=== PATIENT | male | born 1965 | race Caucasian/White ===

== ENCOUNTER → 2017-08-26 | Outpatient (CLI) | payer MEDICARE ==
--- NOTE | 2017-08-27 15:06 | CT ---
EXAMINATION TYPE: CT abdomen pelvis wo con DATE OF EXAM: 08/26/2017 COMPARISON: NONE HISTORY: Rectal cancer. CT DLP: 1146 mGycm Automated exposure control for dose reduction was used. TECHNIQUE: Helical acquisition of images was performed from the lung bases through the pelvis withou t the utilization of oral contrast per protocol and without intravenous contrast. FINDINGS: Lack of intravenous contrast limits evaluation of the solid viscera. LUNG BASES: There is a 2 mm pulmonary nodule that is pleural-based along the left hemidiaphragm on se yovany 4 image 4 and series 5 image 75. LIVER/GB: Hepatic parenchyma is diffusely hypoattenuated in comparison to that of the spleen, most co mmonly seen in hepatic steatosis. This finding and lack of intravenous contrast limits evaluation for hepatic masses. No however there is a 1.4 cm ill-defined lesion of the left hepatic lobe that approa ches fluid attenuation but is not compatible with a simple cyst. This is seen on series 3 image 11. N o intrahepatic biliary ductal dilatation. Gallbladder surgically absent. PANCREAS: No significant abnormality is seen. No pancreatic ductal dilatation. SPLEEN: No significant abnormality is seen. No splenomegaly. ADRENALS: No nodularity or thickening. KIDNEYS: Unremarkable unenhanced morphology. FREE AIR: No free air is visualized ADENOPATHY: Prominent gastrohepatic lymph node measures 7 mm in short axis on series 3 image 12. Few prominent periportal lymph nodes are seen that are not enlarged with the portacaval lymph node measu ring 9 mm in short axis and additional adjacent portal caval lymph node measuring 9 mm in short axis as on series 3 image 21. Mildly enlarged peripancreatic lymph node situated between the descending du odenum and pancreas measures 1.3 cm in short axis on series 3 image 26. URINARY BLADDER: Incompletely distended. Wall thickening is likely attributable to incomplete disten tion.. OSSEOUS STRUCTURES: There is a dextroscoliosis of the lumbar spine. No suspicious osseous lesions ar e seen. Extensive multilevel degenerative changes are present of the visualized lumbosacral spine. Th ere is concern for bilateral avascular necrosis of the femoral heads versus insufficiency fractures s uch as on series 5 image 71. No subchondral collapse. BOWEL: Diffuse thickening of the gastric fundus and rugal folds may relate to gastritis. Originating approximately 10 cm from the anal verge there is circumferential wall thickening of the r ectosigmoid colon measuring approximately 7 cm in length with thickness measuring up to 1.2 cm. There is haziness of the surrounding mesorectal fat and suspicious prominent adenopathy measuring up to 7 mm on series 3 image 63. No presacral soft tissue thickening is seen. Multiple colonic diverticula are noted. No evidence of bowel dilatation. Appendix is air-filled and w ithin normal limits. OTHER: There is diastases recti without ventral hernia. Moderate calcific atheromatous changes are se en of the abdominal aorta and its branches. Abdominal aorta is of normal course and caliber. IMPRESSION: 1. CIRCUMFERENTIAL RECTOSIGMOID MUCOSAL THICKENING MEASURING 7 MM IN LENGTH APPROXIMATELY 10 CM FROM THE ANAL VERGE, THOUGHT TO RELATE TO THIS PATIENT'S KNOWN CARCINOMA, WITH ASSOCIATED FAT STRANDING OF THE MESORECTAL FASCIA AND SOLITARY SUSPICIOUS PROMINENT 7 MM REGIONAL LYMPH NODE CONTAINED WITHIN TH E MESORECTAL FASCIA. 2. 1.4 CM ILL-DEFINED LEFT HEPATIC LOBE LESION THAT ALTHOUGH APPROACHES [place] UNITS OF SIMPLE CY ST IS NOT ENTIRELY COMPATIBLE WITH A SIMPLE CYST. THERE IS A POTENTIAL FOR NECROTIC METASTASIS AND FU RTHER EVALUATION IS RECOMMENDED WITH EITHER ENHANCED MR OR PET SCAN. FINDINGS ARE SUPERIMPOSED UPON H EPATIC STEATOSIS. 3. FINDINGS CONCERNING FOR BILATERAL AVASCULAR NECROSIS OF THE FEMORAL HEADS WITHOUT CURRENT SUBCHOND RAL COLLAPSE. 4. DIFFUSE GASTRIC FUNDAL RUGAL FOLD THICKENING, MOST COMMONLY RELATING TO GASTRITIS. 5. 2 MM PLEURAL-BASED PULMONARY NODULE, UNLIKELY TO RELATE TO METASTASIS. 6. MILDLY ENLARGED PERIPANCREATIC LYMPH NODE AND PROMINENT PORTACAVAL LYMPH NODE.
== END | disposition home or self-care (01) ==
LOC: RADCTMAIN 15:14
PROVIDERS: ATTEND Surgery
DX: C20 Malignant neoplasm of rectum (principal); K76.9 Liver disease, unspecified; K63.89 Other specified diseases of intestine; Z91.048 Other nonmedicinal substance allergy status; R59.1 Generalized enlarged lymph nodes
CPT/HCPCS: 74176

== ENCOUNTER → 2017-09-04 | Outpatient (CLI) | payer MEDICARE | END | disposition home or self-care (01) | LOC: RADPETMAIN 10:37 | PROVIDERS: ATTEND Internal Medicine Hematology & Oncology | DX: Z53.9 Procedure and treatment not carried out, unspecified reason (principal) ==

== ENCOUNTER → 2017-09-11 | Outpatient (CLI) | payer MEDICARE ==
--- NOTE | 2017-09-12 15:19 | PE ---
EXAMINATION TYPE: PET CT fusion skull to thigh DATE OF EXAM: 09/11/2017 COMPARISON: CT abdomen and pelvis August 26, 2017 HISTORY: Rectal cancer initial staging study after biopsy 3 weeks ago. TECHNIQUE: Following the intravenous administration of 13.008 mCi of F-18 FDG, whole body images are performed from the skull base to the midthigh. Images are reviewed on the computer in the coronal, axial, and sagittal planes. Reconstructed rotating images are created on independent workstation and reviewed on the computer. A noncontrast CT is performed in conjunction with the PET scan. SCAN: Initial Scan FINDINGS: SKULL BASE AND NECK: No suspicious hypermetabolic uptake is seen to suggest neck adenopathy. CHEST, MEDIASTINUM, AND HILAR REGION: No suspicious hypermetabolic uptake is seen. Small calcified gr anuloma posterior left lung base axial image 117 noted. ABDOMEN AND PELVIS: There is moderate eccentric wall thickening with abnormal hypermetabolic uptake n ear the sigmoid rectal junction on axial image 199, max SUV is. This likely corresponds to biopsy-pro natalia malignancy. This is immediately posterior to the bladder making evaluation slightly suboptimal. M ax SUV is 13.52. Craniocaudal length of tumor is roughly 4 to 5 cm on coronal and sagittal images. Th ere is mild haziness or fat stranding surrounding tissue . There is prominent adjacent subcentimeter lymph node right posterior region axial image 211. No adjacent hypermetabolic or greater than 1 cm ad enopathy is clearly seen however. No additional areas of abnormal hypermetabolic uptake are clearly identified. Some focal areas of bow el appear to correspond to diverticula scattered throughout the colon. OSSEOUS STRUCTURES: No suspicious hypermetabolic uptake is present. OTHER CT: A few additional smaller calcified nodules are granulomas in the right lower lobe are prese nt. There is three-vessel coronary artery calcification and/or stents appreciated. Liver is isodense relative to spleen consistent with fatty infiltration. Cholecystectomy clips are pr esent. Multilevel surgical change in the lumbar spine with posterior decompression as there are bilateral la minectomy defects and spinous process resection. There is moderate to severe multilevel spurring and disc space narrowing. There is underlying dextroconvex scoliosis. There is endplates sclerosis. There is loss of normal lumbar lordosis. IMPRESSION: Primary tumor or neoplasm near sigmoid rectal junction. No metastatic disease is clearly evident.
== END | disposition home or self-care (01) ==
LOC: RADPETMAIN 07:03
PROVIDERS: ATTEND Internal Medicine Hematology & Oncology
DX: C20 Malignant neoplasm of rectum (principal)
CPT/HCPCS: 78815; A9552

== ENCOUNTER 2018-04-06 08:44 | Day surgery (SDC) | payer MEDICARE ==
[2018-04-01 10:58] VITALS: BMI 35.9
[~2018-04-06 08:44] MED LIST: DEXAMETHASONE SOD PHOSPHATE 10 MG/ML 1 ML VIAL IV ONE; HEPARIN SODIUM,PORCINE 5,000 UNIT/ML 1 ML VIAL SQ ONE; HYDROmorphone 0.5 MG/0.5 ML SYRINGE IVP PRN; LACTATED RINGERS 1,000 ML IV SCH; MIDAZOLAM 2 MG/2 ML VIAL IV PRN; ONDANSETRON 4 MG/2 ML VIAL IVP ONE; Pre Op ABX Message 1 EACH MISC MISCELLANE ONE; SCOPOLAMINE 1.5MG/72HR PATCH TRANSDERM ONE
[2018-04-06 09:46] VITALS: TEMP 97
[2018-04-06] MEDS ORDERED: LIDOCAINE 1% 20 ML VIAL (10MG/ML) FOR IV START INTRADERMA ONE (09:58)
[2018-04-06 10:20] LABS: Glucose,Whole Blood 135 mg/dL (75-99)
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
[2018-04-06] MEDS ORDERED: MIDAZOLAM 2 MG/2 ML VIAL ONE (10:56)
[2018-04-06] MEDS ORDERED: ceFAZolin 1,000 MG VIAL ONE (10:56)
[2018-04-06] MEDS ORDERED: fentaNYL (PF) 50 MCG/ML 2 ML AMP ONE (10:56)
[2018-04-06] MEDS ORDERED: LIDOCAINE 1% INJ 10MG/ML (20 ML MDV) ONE (10:56)
[2018-04-06] MEDS ORDERED: ePHEDrine SULFATE/0.9% NACL/PF 50 MG/5 ML SYRINGE IV ONE (10:56)
[2018-04-06] MEDS ORDERED: PROPOFOL 10 MG/ML 20 ML VIAL IV ONE (10:56)
[2018-04-06] MEDS ORDERED: SODIUM CHLORIDE 0.9% 50 ML with ceFAZolin 3,000 MG IV ONE ×2 (11:29)
[2018-04-06] MEDS ORDERED: LIDOCAINE 1% INJ 10MG/ML (20 ML MDV) SQ ONE (11:34)
[2018-04-06] MEDS ORDERED: HEPARIN SODIUM,PORCINE 100 UNIT/ML 5 ML VIAL IV ONE (11:34)
[2018-04-06] MEDS ORDERED: NALOXONE 0.4 MG/ML 1 ML VIAL IV PRN (11:50)
[2018-04-06] MEDS ORDERED: HYDROcodone/APAP 5-325MG 1 EACH TAB PO PRN (11:50)
--- NOTE | 2018-04-06 11:52 | P.OP ---
Date of Procedure: 04/06/18 Procedure(s) Performed: PREOPERATIVE DIAGNOSIS: Rectal cancer POSTOPERATIVE DIAGNOSIS: Same PROCEDURE: Port-A-Cath placement SURGEON: Naz EBL: Minimal ANESTHESIA: Sedation COMPLICATIONS: None OPERATIVE PROCEDURE: Patient was brought and placed on the operative table in the supine position. The patient was sedated per anesthesia that time. The chest and neck were prepped and draped in usual sterile fashion. The ultrasound probe was used to identify the location of the right internal jugular vein. The skin was localized with lidocaine. The Seldinger needle was advanced into the IJ under ultrasound guidance. The wire was advanced through the needle under fluoroscopic guidance into the superior vena cava. A port pocket was created in the right infraclavicular location. The catheter was tunneled from the wire entrance site to the port pocket. The port was then connected to the catheter. The dilator introducer was threaded over the guidewire. The guidewire and dilator were then removed. The catheter was advanced through the introducer and introducer was then removed. The tip was seen to be in the right atrial junction. Port was flushed with both saline and a Hep-Lock solution. There was good flow both in and out of the port. The port was sutured in underlying tissues using 3-0 silk sutures. The subcutaneous tissues were reapproximated using 3-0 Vicryl sutures and the skin at both locations using 4-0 Monocryl sutures. Skin glue and sterile dressings then applied. DISPOSITION: Stable to recovery room
[2018-04-06 12:16] VITALS: RESP 18
--- NOTE | 2018-04-06 12:19 | FL ---
EXAMINATION TYPE: FL guided central line placemt DATE OF EXAM: 04/06/2018 CLINICAL HISTORY: Rectal cancer TECHNIQUE: Fluoroscopy. COMPARISON: None. FINDINGS: Fluoroscopic guidance was provided during Mediport catheter insertion procedure performed by Dr. Childs. A total of 1 second of fluoroscopic time is utilized during the procedure and single s pot fluoroscopic intraoperative image is acquired. Single image acquired shows portions of right inte rnal jugular Mediport catheter. IMPRESSION: As Above.
[2018-04-06 12:38] VITALS: PULSE 57
[2018-04-06 12:49] VITALS: BP 124/66
--- NOTE | 2018-04-06 12:50 | XR ---
EXAMINATION TYPE: [facility] DATE OF EXAM: 04/06/2018 COMPARISON: PET/CT September 11, 2017 HISTORY: Rectal cancer. TECHNIQUE: Single AP portable frontal upright view of the chest is obtained. FINDINGS: There is new right internal jugular Mediport catheter terminating at cavoatrial junction. There is background mild chronic emphysematous change without suspicious air space opacity, pleural e ffusion, or pneumothorax seen. Slightly elevated left hemidiaphragm is redemonstrated. The cardiac s ilhouette size is stable and mildly enlarged. Anterior fusion plate lower cervical spine is redemonst rated. IMPRESSION: New right internal jugular Mediport catheter terminating at cavoatrial junction. No pneum othorax is evident.
== END 2018-04-06 13:11 | disposition home or self-care (01) ==
LOC: OR 08:44
PROVIDERS: ATTEND Surgery
DX: C20 Malignant neoplasm of rectum (principal); E11.9 Type 2 diabetes mellitus without complications; K21.9 Gastro-esophageal reflux disease without esophagitis; E78.5 Hyperlipidemia, unspecified; I10 Essential (primary) hypertension; G47.30 Sleep apnea, unspecified; Z93.2 Ileostomy status; Z92.21 Personal history of antineoplastic chemotherapy; Z92.3 Personal history of irradiation; G89.4 Chronic pain syndrome; Z95.5 Presence of coronary angioplasty implant and graft; F41.9 Anxiety disorder, unspecified; F32.9 Major depressive disorder, single episode, unspecified; Z87.891 Personal history of nicotine dependence; Z79.899 Other long term (current) drug therapy; Z79.84 Long term (current) use of oral hypoglycemic drugs; Z79.02 Long term (current) use of antithrombotics/antiplatelets; Z79.82 Long term (current) use of aspirin; Z79.891 Long term (current) use of opiate analgesic; Z88.8 Allergy status to other drugs, medicaments and biological substances; Z91.041 Radiographic dye allergy status; Z91.013 Allergy to seafood
CPT/HCPCS: 77001; 36571; 76937; C1788; J2250; J1644; J1642; J1100; J2405; J0690 ×2; J2001; J3010; J2704

== ENCOUNTER → 2018-11-01 | Outpatient (CLI) | payer MEDICARE ==
--- NOTE | 2018-11-02 15:08 | CT ---
EXAMINATION TYPE: CT ChestAbdPelvis w con DATE OF EXAM: 11/01/2018 COMPARISON: PET/CT dated 09/11/[address] abdomen pelvis dated 08/26/2017. HISTORY: Rectal CA CT DLP: 2013.1 mGycm. Automated Exposure Control for Dose Reduction was Utilized. CONTRAST: CT scan of the thorax, abdomen and pelvis is performed with IV Contrast, patient injected with 100 mL of Isovue 300. FINDINGS: The top lift and automatic window repairer image demonstrates a reverse S-shaped scoliosis of the thoracolumbar spine. LUNGS: There is mild centrilobular emphysematous changes of the lungs. There is a 5 mm pulmonary nodu le within the right middle lobe on series 4 image 40 that is solid in nature. There is a 2 mm solid p ulmonary nodule in the right middle lobe near the interlobar fissure on image 42. 2 mm pulmonary nodu les of the right lung base and lingula are also seen on image 42 and 43, marked on the images. Within the lingula there is a 5 mm pulmonary nodule on image 41. 3 mm solid pulmonary nodule the right lowe r lobe is marked on image 46. 2 mm pulmonary nodules present on image 50. Calcified benign granuloma of the left lung base is also seen on this image. Punctate subpleural density of the right middle lob e is seen on image 44. Questionable pulmonary nodules adjacent vasculature are seen in image 27 in th e right upper lobe. Benign granulomas also seen of the left lung apex on image 24. Granuloma again is seen on image 36, benign 4 mm solid pulmonary nodule at the left lung base is present on image 53. B enign granuloma of the superior left lower lobe is marked on image 28. These punctate nodules appear stable from the prior of 09/12/2017 and were below the threshold of PET CT at that time. There is no pleural effusion or pneumothorax seen. The tracheobronchial tree is patent. MEDIASTINUM: There are no greater than 1 cm hilar or mediastinal lymph nodes. No pericardial effusi on is seen. LIVER/GB: There is stable appearance of the approximately 1.4 cm ill-defined area of hypoattenuation in the left hepatic lobe marked on series 3 image 55 and series 7 image 9 as well as series 3 image 5 6 and series 7 image 10. No additional hepatic lesions are identified. Gallbladder is surgically abse nt. Mild degree hepatic steatosis again noted. PANCREAS: No significant abnormality is seen. SPLEEN: No significant abnormality is seen. No splenomegaly. ADRENALS: No new nodules or masses. KIDNEYS: Kidneys enhance and excrete symmetrically with no evidence of hydronephrosis. Too small to a ccurately characterize exophytic 9 mm renal lesion projects from the posterior medial right midpole, likely a small cyst. BOWEL: No dilated large or small bowel. Parastomal hernia containing multiple loops of small bowel h as a wide neck measuring up to 4.2 cm. Anastomotic site is seen of the rectosigmoid junction. Presacr al edema and soft tissue fullness measure up to 1.4 cm in thickness and likely relate to post therapy change. There are scattered colonic diverticula without pericolonic fat stranding. LYMPH NODES: No greater than 1cm abdominal or pelvic lymph nodes are appreciated. OSSEOUS STRUCTURES: Moderate multilevel degenerative change of the spine is again noted. No new suspi cious osseous lesions are evident. Postsurgical change of the cervical spine is noted with anterior c ervical fusion device present. Scoliosis as described above. There appears to be avascular necrosis o f the bilateral femoral heads without subchondral collapse. OTHER: Circumferential thickening of the urinary bladder wall is most pronounced at its ventral aspec t measuring up to 9 mm in thickness, likely related to incomplete distention although correlation for cystitis is recommended. Tiny urachal remnant is also incidentally seen. IMPRESSION: 1. Anastomotic site at the rectosigmoid junction from surgical resection of the primary rectal carcin daphne measured approximately 10 cm at the anal verge on the original CT. Adjacent presacral edema/soft tissue prominence is likely related to posttreatment change. No new findings to suggest metastasis wi thin the chest, abdomen or pelvis. Multiple stable pulmonary nodules may be on the basis of granuloma tous disease as some of these are calcified. Surveillance is recommended. 2. Stable nonspecific 1.4 cm solitary hepatic lesion in comparison to the most remote available exam of 08/26/2017. 3. Urinary bladder wall thickening. Correlate for cystitis versus incomplete distention. 4. Parastomal hernia containing loops of small bowel with no dilation to suggest incarceration or obs truction on CT.
== END | disposition home or self-care (01) ==
LOC: RADPROMAIN 07:10
PROVIDERS: ATTEND Internal Medicine Hematology & Oncology
DX: Z03.89 Encounter for observation for other suspected diseases and conditions ruled out (principal); R91.8 Other nonspecific abnormal finding of lung field; K76.9 Liver disease, unspecified; R93.41 Abnormal radiologic findings on diagnostic imaging of renal pelvis, ureter, or bladder; K43.5 Parastomal hernia without obstruction or gangrene; Z98.0 Intestinal bypass and anastomosis status; Z91.013 Allergy to seafood; Z91.041 Radiographic dye allergy status; Z85.048 Personal history of other malignant neoplasm of rectum, rectosigmoid junction, and anus; Z95.828 Presence of other vascular implants and grafts
CPT/HCPCS: 82565; 84520; 71260; 74177; 36415; Q9967

== ENCOUNTER 2019-04-20 16:41 | Inpatient (IN) | payer MEDICARE ==
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
[2019-04-20 17:31] LABS: Anisocytosis Slight; Basophils % (A) 1 %; Eosinophils # (A) 0.1 k/uL (0-0.7); Eosinophils % (A) 1 %; HCT 31.3 % (39.0-53.0); HGB 9.9 gm/dL (13.0-17.5); Hypochromasia Moderate; Lymphocytes # (A) 0.5 k/uL (1.0-4.8); Lymphocytes % (A) 11 %; MCH 28.6 pg (25.0-35.0); MCHC 31.6 g/dL (31.0-37.0); MCV 90.5 fL (80.0-100.0); Mean Platelet Volume 13.9; Monocytes # (A) 0.3 k/uL (0-1.0); Monocytes % (A) 7 %; Neutrophils # (A) 3.2 k/uL (1.3-7.7); Neutrophils % (A) 78 %; Platelet Count 108 k/uL (150-450); RBC 3.46 m/uL (4.30-5.90); RDW 18.3 % (11.5-15.5); WBC 4.1 k/uL (3.8-10.6)
[2019-04-20 17:47] LABS: INR 1.2 (<1.2); Partial Thromboplastin Time 29.2 sec (22.0-30.0); Prothrombin Time 12.7 sec (9.0-12.0)
[2019-04-20 17:49] LABS: Albumin 3.6 g/dL (3.5-5.0); Potassium 3.3 mmol/L (3.5-5.1); Total Bilirubin 1.3 mg/dL (0.2-1.3); Total Protein 6.9 g/dL (6.3-8.2)
[2019-04-20 17:51] LABS: Calcium 4.4 mg/dL (8.4-10.2)
[2019-04-20] MEDS ORDERED: HYDROmorphone 0.5 MG/0.5 ML SYRINGE IVP STA (18:03)
[2019-04-20] MEDS ORDERED: CALCIUM CHLORIDE 100 MG/ML 10 ML SYRINGE IVP STA ×2 (18:04→21:54)
[2019-04-20 18:06] LABS: Hypochromasia (M) Present; Polychromasia Present
[2019-04-20 18:07] LABS: Large Platelets Present; Ovalocytes Present
[2019-04-20] MEDS ORDERED: MAGNESIUM SULFATE-D5W PMX 1 GM in DEXTROSE/WATER 1 100ML.BAG IVPB ONE (19:54)
--- NOTE | 2019-04-20 19:54 | XR ---
EXAMINATION TYPE: XR chest 2V DATE OF EXAM: 04/20/2019 COMPARISON: 04/06/2018 INDICATION: Difficulty breathing TECHNIQUE: Frontal and lateral views of the chest are obtained. FINDINGS: The heart size is normal. The pulmonary vasculature is normal. The lungs are clear. Heart is present on the right with the tip in the distal superior vena cava. No pneumothorax is evident. No acute posttraumatic changes are evident IMPRESSION: 1. No acute pulmonary process.
--- NOTE | 2019-04-20 19:55 | XR ---
EXAMINATION TYPE: XR foot limited RT DATE OF EXAM: 04/20/2019 COMPARISON: None HISTORY: Trauma, pain TECHNIQUE: Three-view right foot FINDINGS: There is a suspected transverse fracture at the base of the fourth proximal phalanx. Additi onal fractures are not identified. Soft tissue swelling is over the fourth and fifth digits. Hammertoes are present. IMPRESSION: 1. Suspected transverse fracture base of the proximal phalanx fourth digit. 2. Soft tissue swelling fourth and fifth digits. 3. Follow-up exams can be performed 7-10 days from acute trauma for continued pain.
--- NOTE | 2019-04-20 19:56 | CT ---
EXAMINATION TYPE: CT brain antonio wo con DATE OF EXAM: 04/20/2019 COMPARISON: 02/16/2019 HISTORY: Pain after fall CT DLP: 2400.3 mGycm Automated exposure control for dose reduction was used. TECHNIQUE: CT scan of the head and cervical spine are performed without contrast. FINDINGS: There is no acute intracranial hemorrhage, mass effect, or midline shift identified. The ventricles and sulci are within normal limits in size. The globes are intact and the visualized sin uses are clear. Cervical spine is visualized in its entirety from C1 through upper thoracic levels and demonstrates s atisfactory alignment without evidence of acute fracture or dislocation. Prevertebral soft tissue ap pears within normal limits. Moderate cervical spondylosis changes noted. The C6-T1 anterior fusion pl ate is intact. The C1-C2 articulation is unremarkable. Incidental: The left maxillary sinus is opacified, can correlate with a clinical diagnosis of left ma xillary sinusitis. IMPRESSION: 1. There is no acute fracture or dislocation evident in the cervical spine. 2. No acute intracranial hemorrhage, mass effect, or midline shift is seen.
[2019-04-20 20:45] LABS: Appearance,Urine Clear (Clear); Bacteria,Urine Rare /hpf; Bilirubin,Urine Negative (Negative); Blood,Urine Trace (Negative); Color,Urine Yellow; Glucose,Urine (UA) Negative (Negative); Hyaline Casts,Urine 3 /lpf (0-2); Ketones,Urine 1+ (Negative); Leukocyte Esterase,Urine Large (Negative); Mucus,Urine Rare /hpf; Nitrite,Urine Negative (Negative); Protein,Urine 1+ (Negative); RBC,Urine 3 /hpf (0-5); Specific Gravity,Urine 1.016 (1.001-1.035); Squamous Epithelial Cell,Urine <1 /hpf (0-4); WBC,Urine 135 /hpf (0-5)
[2019-04-20] MEDS ORDERED: SODIUM CHLORIDE 0.9% 1,000 ML IV ONE (20:48)
[2019-04-20] MEDS ORDERED: cefTRIAXone IN SWFI 1,000 MG/10 ML SYRINGE IVP STA (20:50)
[2019-04-21 06:10] LABS: Glucose,Whole Blood 79 mg/dL (75-99)
[2019-04-21 09:41] LABS: Anisocytosis Slight; Basophils % (A) 0 %; Eosinophils % (A) 1 %; HCT 29.5 % (39.0-53.0); HGB 9.3 gm/dL (13.0-17.5); Hypochromasia Marked; Lymphocytes # (A) 0.5 k/uL (1.0-4.8); Lymphocytes % (A) 11 %; MCHC 31.5 g/dL (31.0-37.0); MCV 92.1 fL (80.0-100.0); Monocytes # (A) 0.3 k/uL (0-1.0); Monocytes % (A) 6 %; Neutrophils # (A) 3.3 k/uL (1.3-7.7); Neutrophils % (A) 80 %; RDW 18.3 % (11.5-15.5); WBC 4.2 k/uL (3.8-10.6)
[2019-04-21 09:53] LABS: African American GFR (CKD) >90 (>60 ml/min/1.73 sqM); Anion Gap 11 mmol/L; Blood Urea Nitrogen 19 mg/dL (9-20); Carbon Dioxide 30 mmol/L (22-30); Chloride 104 mmol/L (98-107); Glucose 91 mg/dL (74-99); Magnesium 1.6 mg/dL (1.6-2.3); Non-African American GFR(CKD) 81 (>60 ml/min/1.73 sqM); Potassium 3.6 mmol/L (3.5-5.1); Sodium 145 mmol/L (137-145)
[2019-04-21 10:09] LABS: Calcium 5.3 mg/dL (8.4-10.2)
[2019-04-21] MEDS ORDERED: CALCIUM GLUCONATE 2 GM in SODIUM CHLORIDE 0.9% 100 ML IVPB ONE (10:19)
[2019-04-21] MEDS ORDERED: PREGABALIN 100 MG CAP PO PRN (10:19)
[2019-04-21] MEDS ORDERED: DIPHENOX-ATROP 2.5-0.025 MG 1 EACH TAB PO PRN (10:19)
[2019-04-21] MEDS: METOPROLOL TARTRATE 50 MG TAB PO SCH ×2 (11:06→21:19)
[2019-04-21] MEDS: NICOTINE 21MG/24HR PATCH TRANSDERM SCH ×2 (11:06→11:11)
[2019-04-21] MEDS: HYDROcodone/APAP 10-325MG 1 EACH TAB PO PRN (11:06)
[2019-04-21] MEDS: CLOPIDOGREL 75 MG TAB PO SCH (11:07)
[2019-04-21] MEDS: ESCITALOPRAM 20 MG TAB PO SCH ×2 (11:07→21:20)
[2019-04-21 11:15] LABS: Platelet Count 88 k/uL (150-450); Poikilocytosis (M) Present; Polychromasia Present
[2019-04-21 12:02] LABS: Glucose,Whole Blood 115 mg/dL (75-99)
[2019-04-21] MEDS: CALCIUM CARB-VIT D 500MG-200UN 1 EACH TAB PO SCH ×2 (12:28→17:47)
[2019-04-21] MEDS: metFORMIN 500 MG TAB PO SCH ×2 (12:28→17:47)
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
[2019-04-21 16:56] LABS: Glucose,Whole Blood 107 mg/dL (75-99)
[2019-04-21] MEDS: CHOLESTYRAMINE (WITH SUGAR) 4 GM PACKET PO SCH ×2 (17:47→21:19)
[2019-04-21 20:41] LABS: Glucose,Whole Blood 145 mg/dL (75-99)
[2019-04-21] MEDS: HEPARIN SODIUM,PORCINE 5,000 UNIT/ML 1 ML VIAL SQ SCH (21:19)
[2019-04-21] MEDS: FAMOTIDINE 20 MG TAB PO SCH (21:19)
[2019-04-22 06:08] LABS: Glucose,Whole Blood 112 mg/dL (75-99)
[2019-04-22 06:32] LABS: ALT 12 U/L (4-49); AST 26 U/L (17-59); African American GFR (CKD) >90 (>60 ml/min/1.73 sqM); Alkaline Phosphatase 72 U/L (38-126); Anion Gap 5 mmol/L; Blood Urea Nitrogen 13 mg/dL (9-20); Carbon Dioxide 31 mmol/L (22-30); Chloride 104 mmol/L (98-107); Glucose 104 mg/dL (74-99); Non-African American GFR(CKD) >90 (>60 ml/min/1.73 sqM); Potassium 2.9 mmol/L (3.5-5.1); Sodium 140 mmol/L (137-145); Total Bilirubin 0.9 mg/dL (0.2-1.3); Total Protein 6.1 g/dL (6.3-8.2)
[2019-04-22] MEDS: CALCIUM CARB-VIT D 500MG-200UN 1 EACH TAB PO SCH ×3 (06:35→17:59)
[2019-04-22] MEDS: metFORMIN 500 MG TAB PO SCH ×3 (06:35→17:59)
[2019-04-22] MEDS: HYDROcodone/APAP 10-325MG 1 EACH TAB PO PRN ×2 (06:38→20:25)
[2019-04-22 07:02] LABS: Calcium 5.9 mg/dL (8.4-10.2)
[2019-04-22] MEDS ORDERED: PANTOPRAZOLE 40 MG TABLET PO SCH (07:30)
[2019-04-22] MEDS: FAMOTIDINE 20 MG TAB PO SCH ×2 (08:12→20:25)
[2019-04-22] MEDS: ATORVASTATIN 20 MG TAB PO SCH (08:12)
[2019-04-22] MEDS: METOPROLOL TARTRATE 50 MG TAB PO SCH ×2 (08:13→20:25)
[2019-04-22] MEDS: CLOPIDOGREL 75 MG TAB PO SCH (08:13)
[2019-04-22] MEDS: NICOTINE 21MG/24HR PATCH TRANSDERM SCH (08:13)
[2019-04-22] MEDS: ESCITALOPRAM 20 MG TAB PO SCH ×2 (08:13→20:25)
[2019-04-22] MEDS: HEPARIN SODIUM,PORCINE 5,000 UNIT/ML 1 ML VIAL SQ SCH ×2 (08:13→20:27)
[2019-04-22] MEDS: CHOLESTYRAMINE (WITH SUGAR) 4 GM PACKET PO SCH ×3 (08:13→20:25)
[2019-04-22] MEDS: CALCIUM GLUCONATE 2 GM in SODIUM CHLORIDE 0.9% 100 ML IVPB SCH ×2 (09:19→11:48)
[2019-04-22] MEDS: POTASSIUM CHLORIDE ER 20 MEQ TAB.ER PO SCH ×3 (11:47→17:59)
[2019-04-22] MEDS: ALBUTEROL NEBULIZED 2.5 MG/3 ML INHALATION PRN ×2 (11:59→15:40)
[2019-04-22 12:01] LABS: Glucose,Whole Blood 103 mg/dL (75-99)
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
[2019-04-22 17:20] LABS: Glucose,Whole Blood 123 mg/dL (75-99)
[2019-04-22 20:37] LABS: Glucose,Whole Blood 138 mg/dL (75-99)
[2019-04-23] MEDS: HYDROcodone/APAP 10-325MG 1 EACH TAB PO PRN (03:06)
[2019-04-23 06:06] LABS: Glucose,Whole Blood 96 mg/dL (75-99)
[2019-04-23 06:35] LABS: ALT 11 U/L (4-49); AST 22 U/L (17-59); African American GFR (CKD) >90 (>60 ml/min/1.73 sqM); Albumin 3.2 g/dL (3.5-5.0); Alkaline Phosphatase 62 U/L (38-126); Anion Gap 8 mmol/L; Blood Urea Nitrogen 12 mg/dL (9-20); Calcium 6.8 mg/dL (8.4-10.2); Carbon Dioxide 27 mmol/L (22-30); Chloride 109 mmol/L (98-107); Glucose 93 mg/dL (74-99); Magnesium 1.5 mg/dL (1.6-2.3); Non-African American GFR(CKD) 90 (>60 ml/min/1.73 sqM); Potassium 4.1 mmol/L (3.5-5.1); Sodium 144 mmol/L (137-145); Total Bilirubin 0.9 mg/dL (0.2-1.3); Total Protein 6.4 g/dL (6.3-8.2)
[2019-04-23] MEDS: metFORMIN 500 MG TAB PO SCH ×2 (06:39→13:32)
[2019-04-23] MEDS: CALCIUM CARB-VIT D 500MG-200UN 1 EACH TAB PO SCH ×2 (06:39→13:32)
[2019-04-23] MEDS: CHOLESTYRAMINE (WITH SUGAR) 4 GM PACKET PO SCH (08:50)
[2019-04-23] MEDS: ESCITALOPRAM 20 MG TAB PO SCH (08:52)
[2019-04-23] MEDS: CLOPIDOGREL 75 MG TAB PO SCH (08:52)
[2019-04-23] MEDS: METOPROLOL TARTRATE 50 MG TAB PO SCH (08:52)
[2019-04-23] MEDS: ATORVASTATIN 20 MG TAB PO SCH (08:52)
[2019-04-23] MEDS: NICOTINE 21MG/24HR PATCH TRANSDERM SCH ×2 (08:52→08:57)
[2019-04-23] MEDS: HEPARIN SODIUM,PORCINE 5,000 UNIT/ML 1 ML VIAL SQ SCH (08:53)
[2019-04-23] MEDS: FAMOTIDINE 20 MG TAB PO SCH (08:53)
[2019-04-23 09:05] VITALS: BP 137/65; PULSE 64; RESP 18; TEMP 98
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
[2019-04-23 11:17] VITALS: BMI 32.0
[2019-04-23 11:50] LABS: Glucose,Whole Blood 112 mg/dL (75-99)
[2019-04-23] MEDS: MAGNESIUM SULFATE-D5W PMX 1 GM in DEXTROSE/WATER 1 100ML.BAG IVPB SCH ×2 (13:31→15:38)
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
[2019-04-24] MEDS ORDERED: MAGNESIUM OXIDE 400 MG TAB PO SCH (09:00)
== END 2019-04-23 17:25 | disposition home health service (06) | DRG 690 ==
LOC: EC 16:41 → 3SCARD 20:48
PROVIDERS: ADMIT Internal Medicine; ATTEND Internal Medicine
DX: N39.0 Urinary tract infection, site not specified (principal); F33.9 Major depressive disorder, recurrent, unspecified; N17.9 Acute kidney failure, unspecified; B95.2 Enterococcus as the cause of diseases classified elsewhere; E11.9 Type 2 diabetes mellitus without complications; E78.5 Hyperlipidemia, unspecified; E83.42 Hypomagnesemia; E83.51 Hypocalcemia; E87.6 Hypokalemia; F17.200 Nicotine dependence, unspecified, uncomplicated; F41.9 Anxiety disorder, unspecified; G47.33 Obstructive sleep apnea (adult) (pediatric); G89.4 Chronic pain syndrome; I10 Essential (primary) hypertension; I25.10 Atherosclerotic heart disease of native coronary artery without angina pectoris; K21.9 Gastro-esophageal reflux disease without esophagitis; R29.6 Repeated falls; S92.911A Unspecified fracture of right toe(s), initial encounter for closed fracture; W19.XXXA Unspecified fall, initial encounter; Z79.02 Long term (current) use of antithrombotics/antiplatelets; Z79.82 Long term (current) use of aspirin; Z79.84 Long term (current) use of oral hypoglycemic drugs; Z79.899 Other long term (current) drug therapy; Z83.3 Family history of diabetes mellitus; Z85.048 Personal history of other malignant neoplasm of rectum, rectosigmoid junction, and anus; Z92.21 Personal history of antineoplastic chemotherapy; Z92.3 Personal history of irradiation; Z93.2 Ileostomy status; Z95.5 Presence of coronary angioplasty implant and graft; Z99.3 Dependence on wheelchair; Z79.891 Long term (current) use of opiate analgesic; Z88.8 Allergy status to other drugs, medicaments and biological substances; Z91.041 Radiographic dye allergy status; Z99.89 Dependence on other enabling machines and devices; Z90.49 Acquired absence of other specified parts of digestive tract
CPT/HCPCS: 36415; 70450; 71046; 72125; 80048; 80053; 81001; 82306; 82330; 82533; 82652; 83735; 83970; 84100; 85025; 85610; 85730; 87040; 87077; 87086; 87186; 94640; 94760; 96361; 96365; 96366; 96375; 96376; 99285

== ENCOUNTER 2019-07-10 14:06 | Inpatient (IN) | payer MEDICARE ==
[2019-07-10 15:08] LABS: INR 1.2 (<1.2); Partial Thromboplastin Time 27.3 sec (22.0-30.0); Prothrombin Time 12.5 sec (9.0-12.0)
[2019-07-10 15:15] LABS: Anisocytosis Slight; HCT 35.2 % (39.0-53.0); HGB 10.6 gm/dL (13.0-17.5); Hypochromasia Marked; MCH 26.8 pg (25.0-35.0); MCV 89.1 fL (80.0-100.0); Mean Platelet Volume 12.2; Platelet Count 169 k/uL (150-450); Poikilocytosis Slight; RBC 3.95 m/uL (4.30-5.90); RDW 18.4 % (11.5-15.5); WBC 8.2 k/uL (3.8-10.6)
[2019-07-10 15:24] LABS: Albumin 4.2 g/dL (3.5-5.0); Calcium 7.8 mg/dL (8.4-10.2); Potassium 5.1 mmol/L (3.5-5.1); Total Bilirubin 1.4 mg/dL (0.2-1.3)
[2019-07-10 15:36] LABS: Appearance,Urine Cloudy (Clear); Bacteria,Urine Rare /hpf; Bilirubin,Urine 1+ (Negative); Blood,Urine Moderate (Negative); Budding Yeast,Urine Rare /hpf; Color,Urine Light Red; Glucose,Urine (UA) Negative (Negative); Hyaline Casts,Urine 67 /lpf (0-2); Ketones,Urine Negative (Negative); Leukocyte Esterase,Urine Trace (Negative); Mucus,Urine Occasional /hpf; Nitrite,Urine Negative (Negative); PH, Urine 5.5 (5.0-8.0); Protein,Urine 1+ (Negative); RBC,Urine 167 /hpf (0-5); Specific Gravity,Urine 1.023 (1.001-1.035); Squamous Epithelial Cell,Urine 7 /hpf (0-4); WBC,Urine 5 /hpf (0-5)
[2019-07-10 15:40] LABS: Lymphocytes # (M) 0.74 k/uL (1.0-4.8); Monocytes # (M) 0.33 k/uL (0-1.0); Neutrophils # (M) 7.13 k/uL (1.3-7.7); Neutrophils % (M) 87 %; Nucleated Red Blood Cells 0 /100 WBC (0-0); Target Cells Present; Total Cells Counted 100
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
[2019-07-10] MEDS ORDERED: SODIUM CHLORIDE 0.9% 500 ML 500 ML IV STA (15:45)
[2019-07-10] MEDS ORDERED: SODIUM CHLORIDE 0.9% 1,000 ML IV STA (15:46)
[2019-07-10] MEDS ORDERED: NALOXONE 0.4 MG/ML 1 ML VIAL IV PRN (16:20)
[2019-07-10] MEDS: SODIUM CHLORIDE 0.9% 1,000 ML IV SCH (17:20)
[2019-07-10] MEDS: CALCIUM CARB-VIT D 500MG-200UN 1 EACH TAB PO SCH (17:45)
[2019-07-10] MEDS: metFORMIN 500 MG TAB PO SCH (17:45)
[2019-07-10] MEDS: HYDROcodone/APAP 10-325MG 1 EACH TAB PO SCH ×2 (17:45→22:32)
[2019-07-10 17:47] LABS: Glucose,Whole Blood 111 mg/dL (75-99)
[2019-07-10] MEDS: MAGNESIUM OXIDE 400 MG TAB PO SCH (20:57)
[2019-07-10] MEDS: PREGABALIN 100 MG CAP PO SCH (20:57)
[2019-07-10] MEDS: ESCITALOPRAM 20 MG TAB PO SCH (20:57)
[2019-07-10] MEDS: METOPROLOL TARTRATE 50 MG TAB PO SCH ×2 (20:57→21:04)
[2019-07-10] MEDS ORDERED: FAMOTIDINE 20 MG TAB PO SCH (21:00)
--- NOTE | 2019-07-10 21:16 | US ---
EXAMINATION TYPE: US kidneys/renal and bladder DATE OF EXAM: 07/10/2019 COMPARISON: NONE CLINICAL HISTORY: hussein. HUSSEIN. Hx colon cancer. EXAM MEASUREMENTS: Right Kidney: 10.2 x 4.6 x 5.3 cm Left Kidney: 8.3 x 5.3 x 4.6 cm Right Kidney: No hydronephrosis or masses seen Left Kidney: Limited visibility. Hypoechoic area seen laterally: 0.8 x 0.8 x 0.7 cm. Bladder: Wall appears thickened measuring 0.59 cm. There appears to be an isoechoic area adjacent to the right bladder wall measurin.5 x 1.3 x 0.8 cm. Bilateral Jets seen: Yes Incidental finding: There appears to be ascites in the RUQ and LUQ. Incidental finding: The spleen measures 13.6 cm. (Upper limits of normal versus slightly enlarged). IMPRESSION: There is focal bladder wall thickening on the right lateral wall that could relate to tumor. Urinary bladder wall thickening suggestive of nonspecific cystitis. No renal mass or obstruction. Mild abdominal ascites.
[2019-07-10 21:33] LABS: Glucose,Whole Blood 96 mg/dL (75-99)
[2019-07-10 22:14] VITALS: RESP 20
[2019-07-11] MEDS: SODIUM CHLORIDE 0.9% 1,000 ML IV SCH ×2 (03:30→07:58)
[2019-07-11 05:13] VITALS: BP 103/67; PULSE 59; TEMP 97.3
[2019-07-11 07:13] LABS: Glucose,Whole Blood 99 mg/dL (75-99)
[2019-07-11 07:14] LABS: Albumin 3.7 g/dL (3.5-5.0); Calcium 7.4 mg/dL (8.4-10.2); Potassium 5.4 mmol/L (3.5-5.1); Total Bilirubin 1.5 mg/dL (0.2-1.3); Total Protein 7.4 g/dL (6.3-8.2)
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
[2019-07-11 07:18] LABS: Anisocytosis Slight; HCT 34.7 % (39.0-53.0); HGB 10.3 gm/dL (13.0-17.5); Hypochromasia Marked; MCH 26.4 pg (25.0-35.0); MCHC 29.6 g/dL (31.0-37.0); MCV 89.3 fL (80.0-100.0); Mean Platelet Volume 12.1; Platelet Count 154 k/uL (150-450); Poikilocytosis Slight; RBC 3.89 m/uL (4.30-5.90); WBC 5.5 k/uL (3.8-10.6)
[2019-07-11] MEDS: metFORMIN 500 MG TAB PO SCH ×2 (07:55→12:12)
[2019-07-11] MEDS: MAGNESIUM OXIDE 400 MG TAB PO SCH (07:55)
[2019-07-11] MEDS: ESCITALOPRAM 20 MG TAB PO SCH (07:55)
[2019-07-11] MEDS: METOPROLOL TARTRATE 50 MG TAB PO SCH (07:55)
[2019-07-11] MEDS: CALCIUM CARB-VIT D 500MG-200UN 1 EACH TAB PO SCH ×2 (07:55→12:12)
[2019-07-11] MEDS: HYDROcodone/APAP 10-325MG 1 EACH TAB PO SCH ×2 (07:56→12:12)
[2019-07-11] MEDS: PREGABALIN 100 MG CAP PO SCH (07:56)
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
[2019-07-11] MEDS ORDERED: ATORVASTATIN 20 MG TAB PO SCH (09:00)
[2019-07-11 10:16] LABS: Basophils # (M) 0.06 k/uL (0-0.2); Eosinophils # (M) 0.28 k/uL (0-0.7); Lymphocytes # (M) 0.88 k/uL (1.0-4.8); Monocytes # (M) 0.88 k/uL (0-1.0); Neutrophils # (M) 3.41 k/uL (1.3-7.7); Neutrophils % (M) 62 %; Nucleated Red Blood Cells 0 /100 WBC (0-0); Total Cells Counted 100
[2019-07-11 10:18] LABS: Large Platelets Present
[2019-07-11 11:52] LABS: Glucose,Whole Blood 145 mg/dL (75-99)
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
[2019-07-11 18:06] LABS: Hepatitis A Antibody IgM Non-Reactive (Non-Reactive); Hepatitis B Core IgM Non-Reactive (Non-Reactive); Hepatitis B Surface Antigen Non-Reactive (Non-Reactive); Hepatitis C IgG Antibody Non-Reactive (Non-Reactive)
== END 2019-07-11 12:52 | disposition home or self-care (01) | DRG 683 ==
LOC: EC 14:06 → 6NMEDSUR 16:22
PROVIDERS: ADMIT Internal Medicine; ATTEND Internal Medicine
DX: N17.9 Acute kidney failure, unspecified (principal); F33.9 Major depressive disorder, recurrent, unspecified; R18.8 Other ascites; Z85.048 Personal history of other malignant neoplasm of rectum, rectosigmoid junction, and anus; Z92.3 Personal history of irradiation; Z92.21 Personal history of antineoplastic chemotherapy; E11.9 Type 2 diabetes mellitus without complications; E78.5 Hyperlipidemia, unspecified; E83.51 Hypocalcemia; F17.210 Nicotine dependence, cigarettes, uncomplicated; F41.9 Anxiety disorder, unspecified; G47.33 Obstructive sleep apnea (adult) (pediatric); G89.4 Chronic pain syndrome; I10 Essential (primary) hypertension; I25.10 Atherosclerotic heart disease of native coronary artery without angina pectoris; R31.0 Gross hematuria; T36.8X5A Adverse effect of other systemic antibiotics, initial encounter; Z79.02 Long term (current) use of antithrombotics/antiplatelets; Z79.84 Long term (current) use of oral hypoglycemic drugs; Z79.899 Other long term (current) drug therapy; Z79.891 Long term (current) use of opiate analgesic; Z83.3 Family history of diabetes mellitus; Z87.440 Personal history of urinary (tract) infections; Z95.5 Presence of coronary angioplasty implant and graft; Z99.3 Dependence on wheelchair; V89.2XXS Person injured in unspecified motor-vehicle accident, traffic, sequela; T14.8XXS Other injury of unspecified body region, sequela; Z90.49 Acquired absence of other specified parts of digestive tract; R94.5 Abnormal results of liver function studies; Z88.8 Allergy status to other drugs, medicaments and biological substances; Z91.041 Radiographic dye allergy status; Z91.013 Allergy to seafood
CPT/HCPCS: 36415; 76770; 80053; 80074; 81001; 85025; 85610; 85730; 86850; 86870; 86880; 86900; 86901; 86902; 96360; 99284

== ENCOUNTER 2019-07-20 18:02 | Emergency (ER) | payer MEDICARE ==
[2019-07-20 18:09] VITALS: TEMP 98.3
[2019-07-20 19:19] LABS: Glucose,Whole Blood 142 mg/dL (75-99)
[2019-07-20 19:32] LABS: Albumin 3.5 g/dL (3.5-5.0); Calcium 7.4 mg/dL (8.4-10.2); Potassium 4.9 mmol/L (3.5-5.1); Total Bilirubin 1.1 mg/dL (0.2-1.3); Total Protein 7.1 g/dL (6.3-8.2)
[2019-07-20 19:46] LABS: Anisocytosis Slight; Basophils % (A) 1 %; Eosinophils # (A) 0.1 k/uL (0-0.7); Eosinophils % (A) 3 %; HCT 26.1 % (39.0-53.0); Hypochromasia Marked; Lymphocytes # (A) 0.8 k/uL (1.0-4.8); Lymphocytes % (A) 16 %; MCH 26.4 pg (25.0-35.0); MCHC 30.3 g/dL (31.0-37.0); MCV 87.1 fL (80.0-100.0); Monocytes # (A) 0.4 k/uL (0-1.0); Monocytes % (A) 10 %; Neutrophils # (A) 3.1 k/uL (1.3-7.7); Neutrophils % (A) 67 %; Poikilocytosis Moderate; RDW 18.9 % (11.5-15.5); WBC 4.7 k/uL (3.8-10.6)
[2019-07-20 19:58] LABS: Platelet Count 92 k/uL (150-450)
[2019-07-20 19:59] LABS: HGB 7.9 gm/dL (13.0-17.5)
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
[2019-07-20 21:16] VITALS: BP 103/57; PULSE 66; RESP 20
== END 2019-07-20 21:25 | disposition home or self-care (01) ==
LOC: EC 18:02
DX: D64.9 Anemia, unspecified (principal); R31.9 Hematuria, unspecified; K21.9 Gastro-esophageal reflux disease without esophagitis; E78.5 Hyperlipidemia, unspecified; I10 Essential (primary) hypertension; F41.9 Anxiety disorder, unspecified; F32.9 Major depressive disorder, single episode, unspecified; F17.200 Nicotine dependence, unspecified, uncomplicated; G47.30 Sleep apnea, unspecified; Z99.89 Dependence on other enabling machines and devices; Z92.21 Personal history of antineoplastic chemotherapy; Z95.5 Presence of coronary angioplasty implant and graft; Z85.038 Personal history of other malignant neoplasm of large intestine; Z85.51 Personal history of malignant neoplasm of bladder; Z79.891 Long term (current) use of opiate analgesic; Z79.899 Other long term (current) drug therapy; Z88.8 Allergy status to other drugs, medicaments and biological substances; Z91.041 Radiographic dye allergy status; Z91.013 Allergy to seafood
CPT/HCPCS: 36415; 80053; 85025; 93005; 99285

== ENCOUNTER 2019-07-24 10:41 | Inpatient (IN) | payer MEDICARE ==
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
[2019-07-24 11:43] LABS: Anisocytosis Slight; Basophils % (A) 0 %; Eosinophils # (A) 0.1 k/uL (0-0.7); Eosinophils % (A) 3 %; HCT 21.8 % (39.0-53.0); Hypochromasia Marked; Lymphocytes # (A) 0.7 k/uL (1.0-4.8); Lymphocytes % (A) 17 %; MCHC 29.3 g/dL (31.0-37.0); MCV 88.8 fL (80.0-100.0); Mean Platelet Volume 13.8; Monocytes # (A) 0.5 k/uL (0-1.0); Monocytes % (A) 12 %; Neutrophils # (A) 2.5 k/uL (1.3-7.7); Neutrophils % (A) 62 %; Platelet Count 112 k/uL (150-450); Poikilocytosis Moderate; RBC 2.46 m/uL (4.30-5.90); RDW 19.2 % (11.5-15.5)
[2019-07-24 11:49] LABS: HGB 6.4 gm/dL (13.0-17.5)
[2019-07-24 11:52] LABS: Albumin 3.2 g/dL (3.5-5.0); Calcium 7.2 mg/dL (8.4-10.2); Potassium 5.8 mmol/L (3.5-5.1); Total Bilirubin 1.1 mg/dL (0.2-1.3); Total Protein 6.6 g/dL (6.3-8.2)
[2019-07-24 11:54] LABS: INR 1.4 (<1.2); Partial Thromboplastin Time 26.4 sec (22.0-30.0); Prothrombin Time 13.5 sec (9.0-12.0)
[2019-07-24] MEDS ORDERED: SODIUM CHLORIDE 0.9% 1,000 ML IV STA (12:05)
[2019-07-24 12:26] LABS: Large Platelets Present
[2019-07-24] MEDS ORDERED: NALOXONE 0.4 MG/ML 1 ML VIAL IV PRN (12:49)
[2019-07-24] MEDS ORDERED: ACETAMINOPHEN TAB 325 MG TAB PO PRN (12:49)
[2019-07-24] MEDS ORDERED: ONDANSETRON 4 MG/2 ML VIAL IVP PRN (12:49)
[2019-07-24] MEDS ORDERED: SODIUM POLYSTYRENE SULFONATE 15 GM/60 ML BOTTLE PO ONE (12:51)
[2019-07-24] MEDS ORDERED: HYDROcodone/APAP 10-325MG 1 EACH TAB PO ONE (14:20)
[2019-07-24] MEDS ORDERED: ALBUTEROL NEBULIZED 2.5 MG/3 ML INHALATION PRN (15:14)
[2019-07-24 16:36] LABS: Glucose,Whole Blood 99 mg/dL (75-99)
[2019-07-24] MEDS: PREGABALIN 100 MG CAP PO SCH ×2 (17:09→20:58)
[2019-07-24] MEDS: SODIUM CHLORIDE 0.9% 1,000 ML IV SCH (17:13)
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
[2019-07-24 19:53] LABS: Glucose,Whole Blood 96 mg/dL (75-99)
[2019-07-24 19:55] LABS: Anisocytosis Slight; Hypochromasia Marked; MCH 26.3 pg (25.0-35.0); MCHC 29.2 g/dL (31.0-37.0); Mean Platelet Volume 12.5; Poikilocytosis Moderate; RBC 2.19 m/uL (4.30-5.90); RDW 19.1 % (11.5-15.5); WBC 3.5 k/uL (3.8-10.6)
[2019-07-24 20:06] LABS: HCT 19.7 % (39.0-53.0); HGB 5.8 gm/dL (13.0-17.5)
[2019-07-24 20:18] LABS: Platelet Count 96 k/uL (150-450)
[2019-07-24] MEDS: MAGNESIUM OXIDE 400 MG TAB PO SCH (20:57)
[2019-07-24] MEDS: FAMOTIDINE 20 MG TAB PO SCH (20:57)
[2019-07-24] MEDS: ESCITALOPRAM 20 MG TAB PO SCH (20:57)
[2019-07-24] MEDS ORDERED: METOPROLOL TARTRATE 50 MG TAB PO SCH (21:00)
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
[2019-07-25] MEDS: SODIUM CHLORIDE 0.9% 1,000 ML IV SCH ×3 (01:54→06:29)
[2019-07-25 03:52] LABS: Anisocytosis Slight; HCT 20.5 % (39.0-53.0); Hypochromasia Marked; MCH 27.1 pg (25.0-35.0); MCHC 30.3 g/dL (31.0-37.0); MCV 89.5 fL (80.0-100.0); Mean Platelet Volume 12.3; Poikilocytosis Moderate; RBC 2.29 m/uL (4.30-5.90); RDW 18.6 % (11.5-15.5); WBC 3.1 k/uL (3.8-10.6)
[2019-07-25 03:53] LABS: Platelet Count 70 k/uL (150-450)
[2019-07-25 03:55] LABS: Albumin 2.9 g/dL (3.5-5.0); Calcium 6.7 mg/dL (8.4-10.2); HGB 6.2 gm/dL (13.0-17.5); Potassium 5.2 mmol/L (3.5-5.1); Total Bilirubin 2.5 mg/dL (0.2-1.3); Total Protein 5.9 g/dL (6.3-8.2)
[2019-07-25 06:25] LABS: Glucose,Whole Blood 95 mg/dL (75-99)
--- NOTE | 2019-07-25 07:56 | P.PN ---
Subjective Progress Note Date: 07/25/19 the patient has been seen by me for gross hematuria due to a apparent bladder cancer. the patient was to have a turbt yesterday as an op but he had significant swelling and anemia[5.8] [facility] He received 1 umit of blood and his hgb is 6.2 this am He is less swollen. He is not having problems voiding WE are awaiting cardiology consultation. ONce cleared he will undergo a turbt Objective - Vital Signs Vital signs: Vital Signs Temp 98.5 F 07/25/19 04:00 Pulse 64 07/25/19 04:00 Resp 20 07/25/19 04:00 BP 79/50 07/25/19 04:00 Pulse Ox 94 L 07/25/19 04:00 Intake & Output 07/24/19 07/25/19 07/25/19 18:59 06:59 18:59 Intake Total 250 310 Output Total 600 Balance 250 -290 Weight 95.254 kg 111.4 kg Intake: Oral 250 Blood Product 310 Rc Cpda-1 Unit 310 [id number] Output: Urine 600 Other: Voiding Method Bedside Commode Urinal - Labs CBC & Chem 7: 07/25/19 03:33 07/25/19 03:33 Labs: Abnormal Lab Results - Last 24 Hours (Table) 07/24/19 07/24/19 07/24/19 Range/Units 11:20 11:20 11:20 WBC (3.8-10.6) k/uL RBC 2.46 L (4.30-5.90) m/uL Hgb 6.4 L* D (13.0-17.5) gm/dL Hct 21.8 L (39.0-53.0) % MCHC 29.3 L (31.0-37.0) g/dL RDW 19.2 H (11.5-15.5) % Plt Count 112 L (150-450) k/uL Lymphocytes # 0.7 L (1.0-4.8) k/uL PT 13.5 H (9.0-12.0) sec INR 1.4 H (<1.2) Potassium (3.5-5.1) mmol/L Chloride (98-107) mmol/L Carbon Dioxide (22-30) mmol/L BUN (9-20) mg/dL Creatinine (0.66-1.25) mg/dL Glucose (74-99) mg/dL Plasma Lactic Acid Thomas (0.7-2.0) mmol/L Calcium (8.4-10.2) mg/dL Total Bilirubin (0.2-1.3) mg/dL Total Protein (6.3-8.2) g/dL Albumin (3.5-5.0) g/dL Crossmatch See Detail 07/24/19 07/24/19 07/24/19 Range/Units 11:20 11:20 15:12 WBC (3.8-10.6) k/uL RBC (4.30-5.90) m/uL Hgb (13.0-17.5) gm/dL Hct (39.0-53.0) % MCHC (31.0-37.0) g/dL RDW (11.5-15.5) % Plt Count (150-450) k/uL Lymphocytes # (1.0-4.8) k/uL PT (9.0-12.0) sec INR (<1.2) Potassium 5.8 H 5.5 H (3.5-5.1) mmol/L Chloride 108 H (98-107) mmol/L Carbon Dioxide 21 L (22-30) mmol/L BUN 40 H (9-20) mg/dL Creatinine 1.70 H (0.66-1.25) mg/dL Glucose 104 H (74-99) mg/dL Plasma Lactic Acid Thomas 2.5 H* (0.7-2.0) mmol/L Calcium 7.2 L (8.4-10.2) mg/dL Total Bilirubin (0.2-1.3) mg/dL Total Protein (6.3-8.2) g/dL Albumin 3.2 L (3.5-5.0) g/dL Crossmatch 07/24/19 07/25/19 07/25/19 Range/Units 19:40 03:33 03:33 WBC 3.5 L 3.1 L (3.8-10.6) k/uL RBC 2.19 L 2.29 L (4.30-5.90) m/uL Hgb 5.8 L* 6.2 L* (13.0-17.5) gm/dL Hct 19.7 L* 20.5 L (39.0-53.0) % MCHC 29.2 L 30.3 L (31.0-37.0) g/dL RDW 19.1 H 18.6 H (11.5-15.5) % Plt Count 96 L 70 L (150-450) k/uL Lymphocytes # (1.0-4.8) k/uL PT (9.0-12.0) sec INR (<1.2) Potassium 5.2 H (3.5-5.1) mmol/L Chloride 109 H (98-107) mmol/L Carbon Dioxide (22-30) mmol/L BUN 43 H (9-20) mg/dL Creatinine 1.62 H (0.66-1.25) mg/dL Glucose (74-99) mg/dL Plasma Lactic Acid Thomas (0.7-2.0) mmol/L Calcium 6.7 L (8.4-10.2) mg/dL Total Bilirubin 2.5 H (0.2-1.3) mg/dL Total Protein 5.9 L (6.3-8.2) g/dL Albumin 2.9 L (3.5-5.0) g/dL Crossmatch
[2019-07-25] MEDS: ATORVASTATIN 20 MG TAB PO SCH (08:06)
[2019-07-25] MEDS: MAGNESIUM OXIDE 400 MG TAB PO SCH ×2 (08:06→21:09)
[2019-07-25] MEDS: ESCITALOPRAM 20 MG TAB PO SCH ×2 (08:06→21:09)
[2019-07-25] MEDS: HYDROcodone/APAP 10-325MG 1 EACH TAB PO PRN ×3 (08:06→23:53)
[2019-07-25] MEDS: METOPROLOL TARTRATE 12.5 MG TAB PO SCH ×2 (08:07→21:09)
[2019-07-25] MEDS: FAMOTIDINE 20 MG TAB PO SCH ×2 (08:07→21:09)
[2019-07-25] MEDS: PREGABALIN 100 MG CAP PO SCH ×3 (08:07→21:09)
--- NOTE | 2019-07-25 08:47 | XR ---
EXAMINATION TYPE: XR chest 2V DATE OF EXAM: 07/25/2019 COMPARISON: 04/20/1999 TECHNIQUE: PA and lateral views submitted. HISTORY: Shortness of breath FINDINGS: Heart is enlarged and is a coarsened interstitium. Mediport line noted with postoperative changes ove rlying cervical spine. Arthropathy of the shoulders. No pneumothorax. Underlying COPD noted. Bilatera l small effusions. IMPRESSION: 1. Mild CHF versus interstitial pneumonitis.
[2019-07-25 08:58] LABS: Anisocytosis Slight; HCT 21.3 % (39.0-53.0); Hypochromasia Marked; MCH 26.8 pg (25.0-35.0); MCHC 29.8 g/dL (31.0-37.0); MCV 89.7 fL (80.0-100.0); Mean Platelet Volume 12.4; Poikilocytosis Moderate; RBC 2.37 m/uL (4.30-5.90); RDW 18.4 % (11.5-15.5); WBC 3.8 k/uL (3.8-10.6)
[2019-07-25 08:59] LABS: HGB 6.4 gm/dL (13.0-17.5); Platelet Count 93 k/uL (150-450)
[2019-07-25] MEDS ORDERED: METOPROLOL TARTRATE 12.5 MG TAB PO SCH (09:00)
[2019-07-25 09:24] LABS: Eosinophils # (M) 0.04 k/uL (0-0.7); Lymphocytes # (M) 0.57 k/uL (1.0-4.8); Monocytes # (M) 0.23 k/uL (0-1.0); Neutrophils # (M) 2.96 k/uL (1.3-7.7); Neutrophils % (M) 78 %; Nucleated Red Blood Cells 0 /100 WBC (0-0); Total Cells Counted 100
[2019-07-25 09:25] LABS: Polychromasia Present
[2019-07-25 12:10] LABS: Glucose,Whole Blood 84 mg/dL (75-99)
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
--- NOTE | 2019-07-25 13:41 | P.PN ---
Subjective Progress Note Date: 07/25/19 54-year-old male one of Dr. Amaro's patient with past medical history of bladder cancer, CAD post 3 stent in the past, history of osteoarthritis, hypertension and type 2 diabetes who has been treated by urology for bladder cancer and developed to have severe gross hematuria from bladder can cer patient was scheduled to have a [facility] today but he presented with significant swelling in the testicle and found to have significant pitting edema into his abdominal area the same time found to have significant anemia and worsening edema concerning with his heart failure. Patient was sent to the emergency department at [facility] were was seen and evaluated surprisingly found to have hemoglobin of 5.8 with hematocrit of 19.7 acute kidney injury with creatinine of 1.7 with potassium of 5.5 patient had and arrangement for blood transfusion urology were consulted patient was admitted to the hospital for the above problem. 07/24: Patient has been seen by cardiology, echocardiogram has been completed and report is pending. Lopressor was increased to 12.5 mg twice daily and IV fluids decreased. Dr. Quintanilla is planning on TURP pending cardiology clearance. Repeat chest x-ray shows mild heart failure versus interstitial pneumonitis. Patient has been afebrile, heart rate 58, blood pressure 105/60, pulse ox 94% on room air. Repeat blood work this morning reveals hemoglobin of 6.4 and patient is scheduled for transfusion of 2 units packed RBCs. WBC 3.8, platelet count 93. Sodium 137, potassium 5.2, chloride 109, CO2 23, BUN 33 and creatinine 1.62. B lood sugars running between 74 and 96. Objective - Vital Signs Vital signs: Vital Signs Temp 97.6 F 07/25/19 07:54 Pulse 61 07/25/19 07:54 Resp 18 07/25/19 07:54 BP 92/54 07/25/19 07:54 Pulse Ox 96 07/25/19 07:54 Intake & Output 07/24/19 07/25/19 07/25/19 18:59 06:59 18:59 Intake Total 250 310 Output Total 600 Balance 250 -290 Weight 95.254 kg 111.4 kg Intake: Oral 250 Blood Product 310 Rc Cpda-1 Unit 310 [id number] Output: Urine 600 Other: Voiding Method Bedside Commode Urinal - Exam Review of Systems CONSTITUTIONAL: Well-developed no acute respiratory distress. Very pale but denies fever, denies chills EYES: No icterus sclerae, no conjunctivitis. EARS, NOSE, MOUTH, THROAT, and FACE: No sore throat, lymphadenopathy, carotid bruits or deformity. RESPIRATORY: Positive shortness of breath. CARDIOVASCULAR: Positive PND orthopnea palpitation with no significant angina. GASTROINTESTINAL: No Abd pain, Nausea or vomiting, no Diarrhea or constipation, No GI Bleed, no distention or masses. GENITOURINARY: Positive for gross hematuria with significant swelling in the scrotum and testicle area along with the groin area as well. INTEGUMENT/BREAST: Negative for any muscular injury with mild osteoarthritis.. HEMATOLOGIC/LYMPHATIC: Negative for bleed or purpura. MUSCULOSKELTAL: Negative for Myalgia or arthralgia. NEURLOGICAL: No LOC, Sz or syncope, blurred vision dizziness or abnormality.. BEHAVIORAL/PSYCH: Negative. ENDOCRINE: Negative. Physical examination General Appearance: Alert, cooperative, no distress, appears stated age. Very pale and mild shortness of breath. Neck HEENT: Supple, no lymphadenopathy, no thyroid enlargement, no carotid bruits. Lungs: Decreased breath some bilaterally with mild rhonchi no crackles or wheezes. Chest Wall: Decrease expansion with deep inspiration no tenderness and no de formity was found on exam, no costochondral pain or discomfort. Heart: Regular rate and rhythm, S1, S2 normal, no murmur, rub or gallop. Mild tachycardia Back: Symmetric, no curvature, ROM normal, no CVA tenderness. Abdomen: Soft positive bowel sound no organomegaly significant swelling in the lower abdominal area. Extremities: 2+ edema Genitalia: Significant swelling and edema of the scrotum and the groin area connected with the upper part of his legs, generalized anasarca. Pulses: 2+ and symmetric. Skin: Skin color, texture, tugor normal, no rashes or lesions. Neurologic: Alert oriented x3 cranial nerves II through XII intact, no motor deficit, no abnormal balance or gait. - Labs CBC & Chem 7: 07/25/19 08:25 07/25/19 03:33 Labs: Abnormal Lab Results - Last 24 Hours (Table) 07/24/19 07/24/19 07/24/19 Range/Units 11:20 11:20 11:20 WBC (3.8-10.6) k/uL RBC 2.46 L (4.30-5.90) m/uL Hgb 6.4 L* D (13.0-17.5) gm/dL Hct 21.8 L (39.0-53.0) % MCHC 29.3 L (31.0-37.0) g/dL RDW 19.2 H (11.5-15.5) % Plt Count 112 L (150-450) k/uL Lymphocytes # 0.7 L (1.0-4.8) k/uL PT 13.5 H (9.0-12.0) sec INR 1.4 H (<1.2) Potassium (3.5-5.1) mmol/L Chloride (98-107) mmol/L Carbon Dioxide (22-30) mmol/L BUN (9-20) mg/dL Creatinine (0.66-1.25) mg/dL Glucose (74-99) mg/dL Plasma Lactic Acid Thomas (0.7-2.0) mmol/L Calcium (8.4-10.2) mg/dL Total Bilirubin (0.2-1.3) mg/dL Total Protein (6.3-8.2) g/dL Albumin (3.5-5.0) g/dL Crossmatch See Detail 07/24/19 07/24/19 07/24/19 Range/Units 11:20 11:20 15:12 WBC (3.8-10.6) k/uL RBC (4.30-5.90) m/uL Hgb (13.0-17.5) gm/dL Hct (39.0-53.0) % MCHC (31.0-37.0) g/dL RDW (11.5-15.5) % Plt Count (150-450) k/uL Lymphocytes # (1.0-4.8) k/uL PT (9.0-12.0) sec INR (<1.2) Potassium 5.8 H 5.5 H (3.5-5.1) mmol/L Chloride 108 H (98-107) mmol/L Carbon Dioxide 21 L (22-30) mmol/L BUN 40 H (9-20) mg/dL Creatinine 1.70 H (0.66-1.25) mg/dL Glucose 104 H (74-99) mg/dL Plasma Lactic Acid Thomas 2.5 H* (0.7-2.0) mmol/L Calcium 7.2 L (8.4-10.2) mg/dL Total Bilirubin (0.2-1.3) mg/dL Total Protein (6.3-8.2) g/dL Albumin 3.2 L (3.5-5.0) g/dL Crossmatch 07/24/19 07/25/19 07/25/19 Range/Units 19:40 03:33 03:33 WBC 3.5 L 3.1 L (3.8-10.6) k/uL RBC 2.19 L 2.29 L (4.30-5.90) m/uL Hgb 5.8 L* 6.2 L* (13.0-17.5) gm/dL Hct 19.7 L* 20.5 L (39.0-53.0) % MCHC 29.2 L 30.3 L (31.0-37.0) g/dL RDW 19.1 H 18.6 H (11.5-15.5) % Plt Count 96 L 70 L (150-450) k/uL Lymphocytes # (1.0-4.8) k/uL PT (9.0-12.0) sec INR (<1.2) Potassium 5.2 H (3.5-5.1) mmol/L Chloride 109 H (98-107) mmol/L Carbon Dioxide (22-30) mmol/L BUN 43 H (9-20) mg/dL Creatinine 1.62 H (0.66-1.25) mg/dL Glucose (74-99) mg/dL Plasma Lactic Acid Thomas (0.7-2.0) mmol/L Calcium 6.7 L (8.4-10.2) mg/dL Total Bilirubin 2.5 H (0.2-1.3) mg/dL Total Protein 5.9 L (6.3-8.2) g/dL Albumin 2.9 L (3.5-5.0) g/dL Crossmatch Assessment and Plan Plan: 1 acute blood loss anemia: Secondary to gross hematuria, patient will have blood transfusion continue to honor CBC closely. Patient is status post transfusion 1 unit of packed RBCs and 2 units ordered for today. 2 recent diagnosis of bladder cancer causing hematuria: Patient will require further intervention with urology when he is more stable. Plan is for TURP 3 anasarca: Mostly secondary to hypoperfusion secondary to his anemia, continue fluid resuscitation and blood transfusion and will use diuretics to correct the current anasarca and edema this point. 4 CAD: Post angioplasty and stent placement has been seeing cardiology and on secondary prevention remain on Lipitor along with metoprolol. 5 acute kidney injury: Most likely acute tubular necrosis with hypoperfusion secondary to anemia and volume loss continue to correct volume and resuscitate with blood transfusion and recheck kidney function. 6 chronic pain management: Patient has been on Duragesic patch along with hydrocodone and Lyrica. 7 hyperlipidemia: Remain on Zocor 40 mg daily. 8 recurrent depression: Has been on Lexapro 20 mg twice a day continue medication. 9 COPD: Patient has been on Ventolin HFA. 10 chronic gastritis and GERD: Patient has been on Pepcid in place of ranitidine can continue medication or switch patient to pantoprazole if needed. 11 chronic lower back pain: Has been on fentanyl and Lyrica. 12 DVT prophylaxis: Continue patient on knee-high JESSICA hose and Venodyne boots no anticoagulation to be use at this point. CODE STATUS: Full code. Discharge plan: Return home Impression and plan of care have been directed as dictated by the signing physician. Dionna Quigley nurse practitioner acting as scribe for signing physician.
[2019-07-25 16:12] LABS: Anisocytosis Slight; HCT 23.6 % (39.0-53.0); HGB 7.1 gm/dL (13.0-17.5); Hypochromasia Marked; MCH 27.1 pg (25.0-35.0); MCHC 29.9 g/dL (31.0-37.0); MCV 90.5 fL (80.0-100.0); Mean Platelet Volume 12.5; Poikilocytosis Moderate; RBC 2.61 m/uL (4.30-5.90); RDW 18.1 % (11.5-15.5); WBC 3.7 k/uL (3.8-10.6)
[2019-07-25 16:15] LABS: Platelet Count 77 k/uL (150-450)
[2019-07-25 17:34] LABS: Glucose,Whole Blood 89 mg/dL (75-99)
--- NOTE | 2019-07-25 17:34 | ECHOF ---
Referral Reason:chf MEASUREMENTS -------- HEIGHT: 177.8 cm WEIGHT: 111.1 kg BP: 91/53 RVIDd: 6.1 cm (< 3.3) IVSd: 1.8 cm (0.6 - 1.1) LVIDd: 4.1 cm (3.9 - 5.3) LVPWd: 1.7 cm (0.6 - 1.1) IVSs: 2.0 cm LVIDs: 3.1 cm LVPWs: 2.0 cm Ao Diam: 3.5 cm (2.0 - 3.7) AV Cusp: 2.2 cm (1.5 - 2.6) MV EXCURSION: 16.594 mm (> 18.000) MV EF SLOPE: 74 mm/s (70 - 150) EPSS: 1.7 cm MV E Ravi: 0.86 m/s MV DecT: 313 ms MV A Ravi: 1.01 m/s MV E/A Ratio: 0.85 RAP: 5.00 mmHg RVSP: 61.55 mmHg FINDINGS -------- Sinus rhythm. This was a technically difficult study with suboptimal views. The left ventricular size is normal. There is moderate concentric left ventricular hypertrophy. T here is moderate global hypokinesis of LV . Overall left ventricular systolic function is mild-mode rately impaired with, an EF between 40 - 45 %. There is paradoxical/dysynergic septal motion consis tent with right ventricular volume overload and/or elevated right ventricular end-diastolic pressure. Mitral Doppler inflow pattern suggests diastolic filling abnormality 11.43. The right ventricle is severely enlarged. The right ventricular systolic function is moderately imp aired. The left atrium was not well visualized. The right atrium is moderately enlarged. Lumason used The aortic valve was not well visualized. Mild mitral annular calcification present. [id number] mitral regurgitation is present. Severe tricuspid regurgitation present. There is moderate to severe pulmonary hypertension. The r ight ventricular systolic pressure, as measured by Doppler, is 61.55mmHg. The pulmonic valve was not well visualized. There is no pulmonic regurgitation present. The aortic root size is normal. IVC Not well visulized. There is no pericardial effusion. CONCLUSIONS -------- 1. There is moderate concentric left ventricular hypertrophy. 2. There is moderate global hypokinesis of LV . 3. Overall left ventricular systolic function is mild-moderately impaired with, an EF between 40 - 45 %. 4. There is paradoxical/dysynergic septal motion consistent with right ventricular volume overload an d/or elevated right ventricular end-diastolic pressure. 5. Mitral Doppler inflow pattern suggest diastolic filling abnormality 11.43. 6. The right ventricle is severely enlarged. 7. The right ventricular systolic function is moderately impaired. 8. The left atrium was not well visualized. 9. The right atrium is moderately enlarged. 10. Lumason used 11. The aortic valve was not well visualized. 12. Mild mitral annular calcification present. 13. [id number] mitral regurgitation is present. 14. Severe tricuspid regurgitation present. 15. There is moderate to severe pulmonary hypertension. COMPUTER FORWARDING SYSTEM MARKUP CLERK: Fidelia Shah RDCS
[2019-07-25 19:14] LABS: Appearance,Urine Bloody (Clear); Color,Urine Red
[2019-07-25 19:59] LABS: Glucose,Whole Blood 134 mg/dL (75-99)
[2019-07-26 06:19] LABS: Glucose,Whole Blood 134 mg/dL (75-99)
[2019-07-26] MEDS: SODIUM CHLORIDE 0.9% 1,000 ML IV SCH ×4 (07:52→22:30)
[2019-07-26] MEDS: HYDROcodone/APAP 10-325MG 1 EACH TAB PO PRN ×2 (09:02→16:04)
[2019-07-26] MEDS: ATORVASTATIN 20 MG TAB PO SCH (09:03)
[2019-07-26] MEDS: ESCITALOPRAM 20 MG TAB PO SCH ×2 (09:03→20:05)
[2019-07-26] MEDS: METOPROLOL TARTRATE 12.5 MG TAB PO SCH ×3 (09:03→20:06)
[2019-07-26] MEDS: FAMOTIDINE 20 MG TAB PO SCH ×2 (09:03→20:05)
[2019-07-26] MEDS: MAGNESIUM OXIDE 400 MG TAB PO SCH ×2 (09:03→20:04)
[2019-07-26] MEDS: PREGABALIN 100 MG CAP PO SCH ×3 (09:04→20:05)
[2019-07-26 09:47] LABS: Anisocytosis Slight; HCT 23.1 % (39.0-53.0); Hypochromasia Marked; MCH 27.3 pg (25.0-35.0); MCHC 30.1 g/dL (31.0-37.0); MCV 90.7 fL (80.0-100.0); Mean Platelet Volume 12.8; Poikilocytosis Moderate; RBC 2.55 m/uL (4.30-5.90); RDW 18.3 % (11.5-15.5); WBC 4.6 k/uL (3.8-10.6)
[2019-07-26 09:48] LABS: Platelet Count 81 k/uL (150-450)
[2019-07-26 09:55] LABS: Calcium 6.6 mg/dL (8.4-10.2); Potassium 5.4 mmol/L (3.5-5.1)
--- NOTE | 2019-07-26 10:30 | P.PN ---
Subjective Progress Note Date: 07/26/19 This is a pleasant 54-year-old gentleman with past medical history of bladder cancer, coronary artery disease with prior stenting in the past, osteoarthritis, hypertension, diabetes, hyperlipidemia. He is currently under treatment by urology for his bladder cancer, patient was actually scheduled to have a procedure performed at urology office, when he presented very was noticed to have significant swelling in his testicle and found to have bilateral edema in his extremities as well as abdominal area. He was then sent to the emergency department for further evaluation and treatment. Laboratory data on admission, white blood cell count 3.5, hemoglobin 5.8, platelet count 96. This morning's labs, hemoglobin of 6.4, platelet count 93. Sodium 137, potassium 5.2, BUN 43, creatinine 1.6, BNP level 60-60. Troponin 0.016. Patient was seen and examined this morning, denies any shortness of breath, no palpitations, no chest discomfort, no dizziness or lightheadedness. Echocardiogram has been requested, we will also request a chest x-ray be performed. We will decrease the metoprolol 12-1/2 mg one tablet by mouth twice a day, decrease the IV fluids to 1 25 mL per hour. EKG showed a junctional rhythm. 07/26/19 Patient was seen and examined this morning, overall feeling well. Blood pressure 90s to low 100s systolic. Laboratory data from today, white blood cell count 4.6, hemoglobin 7.0, platelet count 81. Sodium 142, potassium 5.4, BUN 41 and creatinine 1.6. Echocardiogram with Doppler study was performed which revealed an ejection fraction of 40-45% mild to moderate mitral regurgitation, severe tricuspid regurgitation and moderate to severe pulmonary hypertension. Patient is considered moderate to high risk for surgery but okay for surgery from cardiology's perspective. We will optimize blood pressure control during the perioperative period. Objective - Vital Signs Vital signs: Vital Signs Temp 97.6 F 07/26/19 04:00 Pulse 61 07/26/19 04:00 Resp 16 07/26/19 04:00 BP 102/64 07/26/19 04:00 Pulse Ox 93 L 07/26/19 04:00 Intake & Output 07/25/19 07/26/19 07/26/19 18:59 06:59 18:59 Intake Total 150 Output Total 2600 Balance 150 -2600 Weight 111.4 kg 109 kg Intake: Oral 150 Blood Product 0 Rc As-1 Unit 0 [id number] Output: Urine 2600 Stool 0 Other: Voiding Method Bedside Commode Indwelling Catheter Urinal - Exam PHYSICAL EXAMINATION: GENERAL: 54-year-old gentleman in no acute distress at the time of my examination HEENT: Head is atraumatic, normocephalic. Pupils equal, round. Sclera anicteric. Conjunctiva are clear. Mucous membranes of the mouth are moist. Neck is supple. There is no elevated jugular venous pressure.No carotid bruit is heard. HEART EXAMINATION: Heart S1, S2 systolic murmur is heard . CHEST EXAMINATION: Lungs reveal decreased breath sounds bilaterally with some mild crackles heard at the bases. No chest wall tenderness is noted on palpation or with deep breathing. ABDOMEN: Soft, nontender. Bowel sounds are heard. No organomegaly noted. EXTREMITIES: 2+ peripheral pulses with no evidence 2+ peripheral edema and no calf tenderness noted. NEUROLOGIC patient is awake, alert and oriented X3. - Labs CBC & Chem 7: 07/26/19 09:04 07/26/19 09:04 Labs: Abnormal Lab Results - Last 24 Hours (Table) 07/24/19 07/25/19 07/25/19 Range/Units 11:20 15:48 19:58 WBC 3.7 L (3.8-10.6) k/uL RBC 2.61 L (4.30-5.90) m/uL Hgb 7.1 L (13.0-17.5) gm/dL Hct 23.6 L (39.0-53.0) % MCHC 29.9 L (31.0-37.0) g/dL RDW 18.1 H (11.5-15.5) % Plt Count 77 L (150-450) k/uL Potassium (3.5-5.1) mmol/L Chloride (98-107) mmol/L BUN (9-20) mg/dL Creatinine (0.66-1.25) mg/dL POC Glucose (mg/dL) 134 H (75-99) mg/dL Calcium (8.4-10.2) mg/dL Crossmatch See Detail 07/26/19 07/26/19 07/26/19 Range/Units 06:18 09:04 09:04 WBC (3.8-10.6) k/uL RBC 2.55 L (4.30-5.90) m/uL Hgb 7.0 L (13.0-17.5) gm/dL Hct 23.1 L (39.0-53.0) % MCHC 30.1 L (31.0-37.0) g/dL RDW 18.3 H (11.5-15.5) % Plt Count 81 L (150-450) k/uL Potassium 5.4 H (3.5-5.1) mmol/L Chloride 109 H (98-107) mmol/L BUN 41 H (9-20) mg/dL Creatinine 1.60 H (0.66-1.25) mg/dL POC Glucose (mg/dL) 134 H (75-99) mg/dL Calcium 6.6 L (8.4-10.2) mg/dL Crossmatch Assessment and Plan Plan: Assessment and plan #1 acute blood loss anemia, likely secondary to gross hematuria, hemoglobin on admission 5.8. #2 recent diagnosis of bladder cancer causing hematuria followed by urology. #3 anasarca, likely secondary to hypoperfusion secondary to anemia, patient is receiving IV fluids at 75 mL per hour and will receive a blood transfusion. #4 coronary artery disease with prior stenting #5 acute kidney injury #6 hyperlipidemia #7 asthma/COPD Plan From cardiology's perspective, patient is considered a moderate to high risk for surgery, however cleared for surgery from cardiology's perspective. We will optimize blood pressure control during the perioperative period. DNP note has been reviewed, I agree with a documented findings and plan of care. Patient was seen and examined.
--- NOTE | 2019-07-26 11:03 | P.PN ---
Subjective Progress Note Date: 07/26/19 54-year-old male one of Dr. Amaro's patient with past medical history of bladder cancer, CAD post 3 stent in the past, history of osteoarthritis, hypertension and type 2 diabetes who has been treated by urology for bladder cancer and developed to have severe gross hematuria from bladder can cer patient was scheduled to have a [facility] today but he presented with significant swelling in the testicle and found to have significant pitting edema into his abdominal area the same time found to have significant anemia and worsening edema concerning with his heart failure. Patient was sent to the emergency department at [facility] were was seen and evaluated surprisingly found to have hemoglobin of 5.8 with hematocrit of 19.7 acute kidney injury with creatinine of 1.7 with potassium of 5.5 patient had and arrangement for blood transfusion urology were consulted patient was admitted to the hospital for the above problem. 07/24: Patient has been seen by cardiology, echocardiogram has been completed and report is pending. Lopressor was increased to 12.5 mg twice daily and IV fluids decreased. Dr. Quintanilla is planning on TURBT pending cardiology clearance. Repeat chest x-ray shows mild heart failure versus interstitial pneumonitis. Patient has been afebrile, heart rate 58, blood pressure 105/60, pulse ox 94% on room air. Repeat blood work this morning reveals hemoglobin of 6.4 and patient is scheduled for transfusion of 2 units packed RBCs. WBC 3.8, platelet count 93. Sodium 137, potassium 5.2, chloride 109, CO2 23, BUN 33 and creatinine 1.62. Blood sugars running between 74 and 96. 07/25: Patient had Hawk catheter placed last night for urinary retention. He has been afebrile, heart rate 61, blood pressure 102/64, pulse ox 93% on room air. Echocardiogram reveals EF of 40-45%, mild to moderate mitral regurgitation, severe tricuspid regurgitation, moderate to severe pulmonary hypertension. Patient is status post transfusion of a total of 2 units of packed RBCs. Hemoglobin yesterday afternoon was 7.1 and repeat hemoglobin this morning is 7.0, WBC 3.7 and platelet count 77. Discussed case with Dr. Quintanilla with plan for surgical intervention tomorrow. We will transfuse 2 units packed RBCs today. Patient is using incentive spirometry at 2000 ML. Patient may have diet today with nothing by mouth status at midnight. Objective - Vital Signs Vital signs: Vital Signs Temp 97.6 F 07/26/19 04:00 Pulse 61 07/26/19 04:00 Resp 16 07/26/19 04:00 BP 102/64 07/26/19 04:00 Pulse Ox 93 L 07/26/19 04:00 Intake & Output 07/25/19 07/26/19 07/26/19 18:59 06:59 18:59 Intake Total 150 Output Total 2600 Balance 150 -2600 Weight 111.4 kg 109 kg Intake: Oral 150 Blood Product 0 Rc As-1 Unit 0 [id number] Output: Urine 2600 Stool 0 Other: Voiding Method Bedside Commode Indwelling Catheter Urinal - Exam Review of Systems CONSTITUTIONAL: Well-developed no acute respiratory distress. Very pale but d enies fever, denies chills EYES: No icterus sclerae, no conjunctivitis. EARS, NOSE, MOUTH, THROAT, and FACE: No sore throat, lymphadenopathy, carotid bruits or deformity. RESPIRATORY: Positive shortness of breath. CARDIOVASCULAR: Positive PND orthopnea palpitation with no significant angina. GASTROINTESTINAL: No Abd pain, Nausea or vomiting, no Diarrhea or constipation, No GI Bleed, no distention or masses. GENITOURINARY: Positive for gross hematuria with significant swelling in the scrotum and testicle area along with the groin area as well. Reports urinary retention. INTEGUMENT/BREAST: Negative for any muscular injury with mild osteoarthritis.. HEMATOLOGIC/LYMPHATIC: Negative for bleed or purpura. MUSCULOSKELTAL: Negative for Myalgia or arthralgia. NEURLOGICAL: No LOC, Sz or syncope, blurred vision dizziness or abnormality.. BEHAVIORAL/PSYCH: Negative. ENDOCRINE: Negative. Physical examination General Appearance: Alert, cooperative, no distress, appears stated age. Very pale and mild shortness of breath. Neck HEENT: Supple, no lymphadenopathy, no thyroid enlargement, no carotid bruits. Lungs: Decreased breath some bilaterally with mild rhonchi no crackles or wheezes. Chest Wall: Decrease expansion with deep inspiration no tenderness and no deformity was found on exam, no costochondral pain or discomfort. Heart: Regular rate and rhythm, S1, S2 normal, no murmur, rub or gallop. Mild tachycardia Back: Symmetric, no curvature, ROM normal, no CVA tenderness. Abdomen: Soft positive bowel sound no organomegaly significant swelling in the lower abdominal area. Hawk catheter with hematuria. Extremities: 2+ edema Genitalia: Significant swelling and edema of the scrotum and the groin area connected with the upper part of his legs, generalized anasarca. Pulses: 2+ and symmetric. Skin: Skin color, texture, tugor normal, no rashes or lesions. Neurologic: Alert oriented x3 cranial nerves II through XII intact, no motor deficit, no abnormal balance or gait. - Labs CBC & Chem 7: 07/26/19 09:04 07/26/19 09:04 Labs: Abnormal Lab Results - Last 24 Hours (Table) 07/24/19 07/25/19 07/25/19 Range/Units 11:20 08:25 15:48 WBC 3.7 L (3.8-10.6) k/uL RBC 2.37 L 2.61 L (4.30-5.90) m/uL Hgb 6.4 L* 7.1 L (13.0-17.5) gm/dL Hct 21.3 L 23.6 L (39.0-53.0) % MCHC 29.8 L 29.9 L (31.0-37.0) g/dL RDW 18.4 H 18.1 H (11.5-15.5) % Plt Count 93 L 77 L (150-450) k/uL Lymphocytes # (Manual) 0.57 L (1.0-4.8) k/uL POC Glucose (mg/dL) (75-99) mg/dL Crossmatch See Detail 07/25/19 07/26/19 Range/Units 19:58 06:18 WBC (3.8-10.6) k/uL RBC (4.30-5.90) m/uL Hgb (13.0-17.5) gm/dL Hct (39.0-53.0) % MCHC (31.0-37.0) g/dL RDW (11.5-15.5) % Plt Count (150-450) k/uL Lymphocytes # (Manual) (1.0-4.8) k/uL POC Glucose (mg/dL) 134 H 134 H (75-99) mg/dL Crossmatch Assessment and Plan Plan: 1. Acute blood loss anemia secondary to gross hematuria status post transfusion of 2 units of packed RBCs. 2 units of packed RBCs to be transfused today. 2. Recent diagnosis of bladder cancer causing hematuria and consult with urology appreciated. Plan is for TURBT for tomorrow. 3. Anasarca secondary to hypoperfusion secondary to his anemia. 4. CAD: Post angioplasty and stent placement has been seeing cardiology and on secondary prevention remain on Lipitor along with metoprolol. 5. Acute kidney injury: Most likely acute tubular necrosis with hypoperfusion secondary to anemia and volume loss. Monitor kidney function. 6. Chronic pain management: Patient has been on Duragesic patch along with hydrocodone and Lyrica. 7. Hyperlipidemia: Remain on Zocor 40 mg daily. 8. Recurrent depression: Has been on Lexapro 20 mg twice a day continue medication. 9. COPD: Patient has been on Ventolin HFA. 10. Chronic gastritis and GERD. Continue Pepcid twice daily. 11. Chronic lower back pain: Has been on fentanyl and Lyrica. 12 . Pancytopenia secondary to bladder cancer. 13. DVT prophylaxis: Continue patient on knee-high JESSICA hose and Venodyne boots no anticoagulation to be use at this point. CODE STATUS: Full code. Discharge plan: Return home. Patient meets criteria for palliative care. Impression and plan of care have been directed as dictated by the signing physician. Dionna Quigley nurse practitioner acting as scribe for signing physician.
[2019-07-26 11:22] LABS: Glucose,Whole Blood 102 mg/dL (75-99)
--- NOTE | 2019-07-26 12:37 | P.PN ---
Subjective Progress Note Date: 07/26/19 The patient has been cleared by cardiology and medicine for a turbt tomorrow. He will have two units transfused today.. This has been discussed with the patient. Objective - Vital Signs Vital signs: Vital Signs Temp 97.8 F 07/26/19 08:50 Pulse 57 L 07/26/19 08:50 Resp 18 07/26/19 08:50 BP 93/52 07/26/19 08:50 Pulse Ox 92 L 07/26/19 08:50 Intake & Output 07/25/19 07/26/19 07/26/19 18:59 06:59 18:59 Intake Total 150 Output Total 2600 0 Balance 150 -2600 0 Weight 111.4 kg 109 kg Intake: Oral 150 Blood Product 0 Rc As-1 Unit 0 [id number] Output: Urine 2600 Stool 0 0 Other: Voiding Method Bedside Commode Indwelling Catheter Indwelling Catheter Urinal - Labs CBC & Chem 7: 07/26/19 09:04 07/26/19 09:04 Labs: Abnormal Lab Results - Last 24 Hours (Table) 07/24/19 07/25/19 07/25/19 Range/Units 11:20 15:48 19:58 WBC 3.7 L (3.8-10.6) k/uL RBC 2.61 L (4.30-5.90) m/uL Hgb 7.1 L (13.0-17.5) gm/dL Hct 23.6 L (39.0-53.0) % MCHC 29.9 L (31.0-37.0) g/dL RDW 18.1 H (11.5-15.5) % Plt Count 77 L (150-450) k/uL Potassium (3.5-5.1) mmol/L Chloride (98-107) mmol/L BUN (9-20) mg/dL Creatinine (0.66-1.25) mg/dL POC Glucose (mg/dL) 134 H (75-99) mg/dL Calcium (8.4-10.2) mg/dL Crossmatch See Detail 07/26/19 07/26/19 07/26/19 Range/Units 06:18 09:04 09:04 WBC (3.8-10.6) k/uL RBC 2.55 L (4.30-5.90) m/uL Hgb 7.0 L (13.0-17.5) gm/dL Hct 23.1 L (39.0-53.0) % MCHC 30.1 L (31.0-37.0) g/dL RDW 18.3 H (11.5-15.5) % Plt Count 81 L (150-450) k/uL Potassium 5.4 H (3.5-5.1) mmol/L Chloride 109 H (98-107) mmol/L BUN 41 H (9-20) mg/dL Creatinine 1.60 H (0.66-1.25) mg/dL POC Glucose (mg/dL) 134 H (75-99) mg/dL Calcium 6.6 L (8.4-10.2) mg/dL Crossmatch 07/26/19 Range/Units 11:20 WBC (3.8-10.6) k/uL RBC (4.30-5.90) m/uL Hgb (13.0-17.5) gm/dL Hct (39.0-53.0) % MCHC (31.0-37.0) g/dL RDW (11.5-15.5) % Plt Count (150-450) k/uL Potassium (3.5-5.1) mmol/L Chloride (98-107) mmol/L BUN (9-20) mg/dL Creatinine (0.66-1.25) mg/dL POC Glucose (mg/dL) 102 H (75-99) mg/dL Calcium (8.4-10.2) mg/dL Crossmatch
[2019-07-26 17:02] LABS: Glucose,Whole Blood 208 mg/dL (75-99)
[2019-07-26 20:00] LABS: Glucose,Whole Blood 158 mg/dL (75-99)
[2019-07-27] MEDS: SODIUM CHLORIDE 0.9% 1,000 ML IV SCH ×4 (04:27→22:24)
[2019-07-27] MEDS: LACTATED RINGERS 1,000 ML IV SCH ×2 (04:44→22:25)
[2019-07-27] MEDS ORDERED: GENTAMICIN 130 MG in SODIUM CHLORIDE 0.9% 100 ML IVPB ONE (05:00)
[2019-07-27] MEDS ORDERED: AMPICILLIN 1,000 MG in SODIUM CHLORIDE 0.9% 50 ML IVPB ONE (05:00)
[2019-07-27] MEDS ORDERED: DEXAMETHASONE SOD PHOSPHATE 10 MG/ML 1 ML VIAL IV ONE (06:00)
[2019-07-27 06:21] LABS: Glucose,Whole Blood 124 mg/dL (75-99)
[2019-07-27 06:30] LABS: Anisocytosis Slight; HCT 28.4 % (39.0-53.0); HGB 8.4 gm/dL (13.0-17.5); Hypochromasia Marked; MCH 26.9 pg (25.0-35.0); MCHC 29.5 g/dL (31.0-37.0); MCV 91.4 fL (80.0-100.0); Mean Platelet Volume 13.2; Poikilocytosis Moderate; RBC 3.11 m/uL (4.30-5.90); RDW 17.8 % (11.5-15.5); WBC 4.4 k/uL (3.8-10.6)
[2019-07-27 06:36] LABS: Platelet Count 76 k/uL (150-450)
[2019-07-27 06:41] LABS: Potassium 5.7 mmol/L (3.5-5.1)
[2019-07-27 06:57] LABS: Calcium 6.4 mg/dL (8.4-10.2)
[2019-07-27] MEDS ORDERED: LACTATED RINGERS 1,000 ML IV ONE (07:29)
[2019-07-27] MEDS ORDERED: SODIUM CHLORIDE 0.9% 1,000 ML IV ONE (07:29)
[2019-07-27 07:58] LABS: Glucose,Whole Blood 102 mg/dL (75-99)
[2019-07-27] MEDS ORDERED: ROCURONIUM BROMIDE 10 MG/ML 5 ML VIAL IV ONE (08:05)
[2019-07-27] MEDS ORDERED: PROPOFOL 10 MG/ML 20 ML VIAL IV ONE (08:05)
[2019-07-27] MEDS ORDERED: ePHEDrine SULFATE/0.9% NACL/PF 50 MG/5 ML SYRINGE IV ONE (08:05)
[2019-07-27] MEDS ORDERED: LIDOCAINE 1% INJ 10MG/ML (20 ML MDV) ONE (08:05)
[2019-07-27] MEDS ORDERED: fentaNYL (PF) 50 MCG/ML 2 ML AMP ONE (08:05)
[2019-07-27] MEDS ORDERED: IOPAMIDOL-370 50ML BTL MISCELLANE ONE ×2 (08:28→08:37)
--- NOTE | 2019-07-27 09:15 | P.OP ---
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 Postoperative Diagnosis: Same, Procedure(s) Performed: Cystoscopy, urethral dilation, TURBT, bilateral retrograde pyelograms Anesthesia: SANDEEP Surgeon: Rakan Quintanilla Estimated Blood Loss (ml): 10 Pathology: other (Bladder tumor) Condition: stable Disposition: PACU Indications for Procedure: The patient is an unhealthy 54-year-old gentleman who I saw recently for gross hematuria. He had persistent bleeding when he came to the office after recent hospitalization. Cystoscopy in the office identified what appeared to be a small sessile bladder tumor on the right posterior lateral wall. It was difficult to see due to the bleeding. He was to have an outpatient procedure this week however wasn't congestive heart failure and came to the hospital. His congestive heart failure has been treated such that I'm now able to do surgery. He comes for cystoscopy retrograde pyelograms and TURBT. Description of Procedure: The patient is brought to the operating suite. He is given a general endotracheal anesthesia. The urethra is somewhat tight. He has edema of the scrotum due to his congestive failure. I attempted pass a 25-[place] Irish sheath and direct vision obturator with Foroblique lens into the urethra but failed to do so. I thus passed a 22-[place] Irish cystoscope into the urethra and meet resistance in the pendulous and distal bulbar urethra. I have to dilate the urethra up to 30-Northern Irish just to get the scope through the urethra due to probable radiation scarring. I evacuate well over a liter of clot out of the bladder. I then inspect the bladder and see the small, 1-1/2 cm sessile-looking tumor on the right lateral wall. Whether this is radiation edema or tumor is uncertain. I inspect the rest of the bladder and see no evidence of tumor or active bleeding. The prostate is small short and not bleeding. Both ureteral orifices identified. Bilateral retrograde pyelograms were performed and the ureters of normal course and caliber without filling defect mass or obstruction. I then am able to finally advance the resectoscope into the bladder. I resected tumor on the right lateral wall. I cauterize this thoroughly. I inspect the rest the bladder and there is nothing abnormal. I removed the resectoscope and pass an 18-Northern Irish Hawk catheter into the bladder. The patient is awake and returned recovery room good condition. My belief as the bleeding came from the lesion on the right posterior lateral wall. This is been resected. Whether this is radiation cystitis or bladder karishma or is uncertain. Pending pathologist as to final determination.
[2019-07-27] MEDS: HYDROmorphone 0.5 MG/0.5 ML SYRINGE IVP PRN ×3 (09:36→16:35)
--- NOTE | 2019-07-27 10:47 | FL ---
EXAMINATION TYPE: FL cystogram DATE OF EXAM: 07/27/2019 COMPARISON: NONE HISTORY: cysto/check patency TECHNIQUE: Fluoroscopy. FINDINGS: Fluoroscopic guidance was provided during procedure performed.cysto/check patency .FL time 1.14min. 4 pics on syn IMPRESSION: As Above.
[2019-07-27 11:19] LABS: Glucose,Whole Blood 100 mg/dL (75-99)
[2019-07-27] MEDS: HYDROcodone/APAP 10-325MG 1 EACH TAB PO PRN ×2 (11:19→21:13)
[2019-07-27] MEDS: ATORVASTATIN 20 MG TAB PO SCH (11:21)
[2019-07-27] MEDS: ESCITALOPRAM 20 MG TAB PO SCH ×2 (11:21→19:22)
[2019-07-27] MEDS: FAMOTIDINE 20 MG TAB PO SCH ×2 (11:21→19:22)
[2019-07-27] MEDS: MAGNESIUM OXIDE 400 MG TAB PO SCH ×2 (11:21→19:22)
[2019-07-27] MEDS: PREGABALIN 100 MG CAP PO SCH ×3 (11:21→19:22)
[2019-07-27] MEDS: METOPROLOL TARTRATE 12.5 MG TAB PO SCH ×2 (11:21→19:22)
--- NOTE | 2019-07-27 12:42 | P.PN ---
Subjective Progress Note Date: 07/27/19 54-year-old male one of Dr. Amaro's patient with past medical history of bladder cancer, CAD post 3 stent in the past, history of osteoarthritis, hypertension and type 2 diabetes who has been treated by urology for bladder cancer and developed to have severe gross hematuria from bladder can cer patient was scheduled to have a [facility] today but he presented with significant swelling in the testicle and found to have significant pitting edema into his abdominal area the same time found to have significant anemia and worsening edema concerning with his heart failure. Patient was sent to the emergency department at [facility] were was seen and evaluated surprisingly found to have hemoglobin of 5.8 with hematocrit of 19.7 acute kidney injury with creatinine of 1.7 with potassium of 5.5 patient had and arrangement for blood transfusion urology were consulted patient was admitted to the hospital for the above problem. 07/24: Patient has been seen by cardiology, echocardiogram has been completed and report is pending. Lopressor was increased to 12.5 mg twice daily and IV fluids decreased. Dr. Quintainlla is planning on TURBT pending cardiology clearance. Repeat chest x-ray shows mild heart failure versus interstitial pneumonitis. Patient has been afebrile, heart rate 58, blood pressure 105/60, pulse ox 94% on room air. Repeat blood work this morning reveals hemoglobin of 6.4 and patient is scheduled for transfusion of 2 units packed RBCs. WBC 3.8, platelet count 93. Sodium 137, potassium 5.2, chloride 109, CO2 23, BUN 33 and creatinine 1.62. Blood sugars running between 74 and 96. 07/25: Patient had Hawk catheter placed last night for urinary retention. He has been afebrile, heart rate 61, blood pressure 102/64, pulse ox 93% on room air. Echocardiogram reveals EF of 40-45%, mild to moderate mitral regurgitation, severe tricuspid regurgitation, moderate to severe pulmonary hypertension. Patient is status post transfusion of a total of 2 units of packed RBCs. Hemoglobin yesterday afternoon was 7.1 and repeat hemoglobin this morning is 7.0, WBC 3.7 and platelet count 77. Discussed case with Dr. Quintanilla with plan for surgical intervention tomorrow. We will transfuse 2 units packed RBCs today. Patient is using incentive spirometry at 2000 ML. Patient may have diet today with nothing by mouth status at midnight. 07/26: Patient has been afebrile, heart rate 68, blood pressure 129/88, pulse ox currently 95% on simple mask. Repeat blood work reveals hemoglobin 8.4, platelet count 76. Potassium 5.7, chloride 110, BUN 38 and creatinine 1.41. Blood sugars running between 101 and 158. Calcium 6.4. This morning, patient underwent cystoscopy, urethral dilatation, TURBT, bilateral retrograde pyelograms with Dr. Quintanilla. Hawk catheter remains in place. Patient denies any new complaints at this time. He continues to have anasarca. Objective - Vital Signs Vital signs: Vital Signs Temp 97.8 F 07/27/19 09:08 Pulse 68 07/27/19 09:08 Resp 16 07/27/19 09:08 BP 129/88 07/27/19 09:08 Pulse Ox 95 07/27/19 09:08 Intake & Output 07/26/19 07/27/19 07/27/19 18:59 06:59 18:59 Intake Total 480 620 200 Output Total 200 425 10 Balance 280 195 190 Weight 112.5 kg 112.5 kg Intake: IV 200 Oral 480 0 Blood Product 0 620 Rc As-1 Unit 310 [id number] Rc Cpda-1 Unit 0 310 [id number] Output: Urine 200 425 Stool 0 0 Estimated Blood Loss 10 Other: Voiding Method Indwelling Catheter Indwelling Catheter - Exam Review of Systems CONSTITUTIONAL: Well-developed no acute respiratory distress. Very pale but denies fever, denies chills EYES: No icterus sclerae, no conjunctivitis. EARS, NOSE, MOUTH, THROAT, and FACE: No sore throat, lymphadenopathy, carotid bruits or deformity. RESPIRATORY: Positive shortness of breath. CARDIOVASCULAR: Positive PND orthopnea palpitation with no significant angina. GASTROINTESTINAL: No Abd pain, Nausea or vomiting, no Diarrhea or constipation, No GI Bleed, no distention or masses. GENITOURINARY: Positive for gross hematuria with significant swelling in the scrotum and testicle area along with the groin area as well. Reports urinary retention. INTEGUMENT/BREAST: Negative for any muscular injury with mild osteoarthritis.. HEMATOLOGIC/LYMPHATIC: Negative for bleed or purpura. MUSCULOSKELTAL: Negative for Myalgia or arthralgia. NEURLOGICAL: No LOC, Sz or syncope, blurred vision dizziness or abnormality.. BEHAVIORAL/PSYCH: Negative. Physical examination General Appearance: Alert, cooperative, no distress, appears stated age. Very pale and mild shortness of breath. Neck HEENT: Supple, no lymphadenopathy, no thyroid enlargement, no carotid bruits. Lungs: Decreased breath some bilaterally with mild rhonchi no crackles or wheezes. Chest Wall: Decrease expansion with deep inspiration no tenderness and no deformity was found on exam, no costochondral pain or discomfort. Heart: Regular rate and rhythm, S1, S2 normal, no murmur, rub or gallop. Mild tachycardia Back: Symmetric, no curvature, ROM normal, no CVA tenderness. Abdomen: Soft positive bowel sound no organomegaly significant swelling in the lower abdominal area. Hawk catheter in place. Extremities: 2+ edema Genitalia: Significant swelling and edema of the scrotum and the groin area connected with the upper part of his legs, generalized anasarca. Pulses: 2+ and symmetric. Skin: Skin color, texture, tugor normal, no rashes or lesions. Neurologic: Alert oriented x3 cranial nerves II through XII intact, no motor deficit, no abnormal balance or gait. - Labs CBC & Chem 7: 07/27/19 05:40 07/27/19 05:40 Labs: Abnormal Lab Results - Last 24 Hours (Table) 07/24/19 07/26/19 07/26/19 Range/Units 11:20 09:04 09:04 RBC 2.55 L (4.30-5.90) m/uL Hgb 7.0 L (13.0-17.5) gm/dL Hct 23.1 L (39.0-53.0) % MCHC 30.1 L (31.0-37.0) g/dL RDW 18.3 H (11.5-15.5) % Plt Count 81 L (150-450) k/uL Potassium 5.4 H (3.5-5.1) mmol/L Chloride 109 H (98-107) mmol/L BUN 41 H (9-20) mg/dL Creatinine 1.60 H (0.66-1.25) mg/dL Glucose (74-99) mg/dL POC Glucose (mg/dL) (75-99) mg/dL Calcium 6.6 L (8.4-10.2) mg/dL Crossmatch See Detail 07/26/19 07/26/19 07/26/19 Range/Units 11:20 16:29 19:59 RBC (4.30-5.90) m/uL Hgb (13.0-17.5) gm/dL Hct (39.0-53.0) % MCHC (31.0-37.0) g/dL RDW (11.5-15.5) % Plt Count (150-450) k/uL Potassium (3.5-5.1) mmol/L Chloride (98-107) mmol/L BUN (9-20) mg/dL Creatinine (0.66-1.25) mg/dL Glucose (74-99) mg/dL POC Glucose (mg/dL) 102 H 208 H 158 H (75-99) mg/dL Calcium (8.4-10.2) mg/dL Crossmatch 07/27/19 07/27/19 07/27/19 Range/Units 05:40 05:40 06:19 RBC 3.11 L (4.30-5.90) m/uL Hgb 8.4 L (13.0-17.5) gm/dL Hct 28.4 L (39.0-53.0) % MCHC 29.5 L (31.0-37.0) g/dL RDW 17.8 H (11.5-15.5) % Plt Count 76 L (150-450) k/uL Potassium 5.7 H (3.5-5.1) mmol/L Chloride 110 H (98-107) mmol/L BUN 38 H (9-20) mg/dL Creatinine 1.41 H (0.66-1.25) mg/dL Glucose 101 H (74-99) mg/dL POC Glucose (mg/dL) 124 H (75-99) mg/dL Calcium 6.4 L* (8.4-10.2) mg/dL Crossmatch 07/27/19 Range/Units 07:56 RBC (4.30-5.90) m/uL Hgb (13.0-17.5) gm/dL Hct (39.0-53.0) % MCHC (31.0-37.0) g/dL RDW (11.5-15.5) % Plt Count (150-450) k/uL Potassium (3.5-5.1) mmol/L Chloride (98-107) mmol/L BUN (9-20) mg/dL Creatinine (0.66-1.25) mg/dL Glucose (74-99) mg/dL POC Glucose (mg/dL) 102 H (75-99) mg/dL Calcium (8.4-10.2) mg/dL Crossmatch Assessment and Plan Plan: 1. Acute blood loss anemia secondary to gross hematuria status post transfusion of 4 units of packed RBCs total. 2. Recent diagnosis of bladder cancer causing hematuria and consult with urology appreciated. Status post TURBT. 3. Anasarca secondary to hypoperfusion secondary to his anemia. 4. CAD: Post angioplasty and stent placement has been seeing cardiology and on secondary prevention remain on Lipitor along with metoprolol. 5. Acute kidney injury: Most likely acute tubular necrosis with hypoperfusion secondary to anemia and volume loss. Monitor kidney function. 6. Chronic pain management: Patient has been on Duragesic patch along with hydrocodone and Lyrica. 7. Hyperlipidemia: Remain on Zocor 40 mg daily. 8. Recurrent depression: Has been on Lexapro 20 mg twice a day continue medication. 9. COPD: Patient has been on Ventolin HFA. 10. Chronic gastritis and GERD. Continue Pepcid twice daily. 11. Chronic lower back pain: Has been on fentanyl and Lyrica. 12 . Pancytopenia secondary to bladder cancer. 13. DVT prophylaxis: Continue patient on knee-high JESSICA hose and Venodyne boots no anticoagulation to be use at this point. CODE STATUS: Full code. Discharge plan: Return home. Patient meets criteria for palliative care. Impression and plan of care have been directed as dictated by the signing physician. Dionna Quigley nurse practitioner acting as scribe for signing physician.
--- NOTE | 2019-07-27 13:12 | P.PN ---
Subjective Progress Note Date: 07/27/19 This is a pleasant 54-year-old gentleman with past medical history of bladder cancer, coronary artery disease with prior stenting in the past, osteoarthritis, hypertension, diabetes, hyperlipidemia. He is currently under treatment by urology for his bladder cancer, patient was actually scheduled to have a procedure performed at urology office, when he presented very was noticed to have significant swelling in his testicle and found to have bilateral edema in his extremities as well as abdominal area. He was then sent to the emergency department for further evaluation and treatment. Laboratory data on admission, white blood cell count 3.5, hemoglobin 5.8, platelet count 96. This morning's labs, hemoglobin of 6.4, platelet count 93. Sodium 137, potassium 5.2, BUN 43, creatinine 1.6, BNP level 60-60. Troponin 0.016. Patient was seen and examined this morning, denies any shortness of breath, no palpitations, no chest discomfort, no dizziness or lightheadedness. Echocardiogram has been requested, we will also request a chest x-ray be performed. We will decrease the metoprolol 12-1/2 mg one tablet by mouth twice a day, decrease the IV fluids to 1 25 mL per hour. EKG showed a junctional rhythm. 07/26/19 Patient was seen and examined this morning, overall feeling well. Blood pressure 90s to low 100s systolic. Laboratory data from today, white blood cell count 4.6, hemoglobin 7.0, platelet count 81. Sodium 142, potassium 5.4, BUN 41 and creatinine 1.6. Echocardiogram with Doppler study was performed which revealed an ejection fraction of 40-45% mild to moderate mitral regurgitation, severe tricuspid regurgitation and moderate to severe pulmonary hypertension. Patient is considered moderate to high risk for surgery but okay for surgery from cardiology's perspective. We will optimize blood pressure control during the perioperative period. 07/27/2019 Patient was seen and examined this morning, he underwent a cystoscopy with a dilated dictation earlier this morning. He was overall feeling well, but complaining of some pain and swelling in his right forearm area. It does appear warm and swollen, there is no site of prior IV or anything in that area. We will relay this to primary care to review. Blood pressure 106/70 with a heart rate in the 60s. White blood cell count 4.4, hemoglobin 8.4, platelet count 76. Sodium 141, potassium 5.7, BUN 38, and creatinine 1.4. Objective - Vital Signs Vital signs: Vital Signs Temp 97.6 F 07/27/19 11:00 Pulse 59 L 07/27/19 11:00 Resp 18 07/27/19 11:00 BP 106/73 07/27/19 11:00 Pulse Ox 96 07/27/19 11:00 Intake & Output 07/26/19 07/27/19 07/27/19 18:59 06:59 18:59 Intake Total 480 620 300 Output Total 200 425 10 Balance 280 195 290 Weight 112.5 kg 112.5 kg Intake: IV 300 Oral 480 0 Blood Product 0 620 Rc As-1 Unit 310 [id number] Rc Cpda-1 Unit 0 310 [id number] Output: Urine 200 425 Stool 0 0 0 Estimated Blood Loss 10 Other: Voiding Method Indwelling Catheter Indwelling Catheter Indwelling Catheter - Exam PHYSICAL EXAMINATION: GENERAL: 54-year-old gentleman in no acute distress at the time of my examination HEENT: Head is atraumatic, normocephalic. Pupils equal, round. Sclera anicteric. Conjunctiva are clear. Mucous membranes of the mouth are moist. Neck is supple. There is no elevated jugular venous pressure.No carotid bruit is heard. HEART EXAMINATION: Heart S1, S2 systolic murmur is heard . CHEST EXAMINATION: Lungs reveal decreased breath sounds bilaterally with some mild crackles heard at the bases. No chest wall tenderness is noted on palpation or with deep breathing. ABDOMEN: Soft, nontender. Bowel sounds are heard. No organomegaly noted. EXTREMITIES: 2+ peripheral pulses with no evidence 2+ peripheral edema and no calf tenderness noted. NEUROLOGIC patient is awake, alert and oriented X3. - Labs CBC & Chem 7: 07/27/19 05:40 07/27/19 05:40 Labs: Abnormal Lab Results - Last 24 Hours (Table) 07/24/19 07/26/19 07/26/19 Range/Units 11:20 16:29 19:59 RBC (4.30-5.90) m/uL Hgb (13.0-17.5) gm/dL Hct (39.0-53.0) % MCHC (31.0-37.0) g/dL RDW (11.5-15.5) % Plt Count (150-450) k/uL Potassium (3.5-5.1) mmol/L Chloride (98-107) mmol/L BUN (9-20) mg/dL Creatinine (0.66-1.25) mg/dL Glucose (74-99) mg/dL POC Glucose (mg/dL) 208 H 158 H (75-99) mg/dL Calcium (8.4-10.2) mg/dL Crossmatch See Detail 07/27/19 07/27/19 07/27/19 Range/Units 05:40 05:40 06:19 RBC 3.11 L (4.30-5.90) m/uL Hgb 8.4 L (13.0-17.5) gm/dL Hct 28.4 L (39.0-53.0) % MCHC 29.5 L (31.0-37.0) g/dL RDW 17.8 H (11.5-15.5) % Plt Count 76 L (150-450) k/uL Potassium 5.7 H (3.5-5.1) mmol/L Chloride 110 H (98-107) mmol/L BUN 38 H (9-20) mg/dL Creatinine 1.41 H (0.66-1.25) mg/dL Glucose 101 H (74-99) mg/dL POC Glucose (mg/dL) 124 H (75-99) mg/dL Calcium 6.4 L* (8.4-10.2) mg/dL Crossmatch 07/27/19 07/27/19 Range/Units 07:56 11:18 RBC (4.30-5.90) m/uL Hgb (13.0-17.5) gm/dL Hct (39.0-53.0) % MCHC (31.0-37.0) g/dL RDW (11.5-15.5) % Plt Count (150-450) k/uL Potassium (3.5-5.1) mmol/L Chloride (98-107) mmol/L BUN (9-20) mg/dL Creatinine (0.66-1.25) mg/dL Glucose (74-99) mg/dL POC Glucose (mg/dL) 102 H 100 H (75-99) mg/dL Calcium (8.4-10.2) mg/dL Crossmatch Assessment and Plan Plan: Assessment and plan #1 acute blood loss anemia, likely secondary to gross hematuria, hemoglobin on admission 5.8. #2 recent diagnosis of bladder cancer causing hematuria followed by urology. #3 anasarca, likely secondary to hypoperfusion secondary to anemia, patient is receiving IV fluids at 75 mL per hour and will receive a blood transfusion. #4 coronary artery disease with prior stenting #5 acute kidney injury #6 hyperlipidemia #7 asthma/COPD Plan From cardiology's, we will continue the patient on his current medications. Continue to monitor blood pressure. DNP note has been reviewed, I agree with a documented findings and plan of care. Patient was seen and examined.
[2019-07-27 15:05] VITALS: BMI 35.6
[2019-07-27 16:23] LABS: Glucose,Whole Blood 145 mg/dL (75-99)
[2019-07-27 20:57] LABS: Glucose,Whole Blood 235 mg/dL (75-99)
[2019-07-28] MEDS: SODIUM CHLORIDE 0.9% 1,000 ML IV SCH ×3 (03:16→23:23)
[2019-07-28 06:03] LABS: Glucose,Whole Blood 114 mg/dL (75-99)
[2019-07-28 06:31] LABS: Anisocytosis Slight; HCT 26.7 % (39.0-53.0); Hypochromasia Marked; MCH 27.2 pg (25.0-35.0); MCHC 29.8 g/dL (31.0-37.0); MCV 91.3 fL (80.0-100.0); Mean Platelet Volume 12.7; Poikilocytosis Moderate; RBC 2.93 m/uL (4.30-5.90); RDW 18.2 % (11.5-15.5); WBC 4.9 k/uL (3.8-10.6)
[2019-07-28 06:38] LABS: Platelet Count 78 k/uL (150-450)
[2019-07-28 06:41] LABS: Potassium 5.1 mmol/L (3.5-5.1)
[2019-07-28 06:57] LABS: Calcium 6.3 mg/dL (8.4-10.2)
[2019-07-28] MEDS: HYDROcodone/APAP 10-325MG 1 EACH TAB PO PRN ×3 (08:21→21:11)
[2019-07-28] MEDS: ESCITALOPRAM 20 MG TAB PO SCH ×2 (08:22→21:10)
[2019-07-28] MEDS: ATORVASTATIN 20 MG TAB PO SCH (08:22)
[2019-07-28] MEDS: FAMOTIDINE 20 MG TAB PO SCH ×2 (08:23→21:10)
[2019-07-28] MEDS: MAGNESIUM OXIDE 400 MG TAB PO SCH ×2 (08:23→21:11)
[2019-07-28] MEDS: METOPROLOL TARTRATE 12.5 MG TAB PO SCH ×2 (08:23→21:10)
[2019-07-28] MEDS: FERROUS SULFATE 325 MG TAB PO SCH (08:23)
[2019-07-28] MEDS: PREGABALIN 100 MG CAP PO SCH ×3 (08:23→21:10)
[2019-07-28 11:09] LABS: Glucose,Whole Blood 108 mg/dL (75-99)
--- NOTE | 2019-07-28 11:38 | P.PN ---
Subjective Progress Note Date: 07/28/19 54-year-old male one of Dr. Amaro's patient with past medical history of bladder cancer, CAD post 3 stent in the past, history of osteoarthritis, hypertension and type 2 diabetes who has been treated by urology for bladder cancer and developed to have severe gross hematuria from bladder can cer patient was scheduled to have a [facility] today but he presented with significant swelling in the testicle and found to have significant pitting edema into his abdominal area the same time found to have significant anemia and worsening edema concerning with his heart failure. Patient was sent to the emergency department at [facility] were was seen and evaluated surprisingly found to have hemoglobin of 5.8 with hematocrit of 19.7 acute kidney injury with creatinine of 1.7 with potassium of 5.5 patient had and arrangement for blood transfusion urology were consulted patient was admitted to the hospital for the above problem. 07/24: Patient has been seen by cardiology, echocardiogram has been completed and report is pending. Lopressor was increased to 12.5 mg twice daily and IV fluids decreased. Dr. Quintanilla is planning on TURBT pending cardiology clearance. Repeat chest x-ray shows mild heart failure versus interstitial pneumonitis. Patient has been afebrile, heart rate 58, blood pressure 105/60, pulse ox 94% on room air. Repeat blood work this morning reveals hemoglobin of 6.4 and patient is scheduled for transfusion of 2 units packed RBCs. WBC 3.8, platelet count 93. Sodium 137, potassium 5.2, chloride 109, CO2 23, BUN 33 and creatinine 1.62. Blood sugars running between 74 and 96. 07/25: Patient had Hawk catheter placed last night for urinary retention. He has been afebrile, heart rate 61, blood pressure 102/64, pulse ox 93% on room air. Echocardiogram reveals EF of 40-45%, mild to moderate mitral regurgitation, severe tricuspid regurgitation, moderate to severe pulmonary hypertension. Patient is status post transfusion of a total of 2 units of packed RBCs. Hemoglobin yesterday afternoon was 7.1 and repeat hemoglobin this morning is 7.0, WBC 3.7 and platelet count 77. Discussed case with Dr. Quintanilla with plan for surgical intervention tomorrow. We will transfuse 2 units packed RBCs today. Patient is using incentive spirometry at 2000 ML. Patient may have diet today with nothing by mouth status at midnight. 07/26: Patient has been afebrile, heart rate 68, blood pressure 129/88, pulse ox currently 95% on simple mask. Repeat blood work reveals hemoglobin 8.4, platelet count 76. Potassium 5.7, chloride 110, BUN 38 and creatinine 1.41. Blood sugars running between 101 and 158. Calcium 6.4. This morning, patient underwent cystoscopy, urethral dilatation, TURBT, bilateral retrograde pyelograms with Dr. Quintanilla. Hawk catheter remains in place. Patient denies any new complaints at this time. He continues to have anasarca. 07/27: Patient has been afebrile, heart rate 72, blood pressure 101/59, last evening 94/65, pulse ox 97% on 2 L nasal cannula. Repeat hemoglobin this morning is at 8.0, platelet count 78, WBC 4.9. BUN 32 and creatinine 1.21. Calcium 6.3. Blood sugars running between 93 and 235. Pathology report is pending. Patient has good urine output and Hawk cath remains in place. He continues to have scrotal edema but lower extremity edema is improved. Ferrous sulfate started today by Dr. Santi Kirby. Anticipate possible discharge on Wednesday. Patient will need to be cleared for discharge by Dr. Quintanilla and determination regarding Hawk catheter removal. Objective - Vital Signs Vital signs: Vital Signs Temp 98.2 F 07/27/19 19:23 Pulse 76 07/27/19 23:37 Resp 18 07/27/19 23:37 BP 101/59 07/27/19 23:37 Pulse Ox 97 07/27/19 23:37 Intake & Output 07/27/19 07/28/19 07/28/19 18:59 06:59 18:59 Intake Total 1647 Output Total 260 515 Balance 1387 -515 Weight 112.5 kg 82.5 kg Intake: IV 300 Oral 1347 Output: Urine 250 515 Stool 0 0 Estimated Blood Loss 10 Other: Voiding Method Indwelling Catheter Indwelling Catheter - Exam Review of Systems CONSTITUTIONAL: Well-developed no acute respiratory distress. Very pale but denies fever, denies chills EYES: No icterus sclerae, no conjunctivitis. EARS, NOSE, MOUTH, THROAT, and FACE: No sore throat, lymphadenopathy, carotid bruits or deformity. RESPIRATORY: Positive shortness of breath. CARDIOVASCULAR: Positive PND orthopnea palpitation with no significant angina. GASTROINTESTINAL: No Abd pain, Nausea or vomiting, no Diarrhea or constipation, No GI Bleed, no distention or masses. GENITOURINARY: Edema in the scrotum and testicle area along with the groin area as well. Reports urinary retention. INTEGUMENT/BREAST: Negative for any muscular injury with mild osteoarthritis.. HEMATOLOGIC/LYMPHATIC: Negative for bleed or purpura. MUSCULOSKELTAL: Negative for Myalgia or arthralgia. No lower extremity edema NEURLOGICAL: No LOC, Sz or syncope, blurred vision dizziness or abnormality.. BEHAVIORAL/PSYCH: Negative. Physical examination General Appearance: Alert, cooperative, no distress, appears stated age. Very pale and mild shortness of breath. Neck HEENT: Supple, no lymphadenopathy, no thyroid enlargement, no carotid bruits. Lungs: Decreased breath some bilaterally with mild rhonchi no crackles or wheezes. Chest Wall: Decrease expansion with deep inspiration no tenderness and no deformity was found on exam, no costochondral pain or discomfort. Heart: Regular rate and rhythm, S1, S2 normal, no murmur, rub or gallop. Mild tachycardia Back: Symmetric, no curvature, ROM normal, no CVA tenderness. Abdomen: Soft positive bowel sound no organomegaly significant swelling in the lower abdominal area. Hawk catheter in place. Extremities: 2+ edema Genitalia: Significant swelling and edema of the scrotum and the groin area. Pulses: 2+ and symmetric. Skin: Skin color, texture, tugor normal, no rashes or lesions. Neurologic: Alert oriented x3 cranial nerves II through XII intact, no motor deficit, no abnormal balance or gait. - Labs CBC & Chem 7: 07/28/19 05:22 07/28/19 05:22 Labs: Abnormal Lab Results - Last 24 Hours (Table) 07/24/19 07/27/19 07/27/19 Range/Units 11:20 11:18 16:21 RBC (4.30-5.90) m/uL Hgb (13.0-17.5) gm/dL Hct (39.0-53.0) % MCHC (31.0-37.0) g/dL RDW (11.5-15.5) % Plt Count (150-450) k/uL BUN (9-20) mg/dL POC Glucose (mg/dL) 100 H 145 H (75-99) mg/dL Calcium (8.4-10.2) mg/dL Crossmatch See Detail 07/27/19 07/28/19 07/28/19 Range/Units 20:56 05:22 05:22 RBC 2.93 L (4.30-5.90) m/uL Hgb 8.0 L (13.0-17.5) gm/dL Hct 26.7 L (39.0-53.0) % MCHC 29.8 L (31.0-37.0) g/dL RDW 18.2 H (11.5-15.5) % Plt Count 78 L (150-450) k/uL BUN 32 H (9-20) mg/dL POC Glucose (mg/dL) 235 H (75-99) mg/dL Calcium 6.3 L* (8.4-10.2) mg/dL Crossmatch 07/28/19 Range/Units 06:02 RBC (4.30-5.90) m/uL Hgb (13.0-17.5) gm/dL Hct (39.0-53.0) % MCHC (31.0-37.0) g/dL RDW (11.5-15.5) % Plt Count (150-450) k/uL BUN (9-20) mg/dL POC Glucose (mg/dL) 114 H (75-99) mg/dL Calcium (8.4-10.2) mg/dL Crossmatch Assessment and Plan Plan: 1. Acute blood loss anemia secondary to gross hematuria status post transfusion of 4 units of packed RBCs total. 2. Recent diagnosis of bladder cancer causing hematuria and consult with urolo gy appreciated. Status post TURBT. 3. Anasarca secondary to hypoperfusion secondary to his anemia. 4. CAD: Post angioplasty and stent placement has been seeing cardiology and on secondary prevention remain on Lipitor along with metoprolol. 5. Acute kidney injury: Most likely acute tubular necrosis with hypoperfusion secondary to anemia and volume loss. Monitor kidney function. 6. Chronic pain management: Patient has been on Duragesic patch along with hydrocodone and Lyrica. 7. Hyperlipidemia: Remain on Zocor 40 mg daily. 8. Recurrent depression: Has been on Lexapro 20 mg twice a day continue medication. 9. COPD: Patient has been on Ventolin HFA. 10. Chronic gastritis and GERD. Continue Pepcid twice daily. 11. Chronic lower back pain: Has been on fentanyl and Lyrica. 12 . Pancytopenia secondary to bladder cancer. 13. DVT prophylaxis: Continue patient on knee-high JESSICA hose and Venodyne boots no anticoagulation to be use at this point. 14. Urinary retention requiring Hawk catheter placement. CODE STATUS: Full code. Discharge plan: Return home most likely on the weekend. Patient meets criteria for palliative care. Impression and plan of care have been directed as dictated by the signing physician. Dionna Quigley nurse practitioner acting as scribe for signing physician.
--- NOTE | 2019-07-28 12:45 | PN ---
PROGRESS NOTE This gentleman underwent resection of bladder tumor and evacuation of clot from the bladder by Dr. Quintanilla. He is doing better. Hemodynamically stable, in sinus rhythm. No chest pain. His vitals are stable. No JVD. S1, S2 heard normally, short systolic murmur. Lungs reveal decent air entry. Abdomen and lower extremity exam unchanged. From a cardiac standpoint, I would recommend that we continue him on his current medicines including beta quang and he can be discharged from a cardiac standpoint. Advised to the to follow up with me in the next 3 to 4 weeks. Advised to quit smoking. MMODL / IJN: [id number] /
--- NOTE | 2019-07-28 16:03 | P.PN ---
Progress Note - Text Progress Note Date: 07/28/19 Mr. Flynn underwent evacuation of clot and resection of an apparent tumor yesterday by Dr. Quintanilla. His Hawk catheter is draining clear yellow urine. He is noted to have significant penoscrotal edema. From a urologic standpoint, he is stable for discharge with the Hawk catheter. He has been instructed to drink finding of fluids, and follow up with Dr. Quintanilla in 1 week. Please notify me if we can be of any further assistance.
[2019-07-28 16:35] LABS: Glucose,Whole Blood 102 mg/dL (75-99)
[2019-07-28 20:53] LABS: Glucose,Whole Blood 144 mg/dL (75-99)
[2019-07-29] MEDS: LACTATED RINGERS 1,000 ML IV SCH (04:15)
[2019-07-29] MEDS: SODIUM CHLORIDE 0.9% 1,000 ML IV SCH ×2 (04:16→09:19)
[2019-07-29 05:42] VITALS: RESP 16
[2019-07-29 06:25] LABS: Glucose,Whole Blood 98 mg/dL (75-99)
[2019-07-29 07:41] LABS: African American GFR (CKD) >90 (>60 ml/min/1.73 sqM); Anion Gap 6 mmol/L; Blood Urea Nitrogen 27 mg/dL (9-20); Carbon Dioxide 26 mmol/L (22-30); Chloride 106 mmol/L (98-107); Glucose 84 mg/dL (74-99); Non-African American GFR(CKD) 81 (>60 ml/min/1.73 sqM); Sodium 138 mmol/L (137-145)
[2019-07-29 07:52] LABS: Anisocytosis Slight; HCT 27.7 % (39.0-53.0); HGB 8.4 gm/dL (13.0-17.5); Hypochromasia Marked; MCH 27.9 pg (25.0-35.0); MCHC 30.3 g/dL (31.0-37.0); Mean Platelet Volume 12.7; Poikilocytosis Moderate; RBC 3.02 m/uL (4.30-5.90); RDW 18.9 % (11.5-15.5); WBC 4.1 k/uL (3.8-10.6)
[2019-07-29 07:54] LABS: Calcium 6.1 mg/dL (8.4-10.2); Platelet Count 61 k/uL (150-450)
[2019-07-29] MEDS: FAMOTIDINE 20 MG TAB PO SCH (09:19)
[2019-07-29] MEDS: ESCITALOPRAM 20 MG TAB PO SCH (09:19)
[2019-07-29] MEDS: FERROUS SULFATE 325 MG TAB PO SCH (09:19)
[2019-07-29] MEDS: MAGNESIUM OXIDE 400 MG TAB PO SCH (09:19)
[2019-07-29] MEDS: PREGABALIN 100 MG CAP PO SCH (09:19)
[2019-07-29] MEDS: METOPROLOL TARTRATE 12.5 MG TAB PO SCH (09:19)
[2019-07-29] MEDS: ATORVASTATIN 20 MG TAB PO SCH (09:19)
[2019-07-29] MEDS: HYDROcodone/APAP 10-325MG 1 EACH TAB PO PRN (09:22)
[2019-07-29 10:58] VITALS: TEMP 98
[2019-07-29 12:16] LABS: Glucose,Whole Blood 120 mg/dL (75-99)
--- NOTE | 2019-07-29 14:11 | PN ---
PROGRESS NOTE Mr. Flynn underwent surgery for his bladder evacuation of clot and a small tumor that was resected. He is doing well. Remains in sinus rhythm, comfortable, asymptomatic. Vitals are stable, no JVD. S1, S2 heard normally. No significant murmurs. Lungs revealed decent air entry. Abdomen and lower extremity exam unchanged. Patient can be discharged today and he will follow up with his PCP and I will see him in 3-4 weeks. MMODL / IJN: [id number] /
[2019-07-29 15:04] VITALS: BP 119/65; PULSE 76
== END 2019-07-29 17:07 | disposition home or self-care (01) | DRG 668 ==
LOC: EC 10:41 → 3SCARD 12:49
PROVIDERS: ADMIT Internal Medicine Geriatric Medicine; ATTEND Internal Medicine Geriatric Medicine
PROC: 0T7D8ZZ Dilation of Urethra, Via Natural or Artificial Opening Endoscopic (ICD-10-PCS; principal; 2019-07-27 07:45)
PROC: BT141ZZ Fluoroscopy of Kidneys, Ureters and Bladder using Low Osmolar Contrast (ICD-10-PCS; principal; 2019-07-27 07:45)
PROC: 0TCB8ZZ Extirpation of Matter from Bladder, Via Natural or Artificial Opening Endoscopic (ICD-10-PCS; principal; 2019-07-27 07:45)
PROC: 0TBB8ZZ Excision of Bladder, Via Natural or Artificial Opening Endoscopic (ICD-10-PCS; principal; 2019-07-27 07:45)
DX: D30.3 Benign neoplasm of bladder (principal); N17.0 Acute kidney failure with tubular necrosis; D62 Acute posthemorrhagic anemia; E87.2 Acidosis; N02.9 Recurrent and persistent hematuria with unspecified morphologic changes; E11.9 Type 2 diabetes mellitus without complications; E78.5 Hyperlipidemia, unspecified; F17.210 Nicotine dependence, cigarettes, uncomplicated; F32.9 Major depressive disorder, single episode, unspecified; F41.9 Anxiety disorder, unspecified; G31.9 Degenerative disease of nervous system, unspecified; G89.29 Other chronic pain; I08.1 Rheumatic disorders of both mitral and tricuspid valves; I11.0 Hypertensive heart disease with heart failure; I25.10 Atherosclerotic heart disease of native coronary artery without angina pectoris; I27.20 Pulmonary hypertension, unspecified; I50.9 Heart failure, unspecified; J44.9 Chronic obstructive pulmonary disease, unspecified; K21.9 Gastro-esophageal reflux disease without esophagitis; K29.50 Unspecified chronic gastritis without bleeding; N50.89 Other specified disorders of the male genital organs; Z79.899 Other long term (current) drug therapy; Z83.3 Family history of diabetes mellitus; Z85.048 Personal history of other malignant neoplasm of rectum, rectosigmoid junction, and anus; Z92.3 Personal history of irradiation; Z95.5 Presence of coronary angioplasty implant and graft; Z99.3 Dependence on wheelchair; R33.9 Retention of urine, unspecified; Z98.42 Cataract extraction status, left eye; Z98.41 Cataract extraction status, right eye; Z79.891 Long term (current) use of opiate analgesic; Z81.1 Family history of alcohol abuse and dependence; Z82.49 Family history of ischemic heart disease and other diseases of the circulatory system; Z88.8 Allergy status to other drugs, medicaments and biological substances; Z91.041 Radiographic dye allergy status; Z91.013 Allergy to seafood
CPT/HCPCS: 36415; 71046; 74430; 80048; 80053; 83605; 83735; 83880; 84132; 84484; 85025; 85027; 85610; 85730; 86850; 86870; 86880; 86900; 86901; 86902; 86920; 88307; 93005; 93306; 96360; 96361; 99285

== ENCOUNTER → 2019-09-08 | Outpatient (CLI) | payer MEDICARE ==
[2019-09-08 19:57] LABS: African American GFR (CKD) 45.3 (60.0-200.0); Anion Gap 11.4 mmol/L (4.00-12.00); BUN/Creat Ratio 15.79 Ratio (12.00-20.00); Carbon Dioxide 27.6 mmol/L (21.6-31.8); Non-African American GFR(CKD) 39.1 (60.0-200.0); Potassium 5.5 mmol/L (3.5-5.5)
[2019-09-11 09:14] LABS: Calcium 6.4 mg/dL (8.7-10.3)
== END | disposition home or self-care (01) ==
LOC: LABWHC1 11:21
PROVIDERS: ATTEND Pediatrics Pediatric Infectious Diseases
DX: Z11.59 Encounter for screening for other viral diseases (principal)
CPT/HCPCS: 80048; 36415; U0003

== ENCOUNTER → 2019-09-08 | Outpatient (CLI) | payer MEDICARE | END | disposition home or self-care (01) | LOC: LABWHC1 11:26 | PROVIDERS: ATTEND Family Medicine | DX: Z53.9 Procedure and treatment not carried out, unspecified reason (principal) ==

== ENCOUNTER 2019-09-11 06:16 | Day surgery (SDC) | payer MEDICARE ==
[2019-09-08 12:30] VITALS: BMI 30.5
[~2019-09-11 06:16] MED LIST changes: +ACETAMINOPHEN TAB 500 MG TAB PO ONE; -DEXAMETHASONE SOD PHOSPHATE 10 MG/ML 1 ML VIAL IV ONE; -HYDROmorphone 0.5 MG/0.5 ML SYRINGE IVP PRN; -LACTATED RINGERS 1,000 ML IV SCH; -MIDAZOLAM 2 MG/2 ML VIAL IV PRN; -ONDANSETRON 4 MG/2 ML VIAL IVP ONE; -Pre Op ABX Message 1 EACH MISC MISCELLANE ONE; -SCOPOLAMINE 1.5MG/72HR PATCH TRANSDERM ONE
[2019-09-11] MEDS ORDERED: HYDROmorphone 0.5 MG/0.5 ML SYRINGE IVP PRN (06:34)
[2019-09-11] MEDS ORDERED: DEXAMETHASONE SOD PHOSPHATE 10 MG/ML 1 ML VIAL IV ONE (06:34)
[2019-09-11] MEDS ORDERED: ONDANSETRON 4 MG/2 ML VIAL IVP ONE (06:34)
[2019-09-11 06:59] VITALS: TEMP 97.6
[2019-09-11] MEDS: LACTATED RINGERS 1,000 ML IV SCH ×2 (07:15→07:56)
[2019-09-11 07:20] LABS: Glucose,Whole Blood 106 mg/dL (75-99)
[2019-09-11] MEDS ORDERED: PROPOFOL 10 MG/ML 20 ML VIAL IV ONE (07:53)
[2019-09-11] MEDS ORDERED: fentaNYL (PF) 50 MCG/ML 2 ML AMP ONE (07:53)
[2019-09-11] MEDS ORDERED: diphenhydrAMINE 50 MG/ML 1 ML VIAL ONE (07:53)
[2019-09-11] MEDS ORDERED: MIDAZOLAM 2 MG/2 ML VIAL ONE (07:53)
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
[2019-09-11] MEDS ORDERED: BUPIVACAINE (PF) 0.25% 30 ML VIAL SQ ONE (08:15)
[2019-09-11] MEDS ORDERED: NALOXONE 0.4 MG/ML 1 ML VIAL IV PRN (08:28)
--- NOTE | 2019-09-11 08:28 | P.PCN ---
Date of Procedure: 09/11/19 Procedure(s) Performed: PREOPERATIVE DIAGNOSIS: Rectal cancer POSTOPERATIVE DIAGNOSIS: PROCEDURE: Port-A-Cath removal SURGEON: Naz EBL: Minimal ANESTHESIA: Sedation COMPLICATIONS: None OPERATIVE PROCEDURE: Patient was placed in the supine position. The patient was sedated per anesthesia that time. The chest was prepped and draped in the usual sterile fashion. The skin was localized with Marcaine solution. The previous incision was re-incised using a scalpel. The port was easily excised using ac commodation of blunt dissection sharp dissection and electrocautery. The subcutaneous tissues were reapproximated using 3-0 Vicryl sutures. The skin was reapproximated using 4-0 Monocryl sutures. Steri-Strips and sterile dressings were then applied. DISPOSITION: Stable to recovery room
[2019-09-11 09:02] VITALS: RESP 20
[2019-09-11 09:50] VITALS: BP 101/62; PULSE 74
== END 2019-09-11 10:18 | disposition home or self-care (01) ==
LOC: OR 06:16
PROVIDERS: ATTEND Surgery
DX: Z45.2 Encounter for adjustment and management of vascular access device (principal); C20 Malignant neoplasm of rectum; J45.909 Unspecified asthma, uncomplicated; I11.0 Hypertensive heart disease with heart failure; I50.9 Heart failure, unspecified; E11.9 Type 2 diabetes mellitus without complications; K21.9 Gastro-esophageal reflux disease without esophagitis; E78.5 Hyperlipidemia, unspecified; G47.33 Obstructive sleep apnea (adult) (pediatric); K46.9 Unspecified abdominal hernia without obstruction or gangrene; D64.9 Anemia, unspecified; I25.10 Atherosclerotic heart disease of native coronary artery without angina pectoris; N28.9 Disorder of kidney and ureter, unspecified; M54.9 Dorsalgia, unspecified; F17.200 Nicotine dependence, unspecified, uncomplicated; Z90.49 Acquired absence of other specified parts of digestive tract; Z87.438 Personal history of other diseases of male genital organs; Z87.2 Personal history of diseases of the skin and subcutaneous tissue; Z87.898 Personal history of other specified conditions; Z92.3 Personal history of irradiation; Z92.21 Personal history of antineoplastic chemotherapy; Z98.890 Other specified postprocedural states; Z95.5 Presence of coronary angioplasty implant and graft; Z86.69 Personal history of other diseases of the nervous system and sense organs; Z98.52 Vasectomy status; Z91.89 Other specified personal risk factors, not elsewhere classified; Z79.899 Other long term (current) drug therapy; Z79.891 Long term (current) use of opiate analgesic; Z79.84 Long term (current) use of oral hypoglycemic drugs; Z88.8 Allergy status to other drugs, medicaments and biological substances; Z91.041 Radiographic dye allergy status; Z91.013 Allergy to seafood; Z80.0 Family history of malignant neoplasm of digestive organs; Z83.3 Family history of diabetes mellitus; Z80.6 Family history of leukemia; Z82.69 Family history of other diseases of the musculoskeletal system and connective tissue; Z82.49 Family history of ischemic heart disease and other diseases of the circulatory system; Z81.1 Family history of alcohol abuse and dependence
CPT/HCPCS: 36590; J2250; J1200; J1644; J1100; J0690; J2405; J3010; J2704

== ENCOUNTER → 2019-11-14 | Outpatient (CLI) | payer MEDICARE ==
[2019-11-14 13:21] LABS: Anisocytosis Slight; Basophils # (A) 0.1 k/uL (0-0.2); Basophils % (A) 2 %; Eosinophils # (A) 0.5 k/uL (0-0.7); Eosinophils % (A) 10 %; HCT 45.1 % (39.0-53.0); HGB 14.1 gm/dL (13.0-17.5); Hypochromasia Slight; Lymphocytes % (A) 20 %; MCH 29.2 pg (25.0-35.0); MCHC 31.3 g/dL (31.0-37.0); MCV 93.1 fL (80.0-100.0); Mean Platelet Volume 8.9; Monocytes # (A) 0.4 k/uL (0-1.0); Monocytes % (A) 8 %; Neutrophils # (A) 3.1 k/uL (1.3-7.7); Neutrophils % (A) 58 %; Platelet Count 145 k/uL (150-450); RBC 4.84 m/uL (4.30-5.90); RDW 17.9 % (11.5-15.5); WBC 5.3 k/uL (3.8-10.6)
--- NOTE | 2019-11-14 13:24 | XR ---
EXAMINATION TYPE: XR foot complete LT DATE OF EXAM: 11/14/2019 CLINICAL HISTORY: pain TECHNIQUE: Frontal, lateral and oblique images of the left foot are obtained. COMPARISON: None. FINDINGS: There is no acute fracture/dislocation evident. The joint spaces appear within normal simon its. The overlying soft tissue appears unremarkable. IMPRESSION: There is no acute fracture or dislocation. ICD 10 NO FRACTURE, INITIAL EVALUATION
[2019-11-14 13:35] LABS: ALT 11 U/L (4-49); AST 22 U/L (17-59); African American GFR (CKD) >90 (>60 ml/min/1.73 sqM); Albumin 4.3 g/dL (3.5-5.0); Alkaline Phosphatase 110 U/L (38-126); Anion Gap 9 mmol/L; Blood Urea Nitrogen 24 mg/dL (9-20); Calcium 9.2 mg/dL (8.4-10.2); Carbon Dioxide 32 mmol/L (22-30); Chloride 101 mmol/L (98-107); Glucose 74 mg/dL (74-99); Non-African American GFR(CKD) 83 (>60 ml/min/1.73 sqM); Potassium 4.4 mmol/L (3.5-5.1); Sodium 142 mmol/L (137-145); Total Bilirubin 0.8 mg/dL (0.2-1.3); Total Protein 7.7 g/dL (6.3-8.2)
--- NOTE | 2019-11-14 14:57 | US ---
EXAMINATION TYPE: US venous doppler duplex LE BI DATE OF EXAM: 11/14/2019 2:03 PM COMPARISON: NONE CLINICAL HISTORY: I89.893 ULCER. fall 2 months ago, broke toes, leg pain, no h/o dvt SIDE PERFORMED: Bilateral TECHNIQUE: The lower extremity deep venous system is examined utilizing real time linear array sonog nestor with graded compression, doppler sonography and color-flow sonography. VESSELS IMAGED: External Iliac Vein (EIV) Common Femoral Vein Deep Femoral Vein Greater Saphenous Vein * Femoral Vein Popliteal Vein Small Saphenous Vein * Proximal Calf Veins (* superficial vessels) Right Leg: Negative for DVT Left Leg: Negative for DVT IMPRESSION: No evidence for DVT.
[2019-11-14 19:49] LABS: Hemoglobin A1C 5.5 % (4.0-6.0)
--- NOTE | 2019-11-15 13:44 | P.ARTDOP ---
Arterial Doppler LOWER EXTREMITY ARTERIAL DOPPLER: DATE OF SERVICE: 11/14/2019 Reason for study: Diabetic ulcer left foot. Doppler waveforms: Multiphasic bilaterally throughout. Pulse volume recording: Normal configuration. Pressure gradients: None. Ankle-brachial indices: Greater than 1 bilaterally. Toe brachial indices: 0.72 on the right, 0.73 on the left Impression: Normal study.
== END | disposition home or self-care (01) ==
LOC: RADUSWWP 12:10
PROVIDERS: ATTEND Nurse Practitioner Family
DX: L89.893 Pressure ulcer of other site, stage 3 (principal); E11.621 Type 2 diabetes mellitus with foot ulcer; Z88.3 Allergy status to other anti-infective agents; Z88.8 Allergy status to other drugs, medicaments and biological substances
CPT/HCPCS: 80053; 83036; 84134; 85025; 93923; 93970

== ENCOUNTER 2020-12-24 07:10 | Day surgery (SDC) | payer MEDICARE ==
[2020-12-23 10:12] VITALS: BMI 29.5
[~2020-12-24 07:10] MED LIST changes: -ACETAMINOPHEN TAB 500 MG TAB PO ONE; -HEPARIN SODIUM,PORCINE 5,000 UNIT/ML 1 ML VIAL SQ ONE; +LACTATED RINGERS 1,000 ML IV SCH; +LIDOCAINE 1% (10MG/ML) FOR IV START INTRADERMA PRN
[2020-12-24 07:40] LABS: Glucose,Whole Blood 130 mg/dL (75-99)
[2020-12-24 07:42] VITALS: TEMP 98.9
[2020-12-24] MEDS ORDERED: fentaNYL (PF) 50 MCG/ML 2 ML AMP ONE (08:07)
[2020-12-24] MEDS ORDERED: PROPOFOL 10 MG/ML 20 ML VIAL IV ONE (08:07)
[2020-12-24] MEDS ORDERED: MIDAZOLAM 2 MG/2 ML VIAL ONE (08:07)
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
--- NOTE | 2020-12-24 08:27 | P.PCN ---
Date of Procedure: 12/24/20 Procedure(s) Performed: PREOPERATIVE DIAGNOSIS: Colon cancer screening, history of rectal cancer POSTOPERATIVE DIAGNOSIS: Mild diverticulosis PROCEDURE: Colonoscopy ANESTHESIA: MAC SURGEON: Jose Childs M.D. SPECIMENS: None ENDOSCOPIC PROCEDURE: The patient was placed on the endoscopy table in the left decubitus position. The Olympus colonoscope was inserted into the anus and passed under direct visualization to the base of the cecum. The appendiceal orifice was visualized. From that point the scope was slowly withdrawn inspecting all surfaces carefully. There were no neoplastic inflammatory or polypoid lesions throughout the cecum, ascending, transverse, descending and rectum. There was mild left-sided diverticulosis noted. Digital rectal examination was normal. The patient was taken to the recovery room in stable condition per anesthesia guidelines. RECOMMENDATION: Resume diet. Follow colonoscopy 3 years.
[2020-12-24 08:40] VITALS: RESP 16
[2020-12-24 09:03] VITALS: BP 120/68; PULSE 86
== END 2020-12-24 09:01 | disposition home or self-care (01) ==
LOC: ORWHC2ENDO 07:10
PROVIDERS: ATTEND Surgery
DX: Z12.11 Encounter for screening for malignant neoplasm of colon (principal); K57.90 Diverticulosis of intestine, part unspecified, without perforation or abscess without bleeding; E11.9 Type 2 diabetes mellitus without complications; E78.5 Hyperlipidemia, unspecified; F17.200 Nicotine dependence, unspecified, uncomplicated; F41.9 Anxiety disorder, unspecified; I10 Essential (primary) hypertension; K21.9 Gastro-esophageal reflux disease without esophagitis; Z79.84 Long term (current) use of oral hypoglycemic drugs; Z82.49 Family history of ischemic heart disease and other diseases of the circulatory system; Z83.3 Family history of diabetes mellitus; Z85.048 Personal history of other malignant neoplasm of rectum, rectosigmoid junction, and anus; Z88.8 Allergy status to other drugs, medicaments and biological substances; Z90.49 Acquired absence of other specified parts of digestive tract; Z95.5 Presence of coronary angioplasty implant and graft; Z99.3 Dependence on wheelchair; G47.33 Obstructive sleep apnea (adult) (pediatric); Z99.89 Dependence on other enabling machines and devices; R13.10 Dysphagia, unspecified; Z79.890 Hormone replacement therapy
CPT/HCPCS: 45378; J2250; J3010; J2704

== ENCOUNTER 2021-07-27 23:09 | Inpatient (IN) | payer MEDICARE ==
[2021-07-27] MEDS ORDERED: methylPREDNISolone SOD SUCCI 125 MG/2 ML VIAL IV STA (23:52)
[2021-07-27] MEDS ORDERED: SODIUM CHLORIDE 0.9% 500 ML 500 ML IV STA (23:52)
[2021-07-27] MEDS ORDERED: ALBUTEROL NEBULIZED 2.5 MG/3 ML INHALATION STA (23:52)
[2021-07-27] MEDS ORDERED: IPRATROPIUM 0.5 MG/2.5 ML NEBU INHALATION STA (23:52)
[2021-07-28 00:19] LABS: Basophils % (A) 0 %; Eosinophils # (A) 0.1 k/uL (0-0.7); Eosinophils % (A) 1 %; HCT 49.4 % (39.0-53.0); HGB 16.2 gm/dL (13.0-17.5); Lymphocytes # (A) 0.9 k/uL (1.0-4.8); Lymphocytes % (A) 10 %; MCH 30.4 pg (25.0-35.0); MCHC 32.8 g/dL (31.0-37.0); MCV 92.8 fL (80.0-100.0); Mean Platelet Volume 8.9; Monocytes # (A) 0.7 k/uL (0-1.0); Monocytes % (A) 8 %; Neutrophils # (A) 6.8 k/uL (1.3-7.7); Neutrophils % (A) 78 %; Platelet Count 156 k/uL (150-450); RBC 5.33 m/uL (4.30-5.90); RDW 15.7 % (11.5-15.5); WBC 8.7 k/uL (3.8-10.6)
[2021-07-28 00:25] LABS: INR 1.1 (<1.2); Prothrombin Time 11.9 sec (9.0-12.0)
[2021-07-28 00:34] LABS: VBG PH 7.41 (7.31-7.41)
[2021-07-28 00:45] LABS: Albumin 4.1 g/dL (3.5-5.0); Calcium 6.5 mg/dL (8.4-10.2); Potassium 4.3 mmol/L (3.5-5.1); Total Bilirubin 0.7 mg/dL (0.2-1.3); Total Protein 7.3 g/dL (6.3-8.2)
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
[2021-07-28] MEDS ORDERED: CALCIUM GLUCONATE IN NACL 2 GM in SALINE 1 100ML.BAG IVPB ONE (01:15)
--- NOTE | 2021-07-28 01:20 | XR ---
EXAMINATION TYPE: XR chest 1V portable DATE OF EXAM: 07/28/2021 COMPARISON: 07/25/2019 HISTORY: Short of breath TECHNIQUE: FINDINGS: There is some interstitial infiltrates in the lower lobes bilaterally. Heart is top normal in size. No heart failure seen. There are chest leads. No definite pleural effusion. IMPRESSION: Lower lobe pulmonary interstitial infiltrates and subsegmental atelectasis appear increas ed compared to old exam. No heart failure.
[2021-07-28] MEDS ORDERED: FUROSEMIDE 10 MG/ML 4 ML VIAL IV STA (01:29)
[2021-07-28] MEDS ORDERED: IPRATROPIUM-ALBUTEROL 3 ML NEB INHALATION PRN (01:53)
[2021-07-28] MEDS ORDERED: ASPIRIN 325 MG TAB PO STA (01:54)
[2021-07-28] MEDS: methylPREDNISolone SOD SUCCI 125 MG/2 ML VIAL IV SCH ×3 (05:34→17:04)
[2021-07-28 06:02] LABS: Glucose,Whole Blood 254 mg/dL (75-99)
[2021-07-28] MEDS: ALPRAZolam 0.5 MG TAB PO PRN (06:36)
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
[2021-07-28] MEDS: INSULIN ASPART (NovoLOG) 100 UNIT/ML VIAL SQ SCH ×4 (07:02→21:26)
[2021-07-28] MEDS: PANTOPRAZOLE 40 MG TABLET PO SCH ×2 (07:03→17:04)
[2021-07-28] MEDS: HYDROcodone/APAP 10-325MG 1 EACH TAB PO PRN ×2 (07:05→21:29)
[2021-07-28] MEDS: IPRATROPIUM-ALBUTEROL 3 ML NEB INHALATION SCH ×4 (08:08→20:21)
[2021-07-28] MEDS ORDERED: busPIRone HCl 10 MG TAB PO SCH (09:00)
[2021-07-28] MEDS ORDERED: FUROSEMIDE 10 MG/ML 4 ML VIAL IV SCH (09:00)
[2021-07-28] MEDS ORDERED: FUROSEMIDE 40 MG TAB PO SCH (10:00)
[2021-07-28] MEDS: HEPARIN SODIUM,PORCINE/PF 5,000 UNIT/0.5 ML SYRINGE SQ SCH ×2 (10:06→17:03)
[2021-07-28] MEDS: METOPROLOL TARTRATE 50 MG TAB PO SCH ×2 (10:07→21:25)
[2021-07-28] MEDS: ATORVASTATIN 20 MG TAB PO SCH (10:07)
[2021-07-28] MEDS: PREGABALIN 100 MG CAP PO SCH ×3 (10:07→21:25)
[2021-07-28] MEDS: DOXYCYCLINE 100 MG CAP PO SCH ×2 (10:07→21:25)
[2021-07-28] MEDS: CLOPIDOGREL 75 MG TAB PO SCH (10:07)
[2021-07-28] MEDS: FUROSEMIDE 40 MG TAB PO SCH (10:14)
[2021-07-28] MEDS: SPIRONOLACTONE 25 MG TAB PO SCH (10:14)
--- NOTE | 2021-07-28 10:31 | ECHOF ---
Referral Reason:sob, abn CE MEASUREMENTS -------- HEIGHT: 175.3 cm WEIGHT: 90.7 kg BP: 173/90 RVIDd: 3.5 cm (< 3.3) IVSd: 1.4 cm (0.6 - 1.1) LVIDd: 5.1 cm (3.9 - 5.3) LVPWd: 1.4 cm (0.6 - 1.1) IVSs: 1.9 cm LVIDs: 4.0 cm LVPWs: 2.1 cm LA Diam: 3.6 cm (2.7 - 3.8) Ao Diam: 3.2 cm (2.0 - 3.7) AV Cusp: 2.3 cm (1.5 - 2.6) MV EXCURSION: 18.134 mm (> 18.000) MV EF SLOPE: 99 mm/s (70 - 150) EPSS: 1.5 cm RAP: 5.00 mmHg RVSP: 21.14 mmHg FINDINGS -------- Sinus rhythm. This was a technically difficult study with suboptimal apical views. The left ventricular size is normal. There is moderate concentric left ventricular hypertrophy. O verall left ventricular systolic function is mildly impaired with, an EF between 45 - 50 %. The right ventricle is mildly enlarged. The left atrium is normal in size. The right atrium is normal in size. The aortic valve is trileaflet, and appears structurally normal. No aortic stenosis or regurgitation. The mitral valve is normal. Mild tricuspid regurgitation present. Right ventricular systolic pressure is normal at < 35 mmHg. CONCLUSIONS -------- 1. The left ventricular size is normal. 2. There is moderate concentric left ventricular hypertrophy. 3. Overall left ventricular systolic function is mildly impaired with, an EF between 45 - 50 %. 4. The right ventricle is mildly enlarged. 5. Mild tricuspid regurgitation present. FITNESS SUPERVISOR: Thania Pretty RDCS
[2021-07-28 11:21] LABS: Basophils % (A) 0 %; Eosinophils % (A) 0 %; HCT 51.4 % (39.0-53.0); HGB 16.3 gm/dL (13.0-17.5); Lymphocytes # (A) 0.3 k/uL (1.0-4.8); Lymphocytes % (A) 5 %; MCH 30.6 pg (25.0-35.0); MCHC 31.8 g/dL (31.0-37.0); MCV 96.2 fL (80.0-100.0); Monocytes # (A) 0.1 k/uL (0-1.0); Monocytes % (A) 2 %; Neutrophils # (A) 6.1 k/uL (1.3-7.7); Neutrophils % (A) 93 %; Platelet Count 136 k/uL (150-450); RBC 5.35 m/uL (4.30-5.90); RDW 15.2 % (11.5-15.5); WBC 6.6 k/uL (3.8-10.6)
[2021-07-28 11:23] LABS: Calcium 6.9 mg/dL (8.4-10.2); Potassium 4.6 mmol/L (3.5-5.1)
[2021-07-28 12:09] LABS: Glucose,Whole Blood 211 mg/dL (75-99)
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
[2021-07-28 16:51] LABS: Glucose,Whole Blood 229 mg/dL (75-99)
[2021-07-28 19:38] LABS: Glucose,Whole Blood 200 mg/dL (75-99)
[2021-07-28] MEDS: busPIRone HCl 5 MG TAB PO SCH (21:25)
[2021-07-29] MEDS: HEPARIN SODIUM,PORCINE/PF 5,000 UNIT/0.5 ML SYRINGE SQ SCH ×4 (00:08→23:43)
[2021-07-29] MEDS: methylPREDNISolone SOD SUCCI 125 MG/2 ML VIAL IV SCH ×5 (00:08→23:43)
[2021-07-29 06:11] LABS: Glucose,Whole Blood 193 mg/dL (75-99)
[2021-07-29] MEDS: INSULIN ASPART (NovoLOG) 100 UNIT/ML VIAL SQ SCH ×4 (06:38→21:13)
[2021-07-29] MEDS: PANTOPRAZOLE 40 MG TABLET PO SCH ×2 (06:38→17:36)
[2021-07-29] MEDS: IPRATROPIUM-ALBUTEROL 3 ML NEB INHALATION SCH ×4 (08:11→18:57)
[2021-07-29] MEDS: busPIRone HCl 5 MG TAB PO SCH ×2 (08:58→21:12)
[2021-07-29] MEDS: PREGABALIN 100 MG CAP PO SCH ×3 (08:59→21:12)
[2021-07-29] MEDS: FUROSEMIDE 40 MG TAB PO SCH (08:59)
[2021-07-29] MEDS: SPIRONOLACTONE 25 MG TAB PO SCH (08:59)
[2021-07-29] MEDS: METOPROLOL TARTRATE 50 MG TAB PO SCH ×2 (08:59→21:12)
[2021-07-29] MEDS: CLOPIDOGREL 75 MG TAB PO SCH (08:59)
[2021-07-29] MEDS: ATORVASTATIN 20 MG TAB PO SCH (08:59)
[2021-07-29] MEDS: DOXYCYCLINE 100 MG CAP PO SCH ×2 (08:59→21:12)
--- NOTE | 2021-07-29 08:59 | XR ---
EXAMINATION TYPE: XR chest 1V portable DATE OF EXAM: 07/29/2021 COMPARISON: 07/28/2021 INDICATION: Shortness of breath TECHNIQUE: Single frontal view of the chest is obtained. FINDINGS: The heart size is normal. The pulmonary vasculature is normal. The lungs are clear. IMPRESSION: 1. No acute pulmonary process.
[2021-07-29 09:04] LABS: Basophils % (A) 0 %; Eosinophils % (A) 0 %; HCT 52.4 % (39.0-53.0); HGB 16.4 gm/dL (13.0-17.5); Hypochromasia Slight; Lymphocytes # (A) 0.5 k/uL (1.0-4.8); Lymphocytes % (A) 5 %; MCH 30.1 pg (25.0-35.0); MCHC 31.2 g/dL (31.0-37.0); MCV 96.6 fL (80.0-100.0); Mean Platelet Volume 9.1; Monocytes # (A) 0.3 k/uL (0-1.0); Monocytes % (A) 4 %; Neutrophils # (A) 8.5 k/uL (1.3-7.7); Neutrophils % (A) 90 %; Platelet Count 171 k/uL (150-450); RBC 5.43 m/uL (4.30-5.90); WBC 9.4 k/uL (3.8-10.6)
[2021-07-29] MEDS: HYDROcodone/APAP 10-325MG 1 EACH TAB PO PRN ×3 (09:04→23:42)
[2021-07-29 09:10] LABS: Albumin 4.1 g/dL (3.5-5.0); Calcium 6.8 mg/dL (8.4-10.2); Potassium 5.3 mmol/L (3.5-5.1); Total Protein 7.4 g/dL (6.3-8.2)
--- NOTE | 2021-07-29 10:35 | P.PN ---
Subjective Patient was examined at bedside today not complaining of any worsening symptomatology. Shortness of breath is slowly improving compared to yesterday. Currently he is on BiPAP with a setting of 12/5 FiO2 30%. Objective - Vital Signs Vital signs: Vital Signs Temp 98.2 F 07/29/21 04:00 Pulse 94 07/29/21 08:19 Resp 12 07/29/21 04:00 BP 105/65 07/29/21 04:00 Pulse Ox 96 07/29/21 04:00 Intake & Output 07/28/21 07/29/21 07/29/21 18:59 06:59 18:59 Intake Total 460 Output Total 1375 Balance -915 Weight 90.718 kg 104.5 kg Intake: IV 20 Invasive Line 2 10 Invasive Line 3 10 Oral 440 Output: Urine 1375 Other: Voiding Method Urinal # Voids 3 0 - Exam Constitutional: No acute distress, conversant, pleasant, currently on bipap Eyes: Anicteric sclerae, moist conjunctiva, Pupils equal round reactive to light ENMT: NC/AT Neck: Supple, no masses, or JVD No carotid bruits No thyromegaly Lungs: diminished breath sounds at lung basis, minimal wheezing present. Improved. Clear to percussion Currently on BiPAP Cardiovascular: Heart regular in rate and rhythm, No murmurs, gallops, or rubs No peripheral edema Abdominal: Soft Nontender, no guarding, rebound or rigidity Abdomen moving with respiration Normoactive bowel sounds Skin: Normal temperature, tone, texture, turgor No induration Extremities: No digital cyanosis positive mild clubbing Pedal pulses intact and symmetrical Radial pulses intact and symmetrical No calf tenderness Psychiatric: Alert and oriented to person, place and time Appropriate affect fair judgement - Labs CBC & Chem 7: 07/29/21 08:10 07/29/21 08:10 Labs: Abnormal Lab Results - Last 24 Hours (Table) 07/28/21 07/28/21 07/28/21 Range/Units 07:50 07:50 12:07 Plt Count 136 L (150-450) k/uL Neutrophils # (1.3-7.7) k/uL Lymphocytes # 0.3 L (1.0-4.8) k/uL Potassium (3.5-5.1) mmol/L Carbon Dioxide (22-30) mmol/L BUN (9-20) mg/dL Creatinine (0.66-1.25) mg/dL Glucose 263 H (74-99) mg/dL POC Glucose (mg/dL) 211 H (75-99) mg/dL Calcium 6.9 L (8.4-10.2) mg/dL 07/28/21 07/28/21 07/29/21 Range/Units 16:48 19:36 06:09 Plt Count (150-450) k/uL Neutrophils # (1.3-7.7) k/uL Lymphocytes # (1.0-4.8) k/uL Potassium (3.5-5.1) mmol/L Carbon Dioxide (22-30) mmol/L BUN (9-20) mg/dL Creatinine (0.66-1.25) mg/dL Glucose (74-99) mg/dL POC Glucose (mg/dL) 229 H 200 H 193 H (75-99) mg/dL Calcium (8.4-10.2) mg/dL 07/29/21 07/29/21 Range/Units 08:10 08:10 Plt Count (150-450) k/uL Neutrophils # 8.5 H (1.3-7.7) k/uL Lymphocytes # 0.5 L (1.0-4.8) k/uL Potassium 5.3 H (3.5-5.1) mmol/L Carbon Dioxide 33 H (22-30) mmol/L BUN 34 H (9-20) mg/dL Creatinine 1.44 H (0.66-1.25) mg/dL Glucose 197 H (74-99) mg/dL POC Glucose (mg/dL) (75-99) mg/dL Calcium 6.8 L (8.4-10.2) mg/dL Assessment and Plan Plan: Assessment/plan #1 acute hypoxic respiratory distress secondary to COPD exacerbation #2 COPD exacerbation #3 diabetes mellitus type 2 #4 congestive heart failure with mildly impaired ejection fraction 45-50% preservative ejection fraction Plan: -Admit to medicine for close monitoring -Aspiration/fall precaution/HB 30 -Patient is currently on BiPAP with a setting of 12/5 FiO2 30% maintain saturations above 90% -Continue with methylprednisolone 60 mg every 6 hours recommending titrating down lungs are improving pulmonary on board -Final recommendations from pulmonary and cardiology regarding discharge planning -Continue with antihypertensive medication -DVT prophylaxis on heparin Disposition despite discharge once cleared by pulmonary/cardiology team.
[2021-07-29 11:37] LABS: Glucose,Whole Blood 229 mg/dL (75-99)
--- NOTE | 2021-07-29 12:11 | P.PN ---
Subjective Progress Note Date: 07/29/21 Principal diagnosis: Shortness of breath, and cough 56-year-old male patient with past medical history of smoking, COPD, CHF and pulmonary hypertension who presented emergency department on 07/27/2021 with complaints of progressive dyspnea over the past several days. Denied any fever or chills, denied any central chest pain, no lower extremity edema. He reports significant cough and dyspnea. In addition patient's medical history is significant for coronary artery disease with previous PCI and stenting 3. Anxiety, depression, previous history of rectal cancer with resection and ileostomy and subsequent reversal. Chest x-ray showed lower lobe pulmonary interstitial infiltrates and subsegmental atelectasis, EKG showed sinus rhythm with occasional PVCs. Admission labs showed normal white count of 8.7, hemoglobin 16.2, platelet count of 156, coagulation profile was within normal limits, d-dimer was 0.34, electrolytes and renal profile were unremarkable, troponins were elevated at 0.064, 0.079 and 0.067. Patient was tested for COVID-19, influenza A and B and RSV and was found to be negative, proBNP was 7510. Patient was given breathing treatments, empiric antibiotics in the form of doxycycline, he was given one-time dose of IV Lasix 40 mg IV push and emerg ency department and was started on IV steroids On 07/29/2021 patient seen in follow-up on selective care unit. He remains on BiPAP 12/5 and FiO2 is currently down to 30%. Feeling better, breathing more comfortably. Pulse ox is 93%. Afebrile. Hemodynamically stable, no complaint of chest pain. Remains on diuretics, cardiology is following and managing the diuretics, patient was placed on maintenance dose of oral diuretics in the form of Lasix 20 mg daily, patient remains on IV steroids and nebulized bronchodilators and empiric antibiotics for acute COPD exacerbation. Overall he is feeling improved. Follow-up chest x-ray today shows no acute pulmonary process. Patient is in -915 mL fluid balance over the last 24 hours., White blood cell count is normal at 9.4, hemoglobin 16.4, potassium is 5.3, CO2 is 33, B1 is 34 creatinine is 1.44 with slight increase in his renal function, and subsequently his Lasix dose was adjusted Down to 20 mg once daily. Echocardiogram has been reviewed showing EF of 45-50%, moderate concentric LVH. Mild tricuspid regurg, no aortic stenosis or regurgitation. No pulmonary hypertension. Objective - Vital Signs Vital signs: Vital Signs Temp 97.8 F 07/29/21 08:00 Pulse 94 07/29/21 11:15 Resp 22 07/29/21 08:00 BP 108/66 07/29/21 08:00 Pulse Ox 89 L 07/29/21 08:00 Intake & Output 07/28/21 07/29/21 07/29/21 18:59 06:59 18:59 Intake Total 460 Output Total 1375 Balance -915 Weight 90.718 kg 104.5 kg Intake: IV 20 Invasive Line 2 10 Invasive Line 3 10 Oral 440 Output: Urine 1375 Other: Voiding Method Urinal # Voids 3 0 - Exam GENERAL EXAM: Alert, 56-year-old white male on BiPAP with FiO2 of 30%, comfortable in no apparent distress. HEAD: Normocephalic/atraumatic. EYES: Normal reaction of pupils, equal size. Conjunctiva pink, sclera white. NOSE: Clear with pink turbinates. THROAT: No erythema or exudates. NECK: No masses, no JVD, no thyroid enlargement, no adenopathy. CHEST: No chest wall deformity. Symmetrical expansion. LUNGS: Equal air entry with no crackles, wheeze, rhonchi or dullness. CVS: Regular rate and rhythm, normal S1 and S2, no gallops, no murmurs, no rubs ABDOMEN: Soft, nontender. No hepatosplenomegaly, normal bowel sounds, no guarding or rigidity. EXTREMITIES: No clubbing, no edema, no cyanosis, 2+ pulses and upper and lower extremities. MUSCULOSKELETAL: Muscle strength and tone normal. SPINE: No scoliosis or deformity SKIN: No rashes CENTRAL NERVOUS SYSTEM: Alert and oriented -3. No focal deficits, tone is normal in all 4 extremities. PSYCHIATRIC: Alert and oriented -3. Appropriate affect. Intact judgment and insight. - Labs CBC & Chem 7: 07/29/21 08:10 07/29/21 08:10 Labs: Abnormal Lab Results - Last 24 Hours (Table) 07/28/21 07/28/21 07/28/21 Range/Units 12:07 16:48 19:36 Neutrophils # (1.3-7.7) k/uL Lymphocytes # (1.0-4.8) k/uL Potassium (3.5-5.1) mmol/L Carbon Dioxide (22-30) mmol/L BUN (9-20) mg/dL Creatinine (0.66-1.25) mg/dL Glucose (74-99) mg/dL POC Glucose (mg/dL) 211 H 229 H 200 H (75-99) mg/dL Calcium (8.4-10.2) mg/dL 07/29/21 07/29/21 07/29/21 Range/Units 06:09 08:10 08:10 Neutrophils # 8.5 H (1.3-7.7) k/uL Lymphocytes # 0.5 L (1.0-4.8) k/uL Potassium 5.3 H (3.5-5.1) mmol/L Carbon Dioxide 33 H (22-30) mmol/L BUN 34 H (9-20) mg/dL Creatinine 1.44 H (0.66-1.25) mg/dL Glucose 197 H (74-99) mg/dL POC Glucose (mg/dL) 193 H (75-99) mg/dL Calcium 6.8 L (8.4-10.2) mg/dL 07/29/21 Range/Units 11:35 Neutrophils # (1.3-7.7) k/uL Lymphocytes # (1.0-4.8) k/uL Potassium (3.5-5.1) mmol/L Carbon Dioxide (22-30) mmol/L BUN (9-20) mg/dL Creatinine (0.66-1.25) mg/dL Glucose (74-99) mg/dL POC Glucose (mg/dL) 229 H (75-99) mg/dL Calcium (8.4-10.2) mg/dL Assessment and Plan Plan: Assessment: #1. Acute hypoxic respiratory failure related to acute exacerbation of chronic congestive heart failure and echocardiogram showed a mildly impaired EF of 45- 50% and acute exacerbation of COPD #2. Chronic COPD, severity is not known #3. Previous history of coronary artery disease with previous PCI and stenting #4. Hypertension #5. Hyperlipidemia #6. Diabetes mellitus type 2 #7. History of sleep apnea, unknown whether the patient wears a CPAP device on a regular basis #8. Current every day smoker #9. History of rectal and bladder cancer #10. History of bowel resection, and ileostomy creation, with subsequent reversal Plan: May give the patient a trial of BiPAP on nasal cannula Continue IV steroids and breathing treatments Continue antibiotics Today's follow-up chest x-ray has been reviewed showing no acute pulmonary process Patient is maintaining negative fluid balance but was noted to have slight increase in his creatinine Diuretics have been adjusted per cardiology We'll continue to follow his clinical course I have personally seen and examined the patient, performed the documentation and the assessment and plan as written. Number of minutes spent on the visit: [15] Time with Patient: Less than 30
--- NOTE | 2021-07-29 14:27 | P.PN ---
Subjective Progress Note Date: 07/29/21 HISTORY OF PRESENT ILLNESS: This is a 56-year-old male with a past medical history significant for hypertension, hyperlipidemia, diabetes, and coronary artery disease with previous PCI (details unknown). Patient follows in the office with Dr. Kirby. We have been asked to see the patient in consultation for CHF. Patient examined at the bedside. Patient presented to the hospital with a chief complaint of shortness of breath. He states his SOB started on and progressively got worse. He denies any chest pain or pressure. He is currently on a Bipap at 40% Fio2. He was started on IV steroids. He received a one time dose of IV lasix in the ER. * EKG reveals sinus mechanism with no signs of acute ischemia * Chest xray lower lobe pulmonary interstitial infiltrates and subsegmental atelectasis appears increased compared to exam. No heart failure. * Laboratory data: WBC 6.6. Hemoglobin 16.3. Platelet count 136. D-dimer 0.34. Sodium 140. Potassium 4.6. BUN 19. Creatinine 1.23. Troponin 0.064. 0.079. 0.067. * Current home cardiac medications include Plavix 75 mg daily, metoprolol titrate 50mg twice a day, simvastatin 40 mg daily * Echocardiogram completed revealing ejection fraction 45-50%, right ventricle mildly enlarged, mild tricuspid regurgitation. 07/29/2021 Patient examined this morning at the bedside. He reports improvement in his SOB. He denies chest pain or pressure. potassium today 5.3. BUN 34. Creatinine 1.44. PHYSICAL EXAM: VITAL SIGNS: Reviewed. GENERAL: Well-developed in no acute distress. HEENT: Head is normocephalic. Pupils are equal, round. Sclerae anicteric. Mucous membranes of the mouth are moist. Neck supple. No JVD or thyromegaly LUNGS: Respirations even and unlabored. Lungs diminished with bilateral rhonchi HEART: Regular rate and rhythm. S1 and S2 heard. ABDOMEN: Soft. Nondistended. Nontender. EXTREMITIES: Normal range of motion. No clubbing or cyanosis. Peripheral pulses intact. No lower extremity edema NEUROLOGIC: Awake and alert. Oriented x 3. ASSESSMENT: Shortness of breath Possible COPD exacerbation Abnormal troponins, not suggestive of ACS Acute congestive heart failure with pEF, borderline or intermediate, EF 45-50% Known cardiomyopathy, previous EF 43% in 2020 Coronary artery disease with previous PCI, details unknown Hypertension Hyperlipidemia PLAN: Decrease Lasix to 20mg daily Continue Aldactone Monitor kidney function and potassium levels. Repeat in a.m. Patient has allergy to BROCK inhibitor Further recommendations pending patient course Nurse practitioner note has been reviewed by physician. Signing provider agrees with the documented findings, assessment, and plan of care. Objective - Vital Signs Vital signs: Vital Signs Temp 97.8 F 07/29/21 08:00 Pulse 94 07/29/21 11:15 Resp 22 07/29/21 08:00 BP 108/66 07/29/21 08:00 Pulse Ox 89 L 07/29/21 08:00 Intake & Output 07/28/21 07/29/21 07/29/21 18:59 06:59 18:59 Intake Total 460 Output Total 1375 Balance -915 Weight 90.718 kg 104.5 kg Intake: IV 20 Invasive Line 2 10 Invasive Line 3 10 Oral 440 Output: Urine 1375 Other: Voiding Method Urinal # Voids 3 0 - Labs CBC & Chem 7: 07/29/21 08:10 07/29/21 08:10 Labs: Abnormal Lab Results - Last 24 Hours (Table) 07/28/21 07/28/21 07/29/21 Range/Units 16:48 19:36 06:09 Neutrophils # (1.3-7.7) k/uL Lymphocytes # (1.0-4.8) k/uL Potassium (3.5-5.1) mmol/L Carbon Dioxide (22-30) mmol/L BUN (9-20) mg/dL Creatinine (0.66-1.25) mg/dL Glucose (74-99) mg/dL POC Glucose (mg/dL) 229 H 200 H 193 H (75-99) mg/dL Calcium (8.4-10.2) mg/dL 07/29/21 07/29/21 07/29/21 Range/Units 08:10 08:10 11:35 Neutrophils # 8.5 H (1.3-7.7) k/uL Lymphocytes # 0.5 L (1.0-4.8) k/uL Potassium 5.3 H (3.5-5.1) mmol/L Carbon Dioxide 33 H (22-30) mmol/L BUN 34 H (9-20) mg/dL Creatinine 1.44 H (0.66-1.25) mg/dL Glucose 197 H (74-99) mg/dL POC Glucose (mg/dL) 229 H (75-99) mg/dL Calcium 6.8 L (8.4-10.2) mg/dL
[2021-07-29 16:26] LABS: Glucose,Whole Blood 333 mg/dL (75-99)
[2021-07-29 19:49] LABS: Glucose,Whole Blood 275 mg/dL (75-99)
[2021-07-30 05:38] LABS: Glucose,Whole Blood 238 mg/dL (75-99)
[2021-07-30] MEDS: methylPREDNISolone SOD SUCCI 125 MG/2 ML VIAL IV SCH ×4 (06:10→23:01)
[2021-07-30] MEDS: INSULIN ASPART (NovoLOG) 100 UNIT/ML VIAL SQ SCH ×4 (06:10→20:21)
[2021-07-30] MEDS: HYDROcodone/APAP 10-325MG 1 EACH TAB PO PRN ×3 (06:10→23:00)
[2021-07-30] MEDS: PANTOPRAZOLE 40 MG TABLET PO SCH ×2 (06:10→17:23)
[2021-07-30 08:01] LABS: Basophils % (A) 0 %; Eosinophils % (A) 0 %; HCT 51.7 % (39.0-53.0); HGB 15.9 gm/dL (13.0-17.5); Lymphocytes # (A) 0.4 k/uL (1.0-4.8); Lymphocytes % (A) 4 %; MCH 29.5 pg (25.0-35.0); MCHC 30.8 g/dL (31.0-37.0); MCV 95.6 fL (80.0-100.0); Mean Platelet Volume 9.5; Monocytes # (A) 0.3 k/uL (0-1.0); Monocytes % (A) 3 %; Neutrophils # (A) 9.5 k/uL (1.3-7.7); Neutrophils % (A) 93 %; Platelet Count 171 k/uL (150-450); RBC 5.41 m/uL (4.30-5.90); RDW 15.1 % (11.5-15.5); WBC 10.3 k/uL (3.8-10.6)
[2021-07-30] MEDS: IPRATROPIUM-ALBUTEROL 3 ML NEB INHALATION SCH ×4 (08:32→20:23)
[2021-07-30 08:39] LABS: Calcium 6.6 mg/dL (8.4-10.2); Potassium 4.5 mmol/L (3.5-5.1)
[2021-07-30] MEDS: ATORVASTATIN 20 MG TAB PO SCH (09:53)
[2021-07-30] MEDS: busPIRone HCl 5 MG TAB PO SCH ×2 (09:53→20:19)
[2021-07-30] MEDS: CLOPIDOGREL 75 MG TAB PO SCH (09:53)
[2021-07-30] MEDS: METOPROLOL TARTRATE 50 MG TAB PO SCH ×2 (09:53→20:19)
[2021-07-30] MEDS: DOXYCYCLINE 100 MG CAP PO SCH ×2 (09:54→22:10)
[2021-07-30] MEDS: HEPARIN SODIUM,PORCINE/PF 5,000 UNIT/0.5 ML SYRINGE SQ SCH ×3 (09:54→23:01)
[2021-07-30] MEDS: SPIRONOLACTONE 25 MG TAB PO SCH (09:54)
[2021-07-30] MEDS: PREGABALIN 100 MG CAP PO SCH ×3 (09:54→20:19)
[2021-07-30] MEDS: FUROSEMIDE 20 MG TAB PO SCH (09:54)
--- NOTE | 2021-07-30 10:13 | P.PN ---
Subjective Patient was examined at bedside today currently on BiPAP. Setting of 12/5 FiO2 30%. He is having some shortness of breath and decided to put back on BiPAP. I did reevaluate with RT at bedside who decided to remove BiPAP and to evaluate him on nasal cannula monitor. Pulmonary also evaluated the patient recommending another 24 hours of observation. Objective - Vital Signs Vital signs: Vital Signs Temp 97.5 F L 07/30/21 04:00 Pulse 64 07/30/21 08:44 Resp 20 07/30/21 04:00 BP 120/80 07/30/21 04:00 Pulse Ox 92 L 07/30/21 09:10 Intake & Output 07/29/21 07/30/21 07/30/21 18:59 06:59 18:59 Intake Total 720 Output Total 500 1425 Balance 220 -1425 Weight 101.5 kg Intake: Oral 720 Output: Urine 500 1425 Other: Voiding Method Urinal - Exam Constitutional: No acute distress, conversant, pleasant, currently on bipap Eyes: Anicteric sclerae, moist conjunctiva, Pupils equal round reactive to light ENMT: NC/AT Neck: Supple, no masses, or JVD No carotid bruits No thyromegaly Lungs: diminished breath sounds at lung basis, minimal wheezing present. Improved. Clear to percussion Currently on BiPAP Cardiovascular: Heart regular in rate and rhythm, No murmurs, gallops, or rubs No peripheral edema Abdominal: Soft Nontender, no guarding, rebound or rigidity Abdomen moving with respiration Normoactive bowel sounds Skin: Normal temperature, tone, texture, turgor No induration Extremities: No digital cyanosis positive mild clubbing Pedal pulses intact and symmetrical Radial pulses intact and symmetrical No calf tenderness Psychiatric: Alert and oriented to person, place and time Appropriate affect fair judgement - Labs CBC & Chem 7: 07/30/21 07:36 07/30/21 07:36 Labs: Abnormal Lab Results - Last 24 Hours (Table) 07/29/21 07/29/21 07/29/21 Range/Units 11:35 16:24 19:48 MCHC (31.0-37.0) g/dL Neutrophils # (1.3-7.7) k/uL Lymphocytes # (1.0-4.8) k/uL Chloride (98-107) mmol/L BUN (9-20) mg/dL Creatinine (0.66-1.25) mg/dL Glucose (74-99) mg/dL POC Glucose (mg/dL) 229 H 333 H 275 H (75-99) mg/dL Calcium (8.4-10.2) mg/dL 07/30/21 07/30/21 07/30/21 Range/Units 05:36 07:36 07:36 MCHC 30.8 L (31.0-37.0) g/dL Neutrophils # 9.5 H (1.3-7.7) k/uL Lymphocytes # 0.4 L (1.0-4.8) k/uL Chloride 97 L (98-107) mmol/L BUN 52 H (9-20) mg/dL Creatinine 1.60 H (0.66-1.25) mg/dL Glucose 247 H (74-99) mg/dL POC Glucose (mg/dL) 238 H (75-99) mg/dL Calcium 6.6 L (8.4-10.2) mg/dL Assessment and Plan Plan: Assessment/plan #1 acute hypoxic respiratory distress secondary to COPD exacerbation #2 COPD exacerbation #3 diabetes mellitus type 2 #4 congestive heart failure with mildly impaired ejection fraction 45-50% preservative ejection fraction #5 acute kidney injury was likely prerenal. Plan: -Admit to medicine for close monitoring -Aspiration/fall precaution/HBO 30 -Patient is currently on BiPAP with a setting of 12/5 FiO2 30% maintain saturations above 90% -Continue with methylprednisolone 60 mg every 6 hours recommending titrating down lungs are improving pulmonary on board -Final recommendations from pulmonary and cardiology regarding discharge planning -Continue with antihypertensive medication -Lasix decrease given worsening HUSSEIN. Continue to monitor closely. -DVT prophylaxis on heparin Disposition: Spoke with pulmonary recommending discharge tomorrow pending improvement in respiratory status and HUSSEIN.
[2021-07-30 11:37] LABS: Glucose,Whole Blood 372 mg/dL (75-99)
--- NOTE | 2021-07-30 11:44 | P.PN ---
Subjective Progress Note Date: 07/30/21 56-year-old male patient with past medical history of smoking, COPD, CHF and pulmonary hypertension who presented emergency department on 07/27/2021 with complaints of progressive dyspnea over the past several days. Denied any fever or chills, denied any central chest pain, no lower extremity edema. He reports significant cough and dyspnea. In addition patient's medical history is significant for coronary artery disease with previous PCI and stenting 3. Anxiety, depression, previous history of rectal cancer with resection and ileostomy and subsequent reversal. Chest x-ray showed lower lobe pulmonary interstitial infiltrates and subsegmental atelectasis, EKG showed sinus rhythm with occasional PVCs. Admission labs showed normal white count of 8.7, hemoglobin 16.2, platelet count of 156, coagulation profile was within normal limits, d-dimer was 0.34, electrolytes and renal profile were unremarkable, troponins were elevated at 0.064, 0.079 and 0.067. Patient was tested for COVID-19, influenza A and B and RSV and was found to be negative, proBNP was 7510. Patient was given breathing treatments, empiric antibiotics in the form of doxycycline, he was given one-time dose of IV Lasix 40 mg IV push and emergency department and was started on IV steroids On 07/29/2021 patient seen in follow-up on selective care unit. He remains on BiPAP 12/5 and FiO2 is currently down to 30%. Feeling better, breathing more comfortably. Pulse ox is 93%. Afebrile. Hemodynamically stable, no complaint of chest pain. Remains on diuretics, cardiology is following and managing the diuretics, patient was placed on maintenance dose of oral diuretics in the form of Lasix 20 mg daily, patient remains on IV steroids and nebulized bronchodilators and empiric antibiotics for acute COPD exacerbation. Overall he is feeling improved. Follow-up chest x-ray today shows no acute pulmonary process. Patient is in -915 mL fluid balance over the last 24 hours., White blood cell count is normal at 9.4, hemoglobin 16.4, potassium is 5.3, CO2 is 33, B1 is 34 creatinine is 1.44 with slight increase in his renal function, and subsequently his Lasix dose was adjusted Down to 20 mg once daily. Echocardi ogram has been reviewed showing EF of 45-50%, moderate concentric LVH. Mild tricuspid regurg, no aortic stenosis or regurgitation. No pulmonary hypertension. The patient is seen today 07/30/2021 in follow-up on the selective care unit. He is currently sitting up in bed. Awake and alert in no acute distress. He is currently on 3 L nasal cannula. He did utilize the BiPAP throughout the evening 12/5 and 30% FiO2. Chest x-ray revealed no acute pulmonary process. White count 10.3. Hemogram 15.9. Sodium 138. Potassium 4.5. BUN 52. Creatinine 1.60. Glucose 247. He is continued on DuoNeb inhalations, IV Solu-Medrol. Antibiotics in the form of Vibramycin. He is continued on oral diuretics. Currently in a -1.2 L balance. Objective - Vital Signs Vital signs: Vital Signs Temp 97.7 F 07/30/21 08:00 Pulse 64 07/30/21 08:44 Resp 16 07/30/21 08:00 BP 128/64 07/30/21 08:00 Pulse Ox 92 L 07/30/21 09:10 Intake & Output 07/29/21 07/30/21 07/30/21 18:59 06:59 18:59 Intake Total 720 240 Output Total 500 1425 Balance 220 -1425 240 Weight 101.5 kg Intake: Oral 720 240 Output: Urine 500 1425 Other: Voiding Method Urinal - Exam GENERAL EXAM: Alert, pleasant 56-year-old male on 3 L nasal cannula, alternating with BiPAP with FiO2 of 30%, comfortable in no apparent distress. HEAD: Normocephalic/atraumatic. EYES: Normal reaction of pupils, equal size. Conjunctiva pink, sclera white. NOSE: Clear with pink turbinates. THROAT: No erythema or exudates. NECK: No masses, no JVD, no thyroid enlargement, no adenopathy. CHEST: No chest wall deformity. Symmetrical expansion. LUNGS: Equal air entry with no crackles, wheeze, rhonchi or dullness. Diminished CVS: Regular rate and rhythm, normal S1 and S2, no gallops, no murmurs, no rubs ABDOMEN: Soft, nontender. No hepatosplenomegaly, normal bowel sounds, no guardi ng or rigidity. EXTREMITIES: No clubbing, no edema, no cyanosis, 2+ pulses and upper and lower extremities. MUSCULOSKELETAL: Muscle strength and tone normal. SPINE: No scoliosis or deformity SKIN: No rashes CENTRAL NERVOUS SYSTEM: No focal deficits, tone is normal in all 4 extremities. PSYCHIATRIC: Alert and oriented -3. Appropriate affect. Intact judgment and insight. - Labs CBC & Chem 7: 07/30/21 07:36 07/30/21 07:36 Labs: Abnormal Lab Results - Last 24 Hours (Table) 07/29/21 07/29/21 07/29/21 Range/Units 11:35 16:24 19:48 MCHC (31.0-37.0) g/dL Neutrophils # (1.3-7.7) k/uL Lymphocytes # (1.0-4.8) k/uL Chloride (98-107) mmol/L BUN (9-20) mg/dL Creatinine (0.66-1.25) mg/dL Glucose (74-99) mg/dL POC Glucose (mg/dL) 229 H 333 H 275 H (75-99) mg/dL Calcium (8.4-10.2) mg/dL 07/30/21 07/30/21 07/30/21 Range/Units 05:36 07:36 07:36 MCHC 30.8 L (31.0-37.0) g/dL Neutrophils # 9.5 H (1.3-7.7) k/uL Lymphocytes # 0.4 L (1.0-4.8) k/uL Chloride 97 L (98-107) mmol/L BUN 52 H (9-20) mg/dL Creatinine 1.60 H (0.66-1.25) mg/dL Glucose 247 H (74-99) mg/dL POC Glucose (mg/dL) 238 H (75-99) mg/dL Calcium 6.6 L (8.4-10.2) mg/dL Assessment and Plan Assessment: 1 Acute hypoxic respiratory failure related to acute exacerbation of chronic congestive heart failure and echocardiogram showed a mildly impaired EF of 45- 50% and acute exacerbation of COPD 2 Chronic COPD, severity is not known 3 Previous history of coronary artery disease with previous PCI and stenting 4 Hypertension 5 Hyperlipidemia 6 Diabetes mellitus type 2 7 History of sleep apnea, unknown whether the patient wears a CPAP device on a regular basis 8 Current every day smoker 9 History of rectal and bladder cancer 10 History of bowel resection, and ileostomy creation, with subsequent reversal Plan: The patient was seen and evaluated Currently on 3 L nasal cannula Alternating with BiPAP 12/5 and 30% FiO2 Continued on bronchodilators, IV Solu-Medrol, antibiotics Remains on oral diuretics Educated regarding the importance of complete smoking cessation Increase his activity as tolerated To be evaluated for possible home oxygen We will continue to follow I have personally seen and examined the patient, performed the documentation and the assessment and plan as written. Number of minutes spent on the visit: 10.
--- NOTE | 2021-07-30 12:58 | P.PN ---
Subjective Progress Note Date: 07/30/21 HISTORY OF PRESENT ILLNESS: This is a 56-year-old male with a past medical history significant for hypertension, hyperlipidemia, diabetes, and coronary artery disease with previous PCI (details unknown). Patient follows in the office with Dr. Kirby. We have been asked to see the patient in consultation for CHF. Patient examined at the bedside. Patient presented to the hospital with a chief complaint of shortness of breath. He states his SOB started on and progressively got worse. He denies any chest pain or pressure. He is currently on a Bipap at 40% Fio2. He was started on IV steroids. He received a one time dose of IV lasix in the ER. * EKG reveals sinus mechanism with no signs of acute ischemia * Chest xray lower lobe pulmonary interstitial infiltrates and subsegmental atelectasis appears increased compared to exam. No heart failure. * Laboratory data: WBC 6.6. Hemoglobin 16.3. Platelet count 136. D-dimer 0.34. Sodium 140. Potassium 4.6. BUN 19. Creatinine 1.23. Troponin 0.064. 0.079. 0.067. * Current home cardiac medications include Plavix 75 mg daily, metoprolol titrate 50mg twice a day, simvastatin 40 mg daily * Echocardiogram completed revealing ejection fraction 45-50%, right ventricle mildly enlarged, mild tricuspid regurgitation. 07/29/2021 Patient examined this morning at the bedside. He reports improvement in his SOB. He denies chest pain or pressure. potassium today 5.3. BUN 34. Creatinine 1.44. 07/30/2021 Patient examined this morning at the bedside. Patient denies chest pain or pressure. Overall he feels like his breathing is improving. He does report some shortness of breath with exertion. He remains on oral Lasix. Potassium today is 4.5. BUN 52. Creatinine 1.60. PHYSICAL EXAM: VITAL SIGNS: Reviewed. GENERAL: Well-developed in no acute distress. HEENT: Head is normocephalic. Pupils are equal, round. Sclerae anicteric. Mucous membranes of the mouth are moist. Neck supple. No JVD or thyromegaly LUNGS: Respirations even and unlabored. Lungs diminished HEART: Regular rate and rhythm. S1 and S2 heard. ABDOMEN: Soft. Nondistended. Nontender. EXTREMITIES: Normal range of motion. No clubbing or cyanosis. Peripheral pulses intact. No lower extremity edema NEUROLOGIC: Awake and alert. Oriented x 3. ASSESSMENT: Shortness of breath Possible COPD exacerbation Abnormal troponins, not suggestive of ACS Acute congestive heart failure with pEF, borderline or intermediate, EF 45-50% Known cardiomyopathy, previous EF 43% in 2019 Coronary artery disease with previous PCI, details unknown Hypertension Hyperlipidemia PLAN: Continue current cardiac medications Monitor kidney function and potassium levels. Repeat in a.m. Patient has allergy to BROCK inhibitor Further recommendations pending patient course Nurse practitioner note has been reviewed by physician. Signing provider agrees with the documented findings, assessment, and plan of care. Objective - Vital Signs Vital signs: Vital Signs Temp 97.7 F 07/30/21 08:00 Pulse 70 07/30/21 12:13 Resp 16 07/30/21 08:00 BP 128/64 07/30/21 08:00 Pulse Ox 94 L 07/30/21 12:14 Intake & Output 07/29/21 07/30/21 07/30/21 18:59 06:59 18:59 Intake Total 720 240 Output Total 500 1425 Balance 220 -1425 240 Weight 101.5 kg Intake: Oral 720 240 Output: Urine 500 1425 Other: Voiding Method Urinal - Labs CBC & Chem 7: 07/30/21 07:36 07/30/21 07:36 Labs: Abnormal Lab Results - Last 24 Hours (Table) 07/29/21 07/29/21 07/30/21 Range/Units 16:24 19:48 05:36 MCHC (31.0-37.0) g/dL Neutrophils # (1.3-7.7) k/uL Lymphocytes # (1.0-4.8) k/uL Chloride (98-107) mmol/L BUN (9-20) mg/dL Creatinine (0.66-1.25) mg/dL Glucose (74-99) mg/dL POC Glucose (mg/dL) 333 H 275 H 238 H (75-99) mg/dL Calcium (8.4-10.2) mg/dL 07/30/21 07/30/21 07/30/21 Range/Units 07:36 07:36 11:34 MCHC 30.8 L (31.0-37.0) g/dL Neutrophils # 9.5 H (1.3-7.7) k/uL Lymphocytes # 0.4 L (1.0-4.8) k/uL Chloride 97 L (98-107) mmol/L BUN 52 H (9-20) mg/dL Creatinine 1.60 H (0.66-1.25) mg/dL Glucose 247 H (74-99) mg/dL POC Glucose (mg/dL) 372 H (75-99) mg/dL Calcium 6.6 L (8.4-10.2) mg/dL
[2021-07-30 14:53] VITALS: BMI 33.0
[2021-07-30 16:21] LABS: Glucose,Whole Blood 264 mg/dL (75-99)
[2021-07-30 19:55] LABS: Glucose,Whole Blood 353 mg/dL (75-99)
[2021-07-30] MEDS: ALPRAZolam 0.5 MG TAB PO PRN (20:19)
[2021-07-31] MEDS: methylPREDNISolone SOD SUCCI 125 MG/2 ML VIAL IV SCH ×2 (05:46→11:46)
[2021-07-31 05:52] LABS: Glucose,Whole Blood 288 mg/dL (75-99)
[2021-07-31] MEDS: IPRATROPIUM-ALBUTEROL 3 ML NEB INHALATION SCH ×4 (07:40→21:03)
[2021-07-31] MEDS: SPIRONOLACTONE 25 MG TAB PO SCH (07:54)
[2021-07-31] MEDS: HEPARIN SODIUM,PORCINE/PF 5,000 UNIT/0.5 ML SYRINGE SQ SCH ×2 (07:54→16:30)
[2021-07-31] MEDS: PREGABALIN 100 MG CAP PO SCH ×3 (07:55→20:27)
[2021-07-31] MEDS: ATORVASTATIN 20 MG TAB PO SCH (07:55)
[2021-07-31] MEDS: DOXYCYCLINE 100 MG CAP PO SCH ×2 (07:55→20:32)
[2021-07-31] MEDS: CLOPIDOGREL 75 MG TAB PO SCH (07:55)
[2021-07-31] MEDS: INSULIN ASPART (NovoLOG) 100 UNIT/ML VIAL SQ SCH ×4 (07:55→20:35)
[2021-07-31] MEDS: busPIRone HCl 5 MG TAB PO SCH ×2 (07:55→20:28)
[2021-07-31] MEDS: FUROSEMIDE 20 MG TAB PO SCH (07:55)
[2021-07-31] MEDS: PANTOPRAZOLE 40 MG TABLET PO SCH ×2 (07:55→16:29)
[2021-07-31] MEDS: METOPROLOL TARTRATE 50 MG TAB PO SCH ×2 (07:55→20:28)
[2021-07-31 08:06] LABS: Basophils % (A) 0 %; Eosinophils % (A) 0 %; HCT 48.6 % (39.0-53.0); HGB 15.8 gm/dL (13.0-17.5); Lymphocytes # (A) 0.3 k/uL (1.0-4.8); Lymphocytes % (A) 4 %; MCH 31.1 pg (25.0-35.0); MCHC 32.5 g/dL (31.0-37.0); MCV 95.6 fL (80.0-100.0); Mean Platelet Volume 9.2; Monocytes # (A) 0.2 k/uL (0-1.0); Monocytes % (A) 3 %; Neutrophils # (A) 6.5 k/uL (1.3-7.7); Neutrophils % (A) 92 %; Platelet Count 159 k/uL (150-450); RBC 5.09 m/uL (4.30-5.90); RDW 15.3 % (11.5-15.5)
[2021-07-31 11:15] LABS: Appearance,Urine Clear (Clear); Bilirubin,Urine Negative (Negative); Blood,Urine Negative (Negative); Color,Urine Yellow; Glucose,Urine (UA) 2+ (Negative); Ketones,Urine Negative (Negative); Leukocyte Esterase,Urine Negative (Negative); Mucus,Urine Rare /hpf; Nitrite,Urine Negative (Negative); Protein,Urine 1+ (Negative); RBC,Urine <1 /hpf (0-5); Squamous Epithelial Cell,Urine 1 /hpf (0-4); Urobilinogen,Urine <2.0 mg/dL (<2.0); WBC,Urine 1 /hpf (0-5)
[2021-07-31 11:39] LABS: Glucose,Whole Blood 337 mg/dL (75-99)
--- NOTE | 2021-07-31 12:06 | P.PN ---
Subjective Progress Note Date: 07/31/21 56-year-old male patient with past medical history of smoking, COPD, CHF and pulmonary hypertension who presented emergency department on 07/27/2021 with complaints of progressive dyspnea over the past several days. Denied any fever or chills, denied any central chest pain, no lower extremity edema. He reports significant cough and dyspnea. In addition patient's medical history is significant for coronary artery disease with previous PCI and stenting 3. Anxiety, depression, previous history of rectal cancer with resection and ileostomy and subsequent reversal. Chest x-ray showed lower lobe pulmonary interstitial infiltrates and subsegmental atelectasis, EKG showed sinus rhythm with occasional PVCs. Admission labs showed normal white count of 8.7, hemoglobin 16.2, platelet count of 156, coagulation profile was within normal limits, d-dimer was 0.34, electrolytes and renal profile were unremarkable, troponins were elevated at 0.064, 0.079 and 0.067. Patient was tested for COVID-19, influenza A and B and RSV and was found to be negative, proBNP was 7510. Patient was given breathing treatments, empiric antibiotics in the form of doxycycline, he was given one-time dose of IV Lasix 40 mg IV push and emergency department and was started on IV steroids On 07/29/2021 patient seen in follow-up on selective care unit. He remains on BiPAP 12/5 and FiO2 is currently down to 30%. Feeling better, breathing more comfortably. Pulse ox is 93%. Afebrile. Hemodynamically stable, no complaint of chest pain. Remains on diuretics, cardiology is following and managing the diuretics, patient was placed on maintenance dose of oral diuretics in the form of Lasix 20 mg daily, patient remains on IV steroids and nebulized bronchodilators and empiric antibiotics for acute COPD exacerbation. Overall he is feeling improved. Follow-up chest x-ray today shows no acute pulmonary process. Patient is in -915 mL fluid balance over the last 24 hours., White blood cell count is normal at 9.4, hemoglobin 16.4, potassium is 5.3, CO2 is 33, B1 is 34 creatinine is 1.44 with slight increase in his renal function, and subsequently his Lasix dose was adjusted Down to 20 mg once daily. Echocardi ogram has been reviewed showing EF of 45-50%, moderate concentric LVH. Mild tricuspid regurg, no aortic stenosis or regurgitation. No pulmonary hypertension. The patient is seen today 07/30/2021 in follow-up on the selective care unit. He is currently sitting up in bed. Awake and alert in no acute distress. He is currently on 3 L nasal cannula. He did utilize the BiPAP throughout the evening 12/5 and 30% FiO2. Chest x-ray revealed no acute pulmonary process. White count 10.3. Hemogram 15.9. Sodium 138. Potassium 4.5. BUN 52. Creatinine 1.60. Glucose 247. He is continued on DuoNeb inhalations, IV Solu-Medrol. Antibiotics in the form of Vibramycin. He is continued on oral diuretics. Currently in a -1.2 L balance. The patient is seen today 07/31/2021 in follow-up on the selective care unit. He is currently sitting up in bed. Awake and alert in no acute distress. Breathing better today compared to yesterday. He's on 4 L nasal cannula. He did not wear the BiPAP last night. White count 7.0. Hemoglobin 15.8. Platelets 159. Blood sugar 288. He is continued on Vibramycin, IV Solu medrol, bronchodilators. Objective - Vital Signs Vital signs: Vital Signs Temp 98.1 F 07/31/21 08:00 Pulse 65 07/31/21 11:49 Resp 17 07/31/21 08:00 BP 122/75 07/31/21 08:00 Pulse Ox 86 L 07/31/21 11:49 Intake & Output 07/30/21 07/31/21 07/31/21 18:59 06:59 18:59 Intake Total 720 180 Output Total 300 700 Balance 420 -520 Weight 101.5 kg 105.5 kg Intake: Oral 720 180 Output: Urine 300 700 Other: Voiding Method Urinal # Voids 200 - Exam GENERAL EXAM: Alert, pleasant 56-year-old male on 4 L nasal cannula, comfortable in no apparent distress. HEAD: Normocephalic/atraumatic. EYES: Normal reaction of pupils, equal size. Conjunctiva pink, sclera white. NOSE: Clear with pink turbinates. THROAT: No erythema or exudates. NECK: No masses, no JVD, no thyroid enlargement, no adenopathy. CHEST: No chest wall deformity. Symmetrical expansion. LUNGS: Equal air entry with no crackles, wheeze, rhonchi or dullness. Diminished CVS: Regular rate and rhythm, normal S1 and S2, no gallops, no murmurs, no rubs ABDOMEN: Soft, nontender. No hepatosplenomegaly, normal bowel sounds, no guarding or rigidity. EXTREMITIES: No clubbing, no edema, no cyanosis, 2+ pulses and upper and lower extremities. MUSCULOSKELETAL: Muscle strength and tone normal. SPINE: No scoliosis or deformity SKIN: No rashes CENTRAL NERVOUS SYSTEM: No focal deficits, tone is normal in all 4 extremities. PSYCHIATRIC: Alert and oriented -3. Appropriate affect. Intact judgment and insight. - Labs CBC & Chem 7: 07/31/21 07:33 07/30/21 07:36 Labs: Abnormal Lab Results - Last 24 Hours (Table) 07/30/21 07/30/21 07/31/21 Range/Units 16:19 19:53 05:50 Lymphocytes # (1.0-4.8) k/uL POC Glucose (mg/dL) 264 H 353 H 288 H (75-99) mg/dL Urine Protein (Negative) Urine Glucose (UA) (Negative) Urine Mucus (None) /hpf 07/31/21 07/31/21 07/31/21 Range/Units 07:33 11:00 11:37 Lymphocytes # 0.3 L (1.0-4.8) k/uL POC Glucose (mg/dL) 337 H (75-99) mg/dL Urine Protein 1+ H (Negative) Urine Glucose (UA) 2+ H (Negative) Urine Mucus Rare H (None) /hpf Assessment and Plan Assessment: 1 Acute hypoxic respiratory failure related to acute exacerbation of chronic congestive heart failure and echocardiogram showed a mildly impaired EF of 45- 50% and acute exacerbation of COPD 2 Chronic COPD, severity is not known 3 Previous history of coronary artery disease with previous PCI and stenting 4 Hypertension 5 Hyperlipidemia 6 Diabetes mellitus type 2 7 History of sleep apnea, unknown whether the patient wears a CPAP device on a regular basis 8 Current every day smoker 9 History of rectal and bladder cancer 10 History of bowel resection, and ileostomy creation, with subsequent reversal Plan: The patient was seen and evaluated He is cleared for discharge from the pulmonary standpoint Complete a prednisone taper starting at 40 mg daily for 4 days Educated regarding the importance of complete smoking cessation To be evaluated for possible home oxygen Follow-up in the office in 1-2 weeks' I have personally seen and examined the patient, performed the documentation and the assessment and plan as written. Number of minutes spent on the visit: 10.
[2021-07-31] MEDS ORDERED: ALPRAZolam 0.25 MG TAB PO PRN (12:32)
--- NOTE | 2021-07-31 12:37 | P.PN ---
Subjective Principal diagnosis: Chart was reviewed patient was seen and examined. Patient reports no complaints today. His oxygen needs are stable he denies any shortness of breath or cough. Denies any GI complaints. He did not use BiPAP last night. He remains on 34 liters via nasal cannula. Objective - Vital Signs Vital signs: Vital Signs Temp 98.1 F 07/31/21 08:00 Pulse 65 07/31/21 11:49 Resp 17 07/31/21 08:00 BP 122/75 07/31/21 08:00 Pulse Ox 86 L 07/31/21 11:49 Intake & Output 07/30/21 07/31/21 07/31/21 18:59 06:59 18:59 Intake Total 720 180 Output Total 300 700 Balance 420 -520 Weight 101.5 kg 105.5 kg Intake: Oral 720 180 Output: Urine 300 700 Other: Voiding Method Urinal # Voids 200 - Exam Awake alert oriented 3 Head and neck: Anicteric family members no neck masses or JVD Lungs: Diminished breath sounds but present throughout without wheezing or rhonchi Cardiovascular: Regular rhythm and rate S1-S2 Pulses present bilaterally Abdomen: Soft nontender nondistended Extremities: No peripheral edema Neurological: No focal deficits no asterixis - Labs CBC & Chem 7: 07/31/21 07:33 07/30/21 07:36 Labs: Abnormal Lab Results - Last 24 Hours (Table) 07/30/21 07/30/21 07/31/21 Range/Units 16:19 19:53 05:50 Lymphocytes # (1.0-4.8) k/uL POC Glucose (mg/dL) 264 H 353 H 288 H (75-99) mg/dL Urine Protein (Negative) Urine Glucose (UA) (Negative) Urine Mucus (None) /hpf 07/31/21 07/31/21 07/31/21 Range/Units 07:33 11:00 11:37 Lymphocytes # 0.3 L (1.0-4.8) k/uL POC Glucose (mg/dL) 337 H (75-99) mg/dL Urine Protein 1+ H (Negative) Urine Glucose (UA) 2+ H (Negative) Urine Mucus Rare H (None) /hpf Assessment and Plan Plan: #1 acute hypoxic respiratory distress secondary to COPD exacerbation #2 COPD exacerbation #3 diabetes mellitus type 2 #4 congestive heart failure with mildly impaired ejection fraction 45-50% preservative ejection fraction #5 acute kidney injury was likely prerenal. Plan: -Admit to medicine for close monitoring -Aspiration/fall precaution/HBO 30 Currently on 34 liters nasal cannula Change Solu-Medrol to by mouth prednisone -Final recommendations from pulmonary and cardiology regarding discharge planning -Continue with antihypertensive medication -Lasix decrease given worsening HUSSEIN. Continue to monitor closely. Hyperglycemia due to steroids, hopefully to improve with tapering down steroids -DVT prophylaxis on heparin Disposition: Patient was cleared for discharge by pulmonary service likely by tomorrow. We will need to monitor his kidney function and obtain evaluation for home oxygen.
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
[2021-07-31] MEDS: HYDROcodone/APAP 10-325MG 1 EACH TAB PO PRN ×2 (14:36→22:36)
--- NOTE | 2021-07-31 14:40 | US ---
EXAMINATION TYPE: US kidneys/renal and bladder DATE OF EXAM: 07/31/2021 COMPARISON: Prior ultrasound 07/10/2019, CT scan 11/01/2018 CLINICAL HISTORY: rf. Renal failure limited due to body habitus. EXAM MEASUREMENTS: Right Kidney: 9.3 x 3.8 x 3.9 cm Left Kidney: 8.2 x 3.7 x 3.8 cm Right Kidney: No hydronephrosis or masses seen Left Kidney: Hypoechoic area seen mid pole 1.8 x 1.4 x 1.6 cm likely due to lobular cortex as noted o n prior CT Bladder: Anechoic Bilateral Jets seen: Yes There is no evidence for hydronephrosis at this point in time. No nephrolithiasis is seen. No mj s are identified. The urinary bladder is anechoic. IMPRESSION: There are some limitations to the exam. No evident hydronephrosis. Additional findings above.
[2021-07-31 16:16] LABS: Glucose,Whole Blood 254 mg/dL (75-99)
[2021-07-31 20:17] LABS: Glucose,Whole Blood 422 mg/dL (75-99)
[2021-08-01] MEDS: HEPARIN SODIUM,PORCINE/PF 5,000 UNIT/0.5 ML SYRINGE SQ SCH ×2 (00:06→08:56)
[2021-08-01] MEDS: HYDROcodone/APAP 10-325MG 1 EACH TAB PO PRN (05:57)
[2021-08-01 06:00] LABS: Glucose,Whole Blood 236 mg/dL (75-99)
[2021-08-01] MEDS: PANTOPRAZOLE 40 MG TABLET PO SCH (07:12)
[2021-08-01] MEDS: INSULIN ASPART (NovoLOG) 100 UNIT/ML VIAL SQ SCH ×2 (07:13→12:00)
[2021-08-01] MEDS: IPRATROPIUM-ALBUTEROL 3 ML NEB INHALATION SCH ×2 (08:29→11:35)
[2021-08-01 08:52] LABS: HCT 50.7 % (39.0-53.0); HGB 16.2 gm/dL (13.0-17.5); MCH 30.3 pg (25.0-35.0); MCHC 31.9 g/dL (31.0-37.0); Mean Platelet Volume 9.7; Platelet Count 140 k/uL (150-450); RBC 5.34 m/uL (4.30-5.90); RDW 14.8 % (11.5-15.5); WBC 7.7 k/uL (3.8-10.6)
[2021-08-01] MEDS: METOPROLOL TARTRATE 50 MG TAB PO SCH (08:56)
[2021-08-01] MEDS: ATORVASTATIN 20 MG TAB PO SCH (08:56)
[2021-08-01] MEDS: busPIRone HCl 5 MG TAB PO SCH (08:56)
[2021-08-01] MEDS: SPIRONOLACTONE 25 MG TAB PO SCH (08:56)
[2021-08-01] MEDS: PREGABALIN 100 MG CAP PO SCH (08:56)
[2021-08-01] MEDS: CLOPIDOGREL 75 MG TAB PO SCH (08:56)
[2021-08-01] MEDS: FUROSEMIDE 20 MG TAB PO SCH (08:56)
[2021-08-01] MEDS: DOXYCYCLINE 100 MG CAP PO SCH (08:57)
[2021-08-01] MEDS ORDERED: predniSONE 20 MG TAB PO SCH (09:00)
[2021-08-01 09:10] LABS: Calcium 6.5 mg/dL (8.4-10.2)
--- NOTE | 2021-08-01 09:59 | P.PN ---
Subjective Principal diagnosis: Chart was reviewed patient was seen and examined. Patient reports no complaints today. His oxygen needs are stable he denies any shortness of breath or cough. Denies any GI complaints. He did not use BiPAP last night. He remains on 34 liters via nasal cannula. Objective - Vital Signs Vital signs: Vital Signs Temp 96.3 F L 08/01/21 04:00 Pulse 60 08/01/21 08:43 Resp 20 08/01/21 04:00 BP 121/74 08/01/21 04:00 Pulse Ox 97 08/01/21 04:00 Intake & Output 07/31/21 08/01/21 08/01/21 18:59 06:59 18:59 Intake Total 660 240 Output Total 471 800 8271 Balance -40 -800 -760 Weight 102.5 kg Intake: Oral 660 240 Output: Urine 960 188 9746 Other: Voiding Method Urinal # Voids 0 - Exam Awake alert oriented 3 Head and neck: Anicteric family members no neck masses or JVD Lungs: Diminished breath sounds but present throughout without wheezing or rhonchi Cardiovascular: Regular rhythm and rate S1-S2 Pulses present bilaterally Abdomen: Soft nontender nondistended Extremities: No peripheral edema Neurological: No focal deficits no asterixis - Labs CBC & Chem 7: 08/01/21 08:25 08/01/21 08:25 Labs: Abnormal Lab Results - Last 24 Hours (Table) 07/31/21 07/31/21 07/31/21 Range/Units 11:00 11:37 16:15 Plt Count (150-450) k/uL Chloride (98-107) mmol/L Carbon Dioxide (22-30) mmol/L BUN (9-20) mg/dL Creatinine (0.66-1.25) mg/dL Glucose (74-99) mg/dL POC Glucose (mg/dL) 337 H 254 H (75-99) mg/dL Calcium (8.4-10.2) mg/dL Urine Protein 1+ H (Negative) Urine Glucose (UA) 2+ H (Negative) Urine Mucus Rare H (None) /hpf 07/31/21 08/01/21 08/01/21 Range/Units 20:15 05:49 08:25 Plt Count 140 L (150-450) k/uL Chloride (98-107) mmol/L Carbon Dioxide (22-30) mmol/L BUN (9-20) mg/dL Creatinine (0.66-1.25) mg/dL Glucose (74-99) mg/dL POC Glucose (mg/dL) 422 H 236 H (75-99) mg/dL Calcium (8.4-10.2) mg/dL Urine Protein (Negative) Urine Glucose (UA) (Negative) Urine Mucus (None) /hpf 08/01/21 Range/Units 08:25 Plt Count (150-450) k/uL Chloride 96 L (98-107) mmol/L Carbon Dioxide 36 H (22-30) mmol/L BUN 44 H (9-20) mg/dL Creatinine 1.43 H (0.66-1.25) mg/dL Glucose 249 H (74-99) mg/dL POC Glucose (mg/dL) (75-99) mg/dL Calcium 6.5 L (8.4-10.2) mg/dL Urine Protein (Negative) Urine Glucose (UA) (Negative) Urine Mucus (None) /hpf Assessment and Plan Plan: #1 acute hypoxic respiratory distress secondary to COPD exacerbation #2 COPD exacerbation #3 diabetes mellitus type 2 #4 congestive heart failure with mildly impaired ejection fraction 45-50% preservative ejection fraction #5 acute kidney injury was likely prerenal. Plan: -Admit to medicine for close monitoring -Aspiration/fall precaution/HBO 30 Currently on 34 liters nasal cannula Change Solu-Medrol to by mouth prednisone -Final recommendations from pulmonary and cardiology regarding discharge planning -Continue with antihypertensive medication -Lasix decrease given worsening HUSSEIN. Continue to monitor closely. Hyperglycemia due to steroids, hopefully to improve with tapering down steroids -DVT prophylaxis on heparin Disposition: Patient was cleared for discharge by pulmonary service. Creatinine trending down. Will discharge home with home healthcare services on home oxygen after home oxygen and ventilation dine and if case management his arrange for discharge.
[2021-08-01 10:08] VITALS: TEMP 97.9
[2021-08-01 11:57] LABS: Glucose,Whole Blood 286 mg/dL (75-99)
[2021-08-01 12:17] VITALS: BP 144/85; PULSE 60; RESP 20
--- NOTE | 2021-08-01 14:07 | P.PN ---
Subjective Progress Note Date: 08/01/21 Principal diagnosis: Shortness of breath. 56-year-old male patient with past medical history of smoking, COPD, CHF and pulmonary hypertension who presented emergency department on 07/27/2021 with complaints of progressive dyspnea over the past several days. Denied any fever or chills, denied any central chest pain, no lower extremity edema. He reports significant cough and dyspnea. In addition patient's medical history is significant for coronary artery disease with previous PCI and stenting 3. Anxiety, depression, previous history of rectal cancer with resection and ileostomy and subsequent reversal. Chest x-ray showed lower lobe pulmonary interstitial infiltrates and subsegmental atelectasis, EKG showed sinus rhythm with occasional PVCs. Admission labs showed normal white count of 8.7, hemoglobin 16.2, platelet count of 156, coagulation profile was within normal limits, d-dimer was 0.34, electrolytes and renal profile were unremarkable, troponins were elevated at 0.064, 0.079 and 0.067. Patient was tested for COVID-19, influenza A and B and RSV and was found to be negative, proBNP was 7510. Patient was given breathing treatments, empiric antibiotics in the form of doxycycline, he was given one-time dose of IV Lasix 40 mg IV push and emergency department and was started on IV steroids On 07/29/2021 patient seen in follow-up on selective care unit. He remains on BiPAP 12/5 and FiO2 is currently down to 30%. Feeling better, breathing more comfortably. Pulse ox is 93%. Afebrile. Hemodynamically stable, no complaint of chest pain. Remains on diuretics, cardiology is following and managing the diuretics, patient was placed on maintenance dose of oral diuretics in the form of Lasix 20 mg daily, patient remains on IV steroids and nebulized bronchodilators and empiric antibiotics for acute COPD exacerbation. Overall he is feeling improved. Follow-up chest x-ray today shows no acute pulmonary process. Patient is in -915 mL fluid balance over the last 24 hours., White blood cell count is normal at 9.4, hemoglobin 16.4, potassium is 5.3, CO2 is 33, B1 is 34 creatinine is 1.44 with slight increase in his renal function, and subsequently his Lasix dose was adjusted Down to 20 mg once daily. Echocardiogram has been reviewed showing EF of 45-50%, moderate concentric LVH. Mild tricuspid regurg, no aortic stenosis or regurgitation. No pulmonary hypertension. The patient is seen today 07/30/2021 in follow-up on the selective care unit. He is currently sitting up in bed. Awake and alert in no acute distress. He is currently on 3 L nasal cannula. He did utilize the BiPAP throughout the evening 12/5 and 30% FiO2. Chest x-ray revealed no acute pulmonary process. White count 10.3. Hemogram 15.9. Sodium 138. Potassium 4.5. BUN 52. Creatinine 1.60. Glucose 247. He is continued on DuoNeb inhalations, IV Solu-Medrol. Antibiotics in the form of Vibramycin. He is continued on oral diuretics. Currently in a -1.2 L balance. The patient is seen today 07/31/2021 in follow-up on the selective care unit. He is currently sitting up in bed. Awake and alert in no acute distress. Breathing better today compared to yesterday. He's on 4 L nasal cannula. He did not wear the BiPAP last night. White count 7.0. Hemoglobin 15.8. Platelets 159. Blood sugar 288. He is continued on Vibramycin, IV Solu medrol, bronchodilators. Progress note dated 08/01/2021. The patient appears to be doing much better. He is hoping for discharge soon. Currently, he's on 4 L nasal cannula. Not receiving any IV fluids. Last night, he used BiPAP with settings of IPAP 12, EPAP 5, and an FiO2 30%. The patient will need outpatient follow-up with us in the clinic. Laboratory data includes a white count of 7.7, hemoglobin 16.2, hematocrit 51, and platelet count 140,000. Sodium 140, potassium 5, chlorides 96, CO2 36, BUN 44, and creatinine 1.43. Objective - Vital Signs Vital signs: Vital Signs Temp 97.9 F 08/01/21 08:00 Pulse 65 08/01/21 11:48 Resp 20 08/01/21 11:37 BP 144/85 08/01/21 11:37 Pulse Ox 94 L 08/01/21 11:37 Intake & Output 07/31/21 08/01/21 08/01/21 18:59 06:59 18:59 Intake Total 660 240 Output Total 242 977 7789 Balance -40 -800 -760 Weight 102.5 kg Intake: Oral 660 240 Output: Urine 647 316 5861 Other: Voiding Method Urinal Toilet Urinal # Voids 0 - Exam No acute distress, oriented 3. Currently on 4 L nasal cannula. HEENT examination is grossly unremarkable. Neck supple. Full range of motion. No adenopathy thyromegaly or neck vein distention. Cardiovascular examination reveals regular rhythm rate. S1-S2 normal. No S3 or S4. No discernible murmur noted. Heart rate is 65 bpm. Lungs reveal diffuse bilateral expiratory rhonchi and expiratory wheezes. Breath sounds equal bilaterally but diminished throughout. No crackles. Abdomen soft bowel sounds are heard. No masses or tenderness. Extremities are intact. No cyanosis clubbing or edema. Skin is without rash or lesion. Neurologic examination is brief but nonfocal. - Labs CBC & Chem 7: 08/01/21 08:25 08/01/21 08:25 Labs: Abnormal Lab Results - Last 24 Hours (Table) 07/31/21 07/31/21 08/01/21 Range/Units 16:15 20:15 05:49 Plt Count (150-450) k/uL Chloride (98-107) mmol/L Carbon Dioxide (22-30) mmol/L BUN (9-20) mg/dL Creatinine (0.66-1.25) mg/dL Glucose (74-99) mg/dL POC Glucose (mg/dL) 254 H 422 H 236 H (75-99) mg/dL Calcium (8.4-10.2) mg/dL 08/01/21 08/01/21 08/01/21 Range/Units 08:25 08:25 11:55 Plt Count 140 L (150-450) k/uL Chloride 96 L (98-107) mmol/L Carbon Dioxide 36 H (22-30) mmol/L BUN 44 H (9-20) mg/dL Creatinine 1.43 H (0.66-1.25) mg/dL Glucose 249 H (74-99) mg/dL POC Glucose (mg/dL) 286 H (75-99) mg/dL Calcium 6.5 L (8.4-10.2) mg/dL Assessment and Plan Assessment: 1 Acute hypoxic respiratory failure related to acute exacerbation of chronic congestive heart failure and echocardiogram showed a mildly impaired EF of 45-50% and acute exacerbation of COPD. 2 Chronic COPD, severity is not known. 3 Previous history of coronary artery disease with previous PCI and stenting. 4 Hypertension. 5 Hyperlipidemia. 6 Diabetes mellitus type 2. 7 History of sleep apnea, unknown whether the patient wears a CPAP device on a regular basis. 8 Current every day smoker. 9 History of rectal and bladder cancer. 10 History of bowel resection, and ileostomy creation, with subsequent reversal. Plan: Plan dated 08/01/2021. From the pulmonary standpoint, the patient could be considered for discharge. The patient is counseled about the importance of smoking cessation. I did mention to the patient that after discharge, he should follow up with us in the pulmonary clinic, for a complete pulmonary function tests, and a 6 minute walk distance. For somebody who is only 56, the patient has a number of significant medical problems. We will continue to follow make recommendations where appropriate. Prognosis is certainly guarded. Time with Patient: Less than 30
--- NOTE | 2021-08-01 15:29 | P.DS ---
Providers Date of admission: 07/28/21 01:53 Attending physician: Kaiden Durbin Consults: 07/28/21 01:57 Consult Physician Routine Consulting Provider: Luis Fernando Hayes Consult Reason/Comments: COPD/CHF Do you want consulting provider notified?: Yes 07/31/21 09:13 Consult Physician Routine Consulting Provider: Isis Erwin Consult Reason/Comments: HUSSEIN Do you want consulting provider notified?: Yes Primary care physician: [place] Hospital Course: Consultants Pulmonology Cardiology Nephrology Discharge diagnosis Acute hypoxic respiratory failure Acute on chronic diastolic CHF exacerbation Acute COPD exacerbation Acute kidney injury Underlying CK D III Diabetes mellitus Disposition: Patient was discharged home with home healthcare services, on 24 liters home oxygen. Recommended to follow up in pulmonary office for sleep studies and pulmonary function testing Reason for hospitalization 56 year old male with DM , hypertension patient comes in due to progressive SOB over past few days, with some non productive cough, denies any known sick contacts, denies recent travel, denies official diagnosis of COPD, but admits to heavy smoking, and prior treatment with steroids and inhalers. he denies any fever , chest pain, nausea or vomiting, denies any orthopnea, PNDs or leg swelling, denies history of CHF. today , his breathing became worse, and was very difficult to breath and get comfortable with wheezing. for which he decided to come in for evaluation . he denies any history of blood clots. denies any abd pain , nausea or vomiting, denies urinary changes, but admits to occasional diarrhea over past couple days, no GI bleeding' in the ED, CXR showed possible atelactesis/infilterates at lung bases, no fluid overload. blood work no leukocytosis , respiratory viral panel negative, hypocalcemia and elevated BNP and trops. he was given breathing treatment and steroids inthe ED, he was also given lasix in the ED and initiated on bipap Hospital course Patient was admitted placed on supplemental oxygen. Treated with systemic steroids, diuretics. Evaluated by the consultants. Echo showed EF of 4550 percent. Eventually his creatinine was slightly elevated Lasix was decreased and creatinine started trending down. Patient was cleared for discharge by consultants above. He is to follow-up with the above consultants. History repeat his BMP in 23 days. Patient Condition at Discharge: Stable Plan - Discharge Summary Discharge Rx Participant: No New Discharge Prescriptions: New sitaGLIPtin PHOSPHATE [Januvia] 25 mg PO DAILY #7 tab Furosemide [Lasix] 20 mg PO DAILY #7 tab Doxycycline [Vibramycin] 100 mg PO BID 3 Days #6 cap predniSONE [Deltasone] See Taper PO DAILY #6 tab Continue Simvastatin [Zocor] 40 mg PO DAILY Metoprolol Tartrate [Lopressor] 50 mg PO BID HYDROcodone/APAP 10-325MG [[place] 10-325] 1 tab PO QID PRN PRN Reason: Pain fentaNYL 75MCG/HR PATCH [Duragesic 75MCG/HR] 1 patch TRANSDERM Q48H Pregabalin [Lyrica] 200 mg PO TID Albuterol Sulfate [Ventolin HFA] 2 puff INHALATION RT-QID PRN PRN Reason: Shortness Of Breath Calcium Carb-Vit D 500Mg-5Mcg [[place] 500+D 5 Mcg (200 Iu)] 1 tab PO AC-TID Ferrous Sulfate [Iron (65 MG Elemental)] 325 mg PO DAILY tab metFORMIN HCL [Glucophage] 500 mg PO BID Famotidine [Pepcid] 20 mg PO DAILY Clopidogrel Bisulfate [Plavix] 75 mg PO DAILY busPIRone HCL 15 mg PO BID Discontinued Potassium Chloride [Klor-Con 20] 20 meq PO DAILY #60 tab Escitalopram Oxalate [Lexapro] 10 mg PO DAILY Discharge Medication List HYDROcodone/APAP 10-325MG [[place] 10-325] 1 tab PO QID PRN 10/25/15 [History] Metoprolol Tartrate [Lopressor] 50 mg PO BID 10/25/15 [History] Simvastatin [Zocor] 40 mg PO DAILY 10/25/15 [History] fentaNYL 75MCG/HR PATCH [Duragesic 75MCG/HR] 1 patch TRANSDERM Q48H 10/25/15 [History] Pregabalin [Lyrica] 200 mg PO TID 04/01/18 [History] Albuterol Sulfate [Ventolin HFA] 2 puff INHALATION RT-QID PRN 04/20/19 [History] Calcium Carb-Vit D 500Mg-5Mcg [Oscal 500+D 5 Mcg (200 Iu)] 1 tab PO AC-TID 07/10/19 [History] Ferrous Sulfate [Iron (65 MG Elemental)] 325 mg PO DAILY tab 07/29/19 [Rx] metFORMIN HCL [Glucophage] 500 mg PO BID 09/08/19 [History] Clopidogrel Bisulfate [Plavix] 75 mg PO DAILY 12/24/20 [History] Famotidine [Pepcid] 20 mg PO DAILY 07/28/21 [History] busPIRone HCL 15 mg PO BID 07/28/21 [History] Doxycycline [Vibramycin] 100 mg PO BID 3 Days #6 cap 08/01/21 [Rx] Furosemide [Lasix] 20 mg PO DAILY #7 tab 08/01/21 [Rx] predniSONE [Deltasone] See Taper PO DAILY #6 tab 08/01/21 [Rx] sitaGLIPtin PHOSPHATE [Januvia] 25 mg PO DAILY #7 tab 08/01/21 [Rx] Follow up Appointment(s)/Referral(s): Isis Erwin MD [STAFF PHYSICIAN] - 08/20/21 11:20 am Luis Fernando Hayes DO [Doctor of Osteopathic Medicine] - 08/26/21 9:00 am (Office states they will call the patient with any sooner appointments that become available.) Adán Amaro DO [Primary Care Provider] - 1-2 days (Office states Dr. Amaro does not have openings at this time, office will call with cancellations.) Patient Instructions/Handouts: Heart Failure (DC), COPD (Chronic Obstructive Pulmonary Disease) (DC) Activity/Diet/Wound Care/Special Instructions: Patient will require home O2 at d/c r/t COPD. Discharge Disposition: HOME WITH HOME HEALTH SERVICES Plan of Treatment: CHECK BMP in 2-3 days; see PCP next week about diabetes medications adjustments
--- NOTE | 2021-08-01 17:25 | P.PN ---
Subjective Patient is seen for follow-up for acute kidney injury. His renal function has improved. Creatinine is down to 1.4. Overall patient feels well. Shortness of breath has improved as well. Objective - Vital Signs Vital signs: Vital Signs Temp 97.9 F 08/01/21 08:00 Pulse 65 08/01/21 11:48 Resp 20 08/01/21 11:37 BP 144/85 08/01/21 11:37 Pulse Ox 94 L 08/01/21 11:37 Intake & Output 07/31/21 08/01/21 08/01/21 18:59 06:59 18:59 Intake Total 660 240 Output Total 906 843 6041 Balance -40 -800 -760 Weight 102.5 kg Intake: Oral 660 240 Output: Urine 714 212 8365 Other: Voiding Method Urinal Toilet Urinal # Voids 0 - Exam Patient is awake comfortable he is not in any acute distress Examination of the heart S1 and S2 Exertion lungs bilateral breath sounds are heard Abdomen is soft nontender Exertion lower extremity shows no significant edema. [employer] exam grossly intact - Labs CBC & Chem 7: 08/01/21 08:25 08/01/21 08:25 Labs: Abnormal Lab Results - Last 24 Hours (Table) 07/31/21 08/01/21 08/01/21 Range/Units 20:15 05:49 08:25 Plt Count 140 L (150-450) k/uL Chloride (98-107) mmol/L Carbon Dioxide (22-30) mmol/L BUN (9-20) mg/dL Creatinine (0.66-1.25) mg/dL Glucose (74-99) mg/dL POC Glucose (mg/dL) 422 H 236 H (75-99) mg/dL Calcium (8.4-10.2) mg/dL 08/01/21 08/01/21 Range/Units 08:25 11:55 Plt Count (150-450) k/uL Chloride 96 L (98-107) mmol/L Carbon Dioxide 36 H (22-30) mmol/L BUN 44 H (9-20) mg/dL Creatinine 1.43 H (0.66-1.25) mg/dL Glucose 249 H (74-99) mg/dL POC Glucose (mg/dL) 286 H (75-99) mg/dL Calcium 6.5 L (8.4-10.2) mg/dL Assessment and Plan Assessment: 1. Acute kidney injury, nonoliguric possibly associated with recent diuresis. I do not see any nephrotoxic agents on board. No urine retention. UA shows 1+ protein ultrasound is unremarkable 2. Acute hypoxic respiratory failure secondary to COPD exacerbation 3. Rule out chronic kidney disease. Review of previous labs shows multiple episodes of acute kidney injury. Lowest creatinine about 1.0-1.1 on 07/27/2021. Patient likely has stage III chronic kidney disease, etiology possibly diabetic kidney disease. UA has been ordered to rule out proteinuria he at 4. Type 2 diabetes Plan: Okay for discharge from nephrology standpoint. Follow-up as outpatient for CKD
== END 2021-08-01 14:13 | disposition home or self-care (01) | DRG 291 ==
LOC: EC 23:09 → 3SCARD 07-28 01:53
PROVIDERS: ADMIT Internal Medicine Geriatric Medicine; ATTEND Internal Medicine Geriatric Medicine
PROC: 5A09557 Assistance with Respiratory Ventilation, Greater than 96 Consecutive Hours, Continuous Positive Airway Pressure (ICD-10-PCS; principal; 2021-07-28)
DX: I13.0 Hypertensive heart and chronic kidney disease with heart failure and stage 1 through stage 4 chronic kidney disease, or unspecified chronic kidney disease (principal); I50.33 Acute on chronic diastolic (congestive) heart failure; J96.01 Acute respiratory failure with hypoxia; N17.9 Acute kidney failure, unspecified; J44.1 Chronic obstructive pulmonary disease with (acute) exacerbation; J98.11 Atelectasis; E83.51 Hypocalcemia; E11.22 Type 2 diabetes mellitus with diabetic chronic kidney disease; I42.9 Cardiomyopathy, unspecified; N18.30 Chronic kidney disease, stage 3 unspecified; E11.65 Type 2 diabetes mellitus with hyperglycemia; Z20.822 Contact with and (suspected) exposure to COVID-19; E78.5 Hyperlipidemia, unspecified; I25.10 Atherosclerotic heart disease of native coronary artery without angina pectoris; I07.1 Rheumatic tricuspid insufficiency; K21.9 Gastro-esophageal reflux disease without esophagitis; G89.29 Other chronic pain; M54.9 Dorsalgia, unspecified; G47.30 Sleep apnea, unspecified; I49.3 Ventricular premature depolarization; K46.9 Unspecified abdominal hernia without obstruction or gangrene; F32.A Depression, unspecified; F41.9 Anxiety disorder, unspecified; T38.0X5A Adverse effect of glucocorticoids and synthetic analogues, initial encounter; R19.7 Diarrhea, unspecified; R77.8 Other specified abnormalities of plasma proteins; F17.200 Nicotine dependence, unspecified, uncomplicated; Z71.6 Tobacco abuse counseling; Z79.02 Long term (current) use of antithrombotics/antiplatelets; Z79.84 Long term (current) use of oral hypoglycemic drugs; Z79.891 Long term (current) use of opiate analgesic; Z79.899 Other long term (current) drug therapy; Z99.3 Dependence on wheelchair; Z85.51 Personal history of malignant neoplasm of bladder; Z85.048 Personal history of other malignant neoplasm of rectum, rectosigmoid junction, and anus; Z86.14 Personal history of Methicillin resistant Staphylococcus aureus infection; Z90.49 Acquired absence of other specified parts of digestive tract; Z95.5 Presence of coronary angioplasty implant and graft; Z87.828 Personal history of other (healed) physical injury and trauma; Z86.2 Personal history of diseases of the blood and blood-forming organs and certain disorders involving the immune mechanism; Z87.39 Personal history of other diseases of the musculoskeletal system and connective tissue; Z98.890 Other specified postprocedural states; Z88.8 Allergy status to other drugs, medicaments and biological substances; Z91.041 Radiographic dye allergy status; Z91.013 Allergy to seafood; Z83.3 Family history of diabetes mellitus; Z80.6 Family history of leukemia; Z80.0 Family history of malignant neoplasm of digestive organs; Z82.69 Family history of other diseases of the musculoskeletal system and connective tissue; Z82.49 Family history of ischemic heart disease and other diseases of the circulatory system; Z81.1 Family history of alcohol abuse and dependence
CPT/HCPCS: 36415; 71045; 76770; 80048; 80053; 81001; 82803; 83036; 83605; 83735; 83880; 84484; 85025; 85027; 85379; 85610; 85730; 87636; 93005; 93306; 94640; 94660; 94760; 96361; 96374; 96375; 99291

== ENCOUNTER 2021-09-22 23:23 | Inpatient (IN) | payer MEDICARE ==
[2021-09-22] MEDS ORDERED: MORPHINE SULFATE 2 MG/ML SYRINGE IVP STA (23:30)
[2021-09-22] MEDS ORDERED: IPRATROPIUM-ALBUTEROL 3 ML NEB INHALATION STA (23:30)
[2021-09-22] MEDS ORDERED: SODIUM CHLORIDE 0.9% 500 ML 500 ML IV STA (23:30)
[2021-09-22] MEDS ORDERED: methylPREDNISolone SOD SUCCI 125 MG/2 ML VIAL IV STA (23:30)
[2021-09-22] MEDS ORDERED: TERBUTALINE 1 MG/ML VIAL SQ STA (23:30)
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
[2021-09-22] MEDS ORDERED: ALBUTEROL NEBULIZED 2.5 MG/3 ML INHALATION STA (23:57)
[2021-09-23] LABS: Basophils # (A) 0.2 k/uL (0-0.2); Basophils % (A) 1 %; Eosinophils # (A) 0.6 k/uL (0-0.7); Eosinophils % (A) 4 %; HCT 45.6 % (39.0-53.0); HGB 14.2 gm/dL (13.0-17.5); Hypochromasia Slight; Lymphocytes # (A) 1.9 k/uL (1.0-4.8); Lymphocytes % (A) 13 %; MCH 30.3 pg (25.0-35.0); MCHC 31.1 g/dL (31.0-37.0); MCV 97.5 fL (80.0-100.0); Mean Platelet Volume 8.8; Monocytes # (A) 0.7 k/uL (0-1.0); Monocytes % (A) 4 %; Neutrophils # (A) 11.9 k/uL (1.3-7.7); Neutrophils % (A) 77 %; Platelet Count 198 k/uL (150-450); RBC 4.68 m/uL (4.30-5.90); RDW 14.7 % (11.5-15.5); WBC 15.4 k/uL (3.8-10.6)
[2021-09-23 00:19] LABS: Partial Thromboplastin Time 24.8 sec (22.0-30.0); Prothrombin Time 10.6 sec (9.0-12.0)
[2021-09-23] MEDS: MAGNESIUM SULFATE-D5W PMX 1 GM in DEXTROSE/WATER 1 100ML.BAG IVPB SCH ×2 (00:27→01:00)
[2021-09-23] MEDS ORDERED: hydrALAZINE HCL 20 MG/ML 1 ML VIAL IVP STA ×2 (00:28)
[2021-09-23] MEDS ORDERED: ALBUTEROL NEBULIZED 2.5 MG/3 ML INHALATION STA ×2 (00:28→01:39)
[2021-09-23] MEDS ORDERED: MORPHINE SULFATE 2 MG/ML SYRINGE IVP STA (00:29)
[2021-09-23 00:35] LABS: Albumin 4.3 g/dL (3.5-5.0); Calcium 6.8 mg/dL (8.4-10.2); Potassium 4.6 mmol/L (3.5-5.1); Total Bilirubin 0.5 mg/dL (0.2-1.3)
[2021-09-23] MEDS ORDERED: PROPOFOL 10 MG/ML 20 ML VIAL IV ONE (00:53)
--- NOTE | 2021-09-23 00:54 | XR ---
EXAMINATION TYPE: XR chest 1V portable DATE OF EXAM: 09/23/2021 COMPARISON: 07/29/2021 HISTORY: Short of breath TECHNIQUE: FINDINGS: Heart is normal. Lungs are clear of infiltrate. No heart failure. There are cervical spine fusion surgery. No pleural effusion. There are no hilar masses. IMPRESSION: No active cardiopulmonary disease. No change.
[2021-09-23] MEDS ORDERED: ETOMIDATE 2 MG/ML 10 ML VIAL IVP STA (01:05)
[2021-09-23] MEDS ORDERED: SUCCINYLCHOLINE CHLORIDE VIAL 200 MG/10 ML VIAL IV STA (01:05)
--- NOTE | 2021-09-23 01:14 | XR ---
EXAMINATION TYPE: XR chest 1V portable DATE OF EXAM: 09/23/2021 COMPARISON: Yesterday HISTORY: Respiratory failure. Tube placement. TECHNIQUE: FINDINGS: There is endotracheal tube 4.5 cm from the nathalia. The lungs are clear of consolidation. No rmal heart failure. There is nasogastric tube in the stomach. There are chest leads. No evidence of p leural effusion. IMPRESSION: Tubing in good position. No pulmonary consolidation or heart failure. No change.
[2021-09-23] MEDS ORDERED: fentaNYL (PF) 50 MCG/ML 2 ML AMP IVP STA (01:28)
[2021-09-23] MEDS ORDERED: HYDROmorphone 1 MG/ML 1 ML SYRINGE IVP PRN (01:39)
[2021-09-23] MEDS ORDERED: NALOXONE 0.4 MG/ML 1 ML VIAL IV PRN ×2 (01:39→03:18)
[2021-09-23] MEDS ORDERED: ACETAMINOPHEN IV (For NPO) 1,000 MG in SALINE 1 100ML.BAG IVPB ONE (01:39)
[2021-09-23 01:51] LABS: ABG Base Excess -1.6 mmol/L; ABG HCO3 27 mmol/L (21-25); ABG PCO2 68 mmHg (35-45); ABG PO2 >400 mmHg (83-108); ABG TCO2 29 mmol/L (19-24); Allen Test Performed? Yes
[2021-09-23] MEDS ORDERED: MIDAZOLAM 1 MG/ML 5 ML VIAL IV STA (02:20)
[2021-09-23 02:48] LABS: Glucose,Whole Blood 295 mg/dL (75-99)
[2021-09-23] MEDS ORDERED: ALBUTEROL NEBULIZED 2.5 MG/3 ML INHALATION SCH (03:00)
[2021-09-23] MEDS: IPRATROPIUM-ALBUTEROL 3 ML NEB INHALATION SCH ×5 (04:01→20:48)
[2021-09-23] MEDS: methylPREDNISolone SOD SUCCI 125 MG/2 ML VIAL IV SCH ×3 (06:05→17:37)
[2021-09-23 06:06] LABS: ABG Base Excess 0.6 mmol/L; ABG HCO3 26 mmol/L (21-25); ABG Oxygen Saturation 93.2 % (94-97); ABG PCO2 49 mmHg (35-45); ABG PH 7.34 (7.35-7.45); ABG PO2 70 mmHg (83-108); ABG TCO2 28 mmol/L (19-24); Allen Test Performed? Yes
[2021-09-23 06:45] LABS: Amorphous Sediment,Urine Many /hpf; Appearance,Urine Turbid (Clear); Bilirubin,Urine Negative (Negative); Blood,Urine Negative (Negative); Color,Urine Yellow; Glucose,Urine (UA) Trace (Negative); Hyaline Casts,Urine 50 /lpf (0-2); Ketones,Urine Trace (Negative); Leukocyte Esterase,Urine Trace (Negative); Mucus,Urine Few /hpf; Nitrite,Urine Negative (Negative); PH, Urine 5.5 (5.0-8.0); Protein,Urine 1+ (Negative); Specific Gravity,Urine 1.029 (1.001-1.035); Urobilinogen,Urine <2.0 mg/dL (<2.0); WBC,Urine 2 /hpf (0-5)
[2021-09-23 08:16] LABS: Basophils % (A) 0 %; Eosinophils # (A) 0.1 k/uL (0-0.7); Eosinophils % (A) 1 %; HCT 41.6 % (39.0-53.0); HGB 12.9 gm/dL (13.0-17.5); Lymphocytes # (A) 0.2 k/uL (1.0-4.8); Lymphocytes % (A) 3 %; MCH 30.4 pg (25.0-35.0); MCHC 31.1 g/dL (31.0-37.0); MCV 97.7 fL (80.0-100.0); Mean Platelet Volume 8.7; Monocytes # (A) 0.2 k/uL (0-1.0); Monocytes % (A) 2 %; Neutrophils # (A) 8.1 k/uL (1.3-7.7); Neutrophils % (A) 95 %; Platelet Count 126 k/uL (150-450); RBC 4.25 m/uL (4.30-5.90); RDW 14.6 % (11.5-15.5); WBC 8.6 k/uL (3.8-10.6)
[2021-09-23 08:30] LABS: Calcium 6.5 mg/dL (8.4-10.2); Magnesium 2.6 mg/dL (1.6-2.3); Potassium 4.3 mmol/L (3.5-5.1)
[2021-09-23] MEDS ORDERED: CHLORHEXIDINE GLUCONATE 15 ML CUP MUCOUS MEM SCH (09:00)
[2021-09-23] MEDS: PANTOPRAZOLE 40 MG/10 ML VIAL IV SCH (09:06)
[2021-09-23] MEDS: INSULIN ASPART (NovoLOG) 100 UNIT/ML VIAL SQ SCH ×4 (10:27→21:11)
[2021-09-23 11:55] LABS: Glucose,Whole Blood 281 mg/dL (75-99)
[2021-09-23 11:58] LABS: ABG Base Excess 0.1 mmol/L; ABG HCO3 26 mmol/L (21-25); ABG PCO2 48 mmHg (35-45); ABG PH 7.34 (7.35-7.45); ABG PO2 74 mmHg (83-108); ABG TCO2 27 mmol/L (19-24); Allen Test Performed? Yes
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
[2021-09-23] MEDS: DOXYCYCLINE 100 MG CAP PO SCH ×2 (14:43→21:12)
[2021-09-23] MEDS: PREGABALIN 100 MG CAP PO SCH ×2 (14:44→21:11)
[2021-09-23] MEDS: METOPROLOL TARTRATE 50 MG TAB PO SCH ×2 (14:44→21:11)
[2021-09-23] MEDS: ESCITALOPRAM 10 MG TAB PO SCH (14:44)
[2021-09-23] MEDS: busPIRone HCl 5 MG TAB PO SCH ×2 (14:44→21:12)
[2021-09-23] MEDS: CLOPIDOGREL 75 MG TAB PO SCH (14:44)
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
[2021-09-23] MEDS: IPRATROPIUM-ALBUTEROL 3 ML NEB INHALATION PRN (15:53)
[2021-09-23 17:29] LABS: Glucose,Whole Blood 183 mg/dL (75-99)
[2021-09-23 20:22] LABS: Glucose,Whole Blood 153 mg/dL (75-99)
[2021-09-23] MEDS: SYMBICORT 160-4.5 MCG INHALER INHALATION SCH (20:48)
[2021-09-23] MEDS: HYDROcodone/APAP 10-325MG 1 EACH TAB PO PRN (21:26)
[2021-09-24] MEDS: methylPREDNISolone SOD SUCCI 125 MG/2 ML VIAL IV SCH ×2 (00:54→06:25)
[2021-09-24] MEDS: HYDROcodone/APAP 10-325MG 1 EACH TAB PO PRN ×2 (04:46→11:49)
[2021-09-24] MEDS: IPRATROPIUM-ALBUTEROL 3 ML NEB INHALATION PRN (05:05)
--- NOTE | 2021-09-24 06:03 | XR ---
EXAMINATION TYPE: XR chest 1V portable DATE OF EXAM: 09/24/2021 CLINICAL HISTORY: Difficulty breathing progress study. TECHNIQUE: Single AP portable upright view of the chest is obtained. COMPARISON: Chest x-ray from one day earlier and older studies. FINDINGS: Interval extubation with removal of endotracheal and orogastric tubes. Lateral left lung base is not entirely included on current study making evaluation slightly suboptima l. No new suspicious focal airspace opacity, pleural effusion, or pneumothorax is seen. Stable mild c ardiomegaly. Anterior fusion plate cervicothoracic junction redemonstrated. IMPRESSION: Interval extubation. Mild cardiomegaly redemonstrated without new acute pulmonary process .
[2021-09-24 06:34] LABS: Glucose,Whole Blood 220 mg/dL (75-99)
[2021-09-24] MEDS: INSULIN ASPART (NovoLOG) 100 UNIT/ML VIAL SQ SCH ×4 (06:36→20:54)
[2021-09-24 07:17] LABS: Basophils % (A) 0 %; Eosinophils % (A) 0 %; HCT 42.6 % (39.0-53.0); Hypochromasia Slight; Lymphocytes # (A) 0.4 k/uL (1.0-4.8); Lymphocytes % (A) 4 %; MCH 30.3 pg (25.0-35.0); MCHC 30.6 g/dL (31.0-37.0); Mean Platelet Volume 8.8; Monocytes # (A) 0.2 k/uL (0-1.0); Monocytes % (A) 2 %; Neutrophils # (A) 9.7 k/uL (1.3-7.7); Neutrophils % (A) 93 %; Platelet Count 142 k/uL (150-450); RDW 14.8 % (11.5-15.5); WBC 10.4 k/uL (3.8-10.6)
[2021-09-24] MEDS: IPRATROPIUM-ALBUTEROL 3 ML NEB INHALATION SCH ×4 (07:20→20:31)
[2021-09-24] MEDS: SYMBICORT 160-4.5 MCG INHALER INHALATION SCH ×2 (07:20→20:31)
[2021-09-24 07:51] LABS: Albumin 3.9 g/dL (3.5-5.0); Calcium 6.7 mg/dL (8.4-10.2); Magnesium 2.5 mg/dL (1.6-2.3); Phosphorus 4.8 mg/dL (2.5-4.5); Potassium 5.1 mmol/L (3.5-5.1); Total Bilirubin 0.4 mg/dL (0.2-1.3); Total Protein 6.5 g/dL (6.3-8.2)
[2021-09-24] MEDS: ATORVASTATIN 20 MG TAB PO SCH (08:28)
[2021-09-24] MEDS: CLOPIDOGREL 75 MG TAB PO SCH (08:29)
[2021-09-24] MEDS: DOXYCYCLINE 100 MG CAP PO SCH ×2 (08:29→20:54)
[2021-09-24] MEDS: PREGABALIN 100 MG CAP PO SCH ×3 (08:29→20:54)
[2021-09-24] MEDS: PANTOPRAZOLE 40 MG/10 ML VIAL IV SCH (08:29)
[2021-09-24] MEDS: busPIRone HCl 5 MG TAB PO SCH ×2 (08:29→20:54)
[2021-09-24] MEDS: METOPROLOL TARTRATE 50 MG TAB PO SCH ×2 (08:29→20:54)
[2021-09-24] MEDS: ESCITALOPRAM 10 MG TAB PO SCH (08:30)
[2021-09-24 11:41] LABS: Glucose,Whole Blood 312 mg/dL (75-99)
--- NOTE | 2021-09-24 11:55 | P.PN ---
Subjective Progress Note Date: 09/24/21 Principal diagnosis: Acute hypoxic and hypercapnic respiratory failure secondary to acute exacerbation of COPD This is a 56-year-old white male with history of severe underlying COPD, tobacco dependence syndrome, pulmonary hypertension, patient was last seen by our service on 07/28/21, patient was seen back then for acute hypoxic respiratory failure secondary to chronic congestive heart failure, LV dysfunction, underlying COPD, and patient was eventually discharged home after treatment with diuretics and bronchodilators, he never followed up with Dr. loza as he was supposed to. Apparently the patient arrived to the ER yesterday and he was complaining of severe respiratory distress symptoms started after he was mowing his lawn in the afternoon. And he just could not get any better. Upon arrival the patient had to be intubated and he was placed on mechanical ventilation, admitted to the ICU, and I was asked to see him on consultation. Patient is now on mechanical ventilation with assist control rate of 26th of volume 500 FiO2 50% and PEEP of 5. ABG showed a pO2 of 70 pCO2 49 pH of 7.34, and this was on 50% FiO2. Patient was on propofol at 50 mcg/kg/m, IV fluid at 75 mL per hour. And I cut down his IV fluid to KVO. Chest x-ray showed no evidence of conge stive heart failure and no evidence of pneumonia. Shortly after evaluating the patient, I recommended a trial of pressure support and CPAP, and this is to be done after the patient is off propofol. And after assessing his weaning parameters. Not much history could be obtained from the patient himself, most of the information was obtained from the chart Reevaluated today on 09/24/2021, patient remains in the ICU, he was extubated yesterday and tolerated the extubation well. Today the patient has slight shortness of breath, occasional cough and wheezing, however he is almost over 90% improved compared to baseline. CBC is relatively normal, basic metabolic profile is normal except for creatinine of 1.23. Improved compared to his baseline of 1.57. Patient remains on bronchodilators, he is also on doxycycline, Symbicort, and methylprednisolone which I will transition to prednisone. Objective - Vital Signs Vital signs: Vital Signs Temp 97.0 F L 09/24/21 08:00 Pulse 80 09/24/21 11:00 Resp 29 H 09/24/21 11:31 BP 122/74 06/15/22 11:00 Pulse Ox 93 L 09/24/21 11:00 FiO2 40 09/23/21 12:00 Intake & Output 09/23/21 09/24/21 09/24/21 18:59 06:59 18:59 Intake Total 624.697 600 410 Output Total 550 865 120 Balance 74.697 -265 290 Weight 105.9 kg 103.6 kg Intake: IV 500 300 50 0.9% NS @ 75ml/hr 500 300 50 Intake, IV Titration 124.697 Amount propofoL 1,000 mg In 124.697 Empty Bag 1 bag @ 5 MCG/ KG/MIN 3.177 mls/hr IV . Q24H [facility] Rx#:[id number] Oral 300 360 Output: Urine 550 865 120 Other: Voiding Method Indwelling Catheter Indwelling Catheter Indwelling Catheter - Exam GENERAL EXAM: Revealed a 56-year-old white male on 4 L nasal cannula, in no distress. O2 saturations 92%. HEAD: Normocephalic/atraumatic. EYES: Normal reaction of pupils, equal size. Conjunctiva pink, sclera white. NOSE: Clear with pink turbinates. THROAT: No erythema or exudates. Moist mucous membranes. NECK: No masses, no JVD, no thyroid enlargement, no adenopathy. CHEST: No chest wall deformity. Symmetrical expansion. LUNGS: Equal air entry with no crackles, minimal wheezing on forced expiratory maneuver only. CVS: Regular rate and rhythm, normal S1 and S2, no gallops, no murmurs, no rubs ABDOMEN: Soft, nontender. No hepatosplenomegaly, normal bowel sounds, no guardi ng or rigidity. EXTREMITIES: No clubbing, no edema, no cyanosis, 2+ pulses and upper and lower extremities. SKIN: No rashes CENTRAL NERVOUS SYSTEM: Alert and oriented 3 focal deficits. PSYCHIATRIC: Normal mood affect and normal mental status examination. - Labs CBC & Chem 7: 09/24/21 06:33 09/24/21 06:33 Labs: Abnormal Lab Results - Last 24 Hours (Table) 09/23/21 09/23/21 09/23/21 Range/Units 11:54 11:56 17:27 MCHC (31.0-37.0) g/dL Plt Count (150-450) k/uL Neutrophils # (1.3-7.7) k/uL Lymphocytes # (1.0-4.8) k/uL ABG pH 7.34 L (7.35-7.45) ABG pCO2 48 H (35-45) mmHg ABG pO2 74 L (83-108) mmHg ABG HCO3 26 H (21-25) mmol/L ABG Total CO2 27 H (19-24) mmol/L BUN (9-20) mg/dL Glucose (74-99) mg/dL POC Glucose (mg/dL) 281 H 183 H (75-99) mg/dL Calcium (8.4-10.2) mg/dL Phosphorus (2.5-4.5) mg/dL Magnesium (1.6-2.3) mg/dL 09/23/21 09/24/21 09/24/21 Range/Units 20:21 06:31 06:33 MCHC 30.6 L (31.0-37.0) g/dL Plt Count 142 L (150-450) k/uL Neutrophils # 9.7 H (1.3-7.7) k/uL Lymphocytes # 0.4 L (1.0-4.8) k/uL ABG pH (7.35-7.45) ABG pCO2 (35-45) mmHg ABG pO2 (83-108) mmHg ABG HCO3 (21-25) mmol/L ABG Total CO2 (19-24) mmol/L BUN (9-20) mg/dL Glucose (74-99) mg/dL POC Glucose (mg/dL) 153 H 220 H (75-99) mg/dL Calcium (8.4-10.2) mg/dL Phosphorus (2.5-4.5) mg/dL Magnesium (1.6-2.3) mg/dL 09/24/21 09/24/21 Range/Units 06:33 11:39 MCHC (31.0-37.0) g/dL Plt Count (150-450) k/uL Neutrophils # (1.3-7.7) k/uL Lymphocytes # (1.0-4.8) k/uL ABG pH (7.35-7.45) ABG pCO2 (35-45) mmHg ABG pO2 (83-108) mmHg ABG HCO3 (21-25) mmol/L ABG Total CO2 (19-24) mmol/L BUN 26 H (9-20) mg/dL Glucose 218 H (74-99) mg/dL POC Glucose (mg/dL) 312 H (75-99) mg/dL Calcium 6.7 L (8.4-10.2) mg/dL Phosphorus 4.8 H (2.5-4.5) mg/dL Magnesium 2.5 H (1.6-2.3) mg/dL Microbiology - Last 24 Hours (Table) 09/23/21 01:23 Gram Stain - Preliminary Sputum Sputum Culture - Preliminary Assessment and Plan Assessment: Impression: Acute hypoxic and hypercapnic respiratory failure secondary to acute exacerbation of COPD and secondary to LV dysfunction but no clear-cut evidence of pulmonary edema on the chest x-ray Chronic obstructive lung disease, severity is unknown, he shouldn't need outpatient evaluation and PFT post discharge. Patient was intubated on his initial admission, but he was extubated yesterday, tolerated the extubation well. Coronary arteriosclerosis and previous PCI/stenting. Ischemic cardiomyopathy and LV dysfunction with ejection fraction of 45%. Dyslipidemia. Type 2 diabetes. History of obstructive sleep apnea, noncompliant with CPAP. Tobacco dependence syndrome. History of rectal and bladder cancer. Previous bowel resection and ileostomy creation with subsequent reversal. Recommendation: Transfer out of the ICU to a regular medical floor Continue present supportive care measures Continue oxygen and titrate accordingly now he is on 4 L nasal cannula Continue steroids and continue bronchodilators. Continue doxycycline. Transition patient to prednisone by tomorrow. Continue GI and DVT prophylaxis. Possible discharge planning in the next 24 hours. Time with Patient: Less than 30
[2021-09-24 16:42] LABS: Glucose,Whole Blood 155 mg/dL (70-110)
[2021-09-24 20:17] LABS: Glucose,Whole Blood 235 mg/dL (70-110)
[2021-09-25] MEDS: HYDROcodone/APAP 10-325MG 1 EACH TAB PO PRN ×4 (01:41→22:09)
--- NOTE | 2021-09-25 04:29 | P.PN ---
Subjective Progress Note Date: 09/24/21 This is a 56-year-old male who presented to the emergency department with severe respiratory distress and patient apparently was mowing his lawn and unable to catch his breath and EMS was called and brought here for further evaluation. Patient does have a past medical history of asthma and asthma attacks and has required intubation in the past for this. Patient follows with Dr. Brand in the outpatient setting and has a past medical history of rectal and bladder cancer that is in remission, diabetes mellitus, gastroesophageal reflux disease, hyperlipidemia, hypertension, sleep apnea and does not tolerate machine, abdominal hernia, anxiety/depression, current every day smoker, admits to me dical marijuana use and denies any illicit drug or alcohol use. She was immediately placed on BiPAP although continue to worsen and patient was ultimately intubated and admitted to the ICU. Chest x-ray on admission shows no acute cardiopulmonary disease with heart is normal and lungs are clear of infiltrate with no heart failure and no pleural effusion noted. EKG showed sinus tachycardia. Patient was intubated and sedated and pulmonary court supervisor consulted as patient with ICU. 09/24/2021 Patient is seen this morning and currently continues in the ICU on 4L via NC and being closely monitored. Patient continues on breathing inhalational treatments and IV steroids being transitioned to oral prednisone and patient is on oral doxycycline and pulmonary following closely. Labs within normal limits and improving. Patient reports to feeling weak and reports he is mostly wheelchair bound at home. Patient is afebrile and denies any chest pain. Patient reports his shortness of breath continues but feels has improved somewhat and is on 4 Liters. Patient reports he does have oxygen at home but usually only wears it at night if having shortness of breath. Review of systems: Constitutional: No reports of fatigue, fever, or chills Cardiovascular: No reports of chest pain or palpitations Respiratory: reports of shortness of breath and cough GI: No reports of nausea, vomiting, or diarrhea : No reports of dysuria or retention Neurovascular: reports of generalized weakness Active Medications Hydrocodone Bitart/Acetaminophen (Hydrocodone/Apap 10-325mg 1 Each Tab) 1 each PO QID PRN PRN Reason: Moderate Pain Last Admin: 09/25/21 01:41 Dose: 1 each Albuterol/Ipratropium (Ipratropium-Albuterol 3 Ml Neb) 3 ml INHALATION RT-Q2H PRN PRN Reason: Shortness Of Breath Or Wheezing Last Admin: 09/24/21 05:05 Dose: 3 ml Albuterol/Ipratropium (Ipratropium-Albuterol 3 Ml Neb) 3 ml INHALATION RT-QID [facility] Last Admin: 09/24/21 20:31 Dose: 3 ml Atorvastatin Calcium (Atorvastatin 20 Mg Tab) 20 mg PO DAILY [facility] Last Admin: 09/24/21 08:28 Dose: 20 mg Budesonide/Formoterol Fumarate (Symbicort 160-4.5 Mcg Inhaler) 2 puff INHALATION RT-BID [facility] Last Admin: 09/24/21 20:31 Dose: 2 puff Buspirone HCl (Buspirone Hcl 5 Mg Tab) 15 mg PO BID [facility] Last Admin: 09/24/21 20:54 Dose: 15 mg Clopidogrel Bisulfate (Clopidogrel 75 Mg Tab) 75 mg PO DAILY [facility] Last Admin: 09/24/21 08:29 Dose: 75 mg Doxycycline Monohydrate (Doxycycline 100 Mg Cap) 100 mg PO BID [facility]; Protocol Last Admin: 09/24/21 20:54 Dose: 100 mg Escitalopram Oxalate (Escitalopram 10 Mg Tab) 10 mg PO DAILY [facility] Last Admin: 09/24/21 08:30 Dose: 10 mg Fentanyl (Fentanyl 75mcg/Hr Patch) 1 patch TRANSDERM Q48H [facility]; Protocol Last Admin: 09/23/21 14:44 Dose: 1 patch Hydromorphone HCl (Hydromorphone 1 Mg/Ml 1 Ml Syringe) 1 mg IVP Q2HR PRN PRN Reason: Pain Scale 6 to 7 Last Admin: 09/24/21 20:53 Dose: 1 mg Insulin Aspart (Insulin Aspart (Novolog) 100 Unit/Ml Vial) 0 unit SQ ACHS [facility]; Protocol Last Admin: 09/24/21 20:54 Dose: 5 unit Metoprolol Tartrate (Metoprolol Tartrate 50 Mg Tab) 50 mg PO BID [facility] Last Admin: 09/24/21 20:54 Dose: 50 mg Naloxone HCl (Naloxone 0.4 Mg/Ml 1 Ml Vial) 0.2 mg IV Q2M PRN PRN Reason: Opioid Reversal Pantoprazole Sodium (Pantoprazole 40 Mg/10 Ml Vial) 40 mg IV DAILY [facility] Last Admin: 09/24/21 08:29 Dose: 40 mg Prednisone (Prednisone 20 Mg Tab) 40 mg PO DAILY [facility] Pregabalin (Pregabalin 100 Mg Cap) 200 mg PO TID [facility] Last Admin: 09/24/21 20:54 Dose: 200 mg PHYSICAL EXAMINATION: GENERAL: The patient is alert and oriented x4, Well developed, well nourished. HEENT: Pupils are round and equally reacting to light. EOMI. no scleral icterus. No conjunctival pallor. Normocephalic, atraumatic. No pharyngeal erythema. No thyromegaly. CARDIOVASCULAR: S1 and S2 muffled PULMONARY: diminished breath sounds bilaterally with minimal expiratory wheezing noted and some scattered rhonchi noted. ABDOMEN: soft. Nontender on exam. obese. non-distended, normoactive bowel sounds. No palpable organomegaly. MUSCULOSKELETAL: No joint swelling or deformity. EXTREMITIES: No cyanosis, clubbing, or pedal edema. NEUROLOGICAL: Gross neurological examination did not reveal any focal deficits. Diffuse weakness SKIN: No rashes. Assessment: Shortness of breath secondary to COPD acute exacerbation Acute hypoxic and hypercapnic respiratory failure secondary to COPD exacerbation requiring mechanical ventilation Lactic acidosis, present on admission most likely secondary to above improved History of asthma requiring mechanical ventilation previously History of ischemic cardiomyopathy and LV dysfunction with most recent EF being 45% Hyperlipidemia Hypertension Gastroesophageal reflux disease Diabetes mellitus, type II History of obstructive sleep apnea, unable to tolerate CPAP Continued ongoing nicotine dependence History of rectal and bladder cancer History of anxiety/depression GI prophylaxis DVT prophylaxis Full code Plan: Recommend to continue with current medications and management in the medical ICU with pulmonary following closely. Patient was extubated successfully yesterday and is currently maintained on 4L via NC. Recommend close monitoring in the ICU overnight with continued telemetry monitoring and have resumed home medications. Recommend to continue with close monitoring of blood sugars with Accu-Cheks before meals and at bedtime and will continue sliding scale and also recommend continue with breathing inhalational treatments, DuoNeb's, IV steroids. Steroids being transitioned to oral prednisone. Recommend repeat labs in the a.m. and also follow-up chest x-ray. Sputum culture was sent and pending at this time. Due to multiple couplets medical issues, prognosis is guarded. The impression and plan of care has been dictated by Deborah Pelayo, nurse practitioner as directed. Dr. Zeke MD I have performed a history and examination and MDM of this patient, discussed the same with the dictator, and agree with the dictator's assessment and plan as written ,documented as a scribe. Based on total visit time, I have performed more than 50% of the visit. Any additional findings or plans will be noted. Objective - Vital Signs Vital signs: Vital Signs Temp 98.1 F 09/24/21 04:00 Pulse 80 09/24/21 07:32 Resp 22 09/24/21 07:00 BP 146/70 09/24/21 07:00 Pulse Ox 92 L 09/24/21 07:00 FiO2 40 09/23/21 12:00 Intake & Output 09/23/21 09/24/21 09/24/21 18:59 06:59 18:59 Intake Total 624.697 600 Output Total 550 865 Balance 74.697 -265 Weight 105.9 kg 103.6 kg Intake: IV 500 300 0.9% NS @ 75ml/hr 500 300 Intake, IV Titration 124.697 Amount propofoL 1,000 mg In 124.697 Empty Bag 1 bag @ 5 MCG/ KG/MIN 3.177 mls/hr IV . Q24H [facility] Rx#:[id number] Oral 300 Output: Urine 550 865 Other: Voiding Method Indwelling Catheter Indwelling Catheter - Labs CBC & Chem 7: 09/24/21 06:33 09/24/21 06:33 Labs: Abnormal Lab Results - Last 24 Hours (Table) 09/23/21 09/23/21 09/23/21 Range/Units 11:54 11:56 17:27 MCHC (31.0-37.0) g/dL Plt Count (150-450) k/uL Neutrophils # (1.3-7.7) k/uL Lymphocytes # (1.0-4.8) k/uL ABG pH 7.34 L (7.35-7.45) ABG pCO2 48 H (35-45) mmHg ABG pO2 74 L (83-108) mmHg ABG HCO3 26 H (21-25) mmol/L ABG Total CO2 27 H (19-24) mmol/L BUN (9-20) mg/dL Glucose (74-99) mg/dL POC Glucose (mg/dL) 281 H 183 H (75-99) mg/dL Calcium (8.4-10.2) mg/dL Phosphorus (2.5-4.5) mg/dL Magnesium (1.6-2.3) mg/dL 09/23/21 09/24/21 09/24/21 Range/Units 20:21 06:31 06:33 MCHC 30.6 L (31.0-37.0) g/dL Plt Count 142 L (150-450) k/uL Neutrophils # 9.7 H (1.3-7.7) k/uL Lymphocytes # 0.4 L (1.0-4.8) k/uL ABG pH (7.35-7.45) ABG pCO2 (35-45) mmHg ABG pO2 (83-108) mmHg ABG HCO3 (21-25) mmol/L ABG Total CO2 (19-24) mmol/L BUN (9-20) mg/dL Glucose (74-99) mg/dL POC Glucose (mg/dL) 153 H 220 H (75-99) mg/dL Calcium (8.4-10.2) mg/dL Phosphorus (2.5-4.5) mg/dL Magnesium (1.6-2.3) mg/dL 09/24/21 Range/Units 06:33 MCHC (31.0-37.0) g/dL Plt Count (150-450) k/uL Neutrophils # (1.3-7.7) k/uL Lymphocytes # (1.0-4.8) k/uL ABG pH (7.35-7.45) ABG pCO2 (35-45) mmHg ABG pO2 (83-108) mmHg ABG HCO3 (21-25) mmol/L ABG Total CO2 (19-24) mmol/L BUN 26 H (9-20) mg/dL Glucose 218 H (74-99) mg/dL POC Glucose (mg/dL) (75-99) mg/dL Calcium 6.7 L (8.4-10.2) mg/dL Phosphorus 4.8 H (2.5-4.5) mg/dL Magnesium 2.5 H (1.6-2.3) mg/dL Microbiology - Last 24 Hours (Table) 09/23/21 01:23 Gram Stain - Preliminary Sputum Sputum Culture - Preliminary
[2021-09-25] MEDS: IPRATROPIUM-ALBUTEROL 3 ML NEB INHALATION PRN (05:49)
[2021-09-25] MEDS: SYMBICORT 160-4.5 MCG INHALER INHALATION SCH ×2 (05:51→19:57)
[2021-09-25] MEDS: IPRATROPIUM-ALBUTEROL 3 ML NEB INHALATION SCH ×4 (05:52→19:57)
--- NOTE | 2021-09-25 07:17 | XR ---
EXAMINATION TYPE: XR chest 1V portable DATE OF EXAM: 09/25/2021 Comparison: 09/24/2021 Clinical History: 56 year-old male tube placement Findings: ACDF hardware. Heart mildly enlarged. Mild hyperinflation. Some strandy atelectasis in the lower lung s. No bang consolidation or pleural effusion seen. Impression: Mild cardiomegaly. Hyperinflation may relate to a depth of inspiration versus underlying emphysema. S trandy atelectasis in the lower lungs.
[2021-09-25 07:58] LABS: Glucose,Whole Blood 160 mg/dL (70-110)
[2021-09-25 08:34] LABS: Basophils % (A) 0 %; Eosinophils % (A) 0 %; HCT 42.9 % (39.0-53.0); HGB 13.5 gm/dL (13.0-17.5); Lymphocytes # (A) 0.8 k/uL (1.0-4.8); Lymphocytes % (A) 9 %; MCH 30.5 pg (25.0-35.0); MCHC 31.4 g/dL (31.0-37.0); MCV 97.1 fL (80.0-100.0); Mean Platelet Volume 8.8; Monocytes # (A) 0.6 k/uL (0-1.0); Monocytes % (A) 6 %; Neutrophils # (A) 8.2 k/uL (1.3-7.7); Neutrophils % (A) 84 %; Platelet Count 158 k/uL (150-450); RBC 4.42 m/uL (4.30-5.90); RDW 14.8 % (11.5-15.5); WBC 9.7 k/uL (3.8-10.6)
[2021-09-25 08:51] LABS: Calcium 6.9 mg/dL (8.4-10.2); Potassium 4.6 mmol/L (3.5-5.1)
[2021-09-25] MEDS ORDERED: predniSONE 20 MG TAB PO SCH (09:00)
[2021-09-25] MEDS: busPIRone HCl 5 MG TAB PO SCH ×2 (09:12→20:44)
[2021-09-25] MEDS: METOPROLOL TARTRATE 50 MG TAB PO SCH ×2 (09:12→20:44)
[2021-09-25] MEDS: CLOPIDOGREL 75 MG TAB PO SCH (09:12)
[2021-09-25] MEDS: PREGABALIN 100 MG CAP PO SCH ×3 (09:12→20:53)
[2021-09-25] MEDS: ATORVASTATIN 20 MG TAB PO SCH (09:12)
[2021-09-25] MEDS: INSULIN ASPART (NovoLOG) 100 UNIT/ML VIAL SQ SCH ×4 (09:13→20:45)
[2021-09-25] MEDS: PANTOPRAZOLE 40 MG/10 ML VIAL IV SCH (09:14)
[2021-09-25] MEDS: methylPREDNISolone SOD SUCCI 125 MG/2 ML VIAL IV SCH ×3 (09:14→20:44)
[2021-09-25] MEDS: ESCITALOPRAM 10 MG TAB PO SCH (10:14)
[2021-09-25] MEDS: DOXYCYCLINE 100 MG CAP PO SCH ×2 (10:14→20:53)
[2021-09-25 11:59] LABS: Glucose,Whole Blood 224 mg/dL (70-110)
--- NOTE | 2021-09-25 14:14 | P.PN ---
Subjective Progress Note Date: 09/25/21 Principal diagnosis: Shortness of breath This is a 56-year-old white male with history of severe underlying COPD, tobacco dependence syndrome, pulmonary hypertension, patient was last seen by our service on 07/28/21, patient was seen back then for acute hypoxic respiratory failure secondary to chronic congestive heart failure, LV dysfunction, underlying COPD, and patient was eventually discharged home after treatment with diuretics and bronchodilators, he never followed up with Dr. loza as he was supposed to. Apparently the patient arrived to the ER yesterday and he was c omplaining of severe respiratory distress symptoms started after he was mowing his lawn in the afternoon. And he just could not get any better. Upon arrival the patient had to be intubated and he was placed on mechanical ventilation, admitted to the ICU, and I was asked to see him on consultation. Patient is now on mechanical ventilation with assist control rate of 26th of volume 500 FiO2 50% and PEEP of 5. ABG showed a pO2 of 70 pCO2 49 pH of 7.34, and this was on 50% FiO2. Patient was on propofol at 50 mcg/kg/m, IV fluid at 75 mL per hour. And I cut down his IV fluid to KVO. Chest x-ray showed no evidence of congestive heart failure and no evidence of pneumonia. Shortly after evaluating the patient, I recommended a trial of pressure support and CPAP, and this is to be done after the patient is off propofol. And after assessing his weaning parameters. Not much history could be obtained from the patient himself, most of the information was obtained from the chart Reevaluated today on 09/24/2021, patient remains in the ICU, he was extubated yesterday and tolerated the extubation well. Today the patient has slight shortness of breath, occasional cough and wheezing, however he is almost over 90% improved compared to baseline. CBC is relatively normal, basic metabolic profile is normal except for creatinine of 1.23. Improved compared to his baseline of 1.57. Patient remains on bronchodilators, he is also on doxycycline, Symbicort, and methylprednisolone which I will transition to prednisone. On 09/25/2021 patient seen in follow-up on medical surgical floor, this morning she was transferred out of intensive care unit, he still quite bronchospastic and short of breath at rest, but appears to be new acute distress. Is currently on 4 L of oxygen pulse ox of 92%, no fever or chills, signs have been stable. He is awake and alert, oriented 3, answering questions appropriately. Chest x- ray showed mild cardiomegaly, hyperinflation, and atelectasis in the lower lungs. Objective - Vital Signs Vital signs: Vital Signs Temp 98.8 F 09/25/21 11:20 Pulse 72 09/25/21 11:51 Resp 20 09/25/21 11:20 BP 124/70 09/25/21 11:20 Pulse Ox 92 L 09/25/21 11:20 FiO2 40 09/23/21 12:00 Intake & Output 09/24/21 09/25/21 09/25/21 18:59 06:59 18:59 Intake Total 1235 25 Output Total 5276 134 7882 Balance 215 -625 -1000 Weight 109 kg Intake: IV 275 25 0.9% NS @ 75ml/hr 275 25 Oral 960 Output: Urine 4732 449 7570 Other: Voiding Method Indwelling Catheter Indwelling Catheter Indwelling Catheter - Exam GENERAL EXAM: Alert, very pleasant, 56-year-old white male, on 4 L of oxygen with pulse ox of 92%, comfortable in no apparent distress. HEAD: Normocephalic/atraumatic. EYES: Normal reaction of pupils, equal size. Conjunctiva pink, sclera white. NOSE: Clear with pink turbinates. THROAT: No erythema or exudates. NECK: No masses, no JVD, no thyroid enlargement, no adenopathy. CHEST: No chest wall deformity. Symmetrical expansion. LUNGS: Equal air entry with diffuse wheezes CVS: Regular rate and rhythm, normal S1 and S2, no gallops, no murmurs, no rubs ABDOMEN: Soft, nontender. No hepatosplenomegaly, normal bowel sounds, no guarding or rigidity. EXTREMITIES: No clubbing, no edema, no cyanosis, 2+ pulses and upper and lower extremities. MUSCULOSKELETAL: Muscle strength and tone normal. SPINE: No scoliosis or deformity SKIN: No rashes CENTRAL NERVOUS SYSTEM: Alert and oriented -3. No focal deficits, tone is normal in all 4 extremities. PSYCHIATRIC: Alert and oriented -3. Appropriate affect. Intact judgment and insight. - Labs CBC & Chem 7: 09/25/21 07:21 09/25/21 07:21 Labs: Abnormal Lab Results - Last 24 Hours (Table) 09/24/21 09/24/21 09/25/21 Range/Units 16:40 20:16 07:21 Neutrophils # 8.2 H (1.3-7.7) k/uL Lymphocytes # 0.8 L (1.0-4.8) k/uL BUN (9-20) mg/dL Creatinine (0.66-1.25) mg/dL Glucose (74-99) mg/dL POC Glucose (mg/dL) 155 H 235 H (70-110) mg/dL Calcium (8.4-10.2) mg/dL 09/25/21 09/25/21 09/25/21 Range/Units 07:21 07:56 11:53 Neutrophils # (1.3-7.7) k/uL Lymphocytes # (1.0-4.8) k/uL BUN 34 H (9-20) mg/dL Creatinine 1.36 H (0.66-1.25) mg/dL Glucose 150 H (74-99) mg/dL POC Glucose (mg/dL) 160 H 224 H (70-110) mg/dL Calcium 6.9 L (8.4-10.2) mg/dL Microbiology - Last 24 Hours (Table) 09/23/21 01:23 Gram Stain - Final Sputum Sputum Culture - Final Assessment and Plan Plan: Assessment: #1. Acute hypoxic and hypercapnic respiratory failure related to acute exacerbation of COPD and LV dysfunction without clear-cut evidence of pulmonary edema on the chest x-ray #2. Chronic obstructive lung disease, severity is unknown, and patient will need outpatient follow-up with outpatient evaluation and PFT post discharge. Patient was intubated on initial presentation, extubated on 09/23/2021, tolerating his depression quite well so far #3. Coronary arteriosclerosis with previous PCI and stenting #4. Ischemic cardiomyopathy and LV dysfunction with ejection fraction of 45% #5. Dyslipidemia #6. Type 2 diabetes mellitus #7. History of obstructive sleep apnea noncompliant with CPAP #8. Tobacco dependence syndrome #9. History of rectal and bladder cancer status post bowel resection and ileostomy creation with subsequent reversal Plan: Continue same medical treatment We'll switch to prednisone back to IV Solu-Medrol Continue doxycycline breathing treatments GI DVT prophylaxis Today's chest x-ray has been reviewed Increase activity as tolerated Not quite ready for discharge remains dyspneic, bronchospastic Wean FiO2 to keep O2 sat saturation between 88-92% Continue to follow his clinical course I have personally seen and examined the patient, performed the documentation and the assessment and plan as written. Number of minutes spent on the visit: [10] Time with Patient: Less than 30
--- NOTE | 2021-09-25 15:23 | P.PN ---
Subjective Progress Note Date: 09/25/21 This is a 56-year-old male who presented to the emergency department with severe respiratory distress and patient apparently was mowing his lawn and unable to catch his breath and EMS was called and brought here for further evaluation. Patient does have a past medical history of asthma and asthma attacks and has required intubation in the past for this. Patient follows with Dr. Brand in the outpatient setting and has a past medical history of rectal and bladder cancer that is in remission, diabetes mellitus, gastroesophageal reflux disease, hyperlipidemia, hypertension, sleep apnea and does not tolerate machine, abdominal hernia, anxiety/depression, current every day smoker, admits to me dical marijuana use and denies any illicit drug or alcohol use. She was immediately placed on BiPAP although continue to worsen and patient was ultimately intubated and admitted to the ICU. Chest x-ray on admission shows no acute cardiopulmonary disease with heart is normal and lungs are clear of infiltrate with no heart failure and no pleural effusion noted. EKG showed sinus tachycardia. Patient was intubated and sedated and pulmonary medical billing associate consulted as patient with ICU. 09/24/2021 Patient is seen this morning and currently continues in the ICU on 4L via NC and being closely monitored. Patient continues on breathing inhalational treatments and IV steroids being transitioned to oral prednisone and patient is on oral doxycycline and pulmonary following closely. Labs within normal limits and improving. Patient reports to feeling weak and reports he is mostly wheelchair bound at home. Patient is afebrile and denies any chest pain. Patient reports his shortness of breath continues but feels has improved somewhat and is on 4 Liters. Patient reports he does have oxygen at home but usually only wears it at night if having shortness of breath. 09/25/2021 Patient is seen and evaluated this morning on a MedSurg unit transferred out of the ICU currently maintained on 4 L via nasal cannula maintaining oxygen saturations above 92%. Patient was transitioned to oral steroids yesterday by pulmonary although became more bronchospastic and continued with wheezing and was placed back on IV steroids. Patient is maintained on oral doxycycline and continued breathing inhalational treatments and recommend continue. Wean FiO2 as tolerated. Patient continues with a cough that is dry and hacking and patient also reports tightness on inspiration and continues to be dyspneic. B lood sugars currently controlled and will continue current regimen. Patient is afebrile and denies any chest pain or palpitations. Chest x-ray today shows mild cardiomegaly with hyperinflation may relate to the depth of inspiration versus underlying emphysema with strandy atelectasis in the lower lungs with no bang consolidation or pleural effusions noted. Review of systems: Constitutional: No reports of fatigue, fever, or chills Cardiovascular: No reports of chest pain or palpitations Respiratory: reports of shortness of breath and continued dry cough GI: No reports of nausea, vomiting, or diarrhea : No reports of dysuria or retention Neurovascular: reports of generalized weakness Active Medications Hydrocodone Bitart/Acetaminophen (Hydrocodone/Apap 10-325mg 1 Each Tab) 1 each PO QID PRN PRN Reason: Moderate Pain Last Admin: 09/25/21 09:17 Dose: 1 each Albuterol/Ipratropium (Ipratropium-Albuterol 3 Ml Neb) 3 ml INHALATION RT-Q2H PRN PRN Reason: Shortness Of Breath Or Wheezing Last Admin: 09/25/21 05:49 Dose: 3 ml Albuterol/Ipratropium (Ipratropium-Albuterol 3 Ml Neb) 3 ml INHALATION RT-QID [facility] Last Admin: 09/25/21 11:38 Dose: 3 ml Atorvastatin Calcium (Atorvastatin 20 Mg Tab) 20 mg PO DAILY [facility] Last Admin: 09/25/21 09:12 Dose: 20 mg Budesonide/Formoterol Fumarate (Symbicort 160-4.5 Mcg Inhaler) 2 puff INHALATION RT-BID [facility] Last Admin: 09/25/21 05:51 Dose: 2 puff Buspirone HCl (Buspirone Hcl 5 Mg Tab) 15 mg PO BID [facility] Last Admin: 09/25/21 09:12 Dose: 15 mg Clopidogrel Bisulfate (Clopidogrel 75 Mg Tab) 75 mg PO DAILY [facility] Last Admin: 09/25/21 09:12 Dose: 75 mg Doxycycline Monohydrate (Doxycycline 100 Mg Cap) 100 mg PO BID [facility]; Protocol Last Admin: 09/25/21 10:14 Dose: 100 mg Escitalopram Oxalate (Escitalopram 10 Mg Tab) 10 mg PO DAILY [facility] Last Admin: 09/25/21 10:14 Dose: 10 mg Fentanyl (Fentanyl 75mcg/Hr Patch) 1 patch TRANSDERM Q48H [facility]; Protocol Last Admin: 09/25/21 13:04 Dose: 1 patch Hydromorphone HCl (Hydromorphone 1 Mg/Ml 1 Ml Syringe) 1 mg IVP Q2HR PRN PRN Reason: Pain Scale 6 to 7 Last Admin: 09/24/21 20:53 Dose: 1 mg Insulin Aspart (Insulin Aspart (Novolog) 100 Unit/Ml Vial) 0 unit SQ ACHS [facility]; Protocol Last Admin: 09/25/21 13:04 Dose: 4 unit Methylprednisolone Sodium Succinate (Methylprednisolone Sod Succi 125 Mg/2 Ml Vial) 60 mg IV Q6H [facility] Last Admin: 09/25/21 09:14 Dose: 60 mg Metoprolol Tartrate (Metoprolol Tartrate 50 Mg Tab) 50 mg PO BID [facility] Last Admin: 09/25/21 09:12 Dose: 50 mg Naloxone HCl (Naloxone 0.4 Mg/Ml 1 Ml Vial) 0.2 mg IV Q2M PRN PRN Reason: Opioid Reversal Pantoprazole Sodium (Pantoprazole 40 Mg/10 Ml Vial) 40 mg IV DAILY [facility] Last Admin: 09/25/21 09:14 Dose: 40 mg Pregabalin (Pregabalin 100 Mg Cap) 200 mg PO TID [facility] Last Admin: 09/25/21 09:12 Dose: 200 mg PHYSICAL EXAMINATION: GENERAL: The patient is alert and oriented x4, Well developed, well nourished. HEENT: Pupils are round and equally reacting to light. EOMI. no scleral icterus. No conjunctival pallor. Normocephalic, atraumatic. No pharyngeal erythema. No thyromegaly. CARDIOVASCULAR: S1 and S2 muffled PULMONARY: diminished breath sounds bilaterally with extensive expiratory wheezing noted and some scattered rhonchi noted. Bronchospastic on exam with a dry hacking cough ABDOMEN: soft. Nontender on exam. obese. non-distended, normoactive bowel sounds. No palpable organomegaly. MUSCULOSKELETAL: No joint swelling or deformity. EXTREMITIES: No cyanosis, clubbing, or pedal edema. NEUROLOGICAL: Gross neurological examination did not reveal any focal deficits. Diffuse weakness SKIN: No rashes. Assessment: Shortness of breath secondary to COPD acute exacerbation Acute hypoxic and hypercapnic respiratory failure secondary to COPD exacerbation requiring mechanical ventilation Lactic acidosis, present on admission most likely secondary to above improved History of asthma requiring mechanical ventilation previously History of ischemic cardiomyopathy and LV dysfunction with most recent EF being 45% Hyperlipidemia Hypertension Gastroesophageal reflux disease Diabetes mellitus, type II History of obstructive sleep apnea, unable to tolerate CPAP Continued ongoing nicotine dependence History of rectal and bladder cancer History of anxiety/depression GI prophylaxis DVT prophylaxis Full code Plan: Recommend to continue with current medications and management with pulmonary following closely. Patient was extubated successfully on 09/23/2021 and is currently maintained on 4L via NC. Recommend to continue with close monitoring of blood sugars with Accu-Cheks before meals and at bedtime and will continue sliding scale and also recommend continue with breathing inhalational treatments, DuoNeb's, IV steroids. Initially a she was transitioned oral steroids although became more bronchospastic with significant wheezing today on expiration and will continue IV steroids and follow-up in the morning. Recommend repeat labs in the a.m. and also follow-up chest x-ray. Sputum culture was negative and is currently maintained on oral doxycycline twice a day and will continue. Due to multiple couplets medical issues, prognosis is guarded. The impression and plan of care has been dictated by Deborah Pelayo, nurse practitioner as directed. Dr. Zeke MD I have performed a history and examination and MDM of this patient, discussed the same with the dictator, and agree with the dictator's assessment and plan as written ,documented as a scribe. Based on total visit time, I have performed more than 50% of the visit. Any additional findings or plans will be noted. Objective - Vital Signs Vital signs: Vital Signs Temp 98.2 F 09/24/21 12:00 Pulse 77 09/25/21 06:00 Resp 19 09/25/21 00:00 BP 131/67 09/25/21 00:00 Pulse Ox 94 L 09/25/21 00:00 FiO2 40 09/23/21 12:00 Intake & Output 09/24/21 09/25/21 09/25/21 18:59 06:59 18:59 Intake Total 1235 25 Output Total 1020 650 Balance 215 -625 Weight 109 kg Intake: IV 275 25 0.9% NS @ 75ml/hr 275 25 Oral 960 Output: Urine 1020 650 Other: Voiding Method Indwelling Catheter Indwelling Catheter - Labs CBC & Chem 7: 09/25/21 07:21 09/25/21 07:21 Labs: Abnormal Lab Results - Last 24 Hours (Table) 06/09/24/21 09/24/21 Range/Units 11:39 16:40 20:16 Neutrophils # (1.3-7.7) k/uL Lymphocytes # (1.0-4.8) k/uL BUN (9-20) mg/dL Creatinine (0.66-1.25) mg/dL Glucose (74-99) mg/dL POC Glucose (mg/dL) 312 H 155 H 235 H (75-99) mg/dL Calcium (8.4-10.2) mg/dL 09/25/21 09/25/21 09/25/21 Range/Units 07:21 07:21 07:56 Neutrophils # 8.2 H (1.3-7.7) k/uL Lymphocytes # 0.8 L (1.0-4.8) k/uL BUN 34 H (9-20) mg/dL Creatinine 1.36 H (0.66-1.25) mg/dL Glucose 150 H (74-99) mg/dL POC Glucose (mg/dL) 160 H (75-99) mg/dL Calcium 6.9 L (8.4-10.2) mg/dL Microbiology - Last 24 Hours (Table) 09/23/21 01:23 Gram Stain - Final Sputum Sputum Culture - Final
[2021-09-25 16:43] VITALS: BMI 35.4
[2021-09-25 17:17] LABS: Glucose,Whole Blood 289 mg/dL (70-110)
[2021-09-25 20:18] LABS: Glucose,Whole Blood 182 mg/dL (70-110)
[2021-09-26] MEDS: methylPREDNISolone SOD SUCCI 125 MG/2 ML VIAL IV SCH ×2 (02:41→08:19)
[2021-09-26 03:50] VITALS: RESP 18
[2021-09-26] MEDS: HYDROcodone/APAP 10-325MG 1 EACH TAB PO PRN (03:51)
[2021-09-26 07:09] LABS: Glucose,Whole Blood 220 mg/dL (70-110)
[2021-09-26] MEDS: SYMBICORT 160-4.5 MCG INHALER INHALATION SCH (07:27)
[2021-09-26] MEDS: IPRATROPIUM-ALBUTEROL 3 ML NEB INHALATION SCH ×3 (07:28→15:41)
[2021-09-26] MEDS: busPIRone HCl 5 MG TAB PO SCH (08:05)
[2021-09-26] MEDS: ESCITALOPRAM 10 MG TAB PO SCH (08:06)
[2021-09-26] MEDS: INSULIN ASPART (NovoLOG) 100 UNIT/ML VIAL SQ SCH ×2 (08:06→12:26)
[2021-09-26] MEDS: CLOPIDOGREL 75 MG TAB PO SCH (08:06)
[2021-09-26] MEDS: PREGABALIN 100 MG CAP PO SCH (08:06)
[2021-09-26] MEDS: DOXYCYCLINE 100 MG CAP PO SCH (08:06)
[2021-09-26] MEDS: ATORVASTATIN 20 MG TAB PO SCH (08:06)
[2021-09-26] MEDS: PANTOPRAZOLE 40 MG/10 ML VIAL IV SCH (08:18)
[2021-09-26] MEDS: METOPROLOL TARTRATE 50 MG TAB PO SCH (08:19)
--- NOTE | 2021-09-26 10:54 | P.EN ---
Patient will require 4 L of oxygen via nasal cannula on discharge to manage his COPD. PreScription provided and case management working on this.
[2021-09-26 11:28] LABS: African American GFR (CKD) 69 (>60 ml/min/1.73 sqM); Anion Gap 6 mmol/L; Blood Urea Nitrogen 37 mg/dL (9-20); Calcium 7.1 mg/dL (8.4-10.2); Carbon Dioxide 30 mmol/L (22-30); Chloride 100 mmol/L (98-107); Glucose 271 mg/dL (74-99); Non-African American GFR(CKD) 60 (>60 ml/min/1.73 sqM); Potassium 4.8 mmol/L (3.5-5.1); Sodium 136 mmol/L (137-145)
[2021-09-26 12:11] LABS: Glucose,Whole Blood 242 mg/dL (70-110)
[2021-09-26 12:54] VITALS: BP 123/70; TEMP 97.8
--- NOTE | 2021-09-26 13:38 | P.PN ---
Subjective Progress Note Date: 09/26/21 This is a 56-year-old white male with history of severe underlying COPD, tobacco dependence syndrome, pulmonary hypertension, patient was last seen by our service on 07/28/21, patient was seen back then for acute hypoxic respiratory failure secondary to chronic congestive heart failure, LV dysfunction, und erlying COPD, and patient was eventually discharged home after treatment with diuretics and bronchodilators, he never followed up with Dr. loza as he was supposed to. Apparently the patient arrived to the ER yesterday and he was complaining of severe respiratory distress symptoms started after he was mowing his lawn in the afternoon. And he just could not get any better. Upon arrival the patient had to be intubated and he was placed on mechanical ventilation, admitted to the ICU, and I was asked to see him on consultation. Patient is now on mechanical ventilation with assist control rate of 26th of volume 500 FiO2 50% and PEEP of 5. ABG showed a pO2 of 70 pCO2 49 pH of 7.34, and this was on 50% FiO2. Patient was on propofol at 50 mcg/kg/m, IV fluid at 75 mL per hour. And I cut down his IV fluid to KVO. Chest x-ray showed no evidence of congestive heart failure and no evidence of pneumonia. Shortly after evaluating the patient, I recommended a trial of pressure support and CPAP, and this is to be done after the patient is off propofol. And after assessing his weaning parameters. Not much history could be obtained from the patient himself, most of the information was obtained from the chart Reevaluated today on 09/24/2021, patient remains in the ICU, he was extubated ye sterday and tolerated the extubation well. Today the patient has slight shortness of breath, occasional cough and wheezing, however he is almost over 90% improved compared to baseline. CBC is relatively normal, basic metabolic profile is normal except for creatinine of 1.23. Improved compared to his baseline of 1.57. Patient remains on bronchodilators, he is also on doxycycline, Symbicort, and methylprednisolone which I will transition to prednisone. On 09/25/2021 patient seen in follow-up on medical surgical floor, this morning she was transferred out of intensive care unit, he still quite bronchospastic and short of breath at rest, but appears to be new acute distress. Is currently on 4 L of oxygen pulse ox of 92%, no fever or chills, signs have been stable. He is awake and alert, oriented 3, answering questions appropriately. Chest x- ray showed mild cardiomegaly, hyperinflation, and atelectasis in the lower lungs. Patient is seen today the 2019 follow-up on the regular medical floor. He is currently sitting up in a period awake and alert in no acute distress. Curr ently maintaining O2 saturations in the 90s on 4 L/m per nasal cannula. He is afebrile. Hemodynamically stable. Sputum cultures revealed no growth. Sodium 136. Potassium 4.8. BUN 37. Creatinine 1.33. Glucose 242. He is continued on DuoNeb inhalations, Symbicort, IV Solu-Medrol. Antibiotics in form of doxycycline. Objective - Vital Signs Vital signs: Vital Signs Temp 97.8 F 09/26/21 12:52 Pulse 67 09/26/21 12:52 Resp 18 09/26/21 12:52 BP 123/70 09/26/21 12:52 Pulse Ox 93 L 09/26/21 12:52 FiO2 40 09/23/21 12:00 Intake & Output 09/25/21 09/26/21 09/26/21 18:59 06:59 18:59 Intake Total 900 1000 Output Total 1600 850 Balance -700 1000 -850 Weight 109 kg Intake: IV 900 0.9% NS @ 75ml/hr 900 Oral 1000 Output: Urine 1600 850 Other: Voiding Method Indwelling Catheter Urinal Urinal # Voids 3 - Exam GENERAL EXAM: Alert, very pleasant, 56-year-old male, on 4 L of oxygen with pulse ox of 93%, comfortable in no apparent distress. HEAD: Normocephalic/atraumatic. EYES: Normal reaction of pupils, equal size. Conjunctiva pink, sclera white. NOSE: Clear with pink turbinates. THROAT: No erythema or exudates. NECK: No masses, no JVD, no thyroid enlargement, no adenopathy. CHEST: No chest wall deformity. Symmetrical expansion. LUNGS: Equal air entry with bilateral end expiratory wheeze CVS: Regular rate and rhythm, normal S1 and S2, no gallops, no murmurs, no rubs ABDOMEN: Soft, nontender. No hepatosplenomegaly, normal bowel sounds, no guarding or rigidity. EXTREMITIES: No clubbing, no edema, no cyanosis, 2+ pulses and upper and lower extremities. MUSCULOSKELETAL: Muscle strength and tone normal. SPINE: No scoliosis or deformity SKIN: No rashes CENTRAL NERVOUS SYSTEM: No focal deficits, tone is normal in all 4 extremities. PSYCHIATRIC: Alert and oriented -3. Appropriate affect. Intact judgment and insight. - Labs CBC & Chem 7: 09/25/21 07:21 09/26/21 10:58 Labs: Abnormal Lab Results - Last 24 Hours (Table) 09/25/21 09/25/21 09/26/21 Range/Units 17:15 20:17 07:07 Sodium (137-145) mmol/L BUN (9-20) mg/dL Creatinine (0.66-1.25) mg/dL Glucose (74-99) mg/dL POC Glucose (mg/dL) 289 H 182 H 220 H (70-110) mg/dL Calcium (8.4-10.2) mg/dL 09/26/21 09/26/21 Range/Units 10:58 12:09 Sodium 136 L (137-145) mmol/L BUN 37 H (9-20) mg/dL Creatinine 1.33 H (0.66-1.25) mg/dL Glucose 271 H (74-99) mg/dL POC Glucose (mg/dL) 242 H (70-110) mg/dL Calcium 7.1 L (8.4-10.2) mg/dL Microbiology - Last 24 Hours (Table) 09/23/21 01:23 Gram Stain - Final Sputum Sputum Culture - Final Assessment and Plan Assessment: 1 Acute hypoxic and hypercapnic respiratory failure related to acute exacerbation of COPD and LV dysfunction without clear-cut evidence of pulmonary edema on the chest x-ray 2 Chronic obstructive lung disease, severity is unknown, and patient will need outpatient follow-up with outpatient evaluation and PFT post discharge. Patient was intubated on initial presentation, extubated on 09/23/2021, tolerating his depression quite well so far 3 Coronary arteriosclerosis with previous PCI and stenting 4 Ischemic cardiomyopathy and LV dysfunction with ejection fraction of 45% 5 Dyslipidemia 6 Type 2 diabetes mellitus 7 History of obstructive sleep apnea noncompliant with CPAP 8 Tobacco dependence syndrome 9 History of rectal and bladder cancer status post bowel resection and ileostomy creation with subsequent reversal Plan: The patient was seen and evaluated Labs and medications reviewed Cleared for discharge from the pulmonary standpoint Continue with home oxygen Complete a prednisone taper starting at 40 mg daily for 4 days Bleeding a course of antibiotics in the form of doxycycline To be initiated on Trelegy for outpatient bronchodilators Follow up in 1-2 weeks' I have personally seen and examined the patient, performed the documentation and the assessment and plan as written. Number of minutes spent on the visit: 10.
[2021-09-26 15:44] VITALS: PULSE 82
[2021-09-26] MEDS ORDERED: ALBUTEROL HFA INHALER INHALATION SCH (16:00)
--- NOTE | 2021-09-27 02:13 | P.DS ---
Providers Date of admission: 09/23/21 01:39 Expected date of discharge: 09/26/21 Attending physician: Brianna Venegas Consults: 09/23/21 01:39 Consult Physician Routine Consulting Provider: Selwyn Gilmore Consult Reason/Comments: icu Do you want consulting provider notified?: Yes Primary care physician: Adán Waltham Hospital Course: Final diagnosis Shortness of breath secondary to COPD acute exacerbation Acute hypoxic and hypercapnic respiratory failure secondary to COPD exacerbation requiring mechanical ventilation Lactic acidosis, present on admission most likely secondary to above improved History of asthma requiring mechanical ventilation previously History of ischemic cardiomyopathy and LV dysfunction with most recent EF being 45% Hyperlipidemia Hypertension Gastroesophageal reflux disease Diabetes mellitus, type II History of obstructive sleep apnea, unable to tolerate CPAP Continued ongoing nicotine dependence History of rectal and bladder cancer History of anxiety/depression GI prophylaxis DVT prophylaxis Full code Discharge disposition Patient is being discharged in a stable condition with guarded prognosis to home. Patient will follow-up with Dr. Weeks and pulmonary Dr. Munoz in the outpatient setting upon discharge. Patient is to continue with oral doxycycline, prednisone taper, and inhalers including trelogy. Total time taken is greater than 35 minutes. Hospital Course This is a 56-year-old male who was recently admitted increasing shortness of breath COPD exacerbation and failed bipap and was intubated. Patient had successful extubation and was maintained on 4L with continued IV steroids, doxycyline and duonebs. Patient doing better and will continue on the doxycyline BID for one week, prednisone taper, duonebs, and trelogy. Recommend follow up with pulmonary in one week. Patient has oxygen in the home and will be using 4L via NC and will titrate as tolerated. Currently no reports of chest pain, worsening shortness of breath, or palpitations. Patient is afebrile. No reports of nausea or vomiting and patient is tolerating diet. Patient will be discharged home today. Guarded prognosis. Physical exam: Gen: This is a 56 year old male, awake and alert and oriented x3. Obese, well developed, well nourished HEENT: Head is atraumatic, normocephalic. Pupils equal, round. Sclerae is anicteric. NECK: Supple. No JVD. No lymphadenopathy. No thyromegaly. LUNGS: Diminished breath sounds with some rhonchi noted and mild expiratory wheezing noted. No intercostal retractions. HEART: Regular rate and rhythm. No murmur. ABDOMEN: Soft. Bowel sounds are present. No masses. No tenderness. EXTREMITIES: No pedal edema. No calf tenderness. lower extremity atrophy noted NEUROLOGICAL: Patient is awake, alert and oriented x3. Cranial nerves 2 through 12 are grossly intact. Please refer to medication reconciliation sheet for a list of medications. The impression and plan of care has been dictated by Deborah Pelayo, Nurse Practitioner as directed. Dr. Zeke MD I have performed a history and examination and MDM of this patient, discussed the same with the dictator, and agree with the dictator's assessment and plan as written ,documented as a scribe. Based on total visit time, I have performed more than 50% of the visit. Patient Condition at Discharge: Fair Plan - Discharge Summary Discharge Rx Participant: No New Discharge Prescriptions: New Ipratropium-Albuterol Nebulize [Duoneb 0.5 mg-3 mg/3 ml Soln] 3 ml INHALATION RT-QID 30 Days #90 each Doxycycline [Vibramycin] 100 mg PO BID 7 Days #14 cap predniSONE 10 mg PO DIRECTED #40 tab Ipratropium-Albuterol Nebulize [Duoneb 0.5 mg-3 mg/3 ml Soln] 3 ml INHALATION RT-Q2H PRN each PRN Reason: Shortness Of Breath Or Wheezing Fluticasone/Umeclidin/Vilanter [Trelegy Ellipta 200-62.5-25] 1 puff INHALATION BID 30 Days #1 each Continue Simvastatin [Zocor] 40 mg PO DAILY Metoprolol Tartrate [Lopressor] 50 mg PO BID HYDROcodone/APAP 10-325MG [[place] 10-325] 1 tab PO QID PRN PRN Reason: Pain fentaNYL 75MCG/HR PATCH [Duragesic 75MCG/HR] 1 patch TRANSDERM Q48H Pregabalin [Lyrica] 200 mg PO TID Calcium Carb-Vit D 500Mg-5Mcg [[place] 500+D 5 Mcg (200 Iu)] 1 tab PO AC-TID Ferrous Sulfate [Iron (65 MG Elemental)] 325 mg PO DAILY tab metFORMIN HCL [Glucophage] 500 mg PO BID Famotidine [Pepcid] 20 mg PO DAILY Albuterol Sulfate [Ventolin HFA] 2 puff INHALATION RT-QID PRN 30 Days #1 each PRN Reason: Shortness Of Breath Clopidogrel Bisulfate [Plavix] 75 mg PO DAILY busPIRone HCL 15 mg PO BID Escitalopram Oxalate [Lexapro] 10 mg PO DAILY Discontinued Ciprofloxacin HCl [Cipro] 500 mg PO BID Discharge Medication List HYDROcodone/APAP 10-325MG [[place] 10-325] 1 tab PO QID PRN 10/25/15 [History] Metoprolol Tartrate [Lopressor] 50 mg PO BID 10/25/15 [History] Simvastatin [Zocor] 40 mg PO DAILY 10/25/15 [History] fentaNYL 75MCG/HR PATCH [Duragesic 75MCG/HR] 1 patch TRANSDERM Q48H 10/25/15 [History] Pregabalin [Lyrica] 200 mg PO TID 04/01/18 [History] Calcium Carb-Vit D 500Mg-5Mcg [[place] 500+D 5 Mcg (200 Iu)] 1 tab PO AC-TID 07/10/19 [History] Ferrous Sulfate [Iron (65 MG Elemental)] 325 mg PO DAILY tab 07/29/19 [Rx] metFORMIN HCL [Glucophage] 500 mg PO BID 09/08/19 [History] Clopidogrel Bisulfate [Plavix] 75 mg PO DAILY 12/24/20 [History] Famotidine [Pepcid] 20 mg PO DAILY 07/28/21 [History] busPIRone HCL 15 mg PO BID 07/28/21 [History] Escitalopram Oxalate [Lexapro] 10 mg PO DAILY 09/23/21 [History] Albuterol Sulfate [Ventolin HFA] 2 puff INHALATION RT-QID PRN 30 Days #1 each 09/26/21 [Rx] Doxycycline [Vibramycin] 100 mg PO BID 7 Days #14 cap 09/26/21 [Rx] Fluticasone/Umeclidin/Vilanter [Trelegy Ellipta 200-62.5-25] 1 puff INHALATION BID 30 Days #1 each 09/26/21 [Rx] Ipratropium-Albuterol Nebulize [Duoneb 0.5 mg-3 mg/3 ml Soln] 3 ml INHALATION RT-Q2H PRN each 09/26/21 [Rx] Ipratropium-Albuterol Nebulize [Duoneb 0.5 mg-3 mg/3 ml Soln] 3 ml INHALATION RT-QID 30 Days #90 each 09/26/21 [Rx] predniSONE 10 mg PO DIRECTED #40 tab 09/26/21 [Rx] Follow up Appointment(s)/Referral(s): Jason Munoz MD [STAFF PHYSICIAN] - 10/08/21 10:30 am Adán Amaro DO [Primary Care Provider] - 1-2 days (Please call the office at [phone] to schedule your appointment. Office hours are: Wednesday - 9:00am - 6:00pm, Wednesday - 8:00am - 5:00pm, Wednesday - 8:00am - 4:00pm, - 8:00am - 5:00pm, Wednesday - 8:00am - 4:00pm) Patient Instructions/Handouts: Doxycycline (By mouth), Albuterol (By artem thing), Prednisone (By mouth), Ipratropium/Albuterol (By breathing), Fluticasone/Umeclidinium/Vilanterol (By breathing), COPD (Chronic Obstructive Pulmonary Disease) (DC) Activity/Diet/Wound Care/Special Instructions: Activity Limited until follow-up Follow-up with primary care provider on discharge Follow-up with pulmonary in one week Continue taking medications as prescribed until finished Continue with breathing inhalational treatments 4 times a day and when necessary Continue with inhalers Always carry rescue inhalers with you Continue current diet Discharge Disposition: HOME SELF-CARE
== END 2021-09-26 16:35 | disposition home or self-care (01) | DRG 208 ==
LOC: EC 23:23 → 2SICU 09-23 01:39 → 5NMEDONC 09-25 07:45
PROVIDERS: ADMIT Hospitalist; ATTEND Hospitalist
PROC: 5A1935Z Respiratory Ventilation, Less than 24 Consecutive Hours (ICD-10-PCS; principal; 2021-09-23)
PROC: 0BH17EZ Insertion of Endotracheal Airway into Trachea, Via Natural or Artificial Opening (ICD-10-PCS; principal; 2021-09-23)
PROC: 0D9670Z Drainage of Stomach with Drainage Device, Via Natural or Artificial Opening (ICD-10-PCS; 2021-09-23)
DX: J96.01 Acute respiratory failure with hypoxia (principal); E87.2 Acidosis; J44.1 Chronic obstructive pulmonary disease with (acute) exacerbation; J98.11 Atelectasis; I27.20 Pulmonary hypertension, unspecified; J96.02 Acute respiratory failure with hypercapnia; E11.9 Type 2 diabetes mellitus without complications; I11.0 Hypertensive heart disease with heart failure; I50.9 Heart failure, unspecified; Z28.310 Unvaccinated for COVID-19; K21.9 Gastro-esophageal reflux disease without esophagitis; E78.5 Hyperlipidemia, unspecified; G47.33 Obstructive sleep apnea (adult) (pediatric); K46.9 Unspecified abdominal hernia without obstruction or gangrene; I25.5 Ischemic cardiomyopathy; I25.10 Atherosclerotic heart disease of native coronary artery without angina pectoris; M54.9 Dorsalgia, unspecified; F32.A Depression, unspecified; F41.9 Anxiety disorder, unspecified; E66.9 Obesity, unspecified; Z68.35 Body mass index [BMI] 35.0-35.9, adult; F17.210 Nicotine dependence, cigarettes, uncomplicated; Z71.6 Tobacco abuse counseling; Z91.19 Patient's noncompliance with other medical treatment and regimen; Z79.02 Long term (current) use of antithrombotics/antiplatelets; Z79.891 Long term (current) use of opiate analgesic; Z79.84 Long term (current) use of oral hypoglycemic drugs; Z79.899 Other long term (current) drug therapy; Z85.51 Personal history of malignant neoplasm of bladder; Z85.048 Personal history of other malignant neoplasm of rectum, rectosigmoid junction, and anus; Z99.3 Dependence on wheelchair; Z86.14 Personal history of Methicillin resistant Staphylococcus aureus infection; Z90.49 Acquired absence of other specified parts of digestive tract; Z87.828 Personal history of other (healed) physical injury and trauma; Z95.5 Presence of coronary angioplasty implant and graft; Z87.39 Personal history of other diseases of the musculoskeletal system and connective tissue; Z98.890 Other specified postprocedural states; Z71.3 Dietary counseling and surveillance; Z88.8 Allergy status to other drugs, medicaments and biological substances; Z91.041 Radiographic dye allergy status; Z91.013 Allergy to seafood; Z82.49 Family history of ischemic heart disease and other diseases of the circulatory system; Z83.3 Family history of diabetes mellitus; Z80.0 Family history of malignant neoplasm of digestive organs; Z80.6 Family history of leukemia; Z82.69 Family history of other diseases of the musculoskeletal system and connective tissue
CPT/HCPCS: 31500; 36415; 36600; 71045; 80048; 80053; 81001; 82805; 83605; 83735; 83880; 84100; 84484; 85025; 85610; 85730; 87070; 87205; 93005; 94002; 94640; 94644; 94645; 94660; 94760; 96361; 96365; 96372; 96375; 96376; 99291

== ENCOUNTER 2021-10-25 23:45 | Inpatient (IN) | payer MEDICARE ==
[2021-10-25] MEDS ORDERED: ALBUTEROL NEB (CONC) 2.5 MG/0.5 ML INHALATION STA (23:58)
[2021-10-25] MEDS ORDERED: IPRATROPIUM 0.5 MG/2.5 ML NEBU INHALATION STA (23:59)
[2021-10-26] MEDS ORDERED: SODIUM CHLORIDE 0.9% 1,000 ML IV STA (00:16)
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
--- NOTE | 2021-10-26 00:47 | XR ---
EXAMINATION TYPE: XR chest 1V portable DATE OF EXAM: 10/26/2021 COMPARISON: 10/08/2021 HISTORY: Short of breath TECHNIQUE: FINDINGS: Heart is normal. Lungs are clear of consolidation. There are no hilar masses. Costophrenic angles are clear. Right costophrenic angle not included on the exam. IMPRESSION: No active cardiopulmonary disease. Normal heart.
[2021-10-26 01:04] LABS: Partial Thromboplastin Time 24.1 sec (22.0-30.0); Prothrombin Time 10.9 sec (9.0-12.0)
[2021-10-26 01:10] LABS: Basophils % (A) 0 %; Eosinophils % (A) 0 %; HCT 43.5 % (39.0-53.0); HGB 14.5 gm/dL (13.0-17.5); Lymphocytes # (A) 0.8 k/uL (1.0-4.8); Lymphocytes % (A) 7 %; MCHC 33.4 g/dL (31.0-37.0); MCV 92.7 fL (80.0-100.0); Mean Platelet Volume 8.7; Monocytes # (A) 0.7 k/uL (0-1.0); Monocytes % (A) 6 %; Neutrophils # (A) 9.8 k/uL (1.3-7.7); Neutrophils % (A) 86 %; Platelet Count 255 k/uL (150-450); RBC 4.69 m/uL (4.30-5.90); RDW 14.3 % (11.5-15.5); WBC 11.4 k/uL (3.8-10.6)
[2021-10-26 01:15] LABS: Calcium 7.3 mg/dL (8.4-10.2); Magnesium 1.8 mg/dL (1.6-2.3); Total Bilirubin 0.5 mg/dL (0.2-1.3); Total Protein 6.8 g/dL (6.3-8.2)
[2021-10-26] MEDS ORDERED: ASPIRIN 325 MG TAB PO STA (01:43)
[2021-10-26] MEDS: SODIUM CHLORIDE 0.9% 1,000 ML IV SCH (02:09)
[2021-10-26] MEDS ORDERED: IPRATROPIUM-ALBUTEROL 3 ML NEB INHALATION PRN (02:27)
[2021-10-26] MEDS: HYDROcodone/APAP 10-325MG 1 EACH TAB PO PRN ×3 (05:09→18:35)
[2021-10-26] MEDS: IPRATROPIUM-ALBUTEROL 3 ML NEB INHALATION SCH ×4 (07:07→19:14)
[2021-10-26 09:50] LABS: Glucose,Whole Blood 326 mg/dL (70-110)
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
[2021-10-26] MEDS ORDERED: HEPARIN SODIUM 1,000 UN/ML (10ML VL) IV ONE (10:26)
[2021-10-26] MEDS ORDERED: HEPARIN SODIUM 1,000 UN/ML (10ML VL) IV PRN (10:26)
[2021-10-26] MEDS ORDERED: HYDROcodone/APAP 10-325MG 1 EACH TAB PO PRN (10:51)
[2021-10-26] MEDS: ATORVASTATIN 40 MG TAB PO SCH (11:05)
[2021-10-26] MEDS: HEPARIN SOD,PORK IN 0.45% NACL 25,000 UNIT in 0.45% NACL 1 250ML.BAG IV SCH (11:05)
[2021-10-26] MEDS: PREGABALIN 100 MG CAP PO SCH ×2 (11:07→22:12)
[2021-10-26] MEDS: CLOPIDOGREL 75 MG TAB PO SCH (11:08)
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
[2021-10-26 11:38] LABS: Glucose,Whole Blood 322 mg/dL (70-110)
[2021-10-26] MEDS ORDERED: ALPRAZolam 0.5 MG TAB PO PRN (12:11)
[2021-10-26] MEDS ORDERED: ALPRAZolam 0.25 MG TAB PO PRN (12:11)
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
[2021-10-26] MEDS: CALCIUM CARB-VIT D 500 MG-5 MCG TAB PO SCH ×2 (14:14→16:51)
[2021-10-26] MEDS: FUROSEMIDE 40 MG TAB PO SCH (14:16)
[2021-10-26] MEDS: methylPREDNISolone SOD SUCCI 40 MG/ML 1 ML VIAL IV SCH ×3 (14:16→23:38)
[2021-10-26 16:41] LABS: Glucose,Whole Blood 328 mg/dL (70-110)
[2021-10-26] MEDS: INSULIN ASPART (NovoLOG) 100 UNIT/ML VIAL SQ SCH ×2 (17:18→22:13)
[2021-10-26] MEDS: SYMBICORT 160-4.5 MCG INHALER INHALATION SCH (19:14)
[2021-10-26 20:25] LABS: Glucose,Whole Blood 217 mg/dL (70-110)
[2021-10-26] MEDS: METOPROLOL TARTRATE 50 MG TAB PO SCH (22:12)
[2021-10-26] MEDS: busPIRone HCl 5 MG TAB PO SCH (22:12)
[2021-10-27] MEDS: HEPARIN SOD,PORK IN 0.45% NACL 25,000 UNIT in 0.45% NACL 1 250ML.BAG IV SCH (01:53)
[2021-10-27] MEDS: SODIUM CHLORIDE 0.9% 1,000 ML IV SCH ×2 (03:14→12:15)
[2021-10-27] MEDS: CALCIUM CARB-VIT D 500 MG-5 MCG TAB PO SCH ×3 (05:56→17:48)
[2021-10-27] MEDS: HYDROcodone/APAP 10-325MG 1 EACH TAB PO PRN ×2 (06:00→17:47)
[2021-10-27] MEDS: methylPREDNISolone SOD SUCCI 40 MG/ML 1 ML VIAL IV SCH ×3 (06:00→17:46)
[2021-10-27 06:27] LABS: Glucose,Whole Blood 252 mg/dL (70-110)
[2021-10-27] MEDS: INSULIN ASPART (NovoLOG) 100 UNIT/ML VIAL SQ SCH ×4 (06:34→20:42)
[2021-10-27] MEDS ORDERED: HEPARIN SODIUM,PORCINE 2,500 UNIT in SODIUM CHLORIDE 0.9% 250 ML IRRIGATION PRN (07:00)
[2021-10-27] MEDS ORDERED: HEPARIN SODIUM,PORCINE 10,000 UNIT in SODIUM CHLORIDE 0.9% 1,000 ML IRRIGATION PRN (07:00)
[2021-10-27] MEDS ORDERED: ATORVASTATIN 80 MG TAB PO STA (08:06)
[2021-10-27] MEDS: IPRATROPIUM-ALBUTEROL 3 ML NEB INHALATION SCH ×4 (08:13→20:13)
[2021-10-27] MEDS: SYMBICORT 160-4.5 MCG INHALER INHALATION SCH ×2 (08:13→20:13)
[2021-10-27] MEDS ORDERED: ASPIRIN 325 MG TAB PO SCH (09:00)
[2021-10-27] MEDS: busPIRone HCl 5 MG TAB PO SCH ×2 (09:15→20:46)
[2021-10-27] MEDS: CLOPIDOGREL 75 MG TAB PO SCH (09:15)
[2021-10-27] MEDS: ESCITALOPRAM 10 MG TAB PO SCH (09:16)
[2021-10-27] MEDS: PREGABALIN 100 MG CAP PO SCH ×3 (09:16→20:46)
[2021-10-27] MEDS: FERROUS SULFATE 325 MG TAB PO SCH (09:16)
[2021-10-27] MEDS: METOPROLOL TARTRATE 50 MG TAB PO SCH ×2 (09:16→20:47)
[2021-10-27] MEDS: ATORVASTATIN 40 MG TAB PO SCH (09:17)
[2021-10-27] MEDS: FAMOTIDINE 20 MG TAB PO SCH (09:19)
--- NOTE | 2021-10-27 10:32 | CA ---
Transthoracic Echo Report Name: Rakan Flynn Age: 56 Gender: M : 1965 Exam Date: 10/27/2021 08:44 Exam Location: [facility] Ht (in): 69 Wt (lb): 240 Ordering Physician: Atilio Kauffman DO Attending/Referring Phys: [id number], Jamari Puppy Sitter Shweta Braxton RDCS Procedure CPT: Indications: Thrombus Cardiac Hx: Cath,2 stents, mi Technical Quality: Fair Contrast 1: Total Dose (mL): Contrast 2: Total Dose (mL): MEASUREMENTS (Male / Female) Normal Values 2D ECHO LV Diastolic Diameter PLAX 5.8 cm 4.2 - 5.9 / 3.9 - 5.3 cm LV Systolic Diameter PLAX 3.7 cm IVS Diastolic Thickness 1.0 cm 0.6 - 1.0 / 0.6 - 0.9 cm LVPW Diastolic Thickness 1.2 cm 0.6 - 1.0 / 0.6 - 0.9 cm LV Relative Wall Thickness 0.4 RV Internal Dim ED PLAX 2.8 cm DOPPLER TR Peak Velocity 156.9 cm/s TR Peak Gradient 9.8 mmHg Right Ventricular Systolic Press 24.8 mmHg FINDINGS Left Ventricle Left ventricular ejection fraction is estimated at 50-55 %. Left ventricular cavity size normal. Left ventricular wall thickness normal. Right Ventricle Right Atrium Left Atrium Mitral Valve Aortic Valve Tricuspid Valve Pulmonic Valve Pericardium No pericardial effusion. Aorta CONCLUSIONS Limited 2-D echo Borderline left ventricular ejection fraction 50-55% Normal LV wall thickness No pericardial effusion Previewed by: Dr. Og St DO (Electronically Signed) Final Date: 27 October 2021 10:31
[2021-10-27] MEDS ORDERED: IV FLUID CONTINUATION 500 ML IV ONE (11:01)
[2021-10-27] MEDS ORDERED: methylPREDNISolone SOD SUCCI 125 MG/2 ML VIAL IV ONE (11:02)
[2021-10-27 11:03] LABS: Calcium 6.7 mg/dL (8.4-10.2)
[2021-10-27] MEDS ORDERED: diphenhydrAMINE 50 MG/ML 1 ML VIAL IVP ONE (11:03)
[2021-10-27] MEDS ORDERED: HYDROmorphone 0.5 MG/0.5 ML SYRINGE IVP ONE (11:07)
[2021-10-27] MEDS ORDERED: LIDOCAINE 1% PF 10 MG/ML (5 ML AMP) SQ ONE (11:10)
[2021-10-27] MEDS ORDERED: MIDAZOLAM 2 MG/2 ML VIAL IV ONE (11:11)
[2021-10-27 11:12] LABS: Potassium 4.8 mmol/L (3.5-5.1)
[2021-10-27] MEDS ORDERED: VERAPAMIL SYRINGE (5 MG/10 ML) INTRAARTER ONE (11:12)
[2021-10-27 11:13] LABS: Chol/HDL Ratio 2.95 Ratio; LDL Cholesterol,Calculated 54.5 mg/dL (0.0-131.0); VLDL Calculation 14.26 mg/dL (5.00-40.00)
[2021-10-27] MEDS ORDERED: HEPARIN SODIUM 1,000 UN/ML (10ML VL) IV ONE (11:14)
[2021-10-27] MEDS ORDERED: fentaNYL (PF) 50 MCG/ML 2 ML AMP IV ONE (11:21)
[2021-10-27] MEDS ORDERED: IOPAMIDOL-370 100ML BTL INJ ONE (11:28)
[2021-10-27] MEDS ORDERED: RX INFO: IV CONTRAST WAS GIVEN 1 EACH MISC MISCELLANE PRN (11:37)
[2021-10-27 11:51] LABS: Glucose,Whole Blood 219 mg/dL (70-110)
[2021-10-27] MEDS: FUROSEMIDE 40 MG TAB PO SCH (12:12)
[2021-10-27] MEDS: INSULIN DETEMIR (LEVEMIR) 100 UNIT/ML SYR SQ SCH (12:14)
--- NOTE | 2021-10-27 13:28 | P.PN ---
Subjective Progress Note Date: 10/27/21 HISTORY OF PRESENT ILLNESS: The patient is a 56-year-old male with extensive cardiac history who follows in the office with Dr. NAS Kirby. He presented to the emergency room with in creasing shortness of breath. He states this started abruptly yesterday and attributed it to the humid weather and his COPD history. He had no exertional chest pressure, however did report chest tightness with shortness of breath. At the time of my examination he denies any current chest pain or chest pressure. He does have difficulty breathing and is currently on BiPAP. DIAGNOSTICS: EKG shows sinus mechanism with first-degree AV block. No ST or T-wave abnormalities Chest x-ray shows no active cardiopulmonary disease Lab data: BNP 15,000, troponins elevated at 4.0, 4.2, 3.6, WBC 11.4, hemoglobin 14.5, hematocrit 43.5, platelet 255, sodium 137, potassium 4.0, BUN 19, creatinine 1.26, AST 33, ALT 23 Echocardiogram 07/28/2021 showed LV function of 45-50% 10/27/2021 Patient examined this morning at the bedside. Patient reports improvement in his shortness of breath. He reports having continued chest pain overnight. Echocardiogram completed revealing ejection fraction 50-55%. PHYSICAL EXAM: VITAL SIGNS: Reviewed. GENERAL: Well-developed in no acute distress. NECK: Supple. No JVD or thyromegaly LUNGS: Respirations even and unlabored. Lungs diminished to auscultation bilaterally. HEART: Regular rate and rhythm. S1 and S2 heard. EXTREMITIES: Normal range of motion. No clubbing or cyanosis. Peripheral pulses intact. No lower extremity edema ASSESSMENT: Shortness of breath Non-STEMI Acute on chronic heart failure with pEF Coronary artery disease with previous stenting Hypertension Hyperlipidemia Diabetes Nicotine dependence PLAN: Continue current cardiac medications Patient to undergo cardiac catheterization today with Dr. Kirby Further recommendations pending patient's course Nurse practitioner note has been reviewed by physician. Signing provider agrees with the documented findings, assessment, and plan of care. Objective - Vital Signs Vital signs: Vital Signs Temp 97.2 F L 10/27/21 12:54 Pulse 69 10/27/21 12:54 Resp 19 10/27/21 12:54 BP 90/57 10/27/21 12:54 Pulse Ox 97 10/27/21 12:54 FiO2 40 10/27/21 08:20 Intake & Output 10/26/21 10/27/21 10/27/21 18:59 06:59 18:59 Intake Total 122.795 367.205 236.879 Output Total 400 Balance -277.205 367.205 236.879 Weight 108.862 kg Intake: IV 100 Intake, IV Titration 122.795 127.205 136.879 Amount Heparin Sod,Pork in 0.45% 122.795 127.205 136.879 NaCl 25,000 unit In 0.45 % NaCl 1 250ml.bag @ 18 UNITS/KG/HR 19.595 mls/hr IV .[id number] [facility] Rx#: [id number] Oral 240 0 Output: Urine 400 Other: Voiding Method Urinal # Voids 1 # Bowel Movements 0 - Labs CBC & Chem 7: 10/26/21 00:35 10/27/21 10:17 Labs: Abnormal Lab Results - Last 24 Hours (Table) 10/26/21 10/26/21 10/26/21 Range/Units 16:05 16:38 20:10 APTT 36.8 H (22.0-30.0) sec BUN (9-20) mg/dL Glucose (74-99) mg/dL POC Glucose (mg/dL) 328 H 217 H (70-110) mg/dL Calcium (8.4-10.2) mg/dL Troponin I (0.000-0.034) ng/mL HDL Cholesterol (40.00-60.00) mg/dL 10/26/21 10/27/21 10/27/21 Range/Units 23:33 06:26 07:35 APTT 112.7 H* (22.0-30.0) sec BUN (9-20) mg/dL Glucose (74-99) mg/dL POC Glucose (mg/dL) 252 H (70-110) mg/dL Calcium (8.4-10.2) mg/dL Troponin I (0.000-0.034) ng/mL HDL Cholesterol 35.20 L (40.00-60.00) mg/dL 10/27/21 10/27/21 10/27/21 Range/Units 07:35 10:17 10:17 APTT 86.4 H (22.0-30.0) sec BUN 26 H (9-20) mg/dL Glucose 200 H (74-99) mg/dL POC Glucose (mg/dL) (70-110) mg/dL Calcium 6.7 L (8.4-10.2) mg/dL Troponin I 0.977 H* (0.000-0.034) ng/mL HDL Cholesterol (40.00-60.00) mg/dL 10/27/21 Range/Units 11:49 APTT (22.0-30.0) sec BUN (9-20) mg/dL Glucose (74-99) mg/dL POC Glucose (mg/dL) 219 H (70-110) mg/dL Calcium (8.4-10.2) mg/dL Troponin I (0.000-0.034) ng/mL HDL Cholesterol (40.00-60.00) mg/dL
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
--- NOTE | 2021-10-27 14:37 | P.PN ---
Subjective Progress Note Date: 10/27/21 HISTORY OF PRESENT ILLNESS 56-year-old male with past medical history significant for coronary artery disease and COPD presented to the emergency department by EMS after he started having shortness of breath and chest tightness at home. A shunt reported sudden onset of the symptoms that attacked him out of nowhere and believe it's related to humidity as he was extremely hot yesterday. Patient denied any recent upper respiratory symptoms area patient reported improvement after recent hospitalization and felt back to his baseline continued to smoke after discharge but stated that he's taking his medication as prescribed including aspirin and Plavix. In the emergency department patient was started on BiPAP and initial workup revealed normal sinus rhythm on EKG without significant ST and T-wave abnormality but troponin Going up and patient was admitted for further evaluat ion and treatment with cardiology consultation. Patient is well known to have coronary artery disease with history of angioplasty in the past and medication with optimized with antiplatelet therapy and statin. REVIEW OF SYSTEMS Constitutional: No fever, no chills, no night sweats. No weight change. No weakness, fatigue or lethargy. No daytime sleepiness. EENT: No headache. No blurred vision or double vision, no loss of vision. No loss of Hearing, no ringing in the ears, no dizziness. No nasal drainage or congestion. No epistaxis. No sore throat. Lungs: No shortness of breath, cough, no sputum production. No wheezing. Cardiovascular: No chest pain, no lower extremity edema. No palpitations. No paroxysmal nocturnal dyspnea. No orthopnea. No lightheadedness or dizziness. No syncopal episodes. Abdominal: No abdominal pain. No nausea, vomiting. No diarrhea. No constipation. No bloody or tarry stools. No loss of appetite. Genitourinary: No dysuria, increased frequency, urgency. No urinary retention. Musculoskeletal: No myalgias. No muscle weakness, no gait dysfunction, no frequent falls. No back pain. No neck pain. Integumentary: No wounds, no lesions. No rash or pruritus. No unusual bruising. No change in hair or nails. Neurologic: No aphasia. No facial droop. No change in mentation. No head injury. No headache. No paralysis. No paresthesia. Psychiatric: No depression. No anxiety. No mood swings. Endocrine: No abnormal blood sugars. No weight change. No excessive sweating or thirst. No cold intolerance. PHYSICAL EXAMINATION Gen: This is a 56-year-old male. He is resting in bed and appears to be comfortable and in no acute distress. HEENT: Head is atraumatic, normocephalic. Pupils equal, round. Sclerae is anicteric. NECK: Supple. No JVD. No lymphadenopathy. No thyromegaly. LUNGS: Coarse breath sounds bilaterally with rhonchi and expiratory wheeze. No intercostal retractions. HEART: Regular rate and rhythm. No murmur. ABDOMEN: Soft. Bowel sounds are present. No masses. No tenderness. EXTREMITIES: No pedal edema. No calf tenderness. NEUROLOGICAL: Patient is awake, alert and oriented x3. Cranial nerves 2 through 12 are grossly intact. ASSESSMENT AND PLAN Acute on chronic hypoxic respiratory failure the patient is normally on 4 L O2 at home. Continue oxygen therapy. Non-ST elevated myocardial infarction. Patient is scheduled for cardiac catheterization today. Continue patient on aspirin 81 mg daily, Lipitor 40 mg daily, Plavix 75 mg daily, heparin drip, Imdur 30 mg daily, Lopressor 50 mg twice daily. COPD with exacerbation. Patient continued on Solu-Medrol 40 mg IV every 6 hours, Symbicort 2 puffs twice daily DuoNeb treatments 4 times daily and as needed. Active tobacco use and dependence. Smoking cessation. Obstructive sleep apnea. Patient on BiPAP during the night Hypertension. Continue Lasix 40 mg daily, Lopressor. Hyperlipidemia. Continue atorvastatin. History of coronary artery disease with angioplasty in the past. Continue as above. Diabetes mellitus type 2. Metformin on hold. Patient will be started on Levemi r 10 units daily and NovoLog scale before meals and at bedtime. Recurrent depression and generalized anxiety disorder. Continue BuSpar 15 mg twice daily, Lexapro 10 mg daily. Diabetic neuropathy. Continue Lyrica 200 mg 3 times daily. Chronic anemia. Continue ferrous sulfate 325 mg daily. Chronic pain syndrome. Continue fentanyl patch 75 g daily. Gastroesophageal reflux disease and GI prophylaxis. Continue Pepcid 20 mg daily. DVT prophylaxis. Patient is on heparin drip. DISCHARGE PLAN Home. Impression and plan of care have been directed as dictated by the signing physician. Dionna Quigley nurse practitioner acting as scribe for signing physician. Objective - Vital Signs Vital signs: Vital Signs Temp 97.6 F 10/27/21 04:00 Pulse 88 07/18/22 08:24 Resp 18 10/27/21 08:24 BP 112/73 10/27/21 04:00 Pulse Ox 100 10/27/21 08:20 FiO2 40 10/27/21 08:20 Intake & Output 10/26/21 10/27/21 10/27/21 18:59 06:59 18:59 Intake Total 122.795 367.205 Output Total 400 Balance -277.205 367.205 Weight 108.862 kg Intake: Intake, IV Titration 122.795 127.205 Amount Heparin Sod,Pork in 0.45% 122.795 127.205 NaCl 25,000 unit In 0.45 % NaCl 1 250ml.bag @ 18 UNITS/KG/HR 19.595 mls/hr IV .[id number] [facility] Rx#: [id number] Oral 240 Output: Urine 400 Other: Voiding Method Urinal # Voids 1 # Bowel Movements 0 - Labs CBC & Chem 7: 10/26/21 00:35 10/27/21 10:17 Labs: Abnormal Lab Results - Last 24 Hours (Table) 10/26/21 10/26/21 10/26/21 Range/Units 09:48 11:36 16:05 APTT 36.8 H (22.0-30.0) sec POC Glucose (mg/dL) 326 H 322 H (70-110) mg/dL 10/26/21 10/26/21 10/26/21 Range/Units 16:38 20:10 23:33 APTT 112.7 H* (22.0-30.0) sec POC Glucose (mg/dL) 328 H 217 H (70-110) mg/dL 10/27/21 10/27/21 Range/Units 06:26 07:35 APTT 86.4 H (22.0-30.0) sec POC Glucose (mg/dL) 252 H (70-110) mg/dL
[2021-10-27 16:33] LABS: Glucose,Whole Blood 327 mg/dL (70-110)
[2021-10-27] MEDS ORDERED: INSULIN ASPART (NovoLOG) 100 UNIT/ML VIAL SQ ONE ×2 (17:30→20:26)
--- NOTE | 2021-10-27 19:07 | CC ---
CARDIAC CATHETERIZATION REPORT DATE OF SERVICE: 10/27/2021 PROCEDURE: Left heart catheterization and coronary angiography. PERFORMED BY: Dr. Antione Kirby. Moderate conscious sedation time was 20 minutes. The patient was administered Versed and Dilaudid. Oxygenation, hemodynamics and EKG were monitored closely. CLINICAL INFORMATION: Mr. Rakan Flynn is a 56-year-old gentleman who smokes about two packs a day, has bladder cancer and colon cancer, was last seen by me in August 2019. He comes into the hospital with chest pain and shortness of breath, had a troponin elevation that has already shown a downward trend, and continued to have discomfort in the chest and precordial T-wave inversions, and he was advised cardiac catheterization after due discussion. Patient has COPD with exacerbation, on steroids. Also he has mild kidney disease with a creatinine in the range of 1.5. He also has history of severe back pain, previous back surgeries. PROCEDURE NOTE: Under local anesthesia and strict aseptic precautions, a 6-Palestinian introducer was placed in the right radial artery. Using JL3.5 and JR4 catheters, I performed coronary angiography. The same right catheter was used to check LV pressure, but LV gram was not performed. The sheath was taken out and TR band applied as per protocol. The saturation in the fingers of the right hand was 97%. CARDIAC CATHETERIZATION FINDINGS: The left ventricular end-diastolic pressure was about 21 mmHg without any gradient across aortic valve. CORONARY ANGIOGRAPHY FINDINGS: RIGHT CORONARY ARTERY: This is a dominant vessel, totally occluded in the proximal portion, with very limited flow. It appears that there may have been a stent in the distal RCA, but now the vessel is totally occluded with limited [id number] collaterals. LEFT MAIN CORONARY ARTERY: Short, patent, disease-free vessel that is mildly calcified, bifurcates into LAD and circumflex. LEFT ANTERIOR DESCENDING CORONARY ARTERY: Fair-caliber vessel that gives off a good- sized diagonal branch proximally and then there is a second diagonal branch that appears to be totally occluded and seen as a stump. The distal flow in the diagonal is somewhat small, and at the origin of the diagonal branch there is about a 40% narrowing in the eagle LAD. Otherwise, flow in the LAD is brisk. It runs all the way to the apex, supplying a sizable amount of myocardium. There are multiple areas of irregularities of about 30% to 40%, but no critical disease in the LAD. However, the second diagonal is totally occluded, appears to be a small-distribution vessel without much antegrade flow. LEFT POSTERIOR CIRCUMFLEX CORONARY ARTERY: Nondominant vessel has minor irregularities, has a 30% to 40% narrowing and runs laterally, supplying the inferolateral wall, has minor irregularities. LEFT VENTRICULOGRAM: Left ventriculogram was not performed. FINAL IMPRESSION: This patient has elevated filling pressures, no gradient across aortic valve. He has a right-dominant system, total occlusion of RCA with limited collaterals from the left system. Second diagonal is totally occluded, appears to be a small-distribution vessel and the culprit vessel. LAD has a 40% lesion proximal to this. Circumflex has also 30% to 40% narrowing. RECOMMENDATIONS: I am recommending that we pursue medical therapy, smoking cessation and risk factor management. Intervention of a totally occluded diagonal while the troponin has already come down is not advisable, mainly because of possibility of hurting the LAD itself, and the diagonal appears to be a small-distribution vessel. This was explained to the patient. We tried to call his . There was no answer. He was sent to the room in a stable condition. MMODL / IJN: [id number] /
[2021-10-27 19:54] LABS: Glucose,Whole Blood 328 mg/dL (70-110)
[2021-10-27 23:57] LABS: Glucose,Whole Blood 95 mg/dL (70-110)
[2021-10-28] MEDS ORDERED: INSULIN ASPART (NovoLOG) 100 UNIT/ML VIAL SQ ONE
[2021-10-28] MEDS: methylPREDNISolone SOD SUCCI 40 MG/ML 1 ML VIAL IV SCH ×2 (00:05→06:32)
[2021-10-28] MEDS: SODIUM CHLORIDE 0.9% 1,000 ML IV SCH ×2 (00:10→02:00)
[2021-10-28] MEDS: HYDROcodone/APAP 10-325MG 1 EACH TAB PO PRN (03:31)
[2021-10-28 06:19] LABS: Glucose,Whole Blood 133 mg/dL (70-110)
[2021-10-28] MEDS: CALCIUM CARB-VIT D 500 MG-5 MCG TAB PO SCH (06:33)
[2021-10-28] MEDS: INSULIN DETEMIR (LEVEMIR) 100 UNIT/ML SYR SQ SCH (06:33)
[2021-10-28] MEDS: INSULIN ASPART (NovoLOG) 100 UNIT/ML VIAL SQ SCH (06:33)
[2021-10-28] MEDS: SYMBICORT 160-4.5 MCG INHALER INHALATION SCH (07:27)
[2021-10-28] MEDS: IPRATROPIUM-ALBUTEROL 3 ML NEB INHALATION SCH ×2 (07:27→10:54)
[2021-10-28 08:12] VITALS: BP 138/66; RESP 18; TEMP 97.5
[2021-10-28] MEDS: FUROSEMIDE 40 MG TAB PO SCH (08:29)
[2021-10-28] MEDS: ESCITALOPRAM 10 MG TAB PO SCH (08:29)
[2021-10-28] MEDS: FAMOTIDINE 20 MG TAB PO SCH (08:29)
[2021-10-28] MEDS: FERROUS SULFATE 325 MG TAB PO SCH (08:29)
[2021-10-28] MEDS: ATORVASTATIN 40 MG TAB PO SCH (08:29)
[2021-10-28] MEDS: CLOPIDOGREL 75 MG TAB PO SCH (08:29)
[2021-10-28] MEDS: busPIRone HCl 5 MG TAB PO SCH (08:29)
[2021-10-28] MEDS: PREGABALIN 100 MG CAP PO SCH (08:29)
[2021-10-28] MEDS: METOPROLOL TARTRATE 50 MG TAB PO SCH (08:29)
[2021-10-28 08:42] LABS: Basophils % (A) 0 %; Eosinophils % (A) 0 %; HCT 40.3 % (39.0-53.0); HGB 13.2 gm/dL (13.0-17.5); Lymphocytes # (A) 0.4 k/uL (1.0-4.8); Lymphocytes % (A) 5 %; MCH 30.3 pg (25.0-35.0); MCHC 32.6 g/dL (31.0-37.0); MCV 92.9 fL (80.0-100.0); Mean Platelet Volume 8.7; Monocytes # (A) 0.2 k/uL (0-1.0); Monocytes % (A) 3 %; Neutrophils # (A) 7.5 k/uL (1.3-7.7); Neutrophils % (A) 92 %; Platelet Count 213 k/uL (150-450); RBC 4.34 m/uL (4.30-5.90); RDW 14.2 % (11.5-15.5); WBC 8.1 k/uL (3.8-10.6)
[2021-10-28 08:54] LABS: Calcium 6.9 mg/dL (8.4-10.2); Potassium 3.8 mmol/L (3.5-5.1)
[2021-10-28] MEDS ORDERED: HEPARIN SODIUM,PORCINE/PF 5,000 UNIT/0.5 ML SYRINGE SQ SCH (09:00)
[2021-10-28] MEDS ORDERED: ISOSORBIDE MONONITRATE ER 30 MG TAB.ER.24H PO SCH (09:00)
[2021-10-28] MEDS ORDERED: ASPIRIN 81 MG PO SCH (09:00)
--- NOTE | 2021-10-28 09:51 | P.PN ---
Subjective Progress Note Date: 10/28/21 HISTORY OF PRESENT ILLNESS 56-year-old male with past medical history significant for coronary artery disease and COPD presented to the emergency department by EMS after he started h aving shortness of breath and chest tightness at home. A shunt reported sudden onset of the symptoms that attacked him out of nowhere and believe it's related to humidity as he was extremely hot yesterday. Patient denied any recent upper respiratory symptoms area patient reported improvement after recent hospitalization and felt back to his baseline continued to smoke after discharge but stated that he's taking his medication as prescribed including aspirin and Plavix. In the emergency department patient was started on BiPAP and initial workup revealed normal sinus rhythm on EKG without significant ST and T-wave abnormality but troponin Going up and patient was admitted for further evalua tion and treatment with cardiology consultation. Patient is well known to have coronary artery disease with history of angioplasty in the past and medication with optimized with antiplatelet therapy and statin. 10/28: Patient is feeling much better, ended up going for heart cath yesterday came back with mild disease only. Patient was placed on medical management. Pulmonary-robin patient is doing much better did not require BiPAP or CPAP through the night but still on 4 L O2 along with his updraft treatment regularly patient still on Solu-Medrol will switch him to prednisone taper dose for the next 2 weeks. The patient is stable from cardiology standpoint and pulmonary will be discharged home otherwise will keep until tomorrow and discharge home tomorrow. Blood sugar still mildly elevated but mostly because of Solu-Medrol patient is agreeable to do Levemir when he goes home at 15 units daily his blood sugar subtle down until he is down on prednisone to 10 mg a day only. REVIEW OF SYSTEMS Constitutional: No fever, no chills, no night sweats. No weight change. No weakness, fatigue or lethargy. No daytime sleepiness. EENT: No headache. No blurred vision or double vision, no loss of vision. No loss of Hearing, no ringing in the ears, no dizziness. No nasal drainage or congestion. No epistaxis. No sore throat. Lungs: No shortness of breath, cough, no sputum production. No wheezing. Cardiovascular: No chest pain, no lower extremity edema. No palpitations. No paroxysmal nocturnal dyspnea. No orthopnea. No lightheadedness or dizziness. No syncopal episodes. Abdominal: No abdominal pain. No nausea, vomiting. No diarrhea. No constipation. No bloody or tarry stools. No loss of appetite. Genitourinary: No dysuria, increased frequency, urgency. No urinary retention. Musculoskeletal: No myalgias. No muscle weakness, no gait dysfunction, no frequent falls. No back pain. No neck pain. Integumentary: No wounds, no lesions. No rash or pruritus. No unusual bruising. No change in hair or nails. Neurologic: No aphasia. No facial droop. No change in mentation. No head injury. No headache. No paralysis. No paresthesia. Psychiatric: No depression. No anxiety. No mood swings. Endocrine: No abnormal blood sugars. No weight change. No excessive sweating or thirst. No cold intolerance. PHYSICAL EXAMINATION Gen: This is a 56-year-old male. He is resting in bed and appears to be comfortable and in no acute distress. HEENT: Head is atraumatic, normocephalic. Pupils equal, round. Sclerae is anicteric. NECK: Supple. No JVD. No lymphadenopathy. No thyromegaly. LUNGS: Coarse breath sounds bilaterally with rhonchi and expiratory wheeze. No intercostal retractions. HEART: Regular rate and rhythm. No murmur. ABDOMEN: Soft. Bowel sounds are present. No masses. No tenderness. EXTREMITIES: No pedal edema. No calf tenderness. NEUROLOGICAL: Patient is awake, alert and oriented x3. Cranial nerves 2 through 12 are grossly intact. ASSESSMENT AND PLAN Acute on chronic hypoxic respiratory failure the patient is normally on 4 L O2 at home. Continue oxygen therapy. Continue steroid continued see pulmonary. Non-ST elevated myocardial infarction. Patient is scheduled for cardiac catheterization today. Continue patient on aspirin 81 mg daily, Lipitor 40 mg daily, Plavix 75 mg daily, heparin drip, Imdur 30 mg daily, Lopressor 50 mg twice daily. Had a heart cath yesterday came back with mild pulmonary disease, patient is on medical management medication were changed. COPD with exacerbation. Continue Symbicort, DuoNeb, switch patient to prednisone and he will remain on O2 at 4 L. Active tobacco use and dependence. Smoking cessation. Obstructive sleep apnea. Patient on BiPAP during the night Hypertension. Continue Lasix 40 mg daily, Lopressor. Hyperlipidemia. Continue atorvastatin. History of coronary artery disease with angioplasty in the past. Continue as above. Diabetes mellitus type 2. Metformin on hold. Patient will be started on Levemir 10 units daily and NovoLog scale before meals and at bedtime. Recurrent depression and generalized anxiety disorder. Continue BuSpar 15 mg twice daily, Lexapro 10 mg daily. Diabetic neuropathy. Continue Lyrica 200 mg 3 times daily. Chronic anemia. Continue ferrous sulfate 325 mg daily. Chronic pain syndrome. Continue fentanyl patch 75 g daily. Gastroesophageal reflux disease and GI prophylaxis. Continue Pepcid 20 mg daily. DVT prophylaxis. Subcu heparin, early mobilization and knee-high JESSICA hose. DISCHARGE PLAN Home, if stable for discharge by pulmonary and cardiology. Objective - Vital Signs Vital signs: Vital Signs Temp 98.2 F 10/28/21 03:24 Pulse 60 10/28/21 07:39 Resp 15 10/27/21 23:24 BP 115/74 10/28/21 03:24 Pulse Ox 98 10/28/21 03:24 FiO2 40 10/27/21 08:20 Intake & Output 10/27/21 10/28/21 10/28/21 18:59 06:59 18:59 Intake Total 1076.879 Output Total 500 Balance 1076.879 -500 Intake: IV 100 Intake, IV Titration 736.879 Amount Heparin Sod,Pork in 0.45% 136.879 NaCl 25,000 unit In 0.45 % NaCl 1 250ml.bag @ 18 UNITS/KG/HR 19.595 mls/hr IV .[id number] [facility] Rx#: [id number] IV Fluid Continuation 500 600 ml @ 0 mls/hr IV .STK- [facility] Rx#:[id number] Oral 240 Output: Urine 500 - Labs CBC & Chem 7: 10/28/21 08:16 10/28/21 08:16 Labs: Abnormal Lab Results - Last 24 Hours (Table) 10/27/21 10/27/21 10/27/21 Range/Units 07:35 07:35 10:17 APTT 86.4 H (22.0-30.0) sec BUN 26 H (9-20) mg/dL Glucose 200 H (74-99) mg/dL POC Glucose (mg/dL) (70-110) mg/dL Calcium 6.7 L (8.4-10.2) mg/dL Troponin I (0.000-0.034) ng/mL HDL Cholesterol 35.20 L (40.00-60.00) mg/dL 10/27/21 10/27/21 10/27/21 Range/Units 10:17 11:49 16:32 APTT (22.0-30.0) sec BUN (9-20) mg/dL Glucose (74-99) mg/dL POC Glucose (mg/dL) 219 H 327 H (70-110) mg/dL Calcium (8.4-10.2) mg/dL Troponin I 0.977 H* (0.000-0.034) ng/mL HDL Cholesterol (40.00-60.00) mg/dL 10/27/21 10/28/21 Range/Units 19:53 06:18 APTT (22.0-30.0) sec BUN (9-20) mg/dL Glucose (74-99) mg/dL POC Glucose (mg/dL) 328 H 133 H (70-110) mg/dL Calcium (8.4-10.2) mg/dL Troponin I (0.000-0.034) ng/mL HDL Cholesterol (40.00-60.00) mg/dL
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
[2021-10-28 11:02] VITALS: PULSE 60
--- NOTE | 2021-10-28 12:24 | P.PN ---
Subjective Patient is resting comfortably in bed Normal chest discomfort No shortness of breath No respiratory distress Breath sounds are reduced bilaterally with some rhonchi but better than yesterday Yesterday coronary angiography revealed an occluded second diagonal Medical treatment was recommended Blood pressure 138/66 mmHg pulse rate in the 60s afebrile Breath sounds are reduced bilaterally with some rhonchi bilaterally Heart sounds are normal Suggest Atorvastatin 80 mg by mouth daily Imdur 30 mg by mouth daily Continue antiplatelet therapy Continue beta blockers Follow Dr. Kirby Objective - Vital Signs Vital signs: Vital Signs Temp 97.5 F L 10/28/21 08:00 Pulse 60 10/28/21 11:06 Resp 18 10/28/21 08:00 BP 138/66 10/28/21 08:00 Pulse Ox 95 10/28/21 10:00 FiO2 40 10/27/21 08:20 Intake & Output 10/27/21 10/28/21 10/28/21 18:59 06:59 18:59 Intake Total 1076.879 180 Output Total 500 Balance 1076.879 -500 180 Intake: IV 100 Intake, IV Titration 736.879 Amount Heparin Sod,Pork in 0.45% 136.879 NaCl 25,000 unit In 0.45 % NaCl 1 250ml.bag @ 18 UNITS/KG/HR 19.595 mls/hr IV .[id number] [facility] Rx#: [id number] IV Fluid Continuation 500 600 ml @ 0 mls/hr IV .STK- [facility] Rx#:[id number] Oral 240 180 Output: Urine 500 - Labs CBC & Chem 7: 10/28/21 08:16 10/28/21 08:16 Labs: Abnormal Lab Results - Last 24 Hours (Table) 10/27/21 10/27/21 10/28/21 Range/Units 16:32 19:53 06:18 Lymphocytes # (1.0-4.8) k/uL Carbon Dioxide (22-30) mmol/L BUN (9-20) mg/dL Glucose (74-99) mg/dL POC Glucose (mg/dL) 327 H 328 H 133 H (70-110) mg/dL Calcium (8.4-10.2) mg/dL 10/28/21 10/28/21 Range/Units 08:16 08:16 Lymphocytes # 0.4 L (1.0-4.8) k/uL Carbon Dioxide 32 H (22-30) mmol/L BUN 33 H (9-20) mg/dL Glucose 185 H (74-99) mg/dL POC Glucose (mg/dL) (70-110) mg/dL Calcium 6.9 L (8.4-10.2) mg/dL
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
[2021-10-29] MEDS ORDERED: ATORVASTATIN 80 MG TAB PO SCH (09:00)
== END 2021-10-28 11:38 | disposition home health service (06) | DRG 280 ==
LOC: EC 23:45 → 3SCARD 10-26 01:43
PROVIDERS: ADMIT Internal Medicine Geriatric Medicine; ATTEND Internal Medicine Geriatric Medicine
PROC: 5A09357 Assistance with Respiratory Ventilation, Less than 24 Consecutive Hours, Continuous Positive Airway Pressure (ICD-10-PCS; 2021-10-25)
PROC: 4A023N7 Measurement of Cardiac Sampling and Pressure, Left Heart, Percutaneous Approach (ICD-10-PCS; principal; 2021-10-27 11:25)
PROC: B2111ZZ Fluoroscopy of Multiple Coronary Arteries using Low Osmolar Contrast (ICD-10-PCS; principal; 2021-10-27 11:25)
DX: I21.4 Non-ST elevation (NSTEMI) myocardial infarction (principal); I50.33 Acute on chronic diastolic (congestive) heart failure; J96.21 Acute and chronic respiratory failure with hypoxia; F33.9 Major depressive disorder, recurrent, unspecified; J44.1 Chronic obstructive pulmonary disease with (acute) exacerbation; E11.40 Type 2 diabetes mellitus with diabetic neuropathy, unspecified; E66.01 Morbid (severe) obesity due to excess calories; E78.5 Hyperlipidemia, unspecified; F17.210 Nicotine dependence, cigarettes, uncomplicated; F41.1 Generalized anxiety disorder; D63.8 Anemia in other chronic diseases classified elsewhere; G47.33 Obstructive sleep apnea (adult) (pediatric); G89.4 Chronic pain syndrome; I11.0 Hypertensive heart disease with heart failure; I25.10 Atherosclerotic heart disease of native coronary artery without angina pectoris; I44.0 Atrioventricular block, first degree; R47.02 Dysphasia; Z79.02 Long term (current) use of antithrombotics/antiplatelets; Z79.51 Long term (current) use of inhaled steroids; Z79.82 Long term (current) use of aspirin; Z79.84 Long term (current) use of oral hypoglycemic drugs; Z79.899 Other long term (current) drug therapy; Z80.0 Family history of malignant neoplasm of digestive organs; Z80.6 Family history of leukemia; Z82.49 Family history of ischemic heart disease and other diseases of the circulatory system; Z83.3 Family history of diabetes mellitus; Z85.048 Personal history of other malignant neoplasm of rectum, rectosigmoid junction, and anus; Z85.51 Personal history of malignant neoplasm of bladder; Z91.19 Patient's noncompliance with other medical treatment and regimen; Z93.2 Ileostomy status; Z95.5 Presence of coronary angioplasty implant and graft; Z99.3 Dependence on wheelchair; Z91.041 Radiographic dye allergy status; Z91.013 Allergy to seafood; Z88.8 Allergy status to other drugs, medicaments and biological substances; Z71.6 Tobacco abuse counseling; Z68.35 Body mass index [BMI] 35.0-35.9, adult; Z99.81 Dependence on supplemental oxygen; Z90.49 Acquired absence of other specified parts of digestive tract; Z79.52 Long term (current) use of systemic steroids; Z87.828 Personal history of other (healed) physical injury and trauma; Z86.14 Personal history of Methicillin resistant Staphylococcus aureus infection
CPT/HCPCS: 36415; 71045; 80048; 80053; 80061; 83605; 83735; 83880; 84484; 85025; 85610; 85730; 93005; 93308; 93458; 94640; 94660; 94760; 99285

== ENCOUNTER 2021-12-18 18:11 | Emergency (ER) | payer MEDICARE ==
[2021-12-18] MEDS ORDERED: PIPERACILLIN-TAZOBACTAM 3.375 GM in SODIUM CHLORIDE 0.9% 100 ML IVPB STA (18:14)
[2021-12-18] MEDS ORDERED: IPRATROPIUM-ALBUTEROL 3 ML NEB INHALATION STA (18:14)
[2021-12-18] MEDS ORDERED: SODIUM CHLORIDE 0.9% 1,000 ML IV STA ×3 (18:14→19:32)
[2021-12-18] MEDS ORDERED: SODIUM CHLORIDE 0.9% 1,000 ML IV SCH (18:15)
[2021-12-18] MEDS ORDERED: diphenhydrAMINE 50 MG/ML 1 ML VIAL IVP STA (18:18)
[2021-12-18] MEDS ORDERED: FAMOTIDINE 20 MG/2 ML VIAL IV STA (18:18)
[2021-12-18] MEDS ORDERED: VANCOMYCIN IV PER PHARMACY 1 EACH MISC MISCELLANE PRN (18:19)
[2021-12-18 18:20] LABS: Glucose,Whole Blood 590 mg/dL (70-110)
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
[2021-12-18 18:37] LABS: Anisocytosis Slight; Basophils % (A) 0 %; Eosinophils % (A) 0 %; HCT 40.9 % (39.0-53.0); HGB 12.5 gm/dL (13.0-17.5); Hypochromasia Marked; Lymphocytes # (A) 0.6 k/uL (1.0-4.8); Lymphocytes % (A) 3 %; MCH 30.4 pg (25.0-35.0); MCHC 30.6 g/dL (31.0-37.0); Macrocytosis Slight; Mean Platelet Volume 10.2; Monocytes # (A) 0.6 k/uL (0-1.0); Monocytes % (A) 3 %; Neutrophils # (A) 19.8 k/uL (1.3-7.7); Neutrophils % (A) 93 %; Platelet Count 353 k/uL (150-450); RBC 4.12 m/uL (4.30-5.90); RDW 16.1 % (11.5-15.5); WBC 21.3 k/uL (3.8-10.6)
[2021-12-18 18:43] LABS: MCV 99.3 fL (80.0-100.0)
[2021-12-18] MEDS ORDERED: VANCOMYCIN 1,500 MG in SODIUM CHLORIDE 0.9% 250 ML IVPB ONE (18:45)
[2021-12-18 18:50] LABS: Albumin 3.3 g/dL (3.5-5.0); Calcium 6.5 mg/dL (8.4-10.2); Magnesium 2.5 mg/dL (1.6-2.3); Potassium 4.5 mmol/L (3.5-5.1); Total Bilirubin 0.6 mg/dL (0.2-1.3); Total Protein 6.6 g/dL (6.3-8.2)
[2021-12-18 18:54] LABS: Partial Thromboplastin Time 24.9 sec (22.0-30.0); Prothrombin Time 10.8 sec (9.0-12.0)
--- NOTE | 2021-12-18 20:31 | XR ---
EXAMINATION: XR chest 1V portable DATE AND TIME: 12/18/2021 6:43 PM CLINICAL INDICATION: dyspnea TECHNIQUE: 2 AP upright portable views COMPARISON: 10/26/2021 FINDINGS: EKG leads noted. Limitation: The right costophrenic angle was not included on this radiograph. The lungs are well-expanded and appear to be clear as seen. The pleural spaces appear to be negative as seen. The cardiac silhouette is not enlarged, given the AP portable technique. The skeletal structures and soft tissues are negative for acute findings. IMPRESSION: No definite acute radiographic process.
[2021-12-18 20:38] LABS: Glucose,Whole Blood 579 mg/dL (70-110)
--- NOTE | 2021-12-18 20:55 | CT ---
EXAMINATION TYPE: CT pelvis wo/w con DATE OF EXAM: 12/18/2021 COMPARISON: None HISTORY: scrotal infection CT DLP: 1979.9 mGycm Automated exposure control for dose reduction was used. CONTRAST: Performed without and with IV Contrast, patient injected with 80 mL of Isovue 300. FINDINGS: The left extratesticular scrotal soft tissue emphysema measures 10 cm craniocaudal by 3 cm transverse and extends posteriorly for a distance of 15 cm to the midline perineum. The process does not appear to extend posteriorly enough to involve the anal verge/anal sphincter complex. On axial im age 61 / 88 a gas fluid level can be seen, with a 2 cm fluid collection evident. This can also be see n on sagittal reconstruction image 85 /137. The coccyx and sacrum are unremarkable, as are the remainder of the skeletal structures. Soft tissues of the pelvis are involved and are unremarkable. IMPRESSION: LEFT HEMISCROTAL SOFT TISSUE INFECTION.
[2021-12-18] MEDS ORDERED: INSULIN REGULAR 100 UNIT/ML VIAL (IV) IV ONE (21:16)
[2021-12-18 21:59] VITALS: RESP 20
[2021-12-18 22:17] LABS: Glucose,Whole Blood 503 mg/dL (70-110)
[2021-12-18 22:40] VITALS: BP 122/58; PULSE 110; TEMP 98.8
[2021-12-19] MEDS ORDERED: VANCOMYCIN 1,500 MG in SODIUM CHLORIDE 0.9% 250 ML IVPB SCH (12:00)
== END 2021-12-18 22:59 | disposition other institution (70) ==
LOC: EC 18:11
DX: J44.1 Chronic obstructive pulmonary disease with (acute) exacerbation (principal); J96.00 Acute respiratory failure, unspecified whether with hypoxia or hypercapnia; N49.3 Fournier gangrene; E11.9 Type 2 diabetes mellitus without complications; E78.5 Hyperlipidemia, unspecified; I10 Essential (primary) hypertension; K21.9 Gastro-esophageal reflux disease without esophagitis; Z20.822 Contact with and (suspected) exposure to COVID-19; Z79.83 Long term (current) use of bisphosphonates; Z88.8 Allergy status to other drugs, medicaments and biological substances; Z91.041 Radiographic dye allergy status; Z91.013 Allergy to seafood
CPT/HCPCS: 36415; 94660; 94640; 93005; 80053; 82009; 83735; 84484; 85025; 85610; 85730; 87040; 87070; 87205; 87502; 87635; 71045; 72194; 99291; 96365; 96366; 96367; 96375; 96361; J2543; J3370; J1200; Q9967

== ENCOUNTER → 2022-09-02 | Outpatient (CLI) | payer MEDICARE ==
[2022-09-02 10:25] LABS: HGB 15.9 gm/dL (13.0-17.5); MCH 29.5 pg (25.0-35.0); MCHC 31.8 g/dL (31.0-37.0); MCV 92.7 fL (80.0-100.0); Mean Platelet Volume 9.3; Platelet Count 141 k/uL (150-450); RDW 14.1 % (11.5-15.5); WBC 7.9 k/uL (3.8-10.6)
[2022-09-02 10:54] LABS: African American GFR (CKD) >90 (>60 ml/min/1.73 sqM); Anion Gap 9 mmol/L; Blood Urea Nitrogen 27 mg/dL (9-20); Calcium 8.5 mg/dL (8.4-10.2); Carbon Dioxide 29 mmol/L (22-30); Chloride 102 mmol/L (98-107); Glucose 166 mg/dL (74-99); Non-African American GFR(CKD) 88 (>60 ml/min/1.73 sqM); Potassium 4.7 mmol/L (3.5-5.1); Sodium 140 mmol/L (137-145)
[2022-09-02 15:36] LABS: Appearance,Urine Clear (Clear); Bilirubin,Urine Negative (Negative); Blood,Urine Negative (Negative); Color,Urine Yellow (Yellow); Ketones,Urine Negative (Negative); Nitrite,Urine Negative (Negative); PH, Urine 5.5 (5.0-8.0); Specific Gravity,Urine 1.008 (1.001-1.030); Urobilinogen,Urine 0.2 (0.2,1.0)
== END | disposition home or self-care (01) ==
LOC: LABPAT 09:36
PROVIDERS: ATTEND Urology
DX: Z01.812 Encounter for preprocedural laboratory examination (principal); N49.2 Inflammatory disorders of scrotum; R31.29 Other microscopic hematuria
CPT/HCPCS: 36415; 80048; 81003; 85027; 87086

== ENCOUNTER 2022-09-09 10:16 | Day surgery (SDC) | payer MEDICARE ==
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
[~2022-09-09 10:16] MED LIST changes: +AMPICILLIN 1,000 MG in SODIUM CHLORIDE 0.9% 50 ML IVPB PRN; +DEXAMETHASONE SOD PHOSPHATE 4 MG/ML 1 ML VIAL IV ONE; +GENTAMICIN 120 MG in SODIUM CHLORIDE 0.9% 100 ML IVPB PRN; +HYDROmorphone 0.5 MG/0.5 ML SYRINGE IVP PRN; +ONDANSETRON 4 MG/2 ML VIAL IVP ONE
[2022-09-09 11:20] LABS: Glucose,Whole Blood 158 mg/dL (70-110)
[2022-09-09] MEDS ORDERED: NEOSTIGMINE 1 MG/ML 10 ML VIAL ONE (12:19)
[2022-09-09] MEDS ORDERED: LIDOCAINE 2% INJ 20 MG/ML (2 ML VIAL) ONE (12:19)
[2022-09-09] MEDS ORDERED: HYDROmorphone (PF) 1 MG/ML ONE (12:19)
[2022-09-09] MEDS ORDERED: GLYCOPYRROLATE 0.2 MG/ML 2 ML VIAL ONE (12:19)
[2022-09-09] MEDS ORDERED: MIDAZOLAM 2 MG/2 ML VIAL ONE (12:19)
[2022-09-09] MEDS ORDERED: ROCURONIUM 10 MG/ML (5 ML VIAL) IV ONE (12:19)
[2022-09-09] MEDS ORDERED: METOPROLOL TARTRATE 5 MG/5 ML VIAL IVP ONE (12:19)
[2022-09-09] MEDS ORDERED: ETOMIDATE 2 MG/ML 10 ML VIAL ONE (12:19)
[2022-09-09] MEDS ORDERED: fentaNYL (PF) 50 MCG/ML 2 ML AMP ONE (12:19)
[2022-09-09] MEDS ORDERED: LACTATED RINGERS 1,000 ML IV ONE (13:10)
--- NOTE | 2022-09-09 13:37 | P.OP ---
Date of Procedure: 09/09/22 Preoperative Diagnosis: Chronic hidradenitis suprativa left groin/scrotum Postoperative Diagnosis: Same Procedure(s) Performed: Wide excision of chronic hidradenitis of left groin/scrotum Anesthesia: SANDEEP Surgeon: Rakan Quintanilla Estimated Blood Loss (ml): 50 Pathology: other (Scrotal tissue, wound culture) Condition: stable Disposition: PACU Indications for Procedure: Patient is 57. Last year he had a significant surgery of the left groin and scrotum at [facility] for a Rebeca's gangrene. He actually had multiple surgeries and required long-term follow-up. I eventually saw the patient. He healed well. He return 6 months later the office complaining of a chronic sinus in the left inguinal and scrotal region consistent with either persistent infected tissue from the original lesion or chronic hidradenitis which he has in the groin. He comes for excision of the chronic infected sinus. He has been on antibiotics now for a couple weeks. The drainage is serous. Description of Procedure: Patient brought to the operating suite. Given general anesthesia. Placed lithotomy position. He has a sterile prep and drape. I do a wide excision around the chronic draining sinus. Tediously dissect around the sinus tracts into the more normal healthy perineal tissue. The diameter to the tracts about 3 x 3 cm. The depth unhealthy tissue. A make sure I did not injure the testicle or rectum. The cultures obtained of the tissue although there is no bang purulence. After excising all the tissue I irrigate thoroughly. I place a drain in the deep layers and bring it out through separate stab incision in the skin. Closed the wound in 2 layers with 3-0 chromic interrupted and running. I closed the skin loosely with 3-0 chromic. The drain is secured to the skin with 3-0 chromic. Blood loss is about 50 mL. Operation time over an hour. The patient tolerated procedure well and will be discharged home upon recovery and found the office in 2 days
[2022-09-09 13:53] VITALS: TEMP 97.8
[2022-09-09] MEDS ORDERED: HYDROmorphone 0.5 MG/0.5 ML SYRINGE IVP ONE ×2 (14:02→14:12)
[2022-09-09 15:00] VITALS: RESP 16
[2022-09-09 15:13] VITALS: BP 151/77; PULSE 95
== END 2022-09-09 15:27 | disposition home or self-care (01) ==
LOC: OR 10:16
PROVIDERS: ATTEND Urology
DX: L73.2 Hidradenitis suppurativa (principal); K21.9 Gastro-esophageal reflux disease without esophagitis; E11.9 Type 2 diabetes mellitus without complications; E78.5 Hyperlipidemia, unspecified; I10 Essential (primary) hypertension; G47.30 Sleep apnea, unspecified; F17.200 Nicotine dependence, unspecified, uncomplicated; Z99.89 Dependence on other enabling machines and devices; Z99.3 Dependence on wheelchair; Z90.49 Acquired absence of other specified parts of digestive tract; Z95.5 Presence of coronary angioplasty implant and graft; Z98.890 Other specified postprocedural states; Z85.048 Personal history of other malignant neoplasm of rectum, rectosigmoid junction, and anus; Z82.49 Family history of ischemic heart disease and other diseases of the circulatory system; Z79.84 Long term (current) use of oral hypoglycemic drugs; Z79.899 Other long term (current) drug therapy; Z79.52 Long term (current) use of systemic steroids; Z79.82 Long term (current) use of aspirin; Z88.6 Allergy status to analgesic agent; Z91.041 Radiographic dye allergy status; Z91.013 Allergy to seafood
CPT/HCPCS: 11470; 88304; 87070; 87205; 87075; J2250; J1100; J2710; J2405; J3010; J1580; J0290; J1170 ×2; J2001

== ENCOUNTER 2022-11-07 11:33 | Inpatient (IN) | payer MEDICARE, OTHER ==
[2022-11-07 11:38] LABS: Glucose,Whole Blood 149 mg/dL (70-110)
[2022-11-07] MEDS ORDERED: methylPREDNISolone SOD SUCCI 125 MG/2 ML VIAL IV STA ×2 (11:42)
[2022-11-07] MEDS ORDERED: MAGNESIUM SULFATE-D5W PMX 2 GM in DEXTROSE/WATER 1 100ML.BAG IVPB STA (11:42)
[2022-11-07] MEDS: MAGNESIUM SULFATE-D5W PMX 1 GM in DEXTROSE/WATER 1 100ML.BAG IVPB SCH ×2 (11:54→14:31)
--- NOTE | 2022-11-07 12:04 | XR ---
EXAMINATION TYPE: XR chest 1V portable DATE OF EXAM: 11/07/2022 11:55 AM COMPARISON: Chest radiographs from 12/18/2021 TECHNIQUE: XR chest 1V portable Portable AP radiograph of the chest. CLINICAL INDICATION:Male, 57 years old with history of difficulty breathing; FINDINGS: Lungs/Pleura: Examination is limited due to the right costophrenic angle not included on the radiogra ph. There is no evidence of pleural effusion, focal consolidation, or pneumothorax. Pulmonary vascularity: Unremarkable. Heart/mediastinum: Cardiomediastinal silhouette is unremarkable. Musculoskeletal: No acute osseous pathology. Cervical fusion hardware. IMPRESSION: No acute cardiopulmonary disease/process.
[2022-11-07 12:14] LABS: Basophils % (A) 0 %; Eosinophils # (A) 0.1 k/uL (0-0.7); Eosinophils % (A) 1 %; HCT 50.7 % (39.0-53.0); HGB 16.5 gm/dL (13.0-17.5); Lymphocytes # (A) 0.4 k/uL (1.0-4.8); Lymphocytes % (A) 3 %; MCH 30.5 pg (25.0-35.0); MCHC 32.5 g/dL (31.0-37.0); MCV 93.6 fL (80.0-100.0); Mean Platelet Volume 8.7; Monocytes # (A) 0.5 k/uL (0-1.0); Monocytes % (A) 4 %; Neutrophils # (A) 12.9 k/uL (1.3-7.7); Neutrophils % (A) 92 %; Platelet Count 197 k/uL (150-450); RBC 5.42 m/uL (4.30-5.90); RDW 14.1 % (11.5-15.5); WBC 14.1 k/uL (3.8-10.6)
[2022-11-07 12:30] LABS: Partial Thromboplastin Time 24.6 sec (22.0-30.0); Prothrombin Time 10.8 sec (9.0-12.0)
[2022-11-07 12:31] LABS: ALT 22 U/L (4-49); AST 32 U/L (17-59); African American GFR (CKD) 58 (>60 ml/min/1.73 sqM); Albumin 4.7 g/dL (3.5-5.0); Alkaline Phosphatase 230 U/L (38-126); Anion Gap 16 mmol/L; Blood Urea Nitrogen 32 mg/dL (9-20); Calcium 7.8 mg/dL (8.4-10.2); Carbon Dioxide 27 mmol/L (22-30); Chloride 106 mmol/L (98-107); Glucose 151 mg/dL (74-99); Magnesium 2.2 mg/dL (1.6-2.3); Non-African American GFR(CKD) 50 (>60 ml/min/1.73 sqM); Potassium 5.1 mmol/L (3.5-5.1); Sodium 149 mmol/L (137-145); Total Protein 7.8 g/dL (6.3-8.2)
--- NOTE | 2022-11-07 12:37 | XR ---
EXAMINATION TYPE: XR chest 1V portable DATE OF EXAM: 11/07/2022 12:31 PM COMPARISON: Chest radiographs from 11/07/2022 TECHNIQUE: XR chest 1V portable Portable AP radiograph of the chest. CLINICAL INDICATION:Male, 57 years old with history of Tube placement; FINDINGS: Lungs/Pleura: There is no evidence of pleural effusion, focal consolidation, or pneumothorax. Pulmonary vascularity: Unremarkable. Heart/mediastinum: Cardiomediastinal silhouette is unremarkable. Musculoskeletal: No acute osseous pathology. Cervical fusion hardware Other findings: None Lines/Tubes: Endotracheal tube with distal tip at the level of the clavicular heads. IMPRESSION: Placement of endotracheal tube with distal tip of the level of the clavicular heads in appropriate po sition.
[2022-11-07 12:40] LABS: NT-Pro-B-Type Natriuretic Pept 13100 pg/mL
[2022-11-07] MEDS ORDERED: FUROSEMIDE 10 MG/ML 4 ML VIAL IV STA (13:17)
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
[2022-11-07] MEDS ORDERED: NALOXONE 0.4 MG/ML 1 ML VIAL IVP PRN (13:34)
[2022-11-07 13:39] LABS: ABG Base Excess -1.6 mmol/L; ABG HCO3 27 mmol/L (21-25); ABG PO2 350 mmHg (83-108); ABG TCO2 29 mmol/L (19-24); Allen Test Performed? Yes
[2022-11-07 13:46] LABS: ABG PCO2 72 mmHg (35-45); ABG PH 7.18 (7.35-7.45)
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
--- NOTE | 2022-11-07 14:32 | XR ---
EXAMINATION TYPE: XR chest 1V portable DATE OF EXAM: 11/07/2022 2:27 PM COMPARISON: Chest radiographs from 11/07/2022 TECHNIQUE: XR chest 1V portable Portable AP radiograph of the chest. CLINICAL INDICATION:Male, 57 years old with history of OG tube placement; FINDINGS: Lungs/Pleura: There is no evidence of pleural effusion, focal consolidation, or pneumothorax. Pulmonary vascularity: Unremarkable. Heart/mediastinum: Cardiomediastinal silhouette is unremarkable. Musculoskeletal: No acute osseous pathology. Cervical fusion hardware. Other findings: None Lines/Tubes: Endotracheal tube position. Orogastric tube with its distal tip and side-port projecting under the diaphragm and projecting over the gastric lumen. IMPRESSION: 1. Repositioning of orogastric tube. 2. Stable endotracheal tube.
--- NOTE | 2022-11-07 15:12 | HP ---
HISTORY AND PHYSICAL CHIEF COMPLAINT: Shortness of breath, respiratory failure. HISTORY OF PRESENT ILLNESS: This is a 57-year-old gentleman with a past medical history of COPD, history of diabetes, hypertension, who was complaining of shortness of breath for the past 2 to 3 days. The patient became progressively short of breath and oxygen cannot be used because of the patient was found to be extremely short of breath and had acute respiratory failure. PH was 7.14. The patient is admitted and intubated on mechanical ventilation. The patient is on tidal volume 450, and 100% FiO2. Chest x-ray showed no evidence of pneumonia and the viral titers are pending. Troponin is found to be 0.089. The patient is mechanically sedated, unable to give coherent history. Most of the history taken by discussion with the ER physician and review of chart. PAST MEDICAL HISTORY: Reviewed, include COPD. Rest of the history and rest of the chart is also reviewed. HOME MEDICATIONS: Reviewed, include metformin. Doses and rest of medications reviewed and not confirmed. ALLERGIES: Reviewed, include lisinopril. Family history, social history, review of systems, could not be taken because of change in mental status. PHYSICAL EXAMINATION: VITAL SIGNS: Pulse is 85, blood pressure 116/70, respirations 28, temperature 97. The vent settings are noted as before. HEENT: Conjunctivae normal. NECK: No JVD. CARDIOVASCULAR: S1, S2. RESPIRATORY: Bilateral scattered rhonchi and crackles. ABDOMEN: Soft, nontender. NERVOUS SYSTEM: Sedated. LABORATORY DATA: Noted. ASSESSMENT: 1. Chronic obstructive pulmonary disease, acute exacerbation with acute pain tracheobronchitis, acute hypoxic respiratory failure. 2. Acute respiratory acidosis. 3. Diabetes mellitus, type 2. 4. Hypertension. 5. Hyperlipidemia. 6. History of sleep apnea. 7. Multiple medical issues including coronary artery disease stent. RECOMMENDATIONS: This is a 57-year-old gentleman who presented with multiple complex medical issues. We will monitor the patient closely, initiate intensive bronchodilators, IV steroids, monitor blood sugars closely. Otherwise, I would also recommend empiric antibiotics, also serum procalcitonin level, viral titers. DVT prophylaxis, proton pump inhibitors. Prognosis is guarded because of multiple complex medical conditions Dr. Hayes. MMODL / IJN: [id number] / [facility]
[2022-11-07 15:24] LABS: Glucose,Whole Blood 191 mg/dL (70-110)
[2022-11-07] MEDS: IPRATROPIUM-ALBUTEROL 3 ML NEB INHALATION SCH ×2 (15:42→20:03)
[2022-11-07] MEDS: HEPARIN SODIUM,PORCINE/PF 5,000 UNIT/0.5 ML SYRINGE SQ SCH ×2 (15:54→20:22)
[2022-11-07] MEDS: PANTOPRAZOLE 40 MG/10 ML VIAL IVP SCH (15:55)
[2022-11-07] MEDS ORDERED: IPRATROPIUM-ALBUTEROL 3 ML NEB INHALATION SCH (16:00)
[2022-11-07] MEDS ORDERED: DEXTROSE 50% SYRINGE 50 ML IVP PRN ×2 (17:22)
[2022-11-07 17:38] LABS: Glucose,Whole Blood 186 mg/dL (70-110)
[2022-11-07] MEDS: methylPREDNISolone SOD SUCCI 125 MG/2 ML VIAL IV SCH (17:43)
[2022-11-07] MEDS: INSULIN ASPART (NovoLOG) 100 UNIT/ML VIAL SQ SCH (17:43)
[2022-11-07] MEDS: FORMOTEROL FUMARATE 20 MCG/2 ML NEBU INHALATION SCH (20:03)
[2022-11-07] MEDS: BUDESONIDE 1 MG/2 ML NEBU INHALATION SCH (20:03)
[2022-11-07] MEDS: HYDROmorphone 0.5 MG/0.5 ML SYRINGE IVP PRN (21:43)
[2022-11-07] MEDS: CHLORHEXIDINE GLUCONATE 15 ML CUP MUCOUS MEM SCH (21:43)
[2022-11-08 00:02] LABS: Glucose,Whole Blood 163 mg/dL (70-110)
[2022-11-08] MEDS: IPRATROPIUM-ALBUTEROL 3 ML NEB INHALATION SCH ×6 (00:06→20:29)
[2022-11-08] MEDS: methylPREDNISolone SOD SUCCI 125 MG/2 ML VIAL IV SCH ×4 (00:35→18:10)
[2022-11-08] MEDS: INSULIN ASPART (NovoLOG) 100 UNIT/ML VIAL SQ SCH ×4 (00:36→18:09)
[2022-11-08] MEDS: SODIUM CHLORIDE 0.9% 1,000 ML IV SCH ×2 (01:32→10:10)
[2022-11-08] MEDS: ACETAMINOPHEN TAB 325 MG TAB PO PRN (01:32)
[2022-11-08] MEDS: HYDROmorphone 0.5 MG/0.5 ML SYRINGE IVP PRN ×3 (01:58→19:41)
[2022-11-08 04:19] LABS: African American GFR (CKD) 47 (>60 ml/min/1.73 sqM); Anion Gap 16 mmol/L; Blood Urea Nitrogen 45 mg/dL (9-20); Calcium 7.4 mg/dL (8.4-10.2); Carbon Dioxide 24 mmol/L (22-30); Chloride 106 mmol/L (98-107); Glucose 210 mg/dL (74-99); Non-African American GFR(CKD) 41 (>60 ml/min/1.73 sqM); Potassium 4.5 mmol/L (3.5-5.1); Sodium 146 mmol/L (137-145)
[2022-11-08 04:43] LABS: Basophils % (A) 0 %; Eosinophils % (A) 0 %; HCT 45.3 % (39.0-53.0); Lymphocytes # (A) 0.5 k/uL (1.0-4.8); Lymphocytes % (A) 5 %; MCH 31.1 pg (25.0-35.0); MCHC 33.2 g/dL (31.0-37.0); MCV 93.6 fL (80.0-100.0); Mean Platelet Volume 9.1; Monocytes # (A) 0.3 k/uL (0-1.0); Monocytes % (A) 3 %; Neutrophils # (A) 9.2 k/uL (1.3-7.7); Neutrophils % (A) 91 %; Platelet Count 152 k/uL (150-450); RBC 4.84 m/uL (4.30-5.90); RDW 13.8 % (11.5-15.5); WBC 10.1 k/uL (3.8-10.6)
[2022-11-08 05:16] LABS: Glucose,Whole Blood 201 mg/dL (70-110)
[2022-11-08 06:12] LABS: ABG Base Excess 0.1 mmol/L; ABG HCO3 26 mmol/L (21-25); ABG Oxygen Saturation 95.1 % (94-97); ABG PCO2 49 mmHg (35-45); ABG PH 7.34 (7.35-7.45); ABG PO2 80 mmHg (83-108); ABG TCO2 28 mmol/L (19-24); Allen Test Performed? Yes
--- NOTE | 2022-11-08 06:47 | XR ---
EXAMINATION TYPE: XR chest 1V portable DATE OF EXAM: 11/08/2022 5:27 AM COMPARISON: Chest radiographs from TECHNIQUE: XR chest 1V portable Frontal view of the chest. CLINICAL INDICATION:Male, 57 years old with history of Tube placement; FINDINGS: Lungs/Pleura: There is no evidence of pleural effusion, focal consolidation, or pneumothorax. Pulmonary vascularity: Unremarkable. Heart/mediastinum: Cardiomediastinal silhouette is unremarkable. Musculoskeletal: No acute osseous pathology. There is fixation hardware in the lower cervical spine. Other findings: None Lines/Tubes: Endotracheal tube with distal tip 5.0 cm above the nathalia. Nasogastric tube with its distal tip and side-port projecting under the diaphragm. IMPRESSION: No acute cardiopulmonary disease/process. Stable support tubes.
[2022-11-08] MEDS: FORMOTEROL FUMARATE 20 MCG/2 ML NEBU INHALATION SCH ×2 (07:47→20:29)
[2022-11-08] MEDS: BUDESONIDE 1 MG/2 ML NEBU INHALATION SCH ×2 (07:47→20:29)
[2022-11-08] MEDS: CHLORHEXIDINE GLUCONATE 15 ML CUP MUCOUS MEM SCH ×2 (08:53→19:41)
[2022-11-08] MEDS: HEPARIN SODIUM,PORCINE/PF 5,000 UNIT/0.5 ML SYRINGE SQ SCH ×2 (08:53→20:07)
[2022-11-08] MEDS: PANTOPRAZOLE 40 MG/10 ML VIAL IVP SCH (08:53)
[2022-11-08] MEDS ORDERED: CISATRACURIUM 2 MG/ML 5 ML VIAL IV ONE (09:11)
--- NOTE | 2022-11-08 10:18 | PCN ---
PROCEDURE NOTE This is a pulmonary/critical care procedure note. PROCEDURE: Right radial arterial line. PREOPERATIVE DIAGNOSES: Frequent blood draws, blood gas monitoring, and hypotension. POSTOPERATIVE DIAGNOSES: Frequent blood draws, blood gas monitoring, and hypotension. ARTERIAL LINE PLACEMENT: Indications: Hemodynamic monitoring. A time-out was completed verifying correct patient, procedure, site, positioning, and implant(s) or special equipment if applicable. William's test was performed to ensure adequate perfusion. The patient's right/left wrist or right/left groin was prepped and draped in sterile fashion. 1% Lidocaine was used to anesthetize the area. An 18G Arrow arterial line was introduced into the radial/femoral artery. The catheter was threaded over the guide wire and the needle was removed with appropriate pulsatile blood return. Blood loss was minimal. The catheter was then sutured in place to the skin and a sterile dressing applied by the nurse. Perfusion to the extremity distal to the point of catheter insertion was checked and found to be adequate. We used the right radial artery. There was good blood return and waveform. The patient tolerated the procedure well. There were no major complications. MMODL / IJN: [id number] /
--- NOTE | 2022-11-08 10:30 | PCN ---
PROCEDURE NOTE This is a pulmonary/critical care procedure note. PROCEDURE: Left internal jugular triple-lumen catheter. PREOPERATIVE DIAGNOSIS: Administration of fluids and pressors. POSTOPERATIVE DIAGNOSIS: Administration of fluids and pressors as well as DVT monitoring. FIRST PROOF PRESS OPERATOR: Dr. Zabrina Rossi. TRIPLE LUMEN CATHETER PLACEMENT: Indication: Hemodynamic monitoring/Intravenous access. A time-out was completed verifying correct patient, procedure, site, positioning, and implant(s) or special equipment if applicable. The patient was placed in a dependent position appropriate for triple lumen catheter placement based on the vein to be cannulated. The patient's left neck was prepped and draped in sterile fashion. 1% Lidocaine was used to anesthetize the surrounding skin area. A triple lumen 9F Cordis catheter was introduced into the left internal jugular vein. We went via the posterior approach. The catheter was threaded smoothly over the guide wire and appropriate blood return was obtained. Each lumen of the catheter was evacuated of air and flushed with sterile saline. The catheter was then sutured in place to the skin and a sterile dressing applied. Perfusion to the extremity distal to the point of catheter insertion was checked and found to be adequate. There was good blood return from all 3 ports. The patient tolerated the procedure well. The catheter was sutured in place and sterile dressing was applied by the nurse. A chest x-ray was ordered to check placement of the tip. Again, there was no immediate complication. The patient tolerated the procedure well. There was informed consent and universal timeout. MMODL / IJN: [id number] /
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
--- NOTE | 2022-11-08 10:54 | XR ---
EXAMINATION TYPE: XR chest 1V portable DATE OF EXAM: 11/08/2022 10:34 AM COMPARISON: Chest radiographs from 11/08/2022. TECHNIQUE: XR chest 1V portable Frontal view of the chest. CLINICAL INDICATION:Male, 57 years old with history of central line placement; FINDINGS: Lungs/Pleura: There is no evidence of pleural effusion, focal consolidation, or pneumothorax. Pulmonary vascularity: Unremarkable. Heart/mediastinum: Cardiomediastinal silhouette is unremarkable. Musculoskeletal: No acute osseous pathology. There is fixation hardware in the lower cervical spine. Other findings: None Lines/Tubes: Endotracheal tube with distal tip 4.6 cm above the nathalia. Nasogastric tube with its distal tip and side-port projecting under the diaphragm. Left internal jugular central venous catheter with distal tip at the cavoatrial junction. IMPRESSION: Left central venous catheter in appropriate position without evidence for pneumothorax. No acute cardiopulmonary disease/process.
[2022-11-08] MEDS ORDERED: LACTATED RINGERS 1,000 ML IV SCH ×2 (11:30→12:30)
[2022-11-08 11:38] LABS: Glucose,Whole Blood 259 mg/dL (70-110)
[2022-11-08 18:03] LABS: Glucose,Whole Blood 222 mg/dL (70-110)
--- NOTE | 2022-11-08 21:29 | XR ---
EXAMINATION TYPE: XR chest 1V portable DATE OF EXAM: 11/08/2022 9:15 PM COMPARISON: Chest radiographs from 11/08/2022 TECHNIQUE: XR chest 1V portable Portable AP radiograph of the chest. CLINICAL INDICATION:Male, 57 years old with history of OG tube placement.; FINDINGS: Lungs/Pleura: There is no evidence of pleural effusion, focal consolidation, or pneumothorax. Chroni c senescent parenchymal changes. Pulmonary vascularity: Unremarkable. Heart/mediastinum: Cardiomediastinal silhouette is unremarkable. Musculoskeletal: No acute osseous pathology. Cervical fusion hardware. Other findings: None Lines/Tubes: Endotracheal tube with distal tip at the level of the clavicular heads. Orogastric tube with its distal tip directed below the diaphragm. The sidehole is demonstrated at the GE junction. Left internal jugular central venous catheter with distal tip at the low SVC. IMPRESSION: 1. Orogastric tube demonstrated with distal tip below the diaphragm with sidehole at the level of th e GE junction. Recommend advancement of 3 cm. 2. Stable support lines and tubes.
[2022-11-09 00:16] LABS: Glucose,Whole Blood 228 mg/dL (70-110)
[2022-11-09] MEDS: HYDROmorphone 0.5 MG/0.5 ML SYRINGE IVP PRN ×2 (00:25→03:25)
[2022-11-09] MEDS: INSULIN ASPART (NovoLOG) 100 UNIT/ML VIAL SQ SCH ×4 (00:26→17:58)
[2022-11-09] MEDS: methylPREDNISolone SOD SUCCI 125 MG/2 ML VIAL IV SCH ×4 (00:26→17:58)
[2022-11-09] MEDS: IPRATROPIUM-ALBUTEROL 3 ML NEB INHALATION SCH ×6 (00:27→19:54)
[2022-11-09] MEDS: SODIUM CHLORIDE 0.9% 1,000 ML IV SCH ×2 (00:33→06:50)
[2022-11-09] MEDS: fentaNYL (PF). 1,000 MCG in SODIUM CHLORIDE 0.9% 80 ML IV SCH ×2 (03:01→12:50)
[2022-11-09] MEDS ORDERED: CISATRACURIUM 2 MG/ML 5 ML VIAL IV ONE (03:57)
[2022-11-09] MEDS: CISATRACURIUM 200 MG in SODIUM CHLORIDE 0.9% 180 ML IV SCH (04:07)
[2022-11-09] MEDS ORDERED: SODIUM CHLORIDE 0.9% 500 ML 500 ML IV ONE (05:26)
[2022-11-09 05:51] LABS: Glucose,Whole Blood 257 mg/dL (70-110)
[2022-11-09] MEDS: ARTIFICIAL TEARS-HYPROMELLOSE DROPS 15 ML BTL BOTH EYES SCH ×5 (05:57→20:45)
[2022-11-09 06:01] LABS: Basophils % (A) 0 %; Eosinophils % (A) 0 %; HCT 38.3 % (39.0-53.0); HGB 12.6 gm/dL (13.0-17.5); Lymphocytes # (A) 0.2 k/uL (1.0-4.8); Lymphocytes % (A) 4 %; MCHC 33.1 g/dL (31.0-37.0); MCV 93.8 fL (80.0-100.0); Monocytes # (A) 0.2 k/uL (0-1.0); Monocytes % (A) 4 %; Neutrophils % (A) 91 %; Platelet Count 112 k/uL (150-450); RBC 4.08 m/uL (4.30-5.90); RDW 13.8 % (11.5-15.5); WBC 5.5 k/uL (3.8-10.6)
[2022-11-09 06:03] LABS: ABG Base Excess 2.3 mmol/L; ABG HCO3 28 mmol/L (21-25); ABG PCO2 51 mmHg (35-45); ABG PH 7.35 (7.35-7.45); ABG PO2 84 mmHg (83-108); ABG TCO2 30 mmol/L (19-24)
[2022-11-09 06:16] LABS: African American GFR (CKD) 81 (>60 ml/min/1.73 sqM); Anion Gap 8 mmol/L; Blood Urea Nitrogen 39 mg/dL (9-20); Calcium 6.8 mg/dL (8.4-10.2); Carbon Dioxide 27 mmol/L (22-30); Chloride 108 mmol/L (98-107); Glucose 280 mg/dL (74-99); Non-African American GFR(CKD) 70 (>60 ml/min/1.73 sqM); Potassium 3.5 mmol/L (3.5-5.1); Sodium 143 mmol/L (137-145)
[2022-11-09] MEDS ORDERED: Potassium Replacement Protocol 1 EACH MISC MISCELLANE PRN (06:24)
[2022-11-09] MEDS: POTASSIUM BICARBONATE/CIT AC 20 MEQ TABLET.EFF NG-TUBE SCH ×2 (06:47→08:32)
--- NOTE | 2022-11-09 07:26 | XR ---
EXAMINATION TYPE: XR chest 1V portable DATE OF EXAM: 11/09/2022 5:20 AM COMPARISON: Chest radiographs from 11/08/2022 TECHNIQUE: XR chest 1V portable Frontal view of the chest. CLINICAL INDICATION:Male, 57 years old with history of Tube placement; FINDINGS: Lungs/Pleura: There is no evidence of pleural effusion, focal consolidation, or pneumothorax. Pulmonary vascularity: Unremarkable. Heart/mediastinum: Cardiomediastinal silhouette is unremarkable. Musculoskeletal: No acute osseous pathology. There is fixation hardware in the lower cervical spine. Lines/Tubes: Endotracheal tube with distal tip 6.7 cm above the nathalia. Nasogastric tube with its distal tip and side-port projecting under the diaphragm. Left internal jugular central venous catheter with distal tip at the cavoatrial junction. IMPRESSION: 1. Relatively clear lungs 2. Stable support lines and tubes.
--- NOTE | 2022-11-09 07:46 | PN ---
PROGRESS NOTE SUBJECTIVE: This is a 57-year-old gentleman, who was admitted with COPD exacerbation as well as acute pain tracheobronchitis and acute hypoxic respiratory failure, on mechanical intubation with 50% FiO2. The patient is monitored in ICU. The chest x-ray done today was reviewed personally by me showed no significant evidence of pneumonia. The patient is running some fever. The procalcitonin is 0.36. The viral cultures titers are negative. PAST MEDICAL HISTORY: Reviewed. MEDICATIONS: Reviewed and include Rocephin. Rest of medications and doses reviewed. REVIEW OF SYSTEMS: Could not be taken. PHYSICAL EXAMINATION: VITAL SIGNS: Pulse is 96, blood pressure 91/44, respirations 29. HEENT: Conjunctivae normal. NECK: No jugular venous distention. CARDIOVASCULAR: S1, S2 normal. RESPIRATIONS: Bilateral scattered rhonchi and crackles. ABDOMEN: Soft. NERVOUS SYSTEM: Sedated. SKIN: No rash. JOINTS: No active deforming arthropathy. LABORATORY DATA: Reviewed. ASSESSMENT: 1. Chronic obstructive pulmonary disease exacerbation with acute pain tracheobronchitis with acute hypoxic respiratory failure, on mechanical ventilation. 2. Acute respiratory acidosis. 3. Diabetes mellitus, type 2. 4. Hypertension. 5. Hyperlipidemia. 6. History of sleep apnea. 7. Multiple medical issues including coronary artery disease and stent. RECOMMENDATIONS AND DISCUSSION: Recommend to continue the current management. Continue symptomatic treatment. I would also recommend cultures because of the running fever. The prognosis is guarded. Further recommendations to follow. See orders for details. MMODL / IJN: [id number] /
[2022-11-09] MEDS: BUDESONIDE 1 MG/2 ML NEBU INHALATION SCH ×2 (07:49→19:54)
[2022-11-09] MEDS: FORMOTEROL FUMARATE 20 MCG/2 ML NEBU INHALATION SCH ×2 (07:49→19:54)
[2022-11-09] MEDS: HEPARIN SODIUM,PORCINE/PF 5,000 UNIT/0.5 ML SYRINGE SQ SCH ×2 (08:32→20:45)
[2022-11-09] MEDS: PANTOPRAZOLE 40 MG/10 ML VIAL IVP SCH (08:32)
[2022-11-09] MEDS: CHLORHEXIDINE GLUCONATE 15 ML CUP MUCOUS MEM SCH ×2 (08:33→20:45)
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
--- NOTE | 2022-11-09 10:54 | P.PN ---
Subjective This is a pleasant 57 years old female with multiple medical problems including history of COPD. Presents because of worsening dyspnea and hypoxia requiring mechanical ventilation. Patient currently remains in the ICU intubated and sedated. Also patient had a fever on admission 101.3 suspected secondary to possible pneumonia versus tracheobronchitis, patient currently covered with ceftriaxone, fever subsided. Patient is tachypneic. Creatinine improving 1.5, 1.8 down to 1.1 today. Patient is on some epidural 60 mg as well as ceftriaxone and insulin. Today patient remains in the ICU intubated and sedated and information limited from the patient. Objective - Vital Signs Vital signs: Vital Signs Temp 98.8 F 11/09/22 08:00 Pulse 90 11/09/22 09:45 Resp 28 H 11/09/22 09:45 BP 111/59 11/08/22 14:00 Pulse Ox 97 11/09/22 09:45 FiO2 50 11/09/22 08:00 Intake & Output 11/08/22 11/09/22 11/09/22 18:59 06:59 18:59 Intake Total 3399.379 2198.320 529.162 Output Total 430 539 150 Balance 2969.379 1659.320 379.162 Weight 90.3 kg Intake: IV 3100 1700 300 Lactated Ringers 1,000 ml 2000 @ 999 mls/hr IV .[id number] [facility] Rx#:[id number] Sodium Chloride 0.9% 1, 1100 1700 300 000 ml @ 100 mls/hr IV . Q10H [facility] Rx#:[id number] Intake, IV Titration 299.379 498.320 229.162 Amount Cisatracurium 200 mg In 9.386 29.162 Sodium Chloride 0.9% 180 ml @ 1 MCG/KG/MIN 5.028 mls/hr IV .Q24H [facility] Rx#: [id number] cefTRIAXone 1 gm In 100 Sodium Chloride 0.9% 50 ml @ 100 mls/hr IVPB Q24HR [facility] Rx#:[id number] fentaNYL (PF). 1,000 mcg 29.191 In Sodium Chloride 0.9% 80 ml @ 0.5 MCG/KG/HR 4. 19 mls/hr IV .[id number] [facility] Rx#:[id number] propofoL 1,000 mg In 299.379 459.743 100 Empty Bag 1 bag @ 15 MCG/ KG/MIN 7.812 mls/hr IV . [id number] [facility] Rx#:[id number] Output: Urine 430 539 150 Other: Voiding Method Indwelling Catheter Indwelling Catheter ABP, PAP, CO, CI - Last Documented Arterial Blood Pressure 99/47 - Exam -GENERAL: The patient is sedated and intubated HEENT: Pupils are round and equally reacting to light. EOMI. No scleral icterus. No conjunctival pallor. Normocephalic, atraumatic. No pharyngeal erythema. No thyromegaly. CARDIOVASCULAR: S1 and S2 present. No murmurs, rubs, or gallops. -PULMONARY: Chest is clear to auscultation, no wheezing , no crackles. Decreased air entry with shallow breathing ABDOMEN: Soft, nontender, nondistended, normoactive bowel sounds. No palpable organomegaly. MUSCULOSKELETAL: No joint swelling or deformity. EXTREMITIES: No cyanosis, clubbing, or pedal edema. NEUROLOGICAL: Gross neurological examination did not reveal any focal deficits. SKIN: No rashes. no petechiae. - Labs CBC & Chem 7: 11/09/22 05:15 11/09/22 05:15 Labs: Abnormal Lab Results - Last 24 Hours (Table) 11/08/22 11/08/22 11/09/22 Range/Units 11:36 18:02 00:14 RBC (4.30-5.90) m/uL Hgb (13.0-17.5) gm/dL Hct (39.0-53.0) % Plt Count (150-450) k/uL Lymphocytes # (1.0-4.8) k/uL ABG pCO2 (35-45) mmHg ABG HCO3 (21-25) mmol/L ABG Total CO2 (19-24) mmol/L Chloride (98-107) mmol/L BUN (9-20) mg/dL Glucose (74-99) mg/dL POC Glucose (mg/dL) 259 H 222 H 228 H (70-110) mg/dL Calcium (8.4-10.2) mg/dL 11/09/22 11/09/22 11/09/22 Range/Units 05:15 05:15 05:50 RBC 4.08 L (4.30-5.90) m/uL Hgb 12.6 L (13.0-17.5) gm/dL Hct 38.3 L (39.0-53.0) % Plt Count 112 L (150-450) k/uL Lymphocytes # 0.2 L (1.0-4.8) k/uL ABG pCO2 (35-45) mmHg ABG HCO3 (21-25) mmol/L ABG Total CO2 (19-24) mmol/L Chloride 108 H (98-107) mmol/L BUN 39 H (9-20) mg/dL Glucose 280 H (74-99) mg/dL POC Glucose (mg/dL) 257 H (70-110) mg/dL Calcium 6.8 L (8.4-10.2) mg/dL 11/09/22 Range/Units 05:58 RBC (4.30-5.90) m/uL Hgb (13.0-17.5) gm/dL Hct (39.0-53.0) % Plt Count (150-450) k/uL Lymphocytes # (1.0-4.8) k/uL ABG pCO2 51 H (35-45) mmHg ABG HCO3 28 H (21-25) mmol/L ABG Total CO2 30 H (19-24) mmol/L Chloride (98-107) mmol/L BUN (9-20) mg/dL Glucose (74-99) mg/dL POC Glucose (mg/dL) (70-110) mg/dL Calcium (8.4-10.2) mg/dL Microbiology - Last 24 Hours (Table) 11/07/22 15:33 Blood Culture - Preliminary Blood Assessment and Plan Assessment: Acute COPD exacerbation Acute hypoxic respiratory failure requiring intubation and mechanical ventilation Acute kidney injury on chronic kidney disease stage III. Stable. Obesity with BMI of 29.4 Plan: Continue with obvious on iv solu-Medrol 60 mg Continue with ceftriaxone Pulmonary/critical care excellent consult Labs and medication were reviewed.. Continue same treatment. Continue with symptomatic treatment. Resume home medication. Monitor labs and vitals. DVT and GI prophylaxis. Further recommendations as per clinical course of the patient DVT prophylaxis: Subcutaneous heparin GI Prophylaxis: Ppi Prognosis is guarded
[2022-11-09] MEDS: HYDROmorphone 1 MG/ML 1 ML SYRINGE IM PRN (11:17)
[2022-11-09] MEDS: INSULIN DETEMIR (LEVEMIR) 100 UNIT/ML SYR SQ SCH (11:21)
[2022-11-09 12:48] LABS: Glucose,Whole Blood 277 mg/dL (70-110)
--- NOTE | 2022-11-09 17:08 | CA ---
Transthoracic Echo Report Name: Rakan Flynn Age: 57 Gender: M : 1965 Exam Date: 11/09/2022 12:09 Exam Location: [place] [facility] Ht (in): 69 Wt (lb): 199 Ordering Physician: Selwyn Gilmore MD Attending/Referring Phys: Senior Java Software Engineer Thania Pretty RDCS Procedure CPT: Indications: elevated BNP/Trops Cardiac Hx: Technical Quality: Technically difficult study Contrast 1: Total Dose (mL): Contrast 2: Total Dose (mL): MEASUREMENTS (Male / Female) Normal Values 2D ECHO LV Diastolic Diameter PLAX 4.5 cm 4.2 - 5.9 / 3.9 - 5.3 cm LV Systolic Diameter PLAX 2.8 cm IVS Diastolic Thickness 1.2 cm 0.6 - 1.0 / 0.6 - 0.9 cm LVPW Diastolic Thickness 1.1 cm 0.6 - 1.0 / 0.6 - 0.9 cm LV Relative Wall Thickness 0.5 RV Internal Dim ED PLAX 3.1 cm LA Systolic Diameter LX 3.6 cm 3.0 - 4.0 / 2.7 - 3.8 cm M-MODE Aortic Root Diameter MM 3.4 cm MV E Point Septal Separation 1.3 cm AV Cusp Separation MM 2.2 cm DOPPLER AV Peak Velocity 106.8 cm/s AV Peak Gradient 4.6 mmHg MV Area PHT 4.3 cm??? Mitral E Point Velocity 59.4 cm/s Mitral A Point Velocity 63.4 cm/s Mitral E to A Ratio 0.9 MV Deceleration Time 177.5 ms FINDINGS Left Ventricle Left ventricular ejection fraction is estimated at 55-60 %. Left ventricular cavity size normal. Mildly increased septal wall thickness. Right Ventricle Mildly increased right ventricular size without significant right ventricular hypokinesis. Unable to estimate the right ventricular systolic pressure. Right Atrium Normal right atrial size. Left Atrium Normal left atrial size. Mitral Valve Structurally normal mitral valve. No mitral stenosis, regurgitation or prolapse. Aortic Valve Trileaflet aortic valve. No aortic valve stenosis or regurgitation. Tricuspid Valve Structurally normal tricuspid valve. No tricuspid stenosis, regurgitation or prolapse. Pulmonic Valve Pulmonic valve not well visualized. Pericardium Normal pericardium. No pericardial effusion. Aorta Normal size aortic root and proximal ascending aorta. CONCLUSIONS Normal left ventricular ejection fraction 55-60% Mildly increased left ventricular wall thickness Mild right ventricular dilation No pericardial effusion Previewed by: Dr. Og St DO (Electronically Signed) Final Date: 09 November 2022 17:06
[2022-11-09 17:49] LABS: Glucose,Whole Blood 236 mg/dL (70-110)
[2022-11-09 23:53] LABS: Glucose,Whole Blood 254 mg/dL (70-110)
[2022-11-10] MEDS: IPRATROPIUM-ALBUTEROL 3 ML NEB INHALATION SCH ×7 (00:07→23:30)
[2022-11-10] MEDS: ARTIFICIAL TEARS-HYPROMELLOSE DROPS 15 ML BTL BOTH EYES SCH ×7 (00:44→23:44)
[2022-11-10] MEDS: methylPREDNISolone SOD SUCCI 125 MG/2 ML VIAL IV SCH ×5 (00:46→23:45)
[2022-11-10] MEDS: SODIUM CHLORIDE 0.9% 1,000 ML IV SCH (00:47)
[2022-11-10] MEDS: INSULIN ASPART (NovoLOG) 100 UNIT/ML VIAL SQ SCH ×5 (00:47→23:47)
[2022-11-10] MEDS: fentaNYL (PF). 1,000 MCG in SODIUM CHLORIDE 0.9% 80 ML IV SCH ×2 (01:32→15:23)
[2022-11-10] MEDS: CISATRACURIUM 200 MG in SODIUM CHLORIDE 0.9% 180 ML IV SCH (01:34)
[2022-11-10 05:19] LABS: Glucose,Whole Blood 277 mg/dL (70-110)
[2022-11-10 05:39] LABS: Basophils % (A) 0 %; Eosinophils % (A) 1 %; Hypochromasia Slight; Lymphocytes # (A) 0.2 k/uL (1.0-4.8); Lymphocytes % (A) 4 %; MCH 31.4 pg (25.0-35.0); MCHC 33.2 g/dL (31.0-37.0); MCV 94.6 fL (80.0-100.0); Mean Platelet Volume 9.2; Monocytes # (A) 0.2 k/uL (0-1.0); Monocytes % (A) 4 %; Neutrophils # (A) 4.7 k/uL (1.3-7.7); Neutrophils % (A) 91 %; Platelet Count 111 k/uL (150-450); RBC 4.12 m/uL (4.30-5.90); WBC 5.2 k/uL (3.8-10.6)
[2022-11-10 05:51] LABS: African American GFR (CKD) >90 (>60 ml/min/1.73 sqM); Anion Gap 3 mmol/L; Blood Urea Nitrogen 34 mg/dL (9-20); Calcium 6.7 mg/dL (8.4-10.2); Carbon Dioxide 29 mmol/L (22-30); Chloride 108 mmol/L (98-107); Glucose 278 mg/dL (74-99); Non-African American GFR(CKD) 80 (>60 ml/min/1.73 sqM); Potassium 4.7 mmol/L (3.5-5.1); Sodium 140 mmol/L (137-145)
[2022-11-10 05:55] LABS: ABG Base Excess 4.4 mmol/L; ABG HCO3 30 mmol/L (21-25); ABG Oxygen Saturation 99.1 % (94-97); ABG PCO2 51 mmHg (35-45); ABG PH 7.37 (7.35-7.45); ABG PO2 178 mmHg (83-108); ABG TCO2 31 mmol/L (19-24); Allen Test Performed? Yes
[2022-11-10] MEDS: INSULIN DETEMIR (LEVEMIR) 100 UNIT/ML SYR SQ SCH ×2 (06:33→20:38)
[2022-11-10] MEDS: BUDESONIDE 1 MG/2 ML NEBU INHALATION SCH ×2 (07:55→19:47)
[2022-11-10] MEDS: FORMOTEROL FUMARATE 20 MCG/2 ML NEBU INHALATION SCH ×2 (07:56→19:47)
[2022-11-10] MEDS: HEPARIN SODIUM,PORCINE/PF 5,000 UNIT/0.5 ML SYRINGE SQ SCH ×2 (08:00→20:38)
[2022-11-10] MEDS: CHLORHEXIDINE GLUCONATE 15 ML CUP MUCOUS MEM SCH ×2 (08:02→20:39)
[2022-11-10] MEDS: PANTOPRAZOLE 40 MG/10 ML VIAL IVP SCH (08:03)
--- NOTE | 2022-11-10 08:52 | XR ---
EXAMINATION TYPE: XR chest 1V portable DATE OF EXAM: 11/10/2022 Comparison: 11/09/2022 Clinical History: 57-year-old male Tube placement Findings: ET tube tip just below the level of the medial clavicular heads. NG tube courses below the diaphragm. Left CVC tip at the cavoatrial junction. Heart upper limits of normal in size. No consolidation or p leural effusion seen. ACDF hardware. Impression: Lungs remain relatively clear.
[2022-11-10] MEDS ORDERED: FUROSEMIDE 10 MG/ML 4 ML VIAL IV STA (08:58)
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
--- NOTE | 2022-11-10 09:27 | P.PN ---
Subjective This is a pleasant 57 years old female with multiple medical problems including history of COPD. Presents because of worsening dyspnea and hypoxia requiring mechanical ventilation. Patient currently remains in the ICU intubated and sedated. Also patient had a fever on admission 101.3 suspected secondary to possible pneumonia versus tracheobronchitis, patient currently covered with ceftriaxone, fever subsided. Patient is tachypneic. Creatinine improving 1.5, 1.8 down to 1.1 today. Patient is on some epidural 60 mg as well as ceftriaxone and insulin. Today patient remains in the ICU intubated and sedated and information limited from the patient. 11/10/2022 Remains in the ICU sedated and intubated. Pulmonary/critical care team on the case and help with and management. He was admitted with acute COPD exacerbation with acute on chronic kidney disease. lab report positive gram-positive cocci in clusters. Patient currently covered with ceftriaxone. We'll come to consult infectious disease team. Remains on Medrol 60 Mg. Ejection Fraction 55-60% Objective - Vital Signs Vital signs: Vital Signs Temp 98.3 F 11/10/22 08:00 Pulse 75 11/10/22 08:16 Resp 28 H 11/10/22 08:00 BP 111/59 11/08/22 14:00 Pulse Ox 98 11/10/22 08:00 FiO2 40 11/10/22 08:00 Intake & Output 11/09/22 11/10/22 11/10/22 18:59 06:59 18:59 Intake Total 3673.322 9940.377 130 Output Total 455 453 35 Balance 765.924 7600.377 95 Weight 90.3 kg 90.2 kg Intake: IV 740 520 40 Sodium Chloride 0.9% 1, 740 520 40 000 ml @ 40 mls/hr IV . Q24H [facility] Rx#:[id number] Intake, IV Titration 509.967 602.377 50 Amount Cisatracurium 200 mg In 29.162 125.826 Sodium Chloride 0.9% 180 ml @ 1 MCG/KG/MIN 5.028 mls/hr IV .Q24H [facility] Rx#: [id number] cefTRIAXone 1 gm In 100 50 Sodium Chloride 0.9% 50 ml @ 100 mls/hr IVPB Q24HR [facility] Rx#:[id number] fentaNYL (PF). 1,000 mcg 64.666 100 In Sodium Chloride 0.9% 80 ml @ 0.5 MCG/KG/HR 4. 19 mls/hr IV .[id number] [facility] Rx#:[id number] propofoL 1,000 mg In 316.139 376.551 Empty Bag 1 bag @ 15 MCG/ KG/MIN 7.812 mls/hr IV . [id number] [facility] Rx#:[id number] Tube Feeding 380 40 Other 90 Output: Urine 455 453 35 Other: Voiding Method Indwelling Catheter Indwelling Catheter Indwelling Catheter ABP, PAP, CO, CI - Last Documented Arterial Blood Pressure 112/52 - Exam -GENERAL: The patient is sedated and intubated HEENT: Pupils are round and equally reacting to light. EOMI. No scleral icterus. No conjunctival pallor. Normocephalic, atraumatic. No pharyngeal erythema. No thyromegaly. CARDIOVASCULAR: S1 and S2 present. No murmurs, rubs, or gallops. -PULMONARY: Chest is clear to auscultation, no wheezing , no crackles. Decreased air entry with shallow breathing ABDOMEN: Soft, nontender, nondistended, normoactive bowel sounds. No palpable organomegaly. MUSCULOSKELETAL: No joint swelling or deformity. EXTREMITIES: No cyanosis, clubbing, or pedal edema. NEUROLOGICAL: Gross neurological examination did not reveal any focal deficits. SKIN: No rashes. no petechiae. - Labs CBC & Chem 7: 11/10/22 05:21 11/10/22 05:21 Labs: Abnormal Lab Results - Last 24 Hours (Table) 11/09/22 11/09/22 11/09/22 Range/Units 12:47 17:47 23:52 RBC (4.30-5.90) m/uL Plt Count (150-450) k/uL Lymphocytes # (1.0-4.8) k/uL ABG pCO2 (35-45) mmHg ABG pO2 (83-108) mmHg ABG HCO3 (21-25) mmol/L ABG Total CO2 (19-24) mmol/L ABG O2 Saturation (94-97) % Chloride (98-107) mmol/L BUN (9-20) mg/dL Glucose (74-99) mg/dL POC Glucose (mg/dL) 277 H 236 H 254 H (70-110) mg/dL Calcium (8.4-10.2) mg/dL 11/10/22 11/10/22 11/10/22 Range/Units 05:18 05:21 05:21 RBC 4.12 L (4.30-5.90) m/uL Plt Count 111 L (150-450) k/uL Lymphocytes # 0.2 L (1.0-4.8) k/uL ABG pCO2 (35-45) mmHg ABG pO2 (83-108) mmHg ABG HCO3 (21-25) mmol/L ABG Total CO2 (19-24) mmol/L ABG O2 Saturation (94-97) % Chloride 108 H (98-107) mmol/L BUN 34 H (9-20) mg/dL Glucose 278 H (74-99) mg/dL POC Glucose (mg/dL) 277 H (70-110) mg/dL Calcium 6.7 L (8.4-10.2) mg/dL 11/10/22 Range/Units 05:54 RBC (4.30-5.90) m/uL Plt Count (150-450) k/uL Lymphocytes # (1.0-4.8) k/uL ABG pCO2 51 H (35-45) mmHg ABG pO2 178 H (83-108) mmHg ABG HCO3 30 H (21-25) mmol/L ABG Total CO2 31 H (19-24) mmol/L ABG O2 Saturation 99.1 H (94-97) % Chloride (98-107) mmol/L BUN (9-20) mg/dL Glucose (74-99) mg/dL POC Glucose (mg/dL) (70-110) mg/dL Calcium (8.4-10.2) mg/dL Microbiology - Last 24 Hours (Table) 11/07/22 15:33 Blood Culture Gram Stain - Preliminary Blood Blood Culture - Preliminary 11/07/22 12:45 Gram Stain - Preliminary Sputum Assessment and Plan Assessment: Acute COPD exacerbation Acute hypoxic respiratory failure requiring intubation and mechanical ventilation Bacteremia with gram-positive microorganisms Acute kidney injury on chronic kidney disease stage III. Stable. Obesity with BMI of 29.4 Plan: Continue with obvious on iv solu-Medrol 60 mg Continue with ceftriaxone Pulmonary/critical care excellent consult Consult infectious disease team Labs and medication were reviewed.. Continue same treatment. Continue with symptomatic treatment. Resume home medication. Monitor labs and vitals. DVT and GI prophylaxis. Further recommendations as per clinical course of the patient DVT prophylaxis: Subcutaneous heparin GI Prophylaxis: Ppi Prognosis is guarded
[2022-11-10] MEDS: HYDROmorphone 1 MG/ML 1 ML SYRINGE IM PRN ×3 (09:31→20:39)
[2022-11-10 10:50] LABS: ABG Base Excess 5.3 mmol/L; ABG HCO3 31 mmol/L (21-25); ABG Oxygen Saturation 97.8 % (94-97); ABG PCO2 61 mmHg (35-45); ABG PH 7.32 (7.35-7.45); ABG PO2 117 mmHg (83-108); ABG TCO2 33 mmol/L (19-24)
[2022-11-10 10:51] LABS: Allen Test Performed? no
[2022-11-10 11:11] LABS: Glucose,Whole Blood 295 mg/dL (70-110)
[2022-11-10 17:20] LABS: Glucose,Whole Blood 224 mg/dL (70-110)
[2022-11-10 20:28] LABS: Glucose,Whole Blood 251 mg/dL (70-110)
[2022-11-10] MEDS: ACETAMINOPHEN TAB 325 MG TAB PO PRN (20:39)
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
[2022-11-10 23:33] LABS: Glucose,Whole Blood 268 mg/dL (70-110)
[2022-11-10 23:39] LABS: Glucose,Whole Blood 263 mg/dL (70-110)
[2022-11-11] MEDS: ARTIFICIAL TEARS-HYPROMELLOSE DROPS 15 ML BTL BOTH EYES SCH ×3 (03:47→11:46)
[2022-11-11] MEDS: HYDROmorphone 1 MG/ML 1 ML SYRINGE IM PRN ×2 (03:47→07:59)
[2022-11-11] MEDS: IPRATROPIUM-ALBUTEROL 3 ML NEB INHALATION SCH ×5 (04:02→19:30)
[2022-11-11] MEDS: SODIUM CHLORIDE 0.9% 1,000 ML IV SCH (04:47)
[2022-11-11 05:20] LABS: African American GFR (CKD) >90 (>60 ml/min/1.73 sqM); Anion Gap 5 mmol/L; Blood Urea Nitrogen 40 mg/dL (9-20); Calcium 6.6 mg/dL (8.4-10.2); Carbon Dioxide 33 mmol/L (22-30); Chloride 104 mmol/L (98-107); Glucose 255 mg/dL (74-99); Non-African American GFR(CKD) 80 (>60 ml/min/1.73 sqM); Potassium 4.3 mmol/L (3.5-5.1); Sodium 142 mmol/L (137-145)
[2022-11-11 05:25] LABS: HGB 11.9 gm/dL (13.0-17.5); MCH 31.4 pg (25.0-35.0); MCHC 33.1 g/dL (31.0-37.0); Mean Platelet Volume 9.4; RBC 3.79 m/uL (4.30-5.90); RDW 14.1 % (11.5-15.5); WBC 4.3 k/uL (3.8-10.6)
[2022-11-11 05:38] LABS: ABG Base Excess 9.8 mmol/L; ABG HCO3 35 mmol/L (21-25); ABG Oxygen Saturation 96.6 % (94-97); ABG PCO2 57 mmHg (35-45); ABG PH 7.39 (7.35-7.45); ABG PO2 86 mmHg (83-108); ABG TCO2 37 mmol/L (19-24); Allen Test Performed? Yes
[2022-11-11 05:41] LABS: Platelet Count 95 k/uL (150-450)
[2022-11-11 05:47] LABS: Glucose,Whole Blood 248 mg/dL (70-110)
[2022-11-11] MEDS: INSULIN ASPART (NovoLOG) 100 UNIT/ML VIAL SQ SCH ×3 (05:50→17:38)
[2022-11-11] MEDS: methylPREDNISolone SOD SUCCI 125 MG/2 ML VIAL IV SCH ×3 (05:50→17:38)
[2022-11-11] MEDS: fentaNYL (PF). 1,000 MCG in SODIUM CHLORIDE 0.9% 80 ML IV SCH (06:08)
[2022-11-11] MEDS: INSULIN DETEMIR (LEVEMIR) 100 UNIT/ML SYR SQ SCH ×2 (06:41→21:10)
--- NOTE | 2022-11-11 07:07 | XR ---
EXAMINATION TYPE: XR chest 1V portable DATE OF EXAM: 11/11/2022 6:56 AM COMPARISON: Chest radiographs from 11/10/2022 TECHNIQUE: XR chest 1V portable Portable AP radiograph of the chest. CLINICAL INDICATION:Male, 57 years old with history of Tube placement; FINDINGS: Lungs/Pleura: There is no evidence of pleural effusion, focal consolidation, or pneumothorax. Pulmonary vascularity: Unremarkable. Heart/mediastinum: Cardiomediastinal silhouette is unremarkable. Musculoskeletal: No acute osseous pathology. Cervical fusion hardware. Other findings: None Lines/Tubes: Stable position of endotracheal tube, NG tube, and left IJ central venous catheter. IMPRESSION: 1. No focal consolidation. 2. Stable support lines and tubes.
[2022-11-11] MEDS: FORMOTEROL FUMARATE 20 MCG/2 ML NEBU INHALATION SCH ×2 (07:35→19:30)
[2022-11-11] MEDS: BUDESONIDE 1 MG/2 ML NEBU INHALATION SCH ×2 (07:35→19:30)
[2022-11-11] MEDS: CHLORHEXIDINE GLUCONATE 15 ML CUP MUCOUS MEM SCH (07:53)
[2022-11-11] MEDS: PANTOPRAZOLE 40 MG/10 ML VIAL IVP SCH (07:54)
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
[2022-11-11] MEDS ORDERED: FUROSEMIDE 10 MG/ML 4 ML VIAL IV STA (10:18)
[2022-11-11] MEDS: CISATRACURIUM 200 MG in SODIUM CHLORIDE 0.9% 180 ML IV SCH (10:32)
--- NOTE | 2022-11-11 10:40 | P.PN ---
Subjective This is a pleasant 57 years old female with multiple medical problems including history of COPD. Presents because of worsening dyspnea and hypoxia requiring mechanical ventilation. Patient currently remains in the ICU intubated and sedated. Also patient had a fever on admission 101.3 suspected secondary to possible pneumonia versus tracheobronchitis, patient currently covered with ceftriaxone, fever subsided. Patient is tachypneic. Creatinine improving 1.5, 1.8 down to 1.1 today. Patient is on some epidural 60 mg as well as ceftriaxone and insulin. Today patient remains in the ICU intubated and sedated and information limited from the patient. 11/10/2022 Remains in the ICU sedated and intubated. Pulmonary/critical care team on the case and help with and management. He was admitted with acute COPD exacerbation with acute on chronic kidney disease. lab report positive gram-positive cocci in clusters. Patient currently covered with ceftriaxone. We'll come to consult infectious disease team. Remains on Medrol 60 Mg. Ejection Fraction 55-60% 11/11/2022 Remains in the ICU sedated and intubated. Pulmonary/critical care team on the case and help with and management. Patient is still on his Medrol 60 mg for his acute COPD exacerbation. Huey's developing fever, he had low-grade temperature 99.8 last night. He is on ceftriaxone, infectious disease consult was obtained. Sputum culture is growing corynebacterium striatum we may need to change his antibiotic and will discuss with infectious disease team. His insulin slightly elevated more than 200, he is on Levemir 10 units twice a day. Pulmonary team are planning to wean him off and possible extubation today and they are held and history of bleeding therefore not going to increase his Levemir and continue with insulin sliding scale while he is on steroids. Taking down slightly trending down 95,000, heparin switch to Lovenox. Ejection fraction 55-60% Chest x-ray showing no acute consolidation Active Medications Generic Name Dose Route Start Last Admin Trade Name Freq PRN Reason Stop Dose Admin Acetaminophen 650 mg 11/08/22 01:15 11/10/22 20:39 Acetaminophen Tab 325 Mg Tab PO 650 mg Q6HR PRN Administration Fever and/ or Pain Albuterol/Ipratropium 3 ml 11/07/22 16:00 11/11/22 07:35 Ipratropium-Albuterol 3 Ml Neb INHALATION 3 ml RT-Q4H L[facility]O Administration Amlodipine Besylate 10 mg 11/11/22 09:30 Amlodipine 10 Mg Tab PO DAILY [facility] Artificial Tears 2 drops 11/09/22 04:00 11/11/22 07:52 Artificial Tears-Hypromellose Drops 15 Ml Btl BOTH EYES 2 drops Q4HR LÁZARO Administration Budesonide 1 mg 11/07/22 20:00 11/11/22 07:35 Budesonide 1 Mg/2 Ml Nebu INHALATION 1 mg RT-BID L[facility]AR[facility] Administration Buspirone HCl 15 mg 11/11/22 21:00 Buspirone Hcl 5 Mg Tab PO BID [facility] Chlorhexidine Gluconate 15 ml 11/07/22 21:30 11/11/22 07:53 Chlorhexidine Gluconate 15 Ml Cup MUCOUS MEM 15 ml BID L[facility] Administration Dextrose/Water 25 ml 11/07/22 17:22 Dextrose 50% Syringe 50 Ml IVP PER PROTOCOL PRN Hypoglycemia Protocol Dextrose/Water 50 ml 11/07/22 17:22 Dextrose 50% Syringe 50 Ml IVP PER PROTOCOL PRN Hypoglycemia Protocol Enoxaparin Sodium 40 mg 11/11/22 10:30 Enoxaparin 40 Mg/0.4 Ml Syringe SQ DAILY [facility] Escitalopram Oxalate 10 mg 11/11/22 09:30 Escitalopram 10 Mg Tab PO DAILY [facility] Formoterol Fumarate 20 mcg 11/07/22 20:00 11/11/22 07:35 Formoterol Fumarate 20 Mcg/2 Ml Nebu INHALATION 20 mcg RT-BID L[facility]AR[facility] Administration Hydromorphone HCl 1 mg 11/09/22 03:29 11/11/22 07:59 Hydromorphone 1 Mg/Ml 1 Ml Syringe IM 1 mg Q4HR PRN Administration Pain Propofol 1,000 mg/ IV Solution 100 mls @ 7.812 mls/hr 11/07/22 12:30 11/11/22 10:37 IV 30 mcg/kg/min .[id number] [facility] 15.624 mls/hr Titration Protocol 15 MCG/KG/MIN Ceftriaxone Sodium 1 gm/ 50 mls @ 100 mls/hr 11/07/22 14:45 11/11/22 07:53 Sodium Chloride IVPB 100 mls/hr Q24HR [facility] Administration Protocol Sodium Chloride 1,000 mls @ 40 mls/hr 11/08/22 01:15 11/11/22 04:47 Saline 0.9% IV 40 mls/hr .Q24H [facility] Administration Fentanyl Citrate 1,000 mcg/ 100 mls @ 4.19 mls/hr 11/09/22 02:45 11/11/22 09:27 Sodium Chloride IV 0 mcg/kg/hr .[id number] [facility] 0 mls/hr Titration Protocol 0.5 MCG/KG/HR Cisatracurium Besylate 200 mg/ 200 mls @ 5.028 mls/hr 11/09/22 04:00 11/11/22 10:32 Sodium Chloride IV Not Given .Q24H [facility] Protocol 1 MCG/KG/MIN Insulin Aspart 0 unit 11/07/22 18:00 11/11/22 05:50 Insulin Aspart (Novolog) 100 Unit/Ml Vial SQ 9 unit Q6HR [facility] Administration Protocol Insulin Detemir 10 unit 11/10/22 21:00 11/11/22 06:41 Insulin Detemir (Levemir) 100 Unit/Ml Syr SQ 10 unit BID@0700,2100 [facility] Administration Methylprednisolone Sodium Succinate 60 mg 11/07/22 18:00 11/11/22 05:50 Methylprednisolone Sod Succi 125 Mg/2 Ml Vial IV 60 mg Q6HR [facility] Administration Miscellaneous Information 1 each 11/09/22 06:24 Potassium Replacement Protocol 1 Each Misc MISCELLANE DAILY PRN Per Protocol Protocol Naloxone HCl 0.2 mg 11/07/22 13:34 Naloxone 0.4 Mg/Ml 1 Ml Vial IVP Q2M PRN Opioid Reversal Pantoprazole Sodium 40 mg 11/07/22 14:45 11/11/22 07:54 Pantoprazole 40 Mg/10 Ml Vial IVP 40 mg DAILY [facility] Administration Pregabalin 200 mg 11/11/22 09:30 Pregabalin 100 Mg Cap PO BID [facility] Objective - Vital Signs Vital signs: Vital Signs Temp 97.5 F L 11/11/22 08:00 Pulse 58 L 11/11/22 10:00 Resp 24 11/11/22 10:00 BP 170/73 11/11/22 10:00 Pulse Ox 94 L 11/11/22 10:00 FiO2 40 11/11/22 08:00 Intake & Output 11/10/22 11/11/22 11/11/22 18:59 06:59 18:59 Intake Total 7643.123 5288.346 710.898 Output Total 2350 795 300 Balance -884.926 705.346 410.898 Weight 93.9 kg 94.2 kg Intake: IV 440 513 119 A line 33 9 Sodium Chloride 0.9% 1, 440 480 110 000 ml @ 40 mls/hr IV . Q24H [facility] Rx#:[id number] Intake, IV Titration 585.074 397.346 438.898 Amount Cisatracurium 200 mg In 60.085 Sodium Chloride 0.9% 180 ml @ 1 MCG/KG/MIN 5.028 mls/hr IV .Q24H [facility] Rx#: [id number] cefTRIAXone 1 gm In 50 300 Sodium Chloride 0.9% 50 ml @ 100 mls/hr IVPB Q24HR [facility] Rx#:[id number] fentaNYL (PF). 1,000 mcg 100 100 27.794 In Sodium Chloride 0.9% 80 ml @ 0.5 MCG/KG/HR 4. 19 mls/hr IV .[id number] [facility] Rx#:[id number] propofoL 1,000 mg In 374.989 297.346 111.104 Empty Bag 1 bag @ 15 MCG/ KG/MIN 7.812 mls/hr IV . [id number] [facility] Rx#:[id number] Tube Feeding 440 560 153 Other 30 Output: Urine 2350 795 300 Other: Voiding Method Indwelling Catheter Indwelling Catheter Indwelling Catheter ABP, PAP, CO, CI - Last Documented Arterial Blood Pressure 159/55 - Exam -GENERAL: The patient is sedated and intubated HEENT: Pupils are round and equally reacting to light. EOMI. No scleral icterus. No conjunctival pallor. Normocephalic, atraumatic. No pharyngeal erythema. No thyromegaly. CARDIOVASCULAR: S1 and S2 present. No murmurs, rubs, or gallops. -PULMONARY: Chest is clear to auscultation, no wheezing , no crackles. Decreased air entry with shallow breathing ABDOMEN: Soft, nontender, nondistended, normoactive bowel sounds. No palpable organomegaly. MUSCULOSKELETAL: No joint swelling or deformity. EXTREMITIES: No cyanosis, clubbing, or pedal edema. NEUROLOGICAL: Gross neurological examination did not reveal any focal deficits. SKIN: No rashes. no petechiae. - Labs CBC & Chem 7: 11/11/22 05:00 11/11/22 05:00 Labs: Abnormal Lab Results - Last 24 Hours (Table) 11/10/22 11/10/22 11/10/22 Range/Units 10:48 11:09 17:19 RBC (4.30-5.90) m/uL Hgb (13.0-17.5) gm/dL Hct (39.0-53.0) % Plt Count (150-450) k/uL ABG pH 7.32 L (7.35-7.45) ABG pCO2 61 H (35-45) mmHg ABG pO2 117 H (83-108) mmHg ABG HCO3 31 H (21-25) mmol/L ABG Total CO2 33 H (19-24) mmol/L ABG O2 Saturation 97.8 H (94-97) % Carbon Dioxide (22-30) mmol/L BUN (9-20) mg/dL Glucose (74-99) mg/dL POC Glucose (mg/dL) 295 H 224 H (70-110) mg/dL Calcium (8.4-10.2) mg/dL 11/10/22 11/10/22 11/10/22 Range/Units 20:27 23:32 23:37 RBC (4.30-5.90) m/uL Hgb (13.0-17.5) gm/dL Hct (39.0-53.0) % Plt Count (150-450) k/uL ABG pH (7.35-7.45) ABG pCO2 (35-45) mmHg ABG pO2 (83-108) mmHg ABG HCO3 (21-25) mmol/L ABG Total CO2 (19-24) mmol/L ABG O2 Saturation (94-97) % Carbon Dioxide (22-30) mmol/L BUN (9-20) mg/dL Glucose (74-99) mg/dL POC Glucose (mg/dL) 251 H 268 H 263 H (70-110) mg/dL Calcium (8.4-10.2) mg/dL 11/11/22 11/11/22 11/11/22 Range/Units 05:00 05:00 05:36 RBC 3.79 L (4.30-5.90) m/uL Hgb 11.9 L (13.0-17.5) gm/dL Hct 36.0 L (39.0-53.0) % Plt Count 95 L (150-450) k/uL ABG pH (7.35-7.45) ABG pCO2 57 H (35-45) mmHg ABG pO2 (83-108) mmHg ABG HCO3 35 H (21-25) mmol/L ABG Total CO2 37 H (19-24) mmol/L ABG O2 Saturation (94-97) % Carbon Dioxide 33 H (22-30) mmol/L BUN 40 H (9-20) mg/dL Glucose 255 H (74-99) mg/dL POC Glucose (mg/dL) (70-110) mg/dL Calcium 6.6 L (8.4-10.2) mg/dL 11/11/22 Range/Units 05:46 RBC (4.30-5.90) m/uL Hgb (13.0-17.5) gm/dL Hct (39.0-53.0) % Plt Count (150-450) k/uL ABG pH (7.35-7.45) ABG pCO2 (35-45) mmHg ABG pO2 (83-108) mmHg ABG HCO3 (21-25) mmol/L ABG Total CO2 (19-24) mmol/L ABG O2 Saturation (94-97) % Carbon Dioxide (22-30) mmol/L BUN (9-20) mg/dL Glucose (74-99) mg/dL POC Glucose (mg/dL) 248 H (70-110) mg/dL Calcium (8.4-10.2) mg/dL Microbiology - Last 24 Hours (Table) 11/07/22 15:33 Blood Culture Gram Stain - Final Blood Blood Culture - Preliminary 11/07/22 12:45 Gram Stain - Final Sputum Sputum Culture - Final Corynebacterium striatum Assessment and Plan Assessment: Acute COPD exacerbation Acute hypoxic respiratory failure requiring intubation and mechanical ventilation Bacteremia with gram-positive microorganisms Possible acute tracheobronchitis with sputum culturecorynebacterium striatum Acute kidney injury on chronic kidney disease stage III. Stable. Obesity with BMI of 29.4 Plan: Continue with obvious on iv solu-Medrol 60 mg Continue with ceftriaxone per ID team recommendation. He'll discuss with ID team for need to change antibiotic. Pulmonary/critical care excellent consult Consult infectious disease team Monitor hemoglobin and electrolytes Labs and medication were reviewed.. Continue same treatment. Continue with symptomatic treatment. Resume home medication. Monitor labs and vitals. DVT and GI prophylaxis. Further recommendations as per clinical course of the patient DVT prophylaxis: Subcutaneous Lovenox GI Prophylaxis: Ppi Prognosis is guarded
[2022-11-11] MEDS: amLODIPine 10 MG TAB PO SCH (11:00)
[2022-11-11] MEDS: ESCITALOPRAM 10 MG TAB PO SCH (11:01)
[2022-11-11] MEDS: PREGABALIN 100 MG CAP PO SCH ×2 (11:01→20:01)
[2022-11-11] MEDS: ENOXAPARIN 40 MG/0.4 ML SYRINGE SQ SCH (11:02)
[2022-11-11 11:33] LABS: Glucose,Whole Blood 203 mg/dL (70-110)
[2022-11-11 11:45] LABS: ABG Base Excess 12.3 mmol/L; ABG HCO3 36 mmol/L (21-25); ABG Oxygen Saturation 96.6 % (94-97); ABG PCO2 49 mmHg (35-45); ABG PH 7.47 (7.35-7.45); ABG PO2 81 mmHg (83-108); ABG TCO2 38 mmol/L (19-24)
[2022-11-11 11:46] LABS: Allen Test Performed? no
[2022-11-11] MEDS ORDERED: CALCIUM GLUCONATE IN NACL 2 GM in SALINE 1 100ML.BAG IVPB ONE (16:45)
[2022-11-11 17:35] LABS: Glucose,Whole Blood 189 mg/dL (70-110)
[2022-11-11] MEDS ORDERED: hydrALAZINE HCL 20 MG/ML 1 ML VIAL IVP PRN (19:27)
[2022-11-11 19:56] LABS: Glucose,Whole Blood 167 mg/dL (70-110)
[2022-11-11] MEDS: busPIRone HCl 5 MG TAB PO SCH (20:01)
[2022-11-11] MEDS ORDERED: IPRATROPIUM-ALBUTEROL 3 ML NEB INHALATION PRN (21:00)
[2022-11-11 23:19] LABS: Glucose,Whole Blood 205 mg/dL (70-110)
[2022-11-12] MEDS: INSULIN ASPART (NovoLOG) 100 UNIT/ML VIAL SQ SCH ×4 (00:27→17:46)
[2022-11-12] MEDS: methylPREDNISolone SOD SUCCI 125 MG/2 ML VIAL IV SCH ×2 (00:28→06:02)
[2022-11-12] MEDS: METOPROLOL TARTRATE 25 MG TAB PO SCH ×3 (00:28→20:41)
[2022-11-12 05:12] LABS: Basophils % (A) 0 %; Eosinophils % (A) 1 %; HCT 39.7 % (39.0-53.0); HGB 13.3 gm/dL (13.0-17.5); Lymphocytes # (A) 0.3 k/uL (1.0-4.8); Lymphocytes % (A) 6 %; MCH 30.6 pg (25.0-35.0); MCHC 33.5 g/dL (31.0-37.0); MCV 91.3 fL (80.0-100.0); Mean Platelet Volume 10.6; Monocytes # (A) 0.3 k/uL (0-1.0); Monocytes % (A) 6 %; Neutrophils # (A) 4.6 k/uL (1.3-7.7); Neutrophils % (A) 86 %; Platelet Count 101 k/uL (150-450); RBC 4.35 m/uL (4.30-5.90); RDW 13.5 % (11.5-15.5); WBC 5.4 k/uL (3.8-10.6)
[2022-11-12 05:42] LABS: African American GFR (CKD) >90 (>60 ml/min/1.73 sqM); Blood Urea Nitrogen 35 mg/dL (9-20); Calcium 7.2 mg/dL (8.4-10.2); Chloride 97 mmol/L (98-107); Glucose 154 mg/dL (74-99); Non-African American GFR(CKD) >90 (>60 ml/min/1.73 sqM); Potassium 3.7 mmol/L (3.5-5.1); Sodium 142 mmol/L (137-145)
[2022-11-12 05:49] LABS: Anion Gap 7 mmol/L
[2022-11-12 05:55] LABS: Carbon Dioxide 38 mmol/L (22-30)
[2022-11-12 05:59] LABS: Glucose,Whole Blood 160 mg/dL (70-110)
[2022-11-12] MEDS: INSULIN DETEMIR (LEVEMIR) 100 UNIT/ML SYR SQ SCH ×2 (06:01→20:41)
[2022-11-12] MEDS ORDERED: INSULIN DETEMIR (LEVEMIR) 100 UNIT/ML SYR SQ SCH (07:00)
--- NOTE | 2022-11-12 07:42 | XR ---
EXAMINATION TYPE: XR chest 1V portable DATE OF EXAM: 11/12/2022 Comparison: 11/11/2022 Clinical History: 57-year-old male Tube placement Findings: ACDF hardware. Left CVC tip at the lower SVC. Interval extubation and removal of NG tube. Heart fiordaliza l size. Aorta within normal limits. Mild hyperinflation without consolidation or pleural effusion. Impression: Mild hyperinflation may related to depth of inspiration or underlying emphysema. Otherwise, no defini te acute process.
[2022-11-12] MEDS: IPRATROPIUM-ALBUTEROL 3 ML NEB INHALATION SCH ×4 (07:48→20:49)
[2022-11-12] MEDS: BUDESONIDE 1 MG/2 ML NEBU INHALATION SCH ×2 (07:48→20:49)
[2022-11-12] MEDS: FORMOTEROL FUMARATE 20 MCG/2 ML NEBU INHALATION SCH ×2 (07:48→20:49)
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
[2022-11-12] MEDS: SODIUM CHLORIDE 0.9% 1,000 ML IV SCH (09:39)
[2022-11-12] MEDS: ENOXAPARIN 40 MG/0.4 ML SYRINGE SQ SCH (09:51)
[2022-11-12] MEDS: amLODIPine 10 MG TAB PO SCH (09:52)
[2022-11-12] MEDS: PANTOPRAZOLE 40 MG/10 ML VIAL IVP SCH (09:52)
[2022-11-12] MEDS: PREGABALIN 100 MG CAP PO SCH ×2 (09:52→20:41)
[2022-11-12] MEDS: busPIRone HCl 5 MG TAB PO SCH ×2 (09:53→20:41)
[2022-11-12] MEDS: ESCITALOPRAM 10 MG TAB PO SCH (09:53)
[2022-11-12] MEDS: metFORMIN 500 MG TAB PO SCH ×2 (09:53→17:46)
[2022-11-12] MEDS: predniSONE 20 MG TAB PO SCH (10:01)
[2022-11-12 11:44] LABS: Glucose,Whole Blood 182 mg/dL (70-110)
--- NOTE | 2022-11-12 12:58 | P.PN ---
Subjective Progress Note Date: 11/12/22 57 years old female with multiple medical problems including history of COPD. Presents because of worsening dyspnea and hypoxia requiring mechanical ventilation. Patient currently remains in the ICU intubated and sedated. Also patient had a fever on admission 101.3 suspected secondary to possible pneumonia versus tracheobronchitis, patient currently covered with ceftriaxone, fever subsided. Patient is tachypneic. Creatinine improving 1.5, 1.8 down to 1.1 today. Patient is on some epidural 60 mg as well as ceftriaxone and insulin. Today patient remains in the ICU intubated and sedated and information limited from the patient. 11/10/2022 Remains in the ICU sedated and intubated. Pulmonary/critical care team on the case and help with and management. He was admitted with acute COPD exacerbation with acute on chronic kidney disease. lab report positive gram-positive cocci in clusters. Patient currently covered with ceftriaxone. We'll come to consult infectious disease team. Remains on Medrol 60 Mg. Ejection Fraction 55-60% 11/11/2022 Remains in the ICU sedated and intubated. Pulmonary/critical care team on the case and help with and management. Patient is still on his Medrol 60 mg for his acute COPD exacerbation. Huey's developing fever, he had low-grade temperature 99.8 last night. He is on ceftriaxone, infectious disease consult was obtained. Sputum culture is growing corynebacterium striatum we may need to change his antibiotic and will discuss with infectious disease team. His insulin slightly elevated more than 200, he is on Levemir 10 units twice a day. Pulmonary team are planning to wean him off and possible extubation today and they are held and history of bleeding therefore not going to increase his Levemir and continue with insulin sliding scale while he is on steroids. Taking down slightly trending down 95,000, heparin switch to Lovenox. Ejection fraction 55-60% Chest x-ray showing no acute consolidation 11/12 patient seen and evaluated bedside, alert and oriented 3. Continue on oxygen supplementation. Patient is extubated. Antibiotics discontinued Objective - Vital Signs Vital signs: Vital Signs Temp 98.9 F 11/12/22 08:00 Pulse 62 11/12/22 10:00 Resp 21 11/12/22 10:00 BP 170/73 11/11/22 19:00 Pulse Ox 90 L 11/12/22 10:00 FiO2 35 11/11/22 12:19 Intake & Output 11/11/22 11/12/22 11/12/22 18:59 06:59 18:59 Intake Total 1788.451 363 162 Output Total 4115 1865 245 Balance -2326.549 -1502 -83 Weight 94.2 kg Intake: IV 416 363 162 A line 36 33 12 Sodium Chloride 0.9% 1, 380 330 150 000 ml @ 40 mls/hr IV . Q24H [facility] Rx#:[id number] Intake, IV Titration 570.451 Amount Calcium Gluconate in NaCl 100 2 gm In Saline 1 100ml. bag @ 100 mls/hr IVPB ONCE ONE Rx#:[id number] cefTRIAXone 1 gm In 300 Sodium Chloride 0.9% 50 ml @ 100 mls/hr IVPB Q24HR [facility] Rx#:[id number] fentaNYL (PF). 1,000 mcg 27.794 In Sodium Chloride 0.9% 80 ml @ 0.5 MCG/KG/HR 4. 19 mls/hr IV .[id number] [facility] Rx#:[id number] propofoL 1,000 mg In 142.657 Empty Bag 1 bag @ 15 MCG/ KG/MIN 7.812 mls/hr IV . [id number] [facility] Rx#:[id number] Oral 700 Tube Feeding 102 Output: Urine 4115 1865 245 Other: Voiding Method Indwelling Catheter Indwelling Catheter Indwelling Catheter ABP, PAP, CO, CI - Last Documented Arterial Blood Pressure 151/53 - Exam PHYSICAL EXAMINATION: GENERAL: The patient is alert and oriented x3, ill appearance HEENT: Pupils are round and equally reacting to light. EOMI. No scleral icterus. No conjunctival pallor. Normocephalic, atraumatic. No pharyngeal erythema. No thyromegaly. CARDIOVASCULAR: S1 and S2 present. No murmurs, rubs, or gallops. PULMONARY: Chest is clear to auscultation, no wheezing or crackles. ABDOMEN: Soft, nontender, nondistended, normoactive bowel sounds. No palpable organomegaly. MUSCULOSKELETAL: No joint swelling or deformity. EXTREMITIES: No cyanosis, clubbing, or pedal edema. NEUROLOGICAL: Gross neurological examination did not reveal any focal deficits. SKIN: Bilateral lower extremity edema, bilateral lotion to stasis dermatitis noted - Labs CBC & Chem 7: 11/12/22 05:00 11/12/22 05:00 Labs: Abnormal Lab Results - Last 24 Hours (Table) 11/11/22 11/11/22 11/11/22 Range/Units 12:25 17:33 19:54 Plt Count (150-450) k/uL Lymphocytes # (1.0-4.8) k/uL Chloride (98-107) mmol/L Carbon Dioxide (22-30) mmol/L BUN (9-20) mg/dL Glucose (74-99) mg/dL POC Glucose (mg/dL) 189 H 167 H (70-110) mg/dL Calcium (8.4-10.2) mg/dL Ionized Calcium Virgilio 3.6 L (4.5-5.3) mg/dL 11/11/22 11/12/22 11/12/22 Range/Units 23:18 05:00 05:00 Plt Count 101 L (150-450) k/uL Lymphocytes # 0.3 L (1.0-4.8) k/uL Chloride 97 L (98-107) mmol/L Carbon Dioxide 38 H (22-30) mmol/L BUN 35 H (9-20) mg/dL Glucose 154 H (74-99) mg/dL POC Glucose (mg/dL) 205 H (70-110) mg/dL Calcium 7.2 L (8.4-10.2) mg/dL Ionized Calcium Virgilio (4.5-5.3) mg/dL 11/12/22 11/12/22 Range/Units 05:58 11:43 Plt Count (150-450) k/uL Lymphocytes # (1.0-4.8) k/uL Chloride (98-107) mmol/L Carbon Dioxide (22-30) mmol/L BUN (9-20) mg/dL Glucose (74-99) mg/dL POC Glucose (mg/dL) 160 H 182 H (70-110) mg/dL Calcium (8.4-10.2) mg/dL Ionized Calcium Virgilio (4.5-5.3) mg/dL Microbiology - Last 24 Hours (Table) 11/10/22 06:00 Blood Culture - Preliminary Blood 11/10/22 01:07 Blood Culture - Preliminary Blood 11/07/22 15:33 Blood Culture Gram Stain - Final Blood Blood Culture - Preliminary Assessment and Plan Assessment: Acute COPD exacerbation Acute hypoxic respiratory failure requiring intubation and mechanical ventilation Bacteremia with gram-positive cocci acute tracheobronchitis with sputum culturecorynebacterium striatum Acute kidney injury on chronic kidney disease stage III. Stable. Obesity with BMI of 29.4 * In regards to COPD exacerbation continue patient on oral prednisone, weaning from IV Solu-Medrol, continue breathing treatments weaned down on oxygen * Blood cultures collected 11/07 gram-positive cocci. Repeat blood cultures negative * Patient seen by pulmonary medicine and infectious disease * Continue to monitor renal function Time with Patient: Greater than 30
[2022-11-12] MEDS: HYDROmorphone 1 MG/ML 1 ML SYRINGE IVP PRN ×2 (12:59→20:47)
--- NOTE | 2022-11-12 14:43 | CDI ---
Documentation Clarification Form Date: 11/12/2022 02:17:24 PM From: Ani Fong RN CCDS Phone: [phone] Admit Date: 11/07/2022 01:34:00 PM Patient Name: Rakan Flynn Visit Number: [id number] Discharge Date: ATTENTION: The Clinical Documentation Specialists (CDI) and [facility] Coding Staff appreciate your assistance in clarifying documentation. Please respond to the clarification below the line at the bottom and electronically sign. The CDI & [facility] Coding staff will review the response and follow-up if needed. Please note: Queries are made part of the Legal Health Record. If you have any questions, please contact the author of this message via ITS. Dr. Karlee Gibbons There is documentation of bacteremia Medicine note, 11/12. Bacteremia is considered a lab finding. Additional clarification regarding bacteremia is requested. Patient history/risk factors: 57-year-old male presents with progressive worsening shortness of breath. Was intubated in the ED. Medical History: Well established COPD, DM, GERD, HLD, HTN, Sleep Apnea and Smoker. 11/07, Pulmonary consult. Clinical Indicators: VSS, 11/07 11:34: b/p 120/106; HR 105; RR 28; SpO2 94% BiPAP. Temperature 11/07 23:00: 101.3 F Axillary WBC, 11/07: 14.1 Neutrophils, 11/07: 12.9 Lactic acid, 11/07: 2.6 Blood Culture, 11/07: Gram positive cocci 11/10: No growth after 48 hours 11/10: No growth after 48 hours ID Consult, 11/10: 1patient with a positive blood culture with gram-positive cocci which has not been identified on biofire per the pharmacist note, and this patient was in the hospital with acute respiratory failure requiring intubation patient chest x-ray however has been relatively clear but he did have elevated procalcitonin and the patient fever responded to the Rocephin patient currently do not have any other obvious focus for this positive blood culture with concern for possible skin contamination. Treatment: Antibiotics: 11/07/ Ceftriaxone IVPB Q24HR. ID Consult above Please provide additional clarification regarding the etiology/cause and/or clinical significance of the bacteremia: [ ] Blood culture is possibly from skin contamination. [ ] Bacteremia is due to infectious process, please specify: [ y ] Bacteremia is not clinically significant [ ] Other, please specify [ ] Unable to determine (Template Last Revised: June 2020) MTDD
[2022-11-12 17:07] LABS: Glucose,Whole Blood 179 mg/dL (70-110)
[2022-11-12 20:09] LABS: Glucose,Whole Blood 225 mg/dL (70-110)
[2022-11-13] MEDS: INSULIN ASPART (NovoLOG) 100 UNIT/ML VIAL SQ SCH ×4 (00:51→17:16)
[2022-11-13 00:52] LABS: Glucose,Whole Blood 168 mg/dL (70-110)
[2022-11-13] MEDS: HYDROmorphone 1 MG/ML 1 ML SYRINGE IVP PRN ×3 (01:46→21:27)
[2022-11-13 06:20] LABS: Glucose,Whole Blood 47 mg/dL (70-110)
[2022-11-13 06:20] LABS: Glucose,Whole Blood 60 mg/dL (70-110)
[2022-11-13 07:00] LABS: Glucose,Whole Blood 94 mg/dL (70-110)
--- NOTE | 2022-11-13 07:31 | XR ---
EXAMINATION TYPE: XR chest 1V portable DATE OF EXAM: 11/13/2022 6:38 AM COMPARISON: Chest radiographs from 11/12/2022 TECHNIQUE: XR chest 1V portable Portable AP radiograph of the chest. CLINICAL INDICATION:Male, 57 years old with history of Tube placement; FINDINGS: Lungs/Pleura: There is no evidence of pleural effusion, focal consolidation, or pneumothorax. Pulmonary vascularity: Unremarkable. Heart/mediastinum: Cardiomediastinal silhouette is unremarkable. Musculoskeletal: No acute osseous pathology. Cervical fusion hardware. Other findings: None Lines/Tubes: Interval removal of left IJ CVC. IMPRESSION: No acute cardiopulmonary disease/process.
[2022-11-13 07:51] LABS: HCT 40.7 % (39.0-53.0); HGB 13.6 gm/dL (13.0-17.5); MCH 30.6 pg (25.0-35.0); MCHC 33.4 g/dL (31.0-37.0); MCV 91.5 fL (80.0-100.0); Mean Platelet Volume 8.5; RBC 4.45 m/uL (4.30-5.90); RDW 13.3 % (11.5-15.5); WBC 12.1 k/uL (3.8-10.6)
[2022-11-13 08:00] LABS: African American GFR (CKD) >90 (>60 ml/min/1.73 sqM); Anion Gap 5 mmol/L; Blood Urea Nitrogen 34 mg/dL (9-20); Carbon Dioxide 39 mmol/L (22-30); Chloride 96 mmol/L (98-107); Glucose 102 mg/dL (74-99); Non-African American GFR(CKD) >90 (>60 ml/min/1.73 sqM); Potassium 3.2 mmol/L (3.5-5.1); Sodium 140 mmol/L (137-145)
[2022-11-13 08:04] LABS: Platelet Count 87 k/uL (150-450)
[2022-11-13] MEDS: FORMOTEROL FUMARATE 20 MCG/2 ML NEBU INHALATION SCH ×2 (08:32→20:34)
[2022-11-13] MEDS: BUDESONIDE 1 MG/2 ML NEBU INHALATION SCH ×2 (08:32→20:34)
[2022-11-13] MEDS: IPRATROPIUM-ALBUTEROL 3 ML NEB INHALATION SCH ×4 (08:32→20:34)
[2022-11-13] MEDS ORDERED: predniSONE 20 MG TAB PO SCH (09:00)
[2022-11-13] MEDS: INSULIN DETEMIR (LEVEMIR) 100 UNIT/ML SYR SQ SCH ×3 (09:12→21:25)
[2022-11-13] MEDS: ENOXAPARIN 40 MG/0.4 ML SYRINGE SQ SCH (09:12)
[2022-11-13] MEDS: PREGABALIN 100 MG CAP PO SCH ×2 (09:12→21:26)
[2022-11-13] MEDS: PANTOPRAZOLE 40 MG/10 ML VIAL IVP SCH (09:12)
[2022-11-13] MEDS: METOPROLOL TARTRATE 25 MG TAB PO SCH ×2 (09:13→21:26)
[2022-11-13] MEDS: metFORMIN 500 MG TAB PO SCH ×2 (09:13→17:15)
[2022-11-13] MEDS: predniSONE 20 MG TAB PO SCH (09:13)
[2022-11-13] MEDS: amLODIPine 10 MG TAB PO SCH (09:13)
[2022-11-13] MEDS: busPIRone HCl 5 MG TAB PO SCH ×2 (09:13→21:26)
[2022-11-13] MEDS: ESCITALOPRAM 10 MG TAB PO SCH (09:14)
[2022-11-13] MEDS: POTASSIUM CHLORIDE ER 20 MEQ TAB.ER PO SCH ×4 (09:15→22:37)
[2022-11-13] MEDS: HEPARIN SODIUM,PORCINE/PF 5,000 UNIT/0.5 ML SYRINGE SQ SCH (10:28)
[2022-11-13 11:22] LABS: Glucose,Whole Blood 179 mg/dL (70-110)
[2022-11-13 13:16] VITALS: BMI 29.0
[2022-11-13] MEDS ORDERED: LOPERAMIDE 2 MG CAP PO PRN (13:25)
--- NOTE | 2022-11-13 13:30 | P.PN ---
Subjective Progress Note Date: 11/13/22 57 years old female with multiple medical problems including history of COPD. Presents because of worsening dyspnea and hypoxia requiring mechanical ventilation. Patient currently remains in the ICU intubated and sedated. Also patient had a fever on admission 101.3 suspected secondary to possible pneumonia versus tracheobronchitis, patient currently covered with ceftriaxone, fever subsided. Patient is tachypneic. Creatinine improving 1.5, 1.8 down to 1.1 today. Patient is on some epidural 60 mg as well as ceftriaxone and insulin. Today patient remains in the ICU intubated and sedated and information limited from the patient. 11/10/2022 Remains in the ICU sedated and intubated. Pulmonary/critical care team on the case and help with and management. He was admitted with acute COPD exacerbation with acute on chronic kidney disease. lab report positive gram-positive cocci in clusters. Patient currently covered with ceftriaxone. We'll come to consult infectious disease team. Remains on Medrol 60 Mg. Ejection Fraction 55-60% 11/11/2022 Remains in the ICU sedated and intubated. Pulmonary/critical care team on the case and help with and management. Patient is still on his Medrol 60 mg for his acute COPD exacerbation. Huey's developing fever, he had low-grade temperature 99.8 last night. He is on ceftriaxone, infectious disease consult was obtained. Sputum culture is growing corynebacterium striatum we may need to change his antibiotic and will discuss with infectious disease team. His insulin slightly elevated more than 200, he is on Levemir 10 units twice a day. Pulmonary team are planning to wean him off and possible extubation today and they are held and history of bleeding therefore not going to increase his Levemir and continue with insulin sliding scale while he is on steroids. Taking down slightly trending down 95,000, heparin switch to Lovenox. Ejection fraction 55-60% Chest x-ray showing no acute consolidation 11/12 patient seen and evaluated bedside, alert and oriented 3. Continue on oxygen supplementation. Patient is extubated. Antibiotics discontinued 11/13 patient seen and evaluated bedside. Patient is alert and oriented 3. Patient does complain of diarrhea, Imodium ordered. We'll remove Hawk catheter, breathing has improved, W BC count elevated however likely secondary to steroids Potassium replaced Objective - Vital Signs Vital signs: Vital Signs Temp 99.7 F H 11/13/22 07:11 Pulse 70 11/13/22 12:13 Resp 18 11/13/22 07:11 BP 110/59 11/13/22 07:11 Pulse Ox 91 L 11/13/22 08:34 FiO2 35 11/11/22 12:19 Intake & Output 11/12/22 11/13/22 11/13/22 18:59 06:59 18:59 Intake Total 541 400 Output Total 605 1050 Balance -64 -650 Weight 89 kg 89 kg Intake: IV 291 A line 21 Sodium Chloride 0.9% 1, 270 000 ml @ 40 mls/hr IV . Q24H LÁZARO Rx#:[id number] Oral 250 400 Output: Urine 605 1050 Other: Voiding Method Indwelling Catheter Indwelling Catheter Indwelling Catheter # Bowel Movements 1 1 ABP, PAP, CO, CI - Last Documented Arterial Blood Pressure 142/52 - Exam PHYSICAL EXAMINATION: GENERAL: The patient is alert and oriented x3, ill appearance HEENT: Pupils are round and equally reacting to light. EOMI. CARDIOVASCULAR: S1 and S2 present. No murmurs, rubs, or gallops. PULMONARY: Decreased breath sounds bilaterally no wheezes no use of accessory muscle ABDOMEN: Soft, nontender, nondistended, normoactive bowel sounds. No palpable organomegaly. Hawk catheter in place plan to remove MUSCULOSKELETAL: No joint swelling or deformity. EXTREMITIES: No cyanosis, clubbing, or pedal edema. NEUROLOGICAL: Gross neurological examination did not reveal any focal deficits. - Labs CBC & Chem 7: 11/13/22 07:15 11/13/22 07:15 Labs: Abnormal Lab Results - Last 24 Hours (Table) 11/12/22 11/12/22 11/13/22 Range/Units 17:05 20:07 00:50 WBC (3.8-10.6) k/uL Plt Count (150-450) k/uL Potassium (3.5-5.1) mmol/L Chloride (98-107) mmol/L Carbon Dioxide (22-30) mmol/L BUN (9-20) mg/dL Glucose (74-99) mg/dL POC Glucose (mg/dL) 179 H 225 H 168 H (70-110) mg/dL Calcium (8.4-10.2) mg/dL 11/13/22 11/13/2211/13/23 Range/Units 06:15 06:17 07:15 WBC 12.1 H (3.8-10.6) k/uL Plt Count 87 L (150-450) k/uL Potassium (3.5-5.1) mmol/L Chloride (98-107) mmol/L Carbon Dioxide (22-30) mmol/L BUN (9-20) mg/dL Glucose (74-99) mg/dL POC Glucose (mg/dL) 47 L 60 L (70-110) mg/dL Calcium (8.4-10.2) mg/dL 11/13/22 11/13/22 Range/Units 07:15 11:20 WBC (3.8-10.6) k/uL Plt Count (150-450) k/uL Potassium 3.2 L (3.5-5.1) mmol/L Chloride 96 L (98-107) mmol/L Carbon Dioxide 39 H (22-30) mmol/L BUN 34 H (9-20) mg/dL Glucose 102 H (74-99) mg/dL POC Glucose (mg/dL) 179 H (70-110) mg/dL Calcium 7.0 L (8.4-10.2) mg/dL Microbiology - Last 24 Hours (Table) 11/10/22 06:00 Blood Culture - Preliminary Blood 11/10/22 01:07 Blood Culture - Preliminary Blood Assessment and Plan Assessment: Acute COPD exacerbation Acute hypoxic respiratory failure requiring intubation and mechanical ventilation Bacteremia with gram-positive cocci clinically insignificant likely contamination acute tracheobronchitis with sputum culturecorynebacterium striatum Acute kidney injury on chronic kidney disease stage III. Stable. Obesity with BMI of 29.4 Diabetes mellitus type 2 * In regards to COPD exacerbation continue patient on oral prednisone, weaning from IV Solu-Medrol, continue breathing treatments weaned down on oxygen on IV Rocephin discontinued * Blood cultures collected 11/07 gram-positive cocci. Repeat blood cultures negative * Patient seen by pulmonary medicine and infectious disease * Continue to monitor renal function * In regards to history of diabetes mellitus, Accu-Cheks before meals at bedtime continue patient's Lantus and insulin and Lantus monitor for hypoglycemia
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
[2022-11-13 16:53] LABS: Glucose,Whole Blood 299 mg/dL (70-110)
[2022-11-13 21:13] LABS: Glucose,Whole Blood 140 mg/dL (70-110)
[2022-11-14] MEDS: INSULIN ASPART (NovoLOG) 100 UNIT/ML VIAL SQ SCH ×5 (01:03→23:35)
[2022-11-14] MEDS: HYDROmorphone 1 MG/ML 1 ML SYRINGE IVP PRN (04:35)
[2022-11-14 06:11] LABS: Glucose,Whole Blood 168 mg/dL (70-110)
[2022-11-14] MEDS: INSULIN DETEMIR (LEVEMIR) 100 UNIT/ML SYR SQ SCH ×2 (06:14→20:34)
[2022-11-14] MEDS: metFORMIN 500 MG TAB PO SCH ×2 (06:43→16:30)
[2022-11-14] MEDS: IPRATROPIUM-ALBUTEROL 3 ML NEB INHALATION SCH ×4 (08:14→21:32)
[2022-11-14] MEDS: FORMOTEROL FUMARATE 20 MCG/2 ML NEBU INHALATION SCH ×2 (08:14→21:32)
[2022-11-14] MEDS: BUDESONIDE 1 MG/2 ML NEBU INHALATION SCH ×2 (08:14→21:32)
[2022-11-14] MEDS: amLODIPine 10 MG TAB PO SCH (09:00)
[2022-11-14] MEDS: ESCITALOPRAM 10 MG TAB PO SCH (09:00)
[2022-11-14] MEDS: busPIRone HCl 5 MG TAB PO SCH ×2 (09:00→20:34)
[2022-11-14] MEDS: PREGABALIN 100 MG CAP PO SCH ×2 (09:00→20:35)
[2022-11-14] MEDS: predniSONE 20 MG TAB PO SCH (09:00)
[2022-11-14] MEDS: METOPROLOL TARTRATE 25 MG TAB PO SCH ×2 (09:00→20:35)
[2022-11-14] MEDS: ENOXAPARIN 40 MG/0.4 ML SYRINGE SQ SCH (09:01)
[2022-11-14] MEDS: PANTOPRAZOLE 40 MG/10 ML VIAL IVP SCH (09:01)
[2022-11-14 09:10] LABS: HGB 13.3 d/dL (13.0-17.0); MCH 29.8 pg (27.0-32.0); MCHC 32.4 d/dL (32.0-37.0); MCV 91.7 FL (80.0-97.0); Mean Platelet Volume 11.2 FL (9.5-12.2); NRBC Per 100 WBC 0 X 10*3/uL (0.00-0.01); Platelet Count 102 X 10*3/uL (140-440); RBC 4.47 X 10*6/uL (4.40-5.60)
[2022-11-14] MEDS ORDERED: ALBUTEROL HFA INHALER INHALATION PRN (09:18)
[2022-11-14] MEDS ORDERED: FUROSEMIDE 40 MG TAB PO PRN (09:18)
[2022-11-14] MEDS ORDERED: BENZONATATE 100 MG CAP PO PRN (09:18)
[2022-11-14 09:22] LABS: Blood Urea Nitrogen 28.7 mg/dL (9.0-27.0); Calcium 7.4 mg/dL (8.7-10.3); Carbon Dioxide 30.7 mmol/L (21.6-31.8); Chloride 101 mmol/L (96-109); Glucose 179 mg/dL (70-110); Potassium 3.2 mmol/L (3.5-5.5); Sodium 143 mmol/L (135-145)
[2022-11-14] MEDS: HYDROcodone/APAP 10-325MG 1 EACH TAB PO PRN ×3 (10:10→23:30)
[2022-11-14] MEDS: VANCOMYCIN 125 MG CAPSULE PO SCH ×4 (10:10→20:35)
[2022-11-14 11:43] LABS: Glucose,Whole Blood 263 mg/dL (70-110)
--- NOTE | 2022-11-14 13:58 | P.PN ---
Subjective Progress Note Date: 11/14/22 57 years old female with multiple medical problems including history of COPD. Presents because of worsening dyspnea and hypoxia requiring mechanical ventilation. Patient currently remains in the ICU intubated and sedated. Also patient had a fever on admission 101.3 suspected secondary to possible pneumonia versus tracheobronchitis, patient currently covered with ceftriaxone, fever subsided. Patient is tachypneic. Creatinine improving 1.5, 1.8 down to 1.1 today. Patient is on some epidural 60 mg as well as ceftriaxone and insulin. Today patient remains in the ICU intubated and sedated and information limited from the patient. 11/10/2022 Remains in the ICU sedated and intubated. Pulmonary/critical care team on the case and help with and management. He was admitted with acute COPD exacerbation with acute on chronic kidney disease. lab report positive gram-positive cocci in clusters. Patient currently covered with ceftriaxone. We'll come to consult infectious disease team. Remains on Medrol 60 Mg. Ejection Fraction 55-60% 11/11/2022 Remains in the ICU sedated and intubated. Pulmonary/critical care team on the case and help with and management. Patient is still on his Medrol 60 mg for his acute COPD exacerbation. Huey's developing fever, he had low-grade temperature 99.8 last night. He is on ceftriaxone, infectious disease consult was obtained. Sputum culture is growing corynebacterium striatum we may need to change his antibiotic and will discuss with infectious disease team. His insulin slightly elevated more than 200, he is on Levemir 10 units twice a day. Pulmonary team are planning to wean him off and possible extubation today and they are held and history of bleeding therefore not going to increase his Levemir and continue with insulin sliding scale while he is on steroids. Taking down slightly trending down 95,000, heparin switch to Lovenox. Ejection fraction 55-60% Chest x-ray showing no acute consolidation 11/12 patient seen and evaluated bedside, alert and oriented 3. Continue on oxygen supplementation. Patient is extubated. Antibiotics discontinued 11/13 patient seen and evaluated bedside. Patient is alert and oriented 3. Patient does complain of diarrhea, Imodium ordered. We'll remove Hawk catheter, breathing has improved, W BC count elevated however likely secondary to steroids Potassium replaced 11/14: Patient evaluated bedside, C. diff test results discussed. Patient started on oral vancomycin. Imodium discontinued. We'll continue to monitor electrolyte panel. Continue with oral Mcbain for pain control Objective - Vital Signs Vital signs: Vital Signs Temp 97.9 F 11/14/22 06:53 Pulse 72 11/14/22 12:25 Resp 16 11/14/22 06:53 BP 114/66 11/14/22 06:53 Pulse Ox 95 11/14/22 08:14 FiO2 35 11/11/22 12:19 Intake & Output 11/13/22 11/14/22 11/14/22 18:59 06:59 18:59 Intake Total 540 Output Total 655 Balance -115 Weight 89 kg Intake: Oral 540 Output: Urine 655 Uretheral (Hawk) 655 Other: Voiding Method Indwelling Catheter Bedside Commode Urinal # Voids 3 # Bowel Movements 1 4 1 ABP, PAP, CO, CI - Last Documented Arterial Blood Pressure 142/52 - Exam PHYSICAL EXAMINATION: GENERAL: The patient is alert and oriented x3, ill appearance, nasal cannula in place HEENT: Pupils are round and equally reacting to light. EOMI. CARDIOVASCULAR: S1 and S2 present. No murmurs, rubs, or gallops. PULMONARY: Decreased breath sounds bilaterally no wheezes no use of accessory muscle ABDOMEN: Soft, nontender, nondistended, normoactive bowel sounds. No palpable organomegaly. Hawk catheter removed MUSCULOSKELETAL: No joint swelling or deformity. EXTREMITIES: No cyanosis, clubbing, or pedal edema. NEUROLOGICAL: Gross neurological examination did not reveal any focal deficits. - Labs CBC & Chem 7: 11/14/22 05:44 11/14/22 05:44 Labs: Abnormal Lab Results - Last 24 Hours (Table) 11/13/22 11/13/22 11/13/22 Range/Units 16:38 18:16 21:11 WBC (4.50-10.00) X 10*3/uL Plt Count (140-440) X 10*3/uL Potassium 3.3 L (3.5-5.1) mmol/L BUN (9.0-27.0) mg/dL BUN/Creatinine Ratio (12.00-20.00) Ratio Glucose (70-110) mg/dL POC Glucose (mg/dL) 299 H 140 H (70-110) mg/dL Calcium (8.7-10.3) mg/dL C. difficile (EIA) Intrp (Negative) 11/13/22 11/14/22 11/14/22 Range/Units 22:37 05:44 05:44 WBC 10.30 H (4.50-10.00) X 10*3/uL Plt Count 102 L (140-440) X 10*3/uL Potassium 3.2 L (3.5-5.1) mmol/L BUN 28.7 H (9.0-27.0) mg/dL BUN/Creatinine Ratio 28.70 H (12.00-20.00) Ratio Glucose 179 H (70-110) mg/dL POC Glucose (mg/dL) (70-110) mg/dL Calcium 7.4 L (8.7-10.3) mg/dL C. difficile (EIA) Intrp Positive A (Negative) 11/14/22 11/14/22 Range/Units 06:10 11:41 WBC (4.50-10.00) X 10*3/uL Plt Count (140-440) X 10*3/uL Potassium (3.5-5.1) mmol/L BUN (9.0-27.0) mg/dL BUN/Creatinine Ratio (12.00-20.00) Ratio Glucose (70-110) mg/dL POC Glucose (mg/dL) 168 H 263 H (70-110) mg/dL Calcium (8.7-10.3) mg/dL C. difficile (EIA) Intrp (Negative) Microbiology - Last 24 Hours (Table) 11/10/22 06:00 Blood Culture - Preliminary Blood 11/10/22 01:07 Blood Culture - Preliminary Blood Assessment and Plan Assessment: Acute COPD exacerbation improved Acute hypoxic respiratory failure requiring intubation and mechanical ventilati on Bacteremia with gram-positive cocci clinically insignificant likely contamination C. diff colitis acute tracheobronchitis with sputum culturecorynebacterium striatum Acute kidney injury on chronic kidney disease stage III. Stable. Obesity with BMI of 29.4 Diabetes mellitus type 2 * In regards to COPD exacerbation continue patient on oral prednisone, weaning from IV Solu-Medrol, continue breathing treatments weaned down on oxygen on IV Rocephin discontinued * Blood cultures collected 11/07 gram-positive cocci. Repeat blood cultures negative * In regards to C. diff colitis patient started on oral vancomycin to complete" 10 days , probiotics initiated * Patient seen by pulmonary medicine and infectious disease * Continue to monitor renal function * In regards to history of diabetes mellitus, Accu-Cheks before meals at bedtime continue patient's Lantus and insulin and Lantus monitor for hypoglycemia
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
[2022-11-14] MEDS: LACTOBACILLUS ACIDOPHILUS/PECT 1 EACH CAPSULE PO SCH ×2 (16:30→20:35)
[2022-11-14 16:37] LABS: Glucose,Whole Blood 282 mg/dL (70-110)
[2022-11-14 20:24] VITALS: RESP 18
[2022-11-14 20:30] LABS: Glucose,Whole Blood 232 mg/dL (70-110)
[2022-11-14] MEDS: MAGNESIUM OXIDE 400 MG TAB PO SCH (20:35)
[2022-11-14 23:33] LABS: Glucose,Whole Blood 144 mg/dL (70-110)
[2022-11-15 06:02] LABS: Glucose,Whole Blood 87 mg/dL (70-110)
[2022-11-15] MEDS: INSULIN ASPART (NovoLOG) 100 UNIT/ML VIAL SQ SCH ×2 (06:08→11:55)
[2022-11-15] MEDS: INSULIN DETEMIR (LEVEMIR) 100 UNIT/ML SYR SQ SCH (06:09)
[2022-11-15] MEDS: HYDROcodone/APAP 10-325MG 1 EACH TAB PO PRN (06:13)
[2022-11-15 07:50] VITALS: BP 144/71; TEMP 98.6
[2022-11-15] MEDS: METOPROLOL TARTRATE 25 MG TAB PO SCH (08:05)
[2022-11-15] MEDS: MAGNESIUM OXIDE 400 MG TAB PO SCH (08:05)
[2022-11-15] MEDS: predniSONE 20 MG TAB PO SCH (08:05)
[2022-11-15] MEDS: ESCITALOPRAM 10 MG TAB PO SCH (08:05)
[2022-11-15] MEDS: VANCOMYCIN 125 MG CAPSULE PO SCH ×2 (08:05→12:26)
[2022-11-15] MEDS: PREGABALIN 100 MG CAP PO SCH (08:05)
[2022-11-15] MEDS: busPIRone HCl 5 MG TAB PO SCH (08:05)
[2022-11-15] MEDS: ENOXAPARIN 40 MG/0.4 ML SYRINGE SQ SCH (08:05)
[2022-11-15] MEDS: metFORMIN 500 MG TAB PO SCH (08:05)
[2022-11-15] MEDS: LACTOBACILLUS ACIDOPHILUS/PECT 1 EACH CAPSULE PO SCH (08:06)
[2022-11-15] MEDS: amLODIPine 10 MG TAB PO SCH (08:06)
[2022-11-15 09:00] LABS: HCT 39.7 % (39.6-50.0); HGB 13.2 d/dL (13.0-17.0); MCH 29.8 pg (27.0-32.0); MCHC 33.2 d/dL (32.0-37.0); MCV 89.6 FL (80.0-97.0); Mean Platelet Volume 11.6 FL (9.5-12.2); NRBC Per 100 WBC 0 X 10*3/uL (0.00-0.01); Platelet Count 112 X 10*3/uL (140-440); RBC 4.43 X 10*6/uL (4.40-5.60); RDW 12.5 % (11.5-14.5); WBC 9.12 X 10*3/uL (4.50-10.00)
[2022-11-15] MEDS ORDERED: POTASSIUM CHLORIDE ER 20 MEQ TAB.ER PO SCH (09:00)
[2022-11-15] MEDS ORDERED: ISOSORBIDE MONONITRATE ER 30 MG TAB.ER.24H PO SCH (09:00)
[2022-11-15 09:14] LABS: BUN/Creat Ratio 22.67 Ratio (12.00-20.00); Blood Urea Nitrogen 20.4 mg/dL (9.0-27.0); Calcium 7.6 mg/dL (8.7-10.3); Carbon Dioxide 32.9 mmol/L (21.6-31.8); Chloride 100 mmol/L (96-109); Glucose 80 mg/dL (70-110); Phosphorus 3.3 mg/dL (2.4-5.1); Potassium 3.2 mmol/L (3.5-5.5); Sodium 143 mmol/L (135-145)
[2022-11-15] MEDS ORDERED: PANTOPRAZOLE 40 MG TABLET PO SCH (09:15)
[2022-11-15] MEDS: BUDESONIDE 1 MG/2 ML NEBU INHALATION SCH (09:35)
[2022-11-15] MEDS: IPRATROPIUM-ALBUTEROL 3 ML NEB INHALATION SCH ×3 (09:35→16:31)
[2022-11-15] MEDS: FORMOTEROL FUMARATE 20 MCG/2 ML NEBU INHALATION SCH (09:35)
[2022-11-15] MEDS: PANTOPRAZOLE 40 MG/10 ML VIAL IVP SCH (10:14)
[2022-11-15] MEDS ORDERED: POTASSIUM CHLORIDE ER 20 MEQ TAB.ER PO STA (11:14)
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
[2022-11-15 11:38] LABS: Glucose,Whole Blood 130 mg/dL (70-110)
--- NOTE | 2022-11-15 12:11 | P.DS ---
Providers Date of admission: 11/07/22 13:34 Expected date of discharge: 11/15/22 Attending physician: Brianna Venegas Consults: 11/07/22 12:48 Consult Physician Stat Consulting Provider: Luis Fernando Hayes Consult Reason/Comments: Ventilator management ICU management Do you want consulting provider notified?: Already Contacted 11/10/22 09:26 Consult Physician Routine Consulting Provider: Angela Leslie Consult Reason/Comments: bacteremia Do you want consulting provider notified?: Yes Primary care physician: [place] Hospital Course: 57 years old female with multiple medical problems including history of COPD. Presents because of worsening dyspnea and hypoxia requiring mechanical ventilation. Patient currently remains in the ICU intubated and sedated. Also patient had a fever on admission 101.3 suspected secondary to possible pneumonia versus tracheobronchitis, patient currently covered with ceftriaxone, fever subsided. Patient is tachypneic. Creatinine improving 1.5, 1.8 down to 1.1 today. Patient is on some epidural 60 mg as well as ceftriaxone and insulin. Today patient remains in the ICU intubated and sedated and information limited from the patient. 11/10/2022 Remains in the ICU sedated and intubated. Pulmonary/critical care team on the case and help with and management. He was admitted with acute COPD exacerbation with acute on chronic kidney di sease. lab report positive gram-positive cocci in clusters. Patient currently covered with ceftriaxone. We'll come to consult infectious disease team. Remains on Medrol 60 Mg. Ejection Fraction 55-60% 11/11/2022 Remains in the ICU sedated and intubated. Pulmonary/critical care team on the case and help with and management. Patient is still on his Medrol 60 mg for his acute COPD exacerbation. Huey's developing fever, he had low-grade temperature 99.8 last night. He is on ceftriaxone, infectious disease consult was obtained. Sputum culture is growing corynebacterium striatum we may need to change his antibiotic and will discuss with infectious disease team. His insulin slightly elevated more than 200, he is on Levemir 10 units twice a day. Pulmonary team are planning to wean him off and possible extubation today and they are held and history of bleeding therefore not going to increase his Levemir and continue with insulin sliding scale while he is on steroids. Taking down slightly trending down 95,000, heparin switch to Lovenox. Ejection fraction 55-60% Chest x-ray showing no acute consolidation 11/12 patient seen and evaluated bedside, alert and oriented 3. Continue on oxygen supplementation. Patient is extubated. Antibiotics discontinued 11/13 patient seen and evaluated bedside. Patient is alert and oriented 3. Patient does complain of diarrhea, Imodium ordered. We'll remove Hawk catheter, breathing has improved, W BC count elevated however likely secondary to steroids Potassium replaced 11/14: Patient evaluated bedside, C. diff test results discussed. Patient started on oral vancomycin. Imodium discontinued. We'll continue to monitor electrolyte panel. Continue with oral Seltzer for pain control 11/15: Patient stool has improved, frequency has improved as well and consistency has improved. Discharged on oral vancomycin. Discharge on oral prednisone. Potassium supplementation provided PHYSICAL EXAMINATION: GENERAL: The patient is alert and oriented x3, ill appearance, nasal cannula in place HEENT: Pupils are round and equally reacting to light. EOMI. CARDIOVASCULAR: S1 and S2 present. No murmurs, rubs, or gallops. PULMONARY: Decreased breath sounds bilaterally no wheezes no use of accessory muscle ABDOMEN: Soft, nontender, nondistended, normoactive bowel sounds. No palpable organomegaly. Hawk catheter removed MUSCULOSKELETAL: No joint swelling or deformity. EXTREMITIES: No cyanosis, clubbing, or pedal edema. NEUROLOGICAL: Gross neurological examination did not reveal any focal deficits. Assessment: Acute COPD exacerbation improved Acute hypoxic respiratory failure requiring intubation and mechanical ventilation Bacteremia with gram-positive cocci clinically insignificant likely contamination C. diff colitis acute tracheobronchitis with sputum culturecorynebacterium striatum Acute kidney injury on chronic kidney disease stage III. Stable. Obesity with BMI of 29.4 Diabetes mellitus type 2 * In regards to COPD exacerbation continue patient on oral prednisone, weaning from IV Solu-Medrol, continue breathing treatments weaned down on oxygen on IV Rocephin discontinued, discharge on oral prednisone * Blood cultures collected 11/07 gram-positive cocci. Repeat blood cultures negative * In regards to C. diff colitis patient started on oral vancomycin to complete" 10 days , probiotics initiated * Patient seen by pulmonary medicine and infectious disease * Continue to monitor renal function * In regards to history of diabetes mellitus, home regimen continued upon discharge Patient Condition at Discharge: Fair Plan - Discharge Summary Discharge Rx Participant: No New Discharge Prescriptions: New predniSONE [Deltasone] 40 mg PO DAILY #5 tab amLODIPine [Norvasc] 10 mg PO DAILY #30 tab Vancomycin 125 mg PO QID 9 Days cap Continue fentaNYL 75MCG/HR PATCH [Duragesic 75MCG/HR] 1 patch TRANSDERM Q48H Calcium Carb-Vit D 500Mg-5Mcg [Oscal 500+D 5 Mcg (200 Iu)] 1 tab PO AC-TID metFORMIN HCL [Glucophage] 500 mg PO DAILY Isosorbide Mononitrate ER [Imdur] 30 mg PO DAILY #30 tab Pregabalin [Lyrica] 200 mg PO BID Metoprolol Tartrate [Lopressor] 25 mg PO BID busPIRone HCL 15 mg PO BID Potassium Chloride ER [K-Dur 20] 20 meq PO DAILY Magnesium Oxide [Mag-Ox] 400 mg PO BID Benzonatate 10 mg PO BID PRN PRN Reason: Cough Furosemide [Lasix] 40 mg PO DAILY PRN PRN Reason: Edema HYDROcodone/APAP 10-325MG [Seltzer 10-325] 1 tab PO Q6HR PRN PRN Reason: Pain Aspirin [Adult Low Dose Aspirin EC] 81 mg PO DAILY Ipratropium Nebulized [Atrovent Nebulized 0.2 MG/ML] 0.5 mg INHALATION RT-QID PRN PRN Reason: Shortness Of Breath Escitalopram [Lexapro] 10 mg PO DAILY Albuterol Sulfate [Ventolin HFA] 2 puff INHALATION RT-Q4H PRN PRN Reason: Shortness Of Breath Albuterol Nebulized [Ventolin Nebulized] 2.5 mg INHALATION RT-QID PRN PRN Reason: Shortness Of Breath Discontinued Doxycycline Hyclate 100 mg PO BID Discharge Medication List fentaNYL 75MCG/HR PATCH [Duragesic 75MCG/HR] 1 patch TRANSDERM Q48H 10/25/15 [History] Calcium Carb-Vit D 500Mg-5Mcg [Oscal 500+D 5 Mcg (200 Iu)] 1 tab PO AC-TID 07/10/19 [History] metFORMIN HCL [Glucophage] 500 mg PO DAILY 09/08/19 [History] busPIRone HCL 15 mg PO BID 07/28/21 [History] Isosorbide Mononitrate ER [Imdur] 30 mg PO DAILY #30 tab 10/28/21 [Rx] Potassium Chloride ER [K-Dur 20] 20 meq PO DAILY 12/18/21 [History] Benzonatate 10 mg PO BID PRN 09/08/22 [History] Furosemide [Lasix] 40 mg PO DAILY PRN 09/08/22 [History] HYDROcodone/APAP 10-325MG [Seltzer 10-325] 1 tab PO Q6HR PRN 09/08/22 [History] Magnesium Oxide [Mag-Ox] 400 mg PO BID 09/08/22 [History] Metoprolol Tartrate [Lopressor] 25 mg PO BID 09/08/22 [History] Pregabalin [Lyrica] 200 mg PO BID 09/08/22 [History] Aspirin [Adult Low Dose Aspirin EC] 81 mg PO DAILY 09/09/22 [History] Albuterol Nebulized [Ventolin Nebulized] 2.5 mg INHALATION RT-QID PRN 11/07/22 [History] Albuterol Sulfate [Ventolin HFA] 2 puff INHALATION RT-Q4H PRN 11/07/22 [History] Escitalopram [Lexapro] 10 mg PO DAILY 11/07/22 [History] Ipratropium Nebulized [Atrovent Nebulized 0.2 MG/ML] 0.5 mg INHALATION RT-QID PRN 11/07/22 [History] Vancomycin 125 mg PO QID 9 Days cap 11/15/22 [Rx] amLODIPine [Norvasc] 10 mg PO DAILY #30 tab 11/15/22 [Rx] predniSONE [Deltasone] 40 mg PO DAILY #5 tab 11/15/22 [Rx] Follow up Appointment(s)/Referral(s): Adán Amaro DO [Primary Care Provider] - 1-2 days Discharge Disposition: HOME SELF-CARE
[2022-11-15 12:46] VITALS: PULSE 77
--- NOTE | 2022-11-15 17:21 | P.PN ---
Subjective Progress Note Date: 11/11/22 Principal diagnosis: Positive blood culture Patient is a 57-year-old male with a past medical history significant for diabetes mellitus hypertension hyperlipidemia sleep apnea COPD patient was brought into the hospital for evaluation of increasing shortness of breath, p atient did require intubation and admission to the ICU patient also have a blood culture drawn came back positive with gram-positive cocci sputum culture grew corynebacterium. On today's evaluation that is 11/11/2022, the patient has been afebrile, the patient has been extubated and is breathing comfortably on 4 L nasal cannula oxygen, the patient is slightly lethargic postextubation and did not provide a reliable history and vomiting diarrhea or any other changes reported by the nursing staff. Patient did have a white count of 4.3, crit is 1.04 blood cultures remains to be gram-positive cocci, blood cultures repeated 11/10/2022 so far negative sputum culture did grew corynebacterium Objective - Vital Signs Vital signs: Vital Signs Temp 97.5 F L 11/11/22 08:00 Pulse 76 11/11/22 12:00 Resp 13 11/11/22 12:00 BP 170/73 11/11/22 12:00 Pulse Ox 95 11/11/22 12:00 FiO2 35 11/11/22 12:19 Intake & Output 11/10/22 11/11/22 11/11/22 18:59 06:59 18:59 Intake Total 6966.593 1497.346 757.451 Output Total 2350 795 1520 Balance -884.926 705.346 -762.549 Weight 93.9 kg 94.2 kg 94.2 kg Intake: IV 440 513 185 A line 33 15 Sodium Chloride 0.9% 1, 440 480 170 000 ml @ 40 mls/hr IV . Q24H [facility] Rx#:[id number] Intake, IV Titration 585.074 397.346 470.451 Amount Cisatracurium 200 mg In 60.085 Sodium Chloride 0.9% 180 ml @ 1 MCG/KG/MIN 5.028 mls/hr IV .Q24H [facility] Rx#: [id number] cefTRIAXone 1 gm In 50 300 Sodium Chloride 0.9% 50 ml @ 100 mls/hr IVPB Q24HR [facility] Rx#:[id number] fentaNYL (PF). 1,000 mcg 100 100 27.794 In Sodium Chloride 0.9% 80 ml @ 0.5 MCG/KG/HR 4. 19 mls/hr IV .[id number] [facility] Rx#:[id number] propofoL 1,000 mg In 374.989 297.346 142.657 Empty Bag 1 bag @ 15 MCG/ KG/MIN 7.812 mls/hr IV . [id number] [facility] Rx#:[id number] Tube Feeding 440 560 102 Other 30 Output: Urine 2350 795 1520 Other: Voiding Method Indwelling Catheter Indwelling Catheter Indwelling Catheter ABP, PAP, CO, CI - Last Documented Arterial Blood Pressure 118/45 - Exam GENERAL DESCRIPTION: Middle-aged male lying in bed in no distress RESPIRATORY SYSTEM: Unlabored breathing , decreased breath sounds at bases HEART: S1 S2 regular rate and rhythm , ABDOMEN: Soft , no tenderness EXTREMITIES: No edema feet - Labs CBC & Chem 7: 11/15/22 03:52 11/15/22 03:52 Labs: Abnormal Lab Results - Last 24 Hours (Table) 11/10/22 11/10/22 11/10/22 Range/Units 17:19 20:27 23:32 RBC (4.30-5.90) m/uL Hgb (13.0-17.5) gm/dL Hct (39.0-53.0) % Plt Count (150-450) k/uL ABG pH (7.35-7.45) ABG pCO2 (35-45) mmHg ABG pO2 (83-108) mmHg ABG HCO3 (21-25) mmol/L ABG Total CO2 (19-24) mmol/L Carbon Dioxide (22-30) mmol/L BUN (9-20) mg/dL Glucose (74-99) mg/dL POC Glucose (mg/dL) 224 H 251 H 268 H (70-110) mg/dL Calcium (8.4-10.2) mg/dL 11/10/22 11/11/22 11/11/22 Range/Units 23:37 05:00 05:00 RBC 3.79 L (4.30-5.90) m/uL Hgb 11.9 L (13.0-17.5) gm/dL Hct 36.0 L (39.0-53.0) % Plt Count 95 L (150-450) k/uL ABG pH (7.35-7.45) ABG pCO2 (35-45) mmHg ABG pO2 (83-108) mmHg ABG HCO3 (21-25) mmol/L ABG Total CO2 (19-24) mmol/L Carbon Dioxide 33 H (22-30) mmol/L BUN 40 H (9-20) mg/dL Glucose 255 H (74-99) mg/dL POC Glucose (mg/dL) 263 H (70-110) mg/dL Calcium 6.6 L (8.4-10.2) mg/dL 11/11/22 11/11/22 11/11/22 Range/Units 05:36 05:46 11:31 RBC (4.30-5.90) m/uL Hgb (13.0-17.5) gm/dL Hct (39.0-53.0) % Plt Count (150-450) k/uL ABG pH (7.35-7.45) ABG pCO2 57 H (35-45) mmHg ABG pO2 (83-108) mmHg ABG HCO3 35 H (21-25) mmol/L ABG Total CO2 37 H (19-24) mmol/L Carbon Dioxide (22-30) mmol/L BUN (9-20) mg/dL Glucose (74-99) mg/dL POC Glucose (mg/dL) 248 H 203 H (70-110) mg/dL Calcium (8.4-10.2) mg/dL 11/11/22 Range/Units 11:43 RBC (4.30-5.90) m/uL Hgb (13.0-17.5) gm/dL Hct (39.0-53.0) % Plt Count (150-450) k/uL ABG pH 7.47 H (7.35-7.45) ABG pCO2 49 H (35-45) mmHg ABG pO2 81 L (83-108) mmHg ABG HCO3 36 H (21-25) mmol/L ABG Total CO2 38 H (19-24) mmol/L Carbon Dioxide (22-30) mmol/L BUN (9-20) mg/dL Glucose (74-99) mg/dL POC Glucose (mg/dL) (70-110) mg/dL Calcium (8.4-10.2) mg/dL Microbiology - Last 24 Hours (Table) 11/07/22 15:33 Blood Culture Gram Stain - Final Blood Blood Culture - Preliminary 11/07/22 12:45 Gram Stain - Final Sputum Sputum Culture - Final Corynebacterium striatum Assessment and Plan (1) Positive blood culture Status: Acute Code(s): R78.81 - BACTEREMIA SNOMED Code(s): 993608470 Plan: 1patient with a positive blood culture with gram-positive cocci which has not been identified on biofire per the pharmacist note, and this patient was in the hospital with acute respiratory failure requiring intubation patient chest x-ray however has been relatively clear but he did have elevated procalcitonin and the patient fever responded to the Rocephin patient currently do not have any other obvious focus for this positive blood culture with concern for possible skin contamination 2-blood cultures has been repeated to document clearance 3-we will not recommend vancomycin at this point Dictation was produced using [employer] dictation software. please excuse any grammatical, word or spelling errors. Time with Patient: Less than 30
--- NOTE | 2022-11-15 17:23 | P.PN ---
Subjective Progress Note Date: 11/12/22 Principal diagnosis: Positive blood culture Patient is a 57-year-old male with a past medical history significant for diabetes mellitus hypertension hyperlipidemia sleep apnea COPD patient was brought into the hospital for evaluation of increasing shortness of breath, p atient did require intubation and admission to the ICU patient also have a blood culture drawn came back positive with gram-positive cocci sputum culture grew corynebacterium. On today's evaluation that is 11/12/2022, the patient remains afebrile, the patient is breathing comfortably on 4 L nasal cannula oxygen, the patient denies any chest pain or shortness of breath occasional cough no nausea no vomiting no abdominal pain or diarrhea Patient did have a white count of 5.4, the patient creatinine 0.92, 1.04 blood cultures remains to be gram-positive cocci, blood cultures repeated 11/10/2022 so far negative sputum culture did grew corynebacterium Objective - Vital Signs Vital signs: Vital Signs Temp 98.9 F 11/12/22 08:00 Pulse 62 11/12/22 10:00 Resp 21 11/12/22 10:00 BP 170/73 11/11/22 19:00 Pulse Ox 90 L 11/12/22 10:00 FiO2 35 11/11/22 12:19 Intake & Output 11/11/22 11/12/22 11/12/22 18:59 06:59 18:59 Intake Total 1788.451 363 162 Output Total 4115 1865 245 Balance -2326.549 -1502 -83 Weight 94.2 kg Intake: IV 416 363 162 A line 36 33 12 Sodium Chloride 0.9% 1, 380 330 150 000 ml @ 40 mls/hr IV . Q24H [facility] Rx#:[id number] Intake, IV Titration 570.451 Amount Calcium Gluconate in NaCl 100 2 gm In Saline 1 100ml. bag @ 100 mls/hr IVPB ONCE ONE Rx#:[id number] cefTRIAXone 1 gm In 300 Sodium Chloride 0.9% 50 ml @ 100 mls/hr IVPB Q24HR [facility] Rx#:[id number] fentaNYL (PF). 1,000 mcg 27.794 In Sodium Chloride 0.9% 80 ml @ 0.5 MCG/KG/HR 4. 19 mls/hr IV .[id number] [facility] Rx#:[id number] propofoL 1,000 mg In 142.657 Empty Bag 1 bag @ 15 MCG/ KG/MIN 7.812 mls/hr IV . [id number] [facility] Rx#:[id number] Oral 700 Tube Feeding 102 Output: Urine 4115 1865 245 Other: Voiding Method Indwelling Catheter Indwelling Catheter Indwelling Catheter ABP, PAP, CO, CI - Last Documented Arterial Blood Pressure 151/53 - Exam GENERAL DESCRIPTION: Middle-aged male lying in bed in no distress RESPIRATORY SYSTEM: Unlabored breathing , decreased breath sounds at bases HEART: S1 S2 regular rate and rhythm , ABDOMEN: Soft , no tenderness EXTREMITIES: No edema feet - Labs CBC & Chem 7: 11/15/22 03:52 11/15/22 03:52 Labs: Abnormal Lab Results - Last 24 Hours (Table) 11/11/22 11/11/22 11/11/22 Range/Units 12:25 17:33 19:54 Plt Count (150-450) k/uL Lymphocytes # (1.0-4.8) k/uL Chloride (98-107) mmol/L Carbon Dioxide (22-30) mmol/L BUN (9-20) mg/dL Glucose (74-99) mg/dL POC Glucose (mg/dL) 189 H 167 H (70-110) mg/dL Calcium (8.4-10.2) mg/dL Ionized Calcium Virgilio 3.6 L (4.5-5.3) mg/dL 11/11/22 11/12/22 11/12/22 Range/Units 23:18 05:00 05:00 Plt Count 101 L (150-450) k/uL Lymphocytes # 0.3 L (1.0-4.8) k/uL Chloride 97 L (98-107) mmol/L Carbon Dioxide 38 H (22-30) mmol/L BUN 35 H (9-20) mg/dL Glucose 154 H (74-99) mg/dL POC Glucose (mg/dL) 205 H (70-110) mg/dL Calcium 7.2 L (8.4-10.2) mg/dL Ionized Calcium Virgilio (4.5-5.3) mg/dL 11/12/22 11/12/22 Range/Units 05:58 11:43 Plt Count (150-450) k/uL Lymphocytes # (1.0-4.8) k/uL Chloride (98-107) mmol/L Carbon Dioxide (22-30) mmol/L BUN (9-20) mg/dL Glucose (74-99) mg/dL POC Glucose (mg/dL) 160 H 182 H (70-110) mg/dL Calcium (8.4-10.2) mg/dL Ionized Calcium Virgilio (4.5-5.3) mg/dL Microbiology - Last 24 Hours (Table) 11/10/22 06:00 Blood Culture - Preliminary Blood 11/10/22 01:07 Blood Culture - Preliminary Blood 11/07/22 15:33 Blood Culture Gram Stain - Final Blood Blood Culture - Preliminary Assessment and Plan (1) Positive blood culture Status: Acute Code(s): R78.81 - BACTEREMIA SNOMED Code(s): 102829111 Plan: 1patient with a positive blood culture with gram-positive cocci which has not been identified on biofire per the pharmacist note, and this patient was in the hospital with acute respiratory failure requiring intubation patient chest x-ray however has been relatively clear but he did have elevated procalcitonin and the patient fever responded to the Rocephin patient currently do not have any other obvious focus for this positive blood culture with concern for possible skin contamination 2-blood cultures has been repeated to document clearance 3-we will not recommend vancomycin at this point, agree with discontinue induration of Rocephin as clinically not behaving as pneumonia Dictation was produced using [employer] dictation software. please excuse any grammatical, word or spelling errors. Time with Patient: Less than 30
--- NOTE | 2022-11-15 17:25 | P.PN ---
Subjective Progress Note Date: 11/13/22 Principal diagnosis: Positive blood culture Patient is a 57-year-old male with a past medical history significant for diabetes mellitus hypertension hyperlipidemia sleep apnea COPD patient was brought into the hospital for evaluation of increasing shortness of breath, p atient did require intubation and admission to the ICU patient also have a blood culture drawn came back positive with gram-positive cocci sputum culture grew corynebacterium. On today's evaluation that is 11/13/2022, the patient continues to be afebrile, the patient is breathing comfortably on 4 L nasal cannula oxygen, the patient denies any chest pain or shortness of breath occasional cough no nausea no vomiting no abdominal pain however has been complaining of diarrhea with multiple loose stools today Patient did have a white count is slightly elevated 12.1 today, the patient creatinine 0.93, blood cultures remains to be gram-positive cocci, blood cultures repeated 11/10/2022 so far negative sputum culture did grew corynebacterium Objective - Vital Signs Vital signs: Vital Signs Temp 98.4 F 11/13/22 13:25 Pulse 75 11/13/22 13:25 Resp 17 11/13/22 13:25 BP 108/61 11/13/22 13:25 Pulse Ox 91 L 11/13/22 13:25 FiO2 35 11/11/22 12:19 Intake & Output 11/12/22 11/13/22 11/13/22 18:59 06:59 18:59 Intake Total 541 400 Output Total 605 1050 Balance -64 -650 Weight 89 kg 89 kg Intake: IV 291 A line 21 Sodium Chloride 0.9% 1, 270 000 ml @ 40 mls/hr IV . Q24H [facility] Rx#:[id number] Oral 250 400 Output: Urine 605 1050 Other: Voiding Method Indwelling Catheter Indwelling Catheter Indwelling Catheter # Bowel Movements 1 1 ABP, PAP, CO, CI - Last Documented Arterial Blood Pressure 142/52 - Exam GENERAL DESCRIPTION: Middle-aged male lying in bed in no distress RESPIRATORY SYSTEM: Unlabored breathing , decreased breath sounds at bases HEART: S1 S2 regular rate and rhythm , ABDOMEN: Soft , no tenderness EXTREMITIES: No edema feet - Labs CBC & Chem 7: 11/15/22 03:52 11/15/22 03:52 Labs: Abnormal Lab Results - Last 24 Hours (Table) 11/12/22 11/12/22 11/13/22 Range/Units 17:05 20:07 00:50 WBC (3.8-10.6) k/uL Plt Count (150-450) k/uL Potassium (3.5-5.1) mmol/L Chloride (98-107) mmol/L Carbon Dioxide (22-30) mmol/L BUN (9-20) mg/dL Glucose (74-99) mg/dL POC Glucose (mg/dL) 179 H 225 H 168 H (70-110) mg/dL Calcium (8.4-10.2) mg/dL 11/13/22 11/13/22 11/13/22 Range/Units 06:15 06:17 07:15 WBC 12.1 H (3.8-10.6) k/uL Plt Count 87 L (150-450) k/uL Potassium (3.5-5.1) mmol/L Chloride (98-107) mmol/L Carbon Dioxide (22-30) mmol/L BUN (9-20) mg/dL Glucose (74-99) mg/dL POC Glucose (mg/dL) 47 L 60 L (70-110) mg/dL Calcium (8.4-10.2) mg/dL 11/13/22 11/13/22 Range/Units 07:15 11:20 WBC (3.8-10.6) k/uL Plt Count (150-450) k/uL Potassium 3.2 L (3.5-5.1) mmol/L Chloride 96 L (98-107) mmol/L Carbon Dioxide 39 H (22-30) mmol/L BUN 34 H (9-20) mg/dL Glucose 102 H (74-99) mg/dL POC Glucose (mg/dL) 179 H (70-110) mg/dL Calcium 7.0 L (8.4-10.2) mg/dL Microbiology - Last 24 Hours (Table) 11/10/22 06:00 Blood Culture - Preliminary Blood 11/10/22 01:07 Blood Culture - Preliminary Blood Assessment and Plan (1) Diarrhea Status: Acute Code(s): R19.7 - DIARRHEA, UNSPECIFIED SNOMED Code(s): 74127908 (2) Positive blood culture Status: Acute Code(s): R78.81 - BACTEREMIA SNOMED Code(s): 238693467 Plan: 1patient with a positive blood culture with gram-positive cocci which has not been identified on biofire per the pharmacist note, and this patient was in the hospital with acute respiratory failure requiring intubation patient chest x-ray however has been relatively clear but he did have elevated procalcitonin and the patient fever responded to the Rocephin patient currently do not have any other obvious focus for this positive blood culture with concern for possible skin contamination 2-blood cultures has been repeated and remains to be negative so far 3-patient has developed diarrhea and was exposed to antibiotics, also elevated white count, we will check a stool for C. diff and treat if positive Dictation was produced using [employer] dictation software. please excuse any grammatical, word or spelling errors. Time with Patient: Less than 30
--- NOTE | 2022-11-15 17:26 | P.PN ---
Subjective Progress Note Date: 11/14/22 Principal diagnosis: Positive blood culture Patient is a 57-year-old male with a past medical history significant for diabetes mellitus hypertension hyperlipidemia sleep apnea COPD patient was brought into the hospital for evaluation of increasing shortness of breath, p atient did require intubation and admission to the ICU patient also have a blood culture drawn came back positive with gram-positive cocci sputum culture grew corynebacterium. On today's evaluation that is 11/14/2022, the patient denies any fever or any chills, the patient is breathing comfortably on 4 L nasal cannula oxygen, the patient denies any chest pain or shortness of breath occasional cough no nausea no vomiting no abdominal pain, still coming of some diarrhea but no blood or mucus in the stool Patient did have a white count is down to 10.30 today, the patient creatinine 1.0, blood cultures remains to be gram-positive cocci with no ID or sensitivity, blood cultures repeated 11/10/2022 so far negative sputum culture did grew corynebacterium Objective - Vital Signs Vital signs: Vital Signs Temp 97.9 F 11/14/22 06:53 Pulse 84 11/14/22 08:37 Resp 16 11/14/22 06:53 BP 114/66 11/14/22 06:53 Pulse Ox 95 11/14/22 08:14 FiO2 35 11/11/22 12:19 Intake & Output 11/13/22 11/14/22 11/14/22 18:59 06:59 18:59 Intake Total 540 Output Total 655 Balance -115 Weight 89 kg Intake: Oral 540 Output: Urine 655 Uretheral (Hawk) 655 Other: Voiding Method Indwelling Catheter Bedside Commode Urinal # Voids 3 # Bowel Movements 1 4 1 ABP, PAP, CO, CI - Last Documented Arterial Blood Pressure 142/52 - Exam GENERAL DESCRIPTION: Middle-aged male lying in bed in no distress RESPIRATORY SYSTEM: Unlabored breathing , decreased breath sounds at bases HEART: S1 S2 regular rate and rhythm , ABDOMEN: Soft , no tenderness EXTREMITIES: No edema feet - Labs CBC & Chem 7: 11/15/22 03:52 11/15/22 03:52 Labs: Abnormal Lab Results - Last 24 Hours (Table) 11/13/22 11/13/22 11/13/22 Range/Units 11:20 16:38 18:16 WBC (4.50-10.00) X 10*3/uL Plt Count (140-440) X 10*3/uL Potassium 3.3 L (3.5-5.1) mmol/L BUN (9.0-27.0) mg/dL BUN/Creatinine Ratio (12.00-20.00) Ratio Glucose (70-110) mg/dL POC Glucose (mg/dL) 179 H 299 H (70-110) mg/dL Calcium (8.7-10.3) mg/dL C. difficile (EIA) Intrp (Negative) 11/13/22 11/13/22 11/14/22 Range/Units 21:11 22:37 05:44 WBC 10.30 H (4.50-10.00) X 10*3/uL Plt Count 102 L (140-440) X 10*3/uL Potassium (3.5-5.1) mmol/L BUN (9.0-27.0) mg/dL BUN/Creatinine Ratio (12.00-20.00) Ratio Glucose (70-110) mg/dL POC Glucose (mg/dL) 140 H (70-110) mg/dL Calcium (8.7-10.3) mg/dL C. difficile (EIA) Intrp Positive A (Negative) 11/14/22 11/14/22 Range/Units 05:44 06:10 WBC (4.50-10.00) X 10*3/uL Plt Count (140-440) X 10*3/uL Potassium 3.2 L (3.5-5.1) mmol/L BUN 28.7 H (9.0-27.0) mg/dL BUN/Creatinine Ratio 28.70 H (12.00-20.00) Ratio Glucose 179 H (70-110) mg/dL POC Glucose (mg/dL) 168 H (70-110) mg/dL Calcium 7.4 L (8.7-10.3) mg/dL C. difficile (EIA) Intrp (Negative) Microbiology - Last 24 Hours (Table) 11/10/22 06:00 Blood Culture - Preliminary Blood 11/10/22 01:07 Blood Culture - Preliminary Blood Assessment and Plan (1) C. difficile colitis Status: Acute Code(s): A04.72 - ENTEROCOLITIS D/T CLOSTRIDIUM DIFFICILE, NOT SPCF RECUR SNOMED Code(s): 582848849 (2) Positive blood culture Status: Acute Code(s): R78.81 - BACTEREMIA SNOMED Code(s): 806435489 Plan: 1patient with a positive blood culture with gram-positive cocci which has not been identified on biofire per the pharmacist note, and this patient was in the hospital with acute respiratory failure requiring intubation patient chest x-ray however has been relatively clear but he did have elevated procalcitonin and the patient fever responded to the Rocephin patient currently do not have any other obvious focus for this positive blood culture with concern for possible skin contamination 2-blood cultures has been repeated and remains to be negative so far 3-patient has developed diarrhea and stool for C. diff came back positive patient had been started on oral vancomycin to continue, patient has been encouraged to increase his probiotic and yogurt intake Dictation was produced using [email or web address] dictation software. please excuse any grammatical, word or spelling errors. Time with Patient: Less than 30
--- NOTE | 2022-11-15 17:28 | P.PN ---
Subjective Progress Note Date: 11/15/22 Principal diagnosis: Positive blood culture Patient is a 57-year-old male with a past medical history significant for diabetes mellitus hypertension hyperlipidemia sleep apnea COPD patient was brought into the hospital for evaluation of increasing shortness of breath, p atient did require intubation and admission to the ICU patient also have a blood culture drawn came back positive with gram-positive cocci sputum culture grew corynebacterium. On today's evaluation that is 11/15/2022, the patient remains to be afebrile, the patient is breathing comfortably on 4 L nasal cannula oxygen, the patient denies any chest pain or shortness of breath occasional cough no nausea no vomiting no abdominal pain, patient diarrhea has decreased in frequency and is slightly forming up Patient did have a white count is down to 9.12 today, the patient creatinine 0.9 , blood cultures remains to be gram-positive cocci with no ID or sensitivity, blood cultures repeated 11/10/2022 so far negative sputum culture did grew corynebacterium Objective - Vital Signs Vital signs: Vital Signs Temp 98.6 F 11/15/22 07:30 Pulse 77 11/15/22 12:45 Resp 18 11/15/22 12:45 BP 144/71 11/15/22 07:30 Pulse Ox 95 11/15/22 09:36 FiO2 35 11/11/22 12:19 Intake & Output 11/14/22 11/15/22 11/15/22 18:59 06:59 18:59 Intake Total 440 Balance 440 Weight 89 kg Intake: Oral 440 Other: # Voids 2 2 # Bowel Movements 1 2 1 ABP, PAP, CO, CI - Last Documented Arterial Blood Pressure 142/52 - Exam GENERAL DESCRIPTION: Middle-aged male lying in bed in no distress RESPIRATORY SYSTEM: Unlabored breathing , decreased breath sounds at bases HEART: S1 S2 regular rate and rhythm , ABDOMEN: Soft , no tenderness EXTREMITIES: No edema feet - Labs CBC & Chem 7: 11/15/22 03:52 11/15/22 03:52 Labs: Abnormal Lab Results - Last 24 Hours (Table) 11/14/22 11/14/22 11/14/22 Range/Units 16:32 20:27 23:32 Plt Count (140-440) X 10*3/uL Potassium (3.5-5.5) mmol/L Carbon Dioxide (21.6-31.8) mmol/L BUN/Creatinine Ratio (12.00-20.00) Ratio POC Glucose (mg/dL) 282 H 232 H 144 H (70-110) mg/dL Calcium (8.7-10.3) mg/dL C-Reactive Protein (0.00-0.80) mg/dL 11/15/22 11/15/22 11/15/22 Range/Units 03:52 03:52 11:27 Plt Count 112 L (140-440) X 10*3/uL Potassium 3.2 L (3.5-5.5) mmol/L Carbon Dioxide 32.9 H (21.6-31.8) mmol/L BUN/Creatinine Ratio 22.67 H (12.00-20.00) Ratio POC Glucose (mg/dL) 130 H (70-110) mg/dL Calcium 7.6 L (8.7-10.3) mg/dL C-Reactive Protein 3.60 H (0.00-0.80) mg/dL Microbiology - Last 24 Hours (Table) 11/10/22 06:00 Blood Culture - Final Blood 11/10/22 01:07 Blood Culture - Final Blood Assessment and Plan (1) C. difficile colitis Status: Acute Code(s): A04.72 - ENTEROCOLITIS D/T CLOSTRIDIUM DIFFICILE, NOT SPCF RECUR SNOMED Code(s): 141705859 (2) Positive blood culture Status: Acute Code(s): R78.81 - BACTEREMIA SNOMED Code(s): 026139921 Plan: 1patient with a positive blood culture with gram-positive cocci which has not been identified on biofire per the pharmacist note, and this patient was in the hospital with acute respiratory failure requiring intubation patient chest x-ray however has been relatively clear but he did have elevated procalcitonin and the patient fever responded to the Rocephin patient currently do not have any other obvious focus for this positive blood culture with concern for possible skin contamination 2-blood cultures has been repeated and remains to be negative 3-patient has developed diarrhea and stool for C. diff came back positive patient seemed to have shown clinical improvement with oral vancomycin to continue to finish a ten-day course of therapy, patient has been encouraged to increase his probiotic and yogurt intake Dictation was produced using [employer] software. please excuse any grammatical, word or spelling errors.
--- NOTE | 2022-11-17 13:16 | CDI ---
Documentation Clarification Form Date: 11/17/2022 12:50:23 PM From: Cecy Wong Phone: Admit Date: 11/07/2022 01:34:00 PM Patient Name: Rakan Flynn Visit Number: [id number] Discharge Date: 11/15/2022 04:34:00 PM ATTENTION: The Clinical Documentation Specialists (CDI) and [facility] Coding Staff appreciate your assistance in clarifying documentation. Please respond to the clarification below the line at the bottom and electronically sign. The CDI & [facility] Coding staff will review the response and follow-up if needed. Please note: Queries are made part of the Legal Health Record. If you have any questions, please contact the author of this message via ITS. Dr. Karlee Gibbons Your patient has advancedCOPD, withchronic oxygendependenceat 4 L nasal cannula along with cute hypoxemic respiratory failure and respiratory acidosis. Based on this information and the findings below, is there an additional diagnosis that is clinically appropriate for this patient? History/Risk Factors: 57yo M, AECOPD, AH/HRF, C. diffcolitis, HTN, HLD, ZAFAR, acute tracheobronchitiswith Corynebacterium striatum, HUSSEIN on CKD III, obesity, DMII, recent NSTEMI Tobacco use: yes Home oxygen: yes Clinical Indicators: Vital signs: Temp 100.4 Pulse 108 H Resp BP 129/70 Pulse Ox 91 FiO2 50 Pulse Ox 91 ABG/CBG: pH 7.14 O2 80 pCO2 49 Treatment: O2/Vent/BiPap: vent 24-96hr then Bipap Is there an additional diagnosis that is clinically appropriate for this patient? [ y ] Acute on Chronic Respiratory Failure [ ] Chronic Respiratory Failure [ ] Other Diagnosis, please specify [ ] Unable to determine (Template Last Revised: June 2020) MTDD
== END 2022-11-15 16:34 | disposition home or self-care (01) | DRG 208 ==
LOC: EC 11:33 → 2SICU 13:34 → 4SSUR 11-13 02:03
PROVIDERS: ADMIT Hospitalist; ATTEND Hospitalist
PROC: 5A1945Z Respiratory Ventilation, 24-96 Consecutive Hours (ICD-10-PCS; principal; 2022-11-07)
PROC: 0BH18EZ Insertion of Endotracheal Airway into Trachea, Via Natural or Artificial Opening Endoscopic (ICD-10-PCS; 2022-11-07)
PROC: 03HY32Z Insertion of Monitoring Device into Upper Artery, Percutaneous Approach (ICD-10-PCS; 2022-11-08)
PROC: 4A133B1 Monitoring of Arterial Pressure, Peripheral, Percutaneous Approach (ICD-10-PCS; 2022-11-08)
PROC: 4A133J1 Monitoring of Arterial Pulse, Peripheral, Percutaneous Approach (ICD-10-PCS; 2022-11-08)
PROC: 02HV33Z Insertion of Infusion Device into Superior Vena Cava, Percutaneous Approach (ICD-10-PCS; 2022-11-08)
PROC: 3E043XZ Introduction of Vasopressor into Central Vein, Percutaneous Approach (ICD-10-PCS; 2022-11-08)
PROC: 3E0G76Z Introduction of Nutritional Substance into Upper GI, Via Natural or Artificial Opening (ICD-10-PCS; 2022-11-09)
PROC: 5A09357 Assistance with Respiratory Ventilation, Less than 24 Consecutive Hours, Continuous Positive Airway Pressure (ICD-10-PCS; 2022-11-12)
DX: J44.1 Chronic obstructive pulmonary disease with (acute) exacerbation (principal); J96.21 Acute and chronic respiratory failure with hypoxia; J96.22 Acute and chronic respiratory failure with hypercapnia; I21.4 Non-ST elevation (NSTEMI) myocardial infarction; A04.72 Enterocolitis due to Clostridium difficile, not specified as recurrent; N17.9 Acute kidney failure, unspecified; E11.22 Type 2 diabetes mellitus with diabetic chronic kidney disease; J44.0 Chronic obstructive pulmonary disease with (acute) lower respiratory infection; N18.30 Chronic kidney disease, stage 3 unspecified; E11.65 Type 2 diabetes mellitus with hyperglycemia; I95.9 Hypotension, unspecified; I12.9 Hypertensive chronic kidney disease with stage 1 through stage 4 chronic kidney disease, or unspecified chronic kidney disease; E66.9 Obesity, unspecified; J20.9 Acute bronchitis, unspecified; Z68.29 Body mass index [BMI] 29.0-29.9, adult; K21.9 Gastro-esophageal reflux disease without esophagitis; E78.5 Hyperlipidemia, unspecified; M54.9 Dorsalgia, unspecified; I44.0 Atrioventricular block, first degree; F41.9 Anxiety disorder, unspecified; G89.29 Other chronic pain; G47.33 Obstructive sleep apnea (adult) (pediatric); I25.10 Atherosclerotic heart disease of native coronary artery without angina pectoris; T38.0X5A Adverse effect of glucocorticoids and synthetic analogues, initial encounter; Z99.81 Dependence on supplemental oxygen; T41.5X6A Underdosing of therapeutic gases, initial encounter; F17.210 Nicotine dependence, cigarettes, uncomplicated; Z91.138 Patient's unintentional underdosing of medication regimen for other reason; Z85.048 Personal history of other malignant neoplasm of rectum, rectosigmoid junction, and anus; Z85.51 Personal history of malignant neoplasm of bladder; Z79.899 Other long term (current) drug therapy; Z79.84 Long term (current) use of oral hypoglycemic drugs; Z79.891 Long term (current) use of opiate analgesic; Z79.82 Long term (current) use of aspirin; Z88.8 Allergy status to other drugs, medicaments and biological substances; Z91.013 Allergy to seafood; Z91.041 Radiographic dye allergy status; Z95.5 Presence of coronary angioplasty implant and graft; Z99.3 Dependence on wheelchair
CPT/HCPCS: 31500; 36415; 36600; 71045; 80048; 80053; 82330; 82805; 83036; 83605; 83735; 83880; 84100; 84132; 84145; 84484; 85025; 85027; 85610; 85730; 86140; 87040; 87070; 87205; 87324; 87636; 93005; 93306; 94002; 94003; 94640; 94660; 94760; 96365; 96366; 96375; 99291

== ENCOUNTER 2023-01-20 06:48 | Inpatient (IN) | payer MEDICARE, OTHER ==
[2023-01-20] MEDS ORDERED: IPRATROPIUM-ALBUTEROL 3 ML NEB INHALATION STA (06:49)
[2023-01-20 06:59] LABS: Glucose,Whole Blood 166 mg/dL (70-110)
[2023-01-20 07:07] LABS: Basophils % (A) 0 %; Eosinophils # (A) 0.3 k/uL (0-0.7); Eosinophils % (A) 3 %; HCT 50.7 % (39.0-53.0); HGB 16.6 gm/dL (13.0-17.5); Lymphocytes # (A) 1.4 k/uL (1.0-4.8); Lymphocytes % (A) 13 %; MCH 30.9 pg (25.0-35.0); MCHC 32.8 g/dL (31.0-37.0); MCV 94.4 fL (80.0-100.0); Mean Platelet Volume 9.2; Monocytes # (A) 0.5 k/uL (0-1.0); Monocytes % (A) 5 %; Neutrophils # (A) 8.1 k/uL (1.3-7.7); Neutrophils % (A) 78 %; Platelet Count 132 k/uL (150-450); RBC 5.38 m/uL (4.30-5.90); WBC 10.5 k/uL (3.8-10.6)
[2023-01-20 07:20] LABS: INR 0.9 (<1.2); Partial Thromboplastin Time 23.6 sec (22.0-30.0)
[2023-01-20 07:25] LABS: ALT 24 U/L (4-49); AST 21 U/L (17-59); African American GFR (CKD) 80 (>60 ml/min/1.73 sqM); Albumin 4.6 g/dL (3.5-5.0); Alkaline Phosphatase 82 U/L (38-126); Anion Gap 8 mmol/L; Blood Urea Nitrogen 28 mg/dL (9-20); Calcium 7.6 mg/dL (8.4-10.2); Carbon Dioxide 37 mmol/L (22-30); Chloride 100 mmol/L (98-107); Glucose 173 mg/dL (74-99); Magnesium 2.1 mg/dL (1.6-2.3); Non-African American GFR(CKD) 69 (>60 ml/min/1.73 sqM); Potassium 4.3 mmol/L (3.5-5.1); Sodium 145 mmol/L (137-145); Total Bilirubin 0.7 mg/dL (0.2-1.3); Total Protein 7.8 g/dL (6.3-8.2)
[2023-01-20 07:33] LABS: NT-Pro-B-Type Natriuretic Pept 3570 pg/mL
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
--- NOTE | 2023-01-20 08:15 | XR ---
EXAMINATION TYPE: XR chest 1V portable DATE OF EXAM: 01/20/2023 HISTORY: Shortness of breath. COMPARISON: November 13, 2022 TECHNIQUE: Single view of the chest is submitted. FINDINGS: Demonstrated are scattered senescent parenchymal change. There is no evidence for focal infiltrate. The heart is stable. Hilar and mediastinal structures are within normal limits. Degenerative changes are seen of the dorsal spine. IMPRESSION: 1. Chronic changes without evidence for acute pulmonary disease.
[2023-01-20 08:33] LABS: ABG Base Excess 6.9 mmol/L; ABG HCO3 34 mmol/L (21-25); ABG PCO2 70 mmHg (35-45); ABG PH 7.29 (7.35-7.45); ABG PO2 >400 mmHg (83-108); ABG TCO2 36 mmol/L (19-24); Allen Test Performed? Yes
[2023-01-20] MEDS ORDERED: SODIUM CHLORIDE 0.9% 500 ML 500 ML IV STA (08:41)
[2023-01-20] MEDS ORDERED: DEXAMETHASONE SOD PHOSPHATE 10 MG/ML 1 ML VIAL IV STA (08:41)
[2023-01-20] MEDS ORDERED: AZITHROMYCIN 500 MG in SODIUM CHLORIDE 0.9% 250 ML IVPB STA (08:41)
[2023-01-20] MEDS ORDERED: NALOXONE 0.4 MG/ML 1 ML VIAL IVP PRN (08:45)
[2023-01-20] MEDS: IPRATROPIUM-ALBUTEROL 3 ML NEB INHALATION SCH ×3 (10:51→19:40)
[2023-01-20] MEDS ORDERED: DEXTROSE 50% SYRINGE 50 ML IVP PRN ×2 (10:56)
[2023-01-20] MEDS ORDERED: ALBUTEROL HFA INHALER INHALATION PRN (11:58)
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
[2023-01-20 12:31] LABS: Glucose,Whole Blood 207 mg/dL (70-110)
[2023-01-20] MEDS: INSULIN ASPART (NovoLOG) 100 UNIT/ML VIAL SQ SCH ×3 (12:57→20:55)
[2023-01-20] MEDS: metFORMIN 500 MG TAB PO SCH ×2 (12:57→17:56)
[2023-01-20] MEDS: methylPREDNISolone SOD SUCCI 125 MG/2 ML VIAL IV SCH ×3 (12:57→23:52)
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
[2023-01-20 17:10] LABS: Glucose,Whole Blood 222 mg/dL (70-110)
[2023-01-20] MEDS: HYDROcodone/APAP 10-325MG 1 EACH TAB PO PRN (18:42)
[2023-01-20] MEDS: SYMBICORT 160-4.5 MCG INHALER INHALATION SCH (19:39)
[2023-01-20 20:53] LABS: Glucose,Whole Blood 146 mg/dL (70-110)
[2023-01-20] MEDS: ATORVASTATIN 40 MG TAB PO SCH (21:31)
[2023-01-20] MEDS: busPIRone HCl 5 MG TAB PO SCH (21:31)
[2023-01-20] MEDS: METOPROLOL TARTRATE 25 MG TAB PO SCH (21:31)
[2023-01-20] MEDS: FAMOTIDINE 20 MG/2 ML VIAL IV SCH (21:32)
[2023-01-20] MEDS: HEPARIN SODIUM,PORCINE 5,000 UNIT/ML 1 ML VIAL SQ SCH (21:32)
[2023-01-21] MEDS: HYDROcodone/APAP 10-325MG 1 EACH TAB PO PRN ×4 (04:18→23:50)
[2023-01-21 05:46] LABS: Glucose,Whole Blood 187 mg/dL (70-110)
[2023-01-21] MEDS: metFORMIN 500 MG TAB PO SCH ×3 (06:35→17:53)
[2023-01-21] MEDS: methylPREDNISolone SOD SUCCI 125 MG/2 ML VIAL IV SCH ×4 (06:35→23:50)
[2023-01-21] MEDS: INSULIN ASPART (NovoLOG) 100 UNIT/ML VIAL SQ SCH ×4 (06:36→21:53)
[2023-01-21] MEDS: IPRATROPIUM-ALBUTEROL 3 ML NEB INHALATION SCH ×4 (07:39→21:35)
[2023-01-21] MEDS: SYMBICORT 160-4.5 MCG INHALER INHALATION SCH ×2 (07:39→21:35)
[2023-01-21] MEDS: ASPIRIN 81 MG PO SCH (08:19)
[2023-01-21] MEDS: HEPARIN SODIUM,PORCINE 5,000 UNIT/ML 1 ML VIAL SQ SCH ×2 (08:19→21:52)
[2023-01-21] MEDS: METOPROLOL TARTRATE 25 MG TAB PO SCH ×2 (08:19→21:53)
[2023-01-21] MEDS: busPIRone HCl 5 MG TAB PO SCH ×2 (08:19→21:53)
[2023-01-21] MEDS: FAMOTIDINE 20 MG/2 ML VIAL IV SCH (08:20)
[2023-01-21] MEDS: ESCITALOPRAM 10 MG TAB PO SCH (08:20)
[2023-01-21] MEDS: ISOSORBIDE MONONITRATE ER 30 MG TAB.ER.24H PO SCH (08:20)
[2023-01-21 11:28] LABS: Glucose,Whole Blood 195 mg/dL (70-110)
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
--- NOTE | 2023-01-21 13:54 | P.PN ---
Subjective Progress Note Date: 01/21/23 Principal diagnosis: Acute on chronic hypoxic respiratory failure secondary to acute exacerbation of COPD. This is a very pleasant 57-year-old male patient with a known history of severe Gold stage III oxygen dependent chronic obstructive pulmonary disease, CVAs respiratory failure requiring intubation mechanical ventilation 2, chronic kidney disease stage III, obstructive sleep apnea, pulmonary hypertension, chronic low back pain, gastroesophageal reflux disease, bladder cancer, colon cancer, hyperlipidemia, chronic and ongoing tobacco dependence. He presented here to the emergency room earlier this morning with complaints of increasing shortness of breath cough congestion and wheezing. He required BiPAP support on arrival currently at 14/5 and 35% FiO2. Arterial blood gases reveal a P O2 400, pCO2 of 70 and a pH of 7.29 on 100% FiO2. Chest x-ray revealed chronic changes without evidence of acute pulmonary process. White count 10.5. Hemoglobin 16.6. Platelets 132. Sodium 145. Potassium 4.3. Bicarb 37. BUN 28. Creatinine 1.17. Glucose 173. AST 21. ALT 24. Troponin negative times one. ProBNP 3570. Influenza screen negative. RSV screen negative. COVID-19 screen negative. He is seen in the emergency department. He's currently awake. Sitt ing up on the stretcher. Still requiring BiPAP support. Still quite bronchospastic and wheezing. Patient was reevaluated today on 01/21/2023, patient was admitted yesterday with acute exacerbation of COPD, continues to have intermittent cough and wheezing, slight improvement but not back to baseline. Patient is on 4 L nasal cannula with O2 saturation 98% labs from yesterday were all reviewed including his ABG showing hypercapnia and relatively low pH of 7.29 patient had negative screening for influenza and RSV and COVID-19 infection, chest x-ray showed chronic changes without evidence of acute pulmonary disease. Objective - Vital Signs Vital signs: Vital Signs Temp 98.1 F 01/21/23 08:15 Pulse 84 01/21/23 10:42 Resp 18 01/21/23 10:42 BP 157/81 01/21/23 08:15 Pulse Ox 98 01/21/23 08:15 FiO2 35 01/21/23 07:40 Intake & Output 01/20/23 01/21/23 01/21/23 18:59 06:59 18:59 Intake Total 118 Output Total 1000 350 Balance -882 -350 Weight 92.5 kg Intake: Oral 118 Output: Urine 1000 350 Other: Voiding Method Indwelling Catheter Indwelling Catheter # Bowel Movements 1 - Exam Physical Exam: Revealed a 57-year-old white male in no distress, on 4 L nasal cannula with O2 sats of 90% HEENT:[Neck is supple.] [No neck masses.] [No thyromegaly.] [No JVD.] Chest: [Wheezing bilaterally, more so on forced expiratory maneuver. Cardiac Exam: [Normal S1 and S2, no S3 gallop, no murmur.] Abdomen: [Soft, nontender, no megaly, no rebound, no guarding, normal bowel sounds.] Extremities: [No clubbing, no edema, no cyanosis.] Neurological Exam: [No focal neurologic deficit.] Alert and oriented 3 Psychiatric: Normal mood affect and normal mental status examination. Skin: No rash - Labs CBC & Chem 7: 01/20/23 06:55 01/20/23 06:55 Labs: Abnormal Lab Results - Last 24 Hours (Table) 01/20/23 01/20/23 01/20/23 Range/Units 06:55 17:08 20:51 POC Glucose (mg/dL) 222 H 146 H (70-110) mg/dL Hemoglobin A1c 7.6 H (<=6.0) % 01/21/23 01/21/23 Range/Units 05:45 11:27 POC Glucose (mg/dL) 187 H 195 H (70-110) mg/dL Hemoglobin A1c (<=6.0) % Assessment and Plan Assessment: Impression: Acute on chronic hypoxic and hypercapnic respiratory failure Acute exacerbation of COPD [id number] smoking history Benign essential hypertension Obstructive sleep apnea syndrome Type 2 diabetes without complications History of bladder cancer status post surgical resection History of rectal surgery with ileostomy and subsequent reversal Recommendation: Continue present course of treatment including bronchodilators, including DuoNeb and including Symbicort. Continue antibiotics Continue steroids Counseled regarding smoking cessation Continue DVT prophylaxis Continue GI prophylaxis, patient is on Pepcid We'll consider discharge planning in the next 24 hours and follow-up on outpatient basis Time with Patient: Less than 30
[2023-01-21] MEDS: guaiFENesin-DM 100-10MG/5ML 10 ML CUP PO SCH ×3 (14:03→23:51)
[2023-01-21 14:18] LABS: Glucose,Whole Blood 210 mg/dL (70-110)
[2023-01-21 16:06] LABS: Glucose,Whole Blood 197 mg/dL (70-110)
[2023-01-21 19:05] LABS: Glucose,Whole Blood 223 mg/dL (70-110)
[2023-01-21] MEDS: FAMOTIDINE 20 MG TAB PO SCH (21:53)
[2023-01-21] MEDS: ATORVASTATIN 40 MG TAB PO SCH (21:53)
[2023-01-22 06:38] LABS: Glucose,Whole Blood 263 mg/dL (70-110)
[2023-01-22] MEDS: methylPREDNISolone SOD SUCCI 125 MG/2 ML VIAL IV SCH ×4 (06:42→23:45)
[2023-01-22] MEDS: INSULIN ASPART (NovoLOG) 100 UNIT/ML VIAL SQ SCH ×4 (06:43→20:36)
[2023-01-22] MEDS: metFORMIN 500 MG TAB PO SCH ×3 (06:43→17:31)
[2023-01-22] MEDS: guaiFENesin-DM 100-10MG/5ML 10 ML CUP PO SCH ×2 (07:52→16:53)
[2023-01-22] MEDS: busPIRone HCl 5 MG TAB PO SCH ×2 (08:23→22:45)
[2023-01-22] MEDS: ISOSORBIDE MONONITRATE ER 30 MG TAB.ER.24H PO SCH (08:24)
[2023-01-22] MEDS: FAMOTIDINE 20 MG TAB PO SCH ×2 (08:24→20:36)
[2023-01-22] MEDS: METOPROLOL TARTRATE 25 MG TAB PO SCH ×2 (08:24→20:54)
[2023-01-22] MEDS: HEPARIN SODIUM,PORCINE 5,000 UNIT/ML 1 ML VIAL SQ SCH ×2 (08:24→20:36)
[2023-01-22] MEDS: ESCITALOPRAM 10 MG TAB PO SCH (08:24)
[2023-01-22] MEDS: ASPIRIN 81 MG PO SCH (08:24)
[2023-01-22] MEDS: MORPHINE SULFATE 2 MG/ML SYRINGE IVP PRN ×2 (09:29→13:53)
[2023-01-22] MEDS ORDERED: HYDROmorphone 1 MG/ML 1 ML SYRINGE IVP STA (09:38)
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
[2023-01-22] MEDS: SYMBICORT 160-4.5 MCG INHALER INHALATION SCH (09:44)
[2023-01-22] MEDS: IPRATROPIUM-ALBUTEROL 3 ML NEB INHALATION SCH ×4 (09:45→21:47)
[2023-01-22] MEDS ORDERED: propofoL 100 ML IV ONE (10:02)
[2023-01-22 10:50] LABS: Glucose,Whole Blood 222 mg/dL (70-110)
[2023-01-22 10:57] LABS: Glucose,Whole Blood 226 mg/dL (70-110)
--- NOTE | 2023-01-22 11:00 | CT ---
EXAMINATION TYPE: CT abdomen pelvis wo con DATE OF EXAM: 01/22/2023 COMPARISON: None HISTORY: 57-year-old male generalized abdominal pain CT DLP: 947.2 mGycm. Automated exposure control for dose reduction was used. TECHNIQUE: Contiguous axial scanning of the abdomen and pelvis without IV contrast. Coronal and sagit shawn reconstructions performed. FINDINGS: Heart normal size without pericardial effusion. Extensive three-vessel coronary artery calcifications are present. Prominent dependent atelectasis in the posterior lungs. Calcified granulomas at the lef t lung base. There appears to be trace left pleural effusion. An NG tube is present. No dilated small bowel, free fluid, or free air. No mesenteric or retroperitoneal lymphadenopathy see n. Noncontrast appearance of the liver, adrenal glands, spleen, atrophic pancreas show no gross abnormal ity. A renal cortical cyst on either side measuring 1.4 cm on the right and 1.2 cm on the left. No hydrone phrosis. Cholecystectomy clips. There is a staple line from prior resection and reanastomosis along the proximal third transverse col on. Scattered mild to moderate stool. There is sigmoid diverticulosis. There is moderate circumferen tial wall thickening of the rectum with perirectal and presacral fat stranding and edema. A Hawk catheter is in place. The bladder is collapsed but shows masslike thickening along the anteri or margin, axial image 73 and sagittal image 70. No abnormal fluid collection in the pelvis or pelvic lymphadenopathy. Bones: Mild to moderate degenerative change at the hips. Degenerative bony ankylosis right SI joint. Degenerated extra convex scoliosis of the lumbar spine. IMPRESSION: 1. Moderate circumferential rectal wall thickening with surrounding fat stranding and edema. Correlat e for nonspecific distal colitis. 2. Hawk catheter in place. There appears to be masslike thickening along the anterior margin of the bladder. This could represent chronic bladder wall hypertrophy. Underlying urothelial neoplasm should be excluded given the degree of thickening. Correlate with urinalysis and urine cytology. 3. Trace left pleural effusion noted. Sigmoid diverticulosis. Previous surgery along the proximal thi rd transverse colon. Extensive three-vessel coronary artery calcifications.
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
[2023-01-22 11:18] LABS: Basophils % (A) 0 %; Eosinophils % (A) 0 %; HCT 47.9 % (39.0-53.0); HGB 15.5 gm/dL (13.0-17.5); Lymphocytes # (A) 0.7 k/uL (1.0-4.8); Lymphocytes % (A) 3 %; MCH 30.3 pg (25.0-35.0); MCHC 32.4 g/dL (31.0-37.0); MCV 93.5 fL (80.0-100.0); Mean Platelet Volume 8.7; Monocytes # (A) 0.6 k/uL (0-1.0); Monocytes % (A) 3 %; Neutrophils # (A) 19.1 k/uL (1.3-7.7); Neutrophils % (A) 94 %; Platelet Count 194 k/uL (150-450); RBC 5.12 m/uL (4.30-5.90); RDW 13.9 % (11.5-15.5); WBC 20.5 k/uL (3.8-10.6)
[2023-01-22 11:35] LABS: ALT 24 U/L (4-49); AST 30 U/L (17-59); African American GFR (CKD) 63 (>60 ml/min/1.73 sqM); Albumin 4.4 g/dL (3.5-5.0); Alkaline Phosphatase 75 U/L (38-126); Anion Gap 13 mmol/L; Bilirubin, Delta 0.4 mg/dL (0.0-0.2); Bilirubin,Unconjugated 0.5 mg/dL (0.0-1.1); Blood Urea Nitrogen 44 mg/dL (9-20); Calcium 7.1 mg/dL (8.4-10.2); Carbon Dioxide 26 mmol/L (22-30); Chloride 101 mmol/L (98-107); Glucose 236 mg/dL (74-99); Non-African American GFR(CKD) 55 (>60 ml/min/1.73 sqM); Potassium 4.5 mmol/L (3.5-5.1); Sodium 140 mmol/L (137-145); Total Bilirubin 0.9 mg/dL (0.2-1.3); Total Protein 7.3 g/dL (6.3-8.2)
--- NOTE | 2023-01-22 11:39 | XR ---
EXAMINATION TYPE: XR chest 1V confirm line plcmt DATE OF EXAM: 01/22/2023 COMPARISON: 01/20/2023 HISTORY: ET tube placement TECHNIQUE: Single frontal view of the chest is obtained. FINDINGS: ET tube approximately 4.1 cm above the nathalia. NG tube courses in the abdomen likely withi n the gastric body. Left lower lobe consolidation small effusion with mild cardiomegaly. Postoperative change overlying the cervical spine. No pneumothorax. Left-sided central line tip overl cecilia SVC. Bilateral shoulder arthropathy. Hypertrophic and degenerative changes. IMPRESSION: 1. Left lower lobe infiltrate and small pleural effusion. 2. ET tube 4.1 cm above nathalia.
[2023-01-22 11:50] LABS: ABG Base Excess 0.2 mmol/L; ABG HCO3 28 mmol/L (21-25); ABG Oxygen Saturation 99.6 % (94-97); ABG PCO2 65 mmHg (35-45); ABG PH 7.24 (7.35-7.45); ABG PO2 >400 mmHg (83-108); ABG TCO2 30 mmol/L (19-24); Allen Test Performed? Yes
[2023-01-22] MEDS: PIPERACILLIN-TAZOBACTAM 3.375 GM in SODIUM CHLORIDE 0.9% 100 ML IVPB SCH ×2 (11:57→20:37)
[2023-01-22] MEDS: CHLORHEXIDINE GLUCONATE 15 ML CUP MUCOUS MEM SCH ×2 (11:58→20:36)
[2023-01-22] MEDS: SODIUM CHLORIDE 0.9% 1,000 ML IV SCH (12:06)
--- NOTE | 2023-01-22 13:34 | OP ---
OPERATIVE REPORT DATE OF SERVICE : PROCEDURES PERFORMED: Placement of a right radial arterial line. PREOPERATIVE DIAGNOSES: Acute respiratory failure secondary to acute exacerbation of chronic obstructive pulmonary disease. POSTOPERATIVE DIAGNOSES: Acute respiratory failure secondary to acute exacerbation of chronic obstructive pulmonary disease. ANESTHESIA USED: None deployed. DESCRIPTION OF PROCEDURE: The right wrist was prepared in a sterile fashion. Drapes were applied. The right radial artery was palpated, cannulated easily, and a guidewire was placed. A Cook's catheter was inserted over the guidewire, and the guidewire was removed. Good blood flow, good waveform, no complications. Line was secured using 3.0 silk sutures. MMODL / IJN: [id number] /
--- NOTE | 2023-01-22 14:01 | OP ---
OPERATIVE REPORT DATE OF SERVICE : PROCEDURES PERFORMED: Placement of a left subclavian triple-lumen catheter. PREOPERATIVE DIAGNOSIS: Acute respiratory failure secondary to acute exacerbation of chronic obstructive pulmonary disease. POSTOPERATIVE DIAGNOSIS: Acute respiratory failure secondary to acute exacerbation of chronic obstructive pulmonary disease. ANESTHESIA USED: 2 mL of 1% lidocaine. DESCRIPTION OF PROCEDURE: The patient was placed in a Trendelenburg position, the area of the left subclavian region was prepared in a sterile fashion and drapes were applied. The area below the left clavicle was locally anesthetized. Then using the inferior approach, the left subclavian vein was easily cannulated, and a guidewire was placed. Area around the guidewire was dilated. Then, a triple-lumen catheter was inserted over the guidewire, and the guidewire was removed. Good blood flow noted in the 3 different ports of the triple-lumen catheter. Line was secured using 3.0 silk sutures. X-ray postoperatively showed no complications and adequate placement of the line. MMODL / IJN: [id number] /
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
[2023-01-22] MEDS ORDERED: SODIUM CHLORIDE 0.9% 1,000 ML IV ONE ×3 (14:19→18:20)
--- NOTE | 2023-01-22 15:02 | P.PN ---
Subjective Progress Note Date: 01/22/23 Principal diagnosis: Acute on chronic hypoxic respiratory failure secondary to acute exacerbation of COPD. This is a very pleasant 57-year-old male patient with a known history of severe Gold stage III oxygen dependent chronic obstructive pulmonary disease, CVAs respiratory failure requiring intubation mechanical ventilation 2, chronic kidney disease stage III, obstructive sleep apnea, pulmonary hypertension, chronic low back pain, gastroesophageal reflux disease, bladder cancer, colon cancer, hyperlipidemia, chronic and ongoing tobacco dependence. He presented here to the emergency room earlier this morning with complaints of increasing shortness of breath cough congestion and wheezing. He required BiPAP support on arrival currently at 14/5 and 35% FiO2. Arterial blood gases reveal a P O2 400, pCO2 of 70 and a pH of 7.29 on 100% FiO2. Chest x-ray revealed chronic changes without evidence of acute pulmonary process. White count 10.5. Hemoglobin 16.6. Platelets 132. Sodium 145. Potassium 4.3. Bicarb 37. BUN 28. Creatinine 1.17. Glucose 173. AST 21. ALT 24. Troponin negative times one. ProBNP 3570. Influenza screen negative. RSV screen negative. COVID-19 screen negative. He is seen in the emergency department. He's currently awake. Sitt ing up on the stretcher. Still requiring BiPAP support. Still quite bronchospastic and wheezing. Patient was reevaluated today on 01/21/2023, patient was admitted yesterday with acute exacerbation of COPD, continues to have intermittent cough and wheezing, slight improvement but not back to baseline. Patient is on 4 L nasal cannula with O2 saturation 98% labs from yesterday were all reviewed including his ABG showing hypercapnia and relatively low pH of 7.29 patient had negative screening for influenza and RSV and COVID-19 infection, chest x-ray showed chronic changes without evidence of acute pulmonary disease. Patient was reevaluated today on 01/22/2023, I was called by the a team on this patient early this morning, patient was experiencing significant respiratory distress. He was extremely short of breath, wheezing, diaphoretic, and complaining of abdominal pain. Upon my initial evaluation the patient, clearly the patient was not doing well, and on physical examination he had diffuse rhonchi and wheezes bilaterally with minimal air movement. Agent was also noted to be extremely diaphoretic, and bit mottled. Recommended immediate intubation and immediate transfer to the ICU. Patient was done and transferred to the ICU, placed on assist control rate of 16 initially tidal volume 500 FiO2 100% and PEEP of 5. Initial ABG post intubation showed a pO2 of 400 pCO2 of 65 pH of 7.24 hence his vent settings were adjusted and his rate was increased to 20 and FiO2 cut down to 40%. Patient was taken down for CT of the abdomen and pelvis mostly because of his severe abdominal pain, he was found to have moderate circumferential rectal wall thickening, questionably distal colitis. Nonspecific. Patient was also noted to have a masslike thickening along the anterior margin of the bladder questioning bladder wall hypertrophy or urothelial malignancy. This will be addressed by urology. Chest x-ray also showed a trace of left pleural effusion, sigmoid diverticulosis, otherwise no significant findings but he did have also extensive 3 vessel coronary artery calcifications. Patient was stabilized in the ICU, sedated and placed on propofol, may even consider adding fentanyl. He was already seen by general surgery on consultation. WBC count is 20.5 hemoglobin 15.5 basic metabolic profile is normal, renal profile showed a BUN of 44 creatinine 1.42. Objective - Vital Signs Vital signs: Vital Signs Temp 98.2 F 01/22/23 12:00 Pulse 82 01/22/23 14:28 Resp 21 01/22/23 14:00 BP 141/91 01/22/23 11:00 Pulse Ox 96 01/22/23 14:00 FiO2 45 01/22/23 12:11 Intake & Output 01/21/23 01/22/23 01/22/23 18:59 06:59 18:59 Intake Total 960 222 632.625 Output Total 350 400 118 Balance 610 -178 514.625 Weight 90.5 kg Intake: IV 325 Piperacillin-Tazobactam 3 100 .375 gm In Sodium Chloride 0.9% 100 ml @ 25 mls/hr IVPB Q8H L[facility] Rx#: [id number] Sodium Chloride 0.9% 1, 225 000 ml @ 75 mls/hr IV . [id number] [facility] Rx#:[id number] Intake, IV Titration 82.625 Amount propofoL 1,000 mg In 82.625 Empty Bag 1 bag @ 15 MCG/ KG/MIN 8.145 mls/hr IV . [id number] [facility] Rx#:[id number] Oral 960 222 225 Output: Urine 350 400 118 Other: Voiding Method Indwelling Catheter Indwelling Catheter Indwelling Catheter ABP, PAP, CO, CI - Last Documented Arterial Blood Pressure 102/44 - Exam Physical Exam: Revealed a 57-year-old white male in severe respiratory distress and quite diaphoretic required immediate intubation HEENT:[Neck is supple.] [No neck masses.] [No thyromegaly.] [No JVD.] Chest: [Diffuse rhonchi and wheezes and extremely diminished breath sound bilaterally. Cardiac Exam: [Normal S1 and S2, no S3 gallop, no murmur.] Abdomen: [Soft slightly tender to deep palpation, no megaly, no rebound, no guarding, normal bowel sounds.] Extremities: [No clubbing, no edema, no cyanosis.] Neurological Exam: [No focal neurologic deficit.] Alert and oriented 3 Psychiatric: Normal mood affect and normal mental status examination. Skin: No rash - Labs CBC & Chem 7: 01/22/23 11:13 01/22/23 11:13 Labs: Abnormal Lab Results - Last 24 Hours (Table) 01/21/23 01/21/23 01/22/23 Range/Units 16:05 19:04 06:36 WBC (3.8-10.6) k/uL Neutrophils # (1.3-7.7) k/uL Lymphocytes # (1.0-4.8) k/uL ABG pH (7.35-7.45) ABG pCO2 (35-45) mmHg ABG pO2 (83-108) mmHg ABG HCO3 (21-25) mmol/L ABG Total CO2 (19-24) mmol/L ABG O2 Saturation (94-97) % BUN (9-20) mg/dL Creatinine (0.66-1.25) mg/dL Glucose (74-99) mg/dL POC Glucose (mg/dL) 197 H 223 H 263 H (70-110) mg/dL Calcium (8.4-10.2) mg/dL Delta Bilirubin (0.0-0.2) mg/dL 01/22/23 01/22/23 01/22/23 Range/Units 10:48 10:56 11:13 WBC 20.5 H (3.8-10.6) k/uL Neutrophils # 19.1 H (1.3-7.7) k/uL Lymphocytes # 0.7 L (1.0-4.8) k/uL ABG pH (7.35-7.45) ABG pCO2 (35-45) mmHg ABG pO2 (83-108) mmHg ABG HCO3 (21-25) mmol/L ABG Total CO2 (19-24) mmol/L ABG O2 Saturation (94-97) % BUN (9-20) mg/dL Creatinine (0.66-1.25) mg/dL Glucose (74-99) mg/dL POC Glucose (mg/dL) 222 H 226 H (70-110) mg/dL Calcium (8.4-10.2) mg/dL Delta Bilirubin (0.0-0.2) mg/dL 01/22/23 01/22/23 Range/Units 11:13 11:45 WBC (3.8-10.6) k/uL Neutrophils # (1.3-7.7) k/uL Lymphocytes # (1.0-4.8) k/uL ABG pH 7.24 L (7.35-7.45) ABG pCO2 65 H (35-45) mmHg ABG pO2 >400 H (83-108) mmHg ABG HCO3 28 H (21-25) mmol/L ABG Total CO2 30 H (19-24) mmol/L ABG O2 Saturation 99.6 H (94-97) % BUN 44 H (9-20) mg/dL Creatinine 1.42 H (0.66-1.25) mg/dL Glucose 236 H (74-99) mg/dL POC Glucose (mg/dL) (70-110) mg/dL Calcium 7.1 L (8.4-10.2) mg/dL Delta Bilirubin 0.4 H (0.0-0.2) mg/dL Microbiology - Last 24 Hours (Table) 01/20/23 11:20 Blood Culture - Preliminary Blood 01/20/23 11:05 Blood Culture - Preliminary Blood Assessment and Plan Assessment: Impression: Acute on chronic hypoxic and hypercapnic respiratory failure, required immediate intubation and mechanical ventilation Acute exacerbation of COPD [id number] smoking history Benign essential hypertension Obstructive sleep apnea syndrome Type 2 diabetes without complications History of bladder cancer status post surgical resection History of rectal surgery with ileostomy and subsequent reversal Abnormal CT of the abdomen and pelvis being addressed by general surgery and urology. Recommendation: Continue ventilatory support bronchodilators, including DuoNeb and Perforomist and Pulmicort Continue antibiotics, transitioned to Zosyn Continue steroids Start enteral feeding/nutritional support Continue DVT prophylaxis Continue GI prophylaxis Patient is obviously critically ill requiring immediate intubation mechanical ventilation Critical care time is over 30 minutes not including the time spent on procedures/lines placement Time with Patient: Greater than 30
[2023-01-22] MEDS: HYDROmorphone 1 MG/ML 1 ML SYRINGE IVP PRN (15:08)
[2023-01-22] MEDS: fentaNYL (PF). 1,000 MCG in SODIUM CHLORIDE 0.9% 80 ML IV SCH (15:09)
[2023-01-22 16:52] LABS: Glucose,Whole Blood 181 mg/dL (70-110)
[2023-01-22 20:33] LABS: Glucose,Whole Blood 221 mg/dL (70-110)
[2023-01-22] MEDS: ATORVASTATIN 40 MG TAB PO SCH (20:36)
[2023-01-22] MEDS: NYSTATIN 100,000 UNIT/GM POWD 15 GM TOPICAL SCH (20:36)
[2023-01-22] MEDS: BUDESONIDE 1 MG/2 ML NEBU INHALATION SCH (21:47)
[2023-01-22] MEDS: FORMOTEROL FUMARATE 20 MCG/2 ML NEBU INHALATION SCH (21:47)
[2023-01-22] MEDS: NOREPINEPHRINE 4 MG in SODIUM CHLORIDE 0.9% 250 ML IV SCH (22:32)
[2023-01-23] MEDS: guaiFENesin-DM 100-10MG/5ML 10 ML CUP PO SCH ×3 (00:37→15:17)
[2023-01-23] MEDS: SODIUM CHLORIDE 0.9% 1,000 ML IV SCH ×2 (01:55→14:16)
[2023-01-23] MEDS: PIPERACILLIN-TAZOBACTAM 3.375 GM in SODIUM CHLORIDE 0.9% 100 ML IVPB SCH ×3 (03:37→19:51)
[2023-01-23 03:56] LABS: Glucose,Whole Blood 242 mg/dL (70-110)
[2023-01-23 04:27] LABS: HCT 37.6 % (39.0-53.0); HGB 12.7 gm/dL (13.0-17.5); MCH 31.6 pg (25.0-35.0); MCHC 33.8 g/dL (31.0-37.0); MCV 93.5 fL (80.0-100.0); Mean Platelet Volume 9.2; RBC 4.02 m/uL (4.30-5.90); RDW 14.1 % (11.5-15.5); WBC 7.1 k/uL (3.8-10.6)
[2023-01-23 04:33] LABS: ALT 16 U/L (4-49); AST 20 U/L (17-59); African American GFR (CKD) 79 (>60 ml/min/1.73 sqM); Albumin 3.1 g/dL (3.5-5.0); Alkaline Phosphatase 52 U/L (38-126); Anion Gap 11 mmol/L; Blood Urea Nitrogen 38 mg/dL (9-20); Carbon Dioxide 22 mmol/L (22-30); Chloride 107 mmol/L (98-107); Glucose 232 mg/dL (74-99); Non-African American GFR(CKD) 68 (>60 ml/min/1.73 sqM); Sodium 140 mmol/L (137-145); Total Bilirubin 0.5 mg/dL (0.2-1.3); Total Protein 5.3 g/dL (6.3-8.2)
[2023-01-23 04:49] LABS: Platelet Count 94 k/uL (150-450)
[2023-01-23 05:02] LABS: Calcium 6.1 mg/dL (8.4-10.2)
[2023-01-23] MEDS: methylPREDNISolone SOD SUCCI 125 MG/2 ML VIAL IV SCH ×3 (05:20→17:06)
[2023-01-23 06:02] LABS: ABG Base Excess -0.5 mmol/L; ABG HCO3 25 mmol/L (21-25); ABG Oxygen Saturation 98.7 % (94-97); ABG PCO2 47 mmHg (35-45); ABG PH 7.34 (7.35-7.45); ABG PO2 133 mmHg (83-108); ABG TCO2 27 mmol/L (19-24)
[2023-01-23 06:04] LABS: Allen Test Performed? No
[2023-01-23] MEDS: fentaNYL (PF). 1,000 MCG in SODIUM CHLORIDE 0.9% 80 ML IV SCH ×2 (06:17→19:06)
[2023-01-23 06:30] LABS: Glucose,Whole Blood 264 mg/dL (70-110)
[2023-01-23] MEDS: INSULIN ASPART (NovoLOG) 100 UNIT/ML VIAL SQ SCH ×3 (06:31→17:25)
[2023-01-23] MEDS: IPRATROPIUM-ALBUTEROL 3 ML NEB INHALATION SCH ×4 (08:07→19:59)
[2023-01-23] MEDS: FORMOTEROL FUMARATE 20 MCG/2 ML NEBU INHALATION SCH ×2 (08:07→20:04)
[2023-01-23] MEDS: BUDESONIDE 1 MG/2 ML NEBU INHALATION SCH ×2 (08:07→19:59)
--- NOTE | 2023-01-23 08:13 | XR ---
EXAMINATION TYPE: XR chest 1V portable DATE OF EXAM: 01/23/2023 COMPARISON: 01/22/2023 HISTORY: SOB, Follow Up FINDINGS: Indwelling tubes and catheters are unchanged. Improving left lower lobe atelectasis or infiltrate. Stable appearance of the cardio-mediastinal structures at this time. Pleural effusion unchanged. IMPRESSION: 1. Improving left lower lobe atelectasis or infiltrate.
[2023-01-23] MEDS: metFORMIN 500 MG TAB PO SCH (08:53)
[2023-01-23] MEDS: busPIRone HCl 5 MG TAB PO SCH ×2 (09:09→19:54)
[2023-01-23] MEDS: ESCITALOPRAM 10 MG TAB PO SCH (09:09)
[2023-01-23] MEDS: ASPIRIN 81 MG PO SCH (09:09)
[2023-01-23] MEDS: FAMOTIDINE 20 MG TAB PO SCH ×2 (09:09→19:52)
[2023-01-23] MEDS: CHLORHEXIDINE GLUCONATE 15 ML CUP MUCOUS MEM SCH ×2 (09:09→19:53)
[2023-01-23] MEDS: NYSTATIN 100,000 UNIT/GM POWD 15 GM TOPICAL SCH ×2 (09:10→19:55)
[2023-01-23] MEDS: HEPARIN SODIUM,PORCINE 5,000 UNIT/ML 1 ML VIAL SQ SCH ×2 (09:13→19:52)
[2023-01-23] MEDS: METOPROLOL TARTRATE 25 MG TAB PO SCH (09:40)
[2023-01-23] MEDS: ISOSORBIDE MONONITRATE ER 30 MG TAB.ER.24H PO SCH (09:42)
[2023-01-23] MEDS ORDERED: CALCIUM GLUCONATE IN NACL 1 GM in SALINE 1 100ML.BAG IVPB ONE (10:13)
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
[2023-01-23 11:21] LABS: Glucose,Whole Blood 266 mg/dL (70-110)
[2023-01-23] MEDS: INSULIN DETEMIR (LEVEMIR) 100 UNIT/ML SYR SQ SCH (11:28)
--- NOTE | 2023-01-23 12:44 | P.PN ---
Subjective Progress Note Date: 01/23/23 CHIEF COMPLAINT: Abdominal pain HISTORY OF PRESENT ILLNESS: The patient is a 57-year-old male admitted and in ICU. He is on the vent. Tube feeds at 50 mL/hr. No new overnight issues. ROS: No reports of nausea and vomiting. No bowel movements. No fevers or chills. PHYSICAL EXAM: VITAL SIGNS: Reviewed CONSTITUTIONAL: Well developed and in no acute distress. EYES: Conjuctivae without sclera icterus. Extraocular movements grossly intact. HEAD, EARS, NOSE, THROAT: Moist buccal mucosa. Head is atraumatic, normocephalic. Hears conversational speech. No nasal drainage. RESPIRATORY: Non-labored respirations and equal bilateral excursions. CARDIOVASCULAR: Palpable 2+ radial pulses. ABDOMEN: Nondistended. MUSCULOSKELETAL: No gross deformity of the lower extremities noted. No clubbing. No cyanosis. SKIN: Good skin turgor. Well perfused. NEUROLOGIC: Cranial nerves II through XII grossly intact. No focal or lateralizing signs. PSYCH: Appropriate affect. Alert and oriented to person, place and time. STUDIES: CT of the abdomen and pelvis and up and over view demonstrated appendix within normal limits. No free air identified. No inflammatory changes along the colon or small bowel. Presence of diverticulosis. This is my independent interpretation. CLINICAL LABS: Reviewed. Leukocytosis, white blood cell count over 20,000 down to normal, 7000+. ASSESSMENT: 1. Abnormal computed tomography scan for free air 2. Hypoxic respiratory failure. PLAN: 1. Continue tube feeds 2. Wean vent as tolerated. Objective - Vital Signs Vital signs: Vital Signs Temp 98.4 F 01/23/23 08:00 Pulse 79 01/23/23 10:00 Resp 10 L 01/23/23 10:00 BP 97/58 01/23/23 10:00 Pulse Ox 95 01/23/23 10:00 FiO2 35 01/23/23 10:59 Intake & Output 01/22/23 01/23/23 01/23/23 18:59 06:59 18:59 Intake Total 3061.359 1520.373 520 Output Total 277 600 245 Balance 2784.359 920.373 275 Weight 90.5 kg 91 kg Intake: IV 2625 900 300 Piperacillin-Tazobactam 3 100 .375 gm In Sodium Chloride 0.9% 100 ml @ 25 mls/hr IVPB Q8H [facility] Rx#: [id number] Sodium Chloride 0.9% 1, 525 900 300 000 ml @ 75 mls/hr IV . [id number] [facility] Rx#:[id number] Sodium Chloride 0.9% 1, 1000 000 ml @ 999 mls/hr IV . Q1H1M ONE Rx#:[id number] Sodium Chloride 0.9% 1, 1000 000 ml @ 999 mls/hr IV . Q1H1M ONE Rx#:[id number] Intake, IV Titration 151.359 360.373 100 Amount Norepinephrine 4 mg In 33.791 Sodium Chloride 0.9% 250 ml @ 0.03 MCG/KG/MIN 10. 344 mls/hr IV .Q24H [facility] Rx#:[id number] fentaNYL (PF). 1,000 mcg 68.478 In Sodium Chloride 0.9% 80 ml @ 0.5 MCG/KG/HR 4. 525 mls/hr IV .Q22H6M [facility] Rx#:[id number] propofoL 1,000 mg In 151.359 258.104 100 Empty Bag 1 bag @ 15 MCG/ KG/MIN 8.145 mls/hr IV . [id number] [facility] Rx#:[id number] Oral 225 Tube Feeding 30 260 120 Other 30 Output: Urine 277 600 245 Other: Voiding Method Indwelling Catheter Indwelling Catheter Indwelling Catheter ABP, PAP, CO, CI - Last Documented Arterial Blood Pressure 109/53 - Labs CBC & Chem 7: 01/23/23 04:00 01/23/23 04:00 Labs: Abnormal Lab Results - Last 24 Hours (Table) 01/22/23 01/22/23 01/22/23 Range/Units 11:13 11:13 11:45 WBC 20.5 H (3.8-10.6) k/uL RBC (4.30-5.90) m/uL Hgb (13.0-17.5) gm/dL Hct (39.0-53.0) % Plt Count (150-450) k/uL Neutrophils # 19.1 H (1.3-7.7) k/uL Lymphocytes # 0.7 L (1.0-4.8) k/uL ABG pH 7.24 L (7.35-7.45) ABG pCO2 65 H (35-45) mmHg ABG pO2 >400 H (83-108) mmHg ABG HCO3 28 H (21-25) mmol/L ABG Total CO2 30 H (19-24) mmol/L ABG O2 Saturation 99.6 H (94-97) % BUN 44 H (9-20) mg/dL Creatinine 1.42 H (0.66-1.25) mg/dL Glucose 236 H (74-99) mg/dL POC Glucose (mg/dL) (70-110) mg/dL Calcium 7.1 L (8.4-10.2) mg/dL Ionized Calcium Virgilio (4.5-5.3) mg/dL Delta Bilirubin 0.4 H (0.0-0.2) mg/dL Total Protein (6.3-8.2) g/dL Albumin (3.5-5.0) g/dL 01/22/23 01/22/23 01/23/23 Range/Units 16:51 20:30 03:51 WBC (3.8-10.6) k/uL RBC (4.30-5.90) m/uL Hgb (13.0-17.5) gm/dL Hct (39.0-53.0) % Plt Count (150-450) k/uL Neutrophils # (1.3-7.7) k/uL Lymphocytes # (1.0-4.8) k/uL ABG pH (7.35-7.45) ABG pCO2 (35-45) mmHg ABG pO2 (83-108) mmHg ABG HCO3 (21-25) mmol/L ABG Total CO2 (19-24) mmol/L ABG O2 Saturation (94-97) % BUN (9-20) mg/dL Creatinine (0.66-1.25) mg/dL Glucose (74-99) mg/dL POC Glucose (mg/dL) 181 H 221 H 242 H (70-110) mg/dL Calcium (8.4-10.2) mg/dL Ionized Calcium Virgilio (4.5-5.3) mg/dL Delta Bilirubin (0.0-0.2) mg/dL Total Protein (6.3-8.2) g/dL Albumin (3.5-5.0) g/dL 01/23/23 01/23/23 01/23/23 Range/Units 04:00 04:00 05:10 WBC (3.8-10.6) k/uL RBC 4.02 L (4.30-5.90) m/uL Hgb 12.7 L (13.0-17.5) gm/dL Hct 37.6 L (39.0-53.0) % Plt Count 94 L D (150-450) k/uL Neutrophils # (1.3-7.7) k/uL Lymphocytes # (1.0-4.8) k/uL ABG pH (7.35-7.45) ABG pCO2 (35-45) mmHg ABG pO2 (83-108) mmHg ABG HCO3 (21-25) mmol/L ABG Total CO2 (19-24) mmol/L ABG O2 Saturation (94-97) % BUN 38 H (9-20) mg/dL Creatinine (0.66-1.25) mg/dL Glucose 232 H (74-99) mg/dL POC Glucose (mg/dL) (70-110) mg/dL Calcium 6.1 L* (8.4-10.2) mg/dL Ionized Calcium Virgilio 3.6 L (4.5-5.3) mg/dL Delta Bilirubin (0.0-0.2) mg/dL Total Protein 5.3 L (6.3-8.2) g/dL Albumin 3.1 L (3.5-5.0) g/dL 01/23/23 01/23/23 Range/Units 06:00 06:27 WBC (3.8-10.6) k/uL RBC (4.30-5.90) m/uL Hgb (13.0-17.5) gm/dL Hct (39.0-53.0) % Plt Count (150-450) k/uL Neutrophils # (1.3-7.7) k/uL Lymphocytes # (1.0-4.8) k/uL ABG pH 7.34 L (7.35-7.45) ABG pCO2 47 H (35-45) mmHg ABG pO2 133 H (83-108) mmHg ABG HCO3 (21-25) mmol/L ABG Total CO2 27 H (19-24) mmol/L ABG O2 Saturation 98.7 H (94-97) % BUN (9-20) mg/dL Creatinine (0.66-1.25) mg/dL Glucose (74-99) mg/dL POC Glucose (mg/dL) 264 H (70-110) mg/dL Calcium (8.4-10.2) mg/dL Ionized Calcium Virgilio (4.5-5.3) mg/dL Delta Bilirubin (0.0-0.2) mg/dL Total Protein (6.3-8.2) g/dL Albumin (3.5-5.0) g/dL Microbiology - Last 24 Hours (Table) 01/22/23 11:45 Gram Stain - Preliminary Sputum 01/20/23 11:20 Blood Culture - Preliminary Blood 01/20/23 11:05 Blood Culture - Preliminary Blood
--- NOTE | 2023-01-23 13:19 | P.PN ---
Subjective Progress Note Date: 01/23/23 Principal diagnosis: Acute on chronic hypoxic respiratory failure secondary to acute exacerbation of COPD. This is a very pleasant 57-year-old male patient with a known history of severe Gold stage III oxygen dependent chronic obstructive pulmonary disease, CVAs respiratory failure requiring intubation mechanical ventilation 2, chronic kidney disease stage III, obstructive sleep apnea, pulmonary hypertension, chronic low back pain, gastroesophageal reflux disease, bladder cancer, colon cancer, hyperlipidemia, chronic and ongoing tobacco dependence. He presented here to the emergency room earlier this morning with complaints of increasing shortness of breath cough congestion and wheezing. He required BiPAP support on arrival currently at 14/5 and 35% FiO2. Arterial blood gases reveal a P O2 400, pCO2 of 70 and a pH of 7.29 on 100% FiO2. Chest x-ray revealed chronic changes without evidence of acute pulmonary process. White count 10.5. Hemoglobin 16.6. Platelets 132. Sodium 145. Potassium 4.3. Bicarb 37. BUN 28. Creatinine 1.17. Glucose 173. AST 21. ALT 24. Troponin negative times one. ProBNP 3570. Influenza screen negative. RSV screen negative. COVID-19 screen negative. He is seen in the emergency department. He's currently awake. Sitt ing up on the stretcher. Still requiring BiPAP support. Still quite bronchospastic and wheezing. Patient was reevaluated today on 01/21/2023, patient was admitted yesterday with acute exacerbation of COPD, continues to have intermittent cough and wheezing, slight improvement but not back to baseline. Patient is on 4 L nasal cannula with O2 saturation 98% labs from yesterday were all reviewed including his ABG showing hypercapnia and relatively low pH of 7.29 patient had negative screening for influenza and RSV and COVID-19 infection, chest x-ray showed chronic changes without evidence of acute pulmonary disease. Patient was reevaluated today on 01/22/2023, I was called by the a team on this patient early this morning, patient was experiencing significant respiratory distress. He was extremely short of breath, wheezing, diaphoretic, and complaining of abdominal pain. Upon my initial evaluation the patient, clearly the patient was not doing well, and on physical examination he had diffuse rhonchi and wheezes bilaterally with minimal air movement. Agent was also noted to be extremely diaphoretic, and bit mottled. Recommended immediate intubation and immediate transfer to the ICU. Patient was done and transferred to the ICU, placed on assist control rate of 16 initially tidal volume 500 FiO2 100% and PEEP of 5. Initial ABG post intubation showed a pO2 of 400 pCO2 of 65 pH of 7.24 hence his vent settings were adjusted and his rate was increased to 20 and FiO2 cut down to 40%. Patient was taken down for CT of the abdomen and pelvis mostly because of his severe abdominal pain, he was found to have moderate circumferential rectal wall thickening, questionably distal colitis. Nonspecific. Patient was also noted to have a masslike thickening along the anterior margin of the bladder questioning bladder wall hypertrophy or urothelial malignancy. This will be addressed by urology. Chest x-ray also showed a trace of left pleural effusion, sigmoid diverticulosis, otherwise no significant findings but he did have also extensive 3 vessel coronary artery calcifications. Patient was stabilized in the ICU, sedated and placed on propofol, may even consider adding fentanyl. He was already seen by general surgery on consultation. WBC count is 20.5 hemoglobin 15.5 basic metabolic profile is normal, renal profile showed a BUN of 44 creatinine 1.42. Patient was reevaluated today on 01/23/2023, remains in the ICU, intubated and mechanically ventilated patient is sedated however he is arousable and follows very simple instructions. He is on assist control rate of 20, volume 500 FiO2 45% and PEEP of 5 ABG showed a pO2 of 133 pCO2 47 pH of 7.34 hence I cut down his FiO2 to 35%. Patient is on propofol at 45 mcg/kg/m fentanyl at 0.5 mcg/kg/h IV fluid at 75 mL/h he is also receiving vital HPI at 3 0 mL per hour. Patient has nonpurulent secretions, he has a wheezing bilaterally more so on forced expiratory maneuver. He is awake, but obviously he is not quite ready for weaning. Chest x-ray was reviewed, showing significant improvement in his left lower lobe atelectasis. Still doubt pneumonia. WBC count today is 7.1 hemoglobin is 12.7 basic metabolic profile is normal BUN is 38 creatinine 1.18 Objective - Vital Signs Vital signs: Vital Signs Temp 98.4 F 01/23/23 12:00 Pulse 67 01/23/23 12:34 Resp 21 01/23/23 12:00 BP 97/58 01/23/23 12:00 Pulse Ox 96 01/23/23 12:00 FiO2 35 01/23/23 12:00 Intake & Output 01/22/23 01/23/23 01/23/23 18:59 06:59 18:59 Intake Total 3061.359 1520.373 950 Output Total 277 600 420 Balance 2784.359 920.373 530 Weight 90.5 kg 91 kg Intake: IV 2625 900 650 Calcium Gluconate in NaCl 100 1 gm In Saline 1 100ml. bag @ 100 mls/hr IVPB ONCE ONE Rx#:[id number] Piperacillin-Tazobactam 3 100 100 .375 gm In Sodium Chloride 0.9% 100 ml @ 25 mls/hr IVPB Q8H [facility] Rx#: [id number] Sodium Chloride 0.9% 1, 525 900 450 000 ml @ 75 mls/hr IV . [id number] [facility] Rx#:[id number] Sodium Chloride 0.9% 1, 1000 000 ml @ 999 mls/hr IV . Q1H1M ONE Rx#:[id number] Sodium Chloride 0.9% 1, 1000 000 ml @ 999 mls/hr IV . Q1H1M ONE Rx#:[id number] Intake, IV Titration 151.359 360.373 100 Amount Norepinephrine 4 mg In 33.791 Sodium Chloride 0.9% 250 ml @ 0.03 MCG/KG/MIN 10. 344 mls/hr IV .Q24H [facility] Rx#:[id number] fentaNYL (PF). 1,000 mcg 68.478 In Sodium Chloride 0.9% 80 ml @ 0.5 MCG/KG/HR 4. 525 mls/hr IV .[id number] [facility] Rx#:[id number] propofoL 1,000 mg In 151.359 258.104 100 Empty Bag 1 bag @ 15 MCG/ KG/MIN 8.145 mls/hr IV . [id number] [facility] Rx#:[id number] Oral 225 Tube Feeding 30 260 200 Other 30 Output: Urine 277 600 420 Other: Voiding Method Indwelling Catheter Indwelling Catheter Indwelling Catheter ABP, PAP, CO, CI - Last Documented Arterial Blood Pressure 130/55 - Exam Physical Exam: Revealed a 57-year-old white male intubated, mechanically ventilated, sedated but arousable and follows instructions. Head: Atraumatic, normocephalic, endotracheal tube and orogastric tube are intact. HEENT:[Neck is supple.] [No neck masses.] [No thyromegaly.] [No JVD.] Chest: [Faint wheezing noted bilaterally significantly improved compared to yesterday.. Cardiac Exam: [Normal S1 and S2, no S3 gallop, no murmur.] Abdomen: [Soft slightly tender to deep palpation, no megaly, no rebound, no guarding, normal bowel sounds.] Extremities: [No clubbing, no edema, no cyanosis.] Neurological Exam: [Arousable, follows instructions, sedated, no gross focal neurologic deficits. Psychiatric: Normal mood affect and normal mental status examination. Skin: No rash - Labs CBC & Chem 7: 01/23/23 04:00 01/23/23 04:00 Labs: Abnormal Lab Results - Last 24 Hours (Table) 01/22/23 01/22/23 01/23/23 Range/Units 16:51 20:30 03:51 RBC (4.30-5.90) m/uL Hgb (13.0-17.5) gm/dL Hct (39.0-53.0) % Plt Count (150-450) k/uL ABG pH (7.35-7.45) ABG pCO2 (35-45) mmHg ABG pO2 (83-108) mmHg ABG Total CO2 (19-24) mmol/L ABG O2 Saturation (94-97) % BUN (9-20) mg/dL Glucose (74-99) mg/dL POC Glucose (mg/dL) 181 H 221 H 242 H (70-110) mg/dL Calcium (8.4-10.2) mg/dL Ionized Calcium Virgilio (4.5-5.3) mg/dL Total Protein (6.3-8.2) g/dL Albumin (3.5-5.0) g/dL 01/23/23 01/23/23 01/23/23 Range/Units 04:00 04:00 05:10 RBC 4.02 L (4.30-5.90) m/uL Hgb 12.7 L (13.0-17.5) gm/dL Hct 37.6 L (39.0-53.0) % Plt Count 94 L D (150-450) k/uL ABG pH (7.35-7.45) ABG pCO2 (35-45) mmHg ABG pO2 (83-108) mmHg ABG Total CO2 (19-24) mmol/L ABG O2 Saturation (94-97) % BUN 38 H (9-20) mg/dL Glucose 232 H (74-99) mg/dL POC Glucose (mg/dL) (70-110) mg/dL Calcium 6.1 L* (8.4-10.2) mg/dL Ionized Calcium Virgilio 3.6 L (4.5-5.3) mg/dL Total Protein 5.3 L (6.3-8.2) g/dL Albumin 3.1 L (3.5-5.0) g/dL 01/23/23 01/23/23 01/23/23 Range/Units 06:00 06:27 11:20 RBC (4.30-5.90) m/uL Hgb (13.0-17.5) gm/dL Hct (39.0-53.0) % Plt Count (150-450) k/uL ABG pH 7.34 L (7.35-7.45) ABG pCO2 47 H (35-45) mmHg ABG pO2 133 H (83-108) mmHg ABG Total CO2 27 H (19-24) mmol/L ABG O2 Saturation 98.7 H (94-97) % BUN (9-20) mg/dL Glucose (74-99) mg/dL POC Glucose (mg/dL) 264 H 266 H (70-110) mg/dL Calcium (8.4-10.2) mg/dL Ionized Calcium Virgiilo (4.5-5.3) mg/dL Total Protein (6.3-8.2) g/dL Albumin (3.5-5.0) g/dL Microbiology - Last 24 Hours (Table) 01/22/23 11:45 Gram Stain - Preliminary Sputum 01/20/23 11:20 Blood Culture - Preliminary Blood 01/20/23 11:05 Blood Culture - Preliminary Blood Assessment and Plan Assessment: Impression: Acute on chronic hypoxic and hypercapnic respiratory failure, required immediate intubation and mechanical ventilation, on 01/22/2023 Acute exacerbation of COPD [id number] smoking history Benign essential hypertension Obstructive sleep apnea syndrome Type 2 diabetes without complications History of bladder cancer status post surgical resection History of rectal surgery with ileostomy and subsequent reversal Abnormal CT of the abdomen and pelvis being addressed by general surgery and urology. Recommendation: Continue ventilatory support, not quite ready for weaning Continue bronchodilators, including DuoNeb and Perforomist and Pulmicort Continue antibiotics, patient is empirically on Zosyn Continue steroids Continue nutritional support Continue DVT prophylaxis Continue GI prophylaxis Not quite ready for weaning based on his physical findings today and he continues to have some wheezing Patient is obviously critically ill requiring immediate intubation mechanical ventilation Critical care time is over 30 minutes Time with Patient: Greater than 30
[2023-01-23] MEDS: NOREPINEPHRINE 4 MG in SODIUM CHLORIDE 0.9% 250 ML IV SCH (15:12)
[2023-01-23 16:48] LABS: Glucose,Whole Blood 276 mg/dL (70-110)
[2023-01-23] MEDS: ATORVASTATIN 40 MG TAB PO SCH (19:53)
[2023-01-23 23:46] LABS: Glucose,Whole Blood 284 mg/dL (70-110)
[2023-01-24] MEDS: INSULIN ASPART (NovoLOG) 100 UNIT/ML VIAL SQ SCH ×5 (00:06→23:59)
[2023-01-24] MEDS: methylPREDNISolone SOD SUCCI 125 MG/2 ML VIAL IV SCH ×5 (00:07→23:44)
[2023-01-24] MEDS: guaiFENesin-DM 100-10MG/5ML 10 ML CUP PO SCH ×2 (00:08→08:18)
[2023-01-24] MEDS: fentaNYL (PF). 1,000 MCG in SODIUM CHLORIDE 0.9% 80 ML IV SCH ×2 (02:40→09:49)
[2023-01-24] MEDS: PIPERACILLIN-TAZOBACTAM 3.375 GM in SODIUM CHLORIDE 0.9% 100 ML IVPB SCH ×3 (03:43→20:24)
[2023-01-24 04:32] LABS: Basophils % (A) 0 %; Eosinophils % (A) 0 %; HCT 37.6 % (39.0-53.0); HGB 12.5 gm/dL (13.0-17.5); Lymphocytes # (A) 0.1 k/uL (1.0-4.8); Lymphocytes % (A) 4 %; MCHC 33.2 g/dL (31.0-37.0); MCV 93.4 fL (80.0-100.0); Monocytes # (A) 0.2 k/uL (0-1.0); Monocytes % (A) 5 %; Neutrophils # (A) 3.2 k/uL (1.3-7.7); Neutrophils % (A) 90 %; RBC 4.02 m/uL (4.30-5.90); WBC 3.6 k/uL (3.8-10.6)
[2023-01-24 04:35] LABS: Platelet Count 80 k/uL (150-450)
[2023-01-24 04:42] LABS: African American GFR (CKD) >90 (>60 ml/min/1.73 sqM); Anion Gap 8 mmol/L; Blood Urea Nitrogen 30 mg/dL (9-20); Calcium 6.6 mg/dL (8.4-10.2); Carbon Dioxide 24 mmol/L (22-30); Chloride 109 mmol/L (98-107); Glucose 245 mg/dL (74-99); Non-African American GFR(CKD) 87 (>60 ml/min/1.73 sqM); Potassium 3.9 mmol/L (3.5-5.1); Sodium 141 mmol/L (137-145)
[2023-01-24] MEDS: SODIUM CHLORIDE 0.9% 1,000 ML IV SCH ×2 (05:00→19:15)
[2023-01-24] MEDS ORDERED: Potassium Replacement Protocol 1 EACH MISC MISCELLANE PRN (05:04)
[2023-01-24 05:32] LABS: Glucose,Whole Blood 282 mg/dL (70-110)
[2023-01-24 05:33] LABS: ABG Base Excess 2.3 mmol/L; ABG HCO3 28 mmol/L (21-25); ABG Oxygen Saturation 97.2 % (94-97); ABG PCO2 49 mmHg (35-45); ABG PH 7.36 (7.35-7.45); ABG PO2 114 mmHg (83-108); ABG TCO2 29 mmol/L (19-24); Allen Test Performed? Yes
[2023-01-24] MEDS ORDERED: POTASSIUM BICARBONATE/CIT AC 20 MEQ TABLET.EFF NG-TUBE SCH (06:00)
[2023-01-24] MEDS: INSULIN DETEMIR (LEVEMIR) 100 UNIT/ML SYR SQ SCH (06:10)
--- NOTE | 2023-01-24 06:26 | XR ---
EXAMINATION TYPE: XR chest 1V portable DATE OF EXAM: 01/24/2023 CLINICAL HISTORY: Difficulty breathing progress study. TECHNIQUE: Single AP portable semiupright view of the chest is obtained. COMPARISON: Chest x-ray from one day earlier and older studies. FINDINGS: Stable endotracheal and orogastric tubes. Surgical changes near the cervical thoracic junction is redemonstrated. Persistent left basilar opaci ty. Right lung remains clear. Cardiac silhouette size is stable and within normal limits. IMPRESSION: Patchy left basilar atelectasis and/or acute infiltrate remains present. No significant c hange from one day earlier.
[2023-01-24] MEDS ORDERED: INSULIN DETEMIR (LEVEMIR) 100 UNIT/ML SYR SQ ONE (07:45)
[2023-01-24] MEDS: FORMOTEROL FUMARATE 20 MCG/2 ML NEBU INHALATION SCH ×2 (08:11→21:39)
[2023-01-24] MEDS: IPRATROPIUM-ALBUTEROL 3 ML NEB INHALATION SCH ×4 (08:11→21:39)
[2023-01-24] MEDS: BUDESONIDE 1 MG/2 ML NEBU INHALATION SCH ×2 (08:11→21:39)
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
[2023-01-24] MEDS: CHLORHEXIDINE GLUCONATE 15 ML CUP MUCOUS MEM SCH ×2 (09:12→20:43)
[2023-01-24] MEDS: ESCITALOPRAM 10 MG TAB PO SCH (09:12)
[2023-01-24] MEDS: ASPIRIN 81 MG PO SCH (09:12)
[2023-01-24] MEDS: FAMOTIDINE 20 MG TAB PO SCH ×2 (09:12→20:25)
[2023-01-24] MEDS: ISOSORBIDE MONONITRATE ER 30 MG TAB.ER.24H PO SCH (09:12)
[2023-01-24] MEDS: busPIRone HCl 5 MG TAB PO SCH ×2 (09:12→20:25)
[2023-01-24] MEDS: HEPARIN SODIUM,PORCINE 5,000 UNIT/ML 1 ML VIAL SQ SCH ×2 (09:12→20:43)
[2023-01-24] MEDS: SENNOSIDES-DOCUSATE SODIUM 1 EACH TAB PO SCH (09:12)
[2023-01-24] MEDS: NYSTATIN 100,000 UNIT/GM POWD 15 GM TOPICAL SCH ×2 (09:13→20:40)
[2023-01-24] MEDS ORDERED: PEG 3350 (236 GM/BTL) + LYTES 4,000 ML BOTTLE PO ONE (10:00)
[2023-01-24 11:04] LABS: ABG HCO3 28 mmol/L (21-25); ABG Oxygen Saturation 97.2 % (94-97); ABG PCO2 44 mmHg (35-45); ABG PH 7.41 (7.35-7.45); ABG PO2 104 mmHg (83-108); ABG TCO2 29 mmol/L (19-24)
[2023-01-24 11:05] LABS: Allen Test Performed? no
[2023-01-24 12:10] LABS: Glucose,Whole Blood 289 mg/dL (70-110)
[2023-01-24] MEDS: DEXMEDETOMIDINE/0.9% NACL(PMX) 400 MCG in EMPTY BAG 1 BAG IV SCH (12:26)
--- NOTE | 2023-01-24 13:37 | P.PN ---
Subjective Progress Note Date: 01/24/23 Principal diagnosis: Acute on chronic hypoxic respiratory failure secondary to acute exacerbation of COPD. This is a very pleasant 57-year-old male patient with a known history of severe Gold stage III oxygen dependent chronic obstructive pulmonary disease, CVAs respiratory failure requiring intubation mechanical ventilation 2, chronic kidney disease stage III, obstructive sleep apnea, pulmonary hypertension, chronic low back pain, gastroesophageal reflux disease, bladder cancer, colon cancer, hyperlipidemia, chronic and ongoing tobacco dependence. He presented here to the emergency room earlier this morning with complaints of increasing shortness of breath cough congestion and wheezing. He required BiPAP support on arrival currently at 14/5 and 35% FiO2. Arterial blood gases reveal a P O2 400, pCO2 of 70 and a pH of 7.29 on 100% FiO2. Chest x-ray revealed chronic changes without evidence of acute pulmonary process. White count 10.5. Hemoglobin 16.6. Platelets 132. Sodium 145. Potassium 4.3. Bicarb 37. BUN 28. Creatinine 1.17. Glucose 173. AST 21. ALT 24. Troponin negative times one. ProBNP 3570. Influenza screen negative. RSV screen negative. COVID-19 screen negative. He is seen in the emergency department. He's currently awake. Sitt ing up on the stretcher. Still requiring BiPAP support. Still quite bronchospastic and wheezing. Patient was reevaluated today on 01/21/2023, patient was admitted yesterday with acute exacerbation of COPD, continues to have intermittent cough and wheezing, slight improvement but not back to baseline. Patient is on 4 L nasal cannula with O2 saturation 98% labs from yesterday were all reviewed including his ABG showing hypercapnia and relatively low pH of 7.29 patient had negative screening for influenza and RSV and COVID-19 infection, chest x-ray showed chronic changes without evidence of acute pulmonary disease. Patient was reevaluated today on 01/22/2023, I was called by the a team on this patient early this morning, patient was experiencing significant respiratory distress. He was extremely short of breath, wheezing, diaphoretic, and complaining of abdominal pain. Upon my initial evaluation the patient, clearly the patient was not doing well, and on physical examination he had diffuse rhonchi and wheezes bilaterally with minimal air movement. Agent was also noted to be extremely diaphoretic, and bit mottled. Recommended immediate intubation and immediate transfer to the ICU. Patient was done and transferred to the ICU, placed on assist control rate of 16 initially tidal volume 500 FiO2 100% and PEEP of 5. Initial ABG post intubation showed a pO2 of 400 pCO2 of 65 pH of 7.24 hence his vent settings were adjusted and his rate was increased to 20 and FiO2 cut down to 40%. Patient was taken down for CT of the abdomen and pelvis mostly because of his severe abdominal pain, he was found to have moderate circumferential rectal wall thickening, questionably distal colitis. Nonspecific. Patient was also noted to have a masslike thickening along the anterior margin of the bladder questioning bladder wall hypertrophy or urothelial malignancy. This will be addressed by urology. Chest x-ray also showed a trace of left pleural effusion, sigmoid diverticulosis, otherwise no significant findings but he did have also extensive 3 vessel coronary artery calcifications. Patient was stabilized in the ICU, sedated and placed on propofol, may even consider adding fentanyl. He was already seen by general surgery on consultation. WBC count is 20.5 hemoglobin 15.5 basic metabolic profile is normal, renal profile showed a BUN of 44 creatinine 1.42. Patient was reevaluated today on 01/23/2023, remains in the ICU, intubated and mechanically ventilated patient is sedated however he is arousable and follows very simple instructions. He is on assist control rate of 20, volume 500 FiO2 45% and PEEP of 5 ABG showed a pO2 of 133 pCO2 47 pH of 7.34 hence I cut down his FiO2 to 35%. Patient is on propofol at 45 mcg/kg/m fentanyl at 0.5 mcg/kg/h IV fluid at 75 mL/h he is also receiving vital HPI at 3 0 mL per hour. Patient has nonpurulent secretions, he has a wheezing bilaterally more so on forced expiratory maneuver. He is awake, but obviously he is not quite ready for weaning. Chest x-ray was reviewed, showing significant improvement in his left lower lobe atelectasis. Still doubt pneumonia. WBC count today is 7.1 hemoglobin is 12.7 basic metabolic profile is normal BUN is 38 creatinine 1.18 Patient was reevaluated today on 01/24/2023, remains in the ICU, intubated and mechanically ventilated. Patient is on assist control rate of 20 tidal volume 500 FiO2 35% PEEP of 5 ABG showed a pO2 of 114 pCO2 49 pH of 7.36. Patient is requiring a significant amount of sedation including fentanyl 1.5 mcg/kg/h propofol at 50 mcg/kg/m he is on vital AF at 49 mL per hour. Chest x-ray is showing no evidence of active disease. Patient denies any abdominal pain. Patient is awake in spite of being on relatively high dose of propofol and fentanyl, and I went ahead and recommended tapering down his sedation including the propofol and fentanyl and if needed to use Precedex. My plan is to give the patient today a weaning trial off sedation, and if he tolerates the weaning trial and he has good weaning parameters I will likely proceed to extubating the patient today if possible. Indeed the patient was weaned off sedation, and he had good weaning parameters, I came back when the patient was off sedation and I looked at his ABG which is a BiPAP ABG showed a pO2 of 104 pCO2 44 pH of 7.41, I discontinued his enteral feeding, and recommended extubating the patient to BiPAP this was done successfully. Objective - Vital Signs Vital signs: Vital Signs Temp 97.6 F 01/24/23 12:00 Pulse 50 L 01/24/23 12:00 Resp 13 01/24/23 12:00 BP 143/73 01/24/23 12:00 Pulse Ox 98 01/24/23 12:00 FiO2 35 01/24/23 11:40 Intake & Output 01/23/23 01/24/23 01/24/23 18:59 06:59 18:59 Intake Total 3703.977 5258.978 889.225 Output Total 797 875 365 Balance 2531.557 1223.978 524.225 Weight 95.3 kg Intake: IV 1100 1000 450 Calcium Gluconate in NaCl 100 1 gm In Saline 1 100ml. bag @ 100 mls/hr IVPB ONCE ONE Rx#:[id number] Piperacillin-Tazobactam 3 100 100 .375 gm In Sodium Chloride 0.9% 100 ml @ 25 mls/hr IVPB Q8H [facility] Rx#: [id number] Sodium Chloride 0.9% 1, 900 900 450 000 ml @ 75 mls/hr IV . [id number] [facility] Rx#:[id number] Intake, IV Titration 286.503 385.978 292.225 Amount fentaNYL (PF). 1,000 mcg 86.503 112.218 100.681 In Sodium Chloride 0.9% 80 ml @ 0.5 MCG/KG/HR 4. 525 mls/hr IV .[id number] [facility] Rx#:[id number] propofoL 1,000 mg In 200 273.760 191.544 Empty Bag 1 bag @ 15 MCG/ KG/MIN 8.145 mls/hr IV . [id number] [facility] Rx#:[id number] Tube Feeding 449 588 147 Other 90 Output: Urine 797 875 365 Other: Voiding Method Indwelling Catheter Indwelling Catheter Indwelling Catheter # Bowel Movements 1 ABP, PAP, CO, CI - Last Documented Arterial Blood Pressure 223/82 - Exam Physical Exam: Revealed a 57-year-old white male intubated, mechanically ventilated, awake, follows instructions while on mechanical ventilation and sedated Head: Atraumatic, normocephalic, endotracheal tube and orogastric tube are intact. HEENT:[Neck is supple.] [No neck masses.] [No thyromegaly.] [No JVD.] Chest: Diminished breath sound bilaterally no crackles or rhonchi or wheezes Cardiac Exam: [Normal S1 and S2, no S3 gallop, no murmur.] Abdomen: [Soft slightly tender to deep palpation, no megaly, no rebound, no guarding, normal bowel sounds.] Extremities: [No clubbing, no edema, no cyanosis.] Neurological Exam: Alert and oriented 3 no gross focal neurologic deficit Psychiatric: Normal mood affect and normal mental status examination. Skin: No rash - Labs CBC & Chem 7: 01/24/23 03:45 01/24/23 03:45 Labs: Abnormal Lab Results - Last 24 Hours (Table) 01/23/23 01/23/23 01/24/23 Range/Units 16:46 23:44 03:45 WBC 3.6 L (3.8-10.6) k/uL RBC 4.02 L (4.30-5.90) m/uL Hgb 12.5 L (13.0-17.5) gm/dL Hct 37.6 L (39.0-53.0) % Plt Count 80 L (150-450) k/uL Lymphocytes # 0.1 L (1.0-4.8) k/uL ABG pCO2 (35-45) mmHg ABG pO2 (83-108) mmHg ABG HCO3 (21-25) mmol/L ABG Total CO2 (19-24) mmol/L ABG O2 Saturation (94-97) % Chloride (98-107) mmol/L BUN (9-20) mg/dL Glucose (74-99) mg/dL POC Glucose (mg/dL) 276 H 284 H (70-110) mg/dL Calcium (8.4-10.2) mg/dL 01/24/23 01/24/23 01/24/23 Range/Units 03:45 05:30 05:31 WBC (3.8-10.6) k/uL RBC (4.30-5.90) m/uL Hgb (13.0-17.5) gm/dL Hct (39.0-53.0) % Plt Count (150-450) k/uL Lymphocytes # (1.0-4.8) k/uL ABG pCO2 49 H (35-45) mmHg ABG pO2 114 H (83-108) mmHg ABG HCO3 28 H (21-25) mmol/L ABG Total CO2 29 H (19-24) mmol/L ABG O2 Saturation 97.2 H (94-97) % Chloride 109 H (98-107) mmol/L BUN 30 H (9-20) mg/dL Glucose 245 H (74-99) mg/dL POC Glucose (mg/dL) 282 H (70-110) mg/dL Calcium 6.6 L (8.4-10.2) mg/dL 01/24/23 01/24/23 Range/Units 11:00 12:09 WBC (3.8-10.6) k/uL RBC (4.30-5.90) m/uL Hgb (13.0-17.5) gm/dL Hct (39.0-53.0) % Plt Count (150-450) k/uL Lymphocytes # (1.0-4.8) k/uL ABG pCO2 (35-45) mmHg ABG pO2 (83-108) mmHg ABG HCO3 28 H (21-25) mmol/L ABG Total CO2 29 H (19-24) mmol/L ABG O2 Saturation 97.2 H (94-97) % Chloride (98-107) mmol/L BUN (9-20) mg/dL Glucose (74-99) mg/dL POC Glucose (mg/dL) 289 H (70-110) mg/dL Calcium (8.4-10.2) mg/dL Microbiology - Last 24 Hours (Table) 01/22/23 11:45 Gram Stain - Final Sputum Sputum Culture - Final 01/20/23 11:20 Blood Culture - Preliminary Blood 01/20/23 11:05 Blood Culture - Preliminary Blood Assessment and Plan Assessment: Impression: Acute on chronic hypoxic and hypercapnic respiratory failure, required immediate intubation and mechanical ventilation, on 01/22/2023 Acute exacerbation of COPD [id number] smoking history Benign essential hypertension Obstructive sleep apnea syndrome Type 2 diabetes without complications History of bladder cancer status post surgical resection History of rectal surgery with ileostomy and subsequent reversal Abnormal CT of the abdomen and pelvis being addressed by general surgery and urology. Recommendation: As noted earlier, the patient was given a weaning trial off sedation Reviewed his weaning parameters and his ABG after being on BiPAP for about half an hour. Recommended extubation to BiPAP after I have reviewed his ABG and weaning parameters and that seemed to be well tolerated Continue bronchodilators, including DuoNeb and Perforomist and Pulmicort Continue Zosyn empirically Continue steroids Discontinue orogastric tube during extubation Continue DVT prophylaxis Continue GI prophylaxis Patient is critically ill We will continue to monitor in the ICU. If the patient fails extubation, will consider reintubation but so far the patient seems to be tolerating it well. Critical care time is over 30 minutes Time with Patient: Greater than 30
--- NOTE | 2023-01-24 14:17 | P.PN ---
Subjective Progress Note Date: 01/24/23 CHIEF COMPLAINT: Abdominal pain HISTORY OF PRESENT ILLNESS: The patient is a 57-year-old male admitted and in ICU. He is on the vent and just extubated 1 hr ago. He is not tolerating liquids and cannot do bowel prep due to recent extubation. ROS: No chest pain. No fevers or chills. PHYSICAL EXAM: VITAL SIGNS: Reviewed CONSTITUTIONAL: Well developed and in no acute distress. EYES: Conjuctivae without sclera icterus. Extraocular movements grossly intact. HEAD, EARS, NOSE, THROAT: Moist buccal mucosa. Head is atraumatic, normocephalic. Hears conversational speech. No nasal drainage. RESPIRATORY: Non-labored respirations and equal bilateral excursions. CARDIOVASCULAR: Palpable 2+ radial pulses. ABDOMEN: Nondistended. MUSCULOSKELETAL: No gross deformity of the lower extremities noted. No clubbing. No cyanosis. SKIN: Good skin turgor. Well perfused. NEUROLOGIC: Cranial nerves II through XII grossly intact. No focal or lateralizing signs. PSYCH: Appropriate affect. Alert and oriented to person, place and time. CLINICAL LABS: Reviewed. Leukocytosis, white blood cell count over 20,000 down to normal, 7000, now 3,600. Hgb 12.7 to 12.5 ASSESSMENT: 1. Abnormal computed tomography scan for free air 2. Hypoxic respiratory failure. PLAN: 1. He is recently extubated and cannot tolerate PO. Hold bowel prep. 2. Defer colonoscopy until able to tolerate bowel prep due to recent extubation today. Objective - Vital Signs Vital signs: Vital Signs Temp 97.6 F 01/24/23 12:00 Pulse 54 L 01/24/23 14:00 Resp 15 01/24/23 14:00 BP 160/92 01/24/23 14:00 Pulse Ox 98 01/24/23 14:00 FiO2 35 01/24/23 11:40 Intake & Output 01/23/23 01/24/23 01/24/23 18:59 06:59 18:59 Intake Total 0506.930 5572.978 1039.225 Output Total 797 875 565 Balance 5775.869 4078.978 474.225 Weight 95.3 kg Intake: IV 1100 1000 600 Calcium Gluconate in NaCl 100 1 gm In Saline 1 100ml. bag @ 100 mls/hr IVPB ONCE ONE Rx#:[id number] Piperacillin-Tazobactam 3 100 100 .375 gm In Sodium Chloride 0.9% 100 ml @ 25 mls/hr IVPB Q8H [facility] Rx#: [id number] Sodium Chloride 0.9% 1, 900 900 600 000 ml @ 75 mls/hr IV . [id number] [facility] Rx#:[id number] Intake, IV Titration 286.503 385.978 292.225 Amount fentaNYL (PF). 1,000 mcg 86.503 112.218 100.681 In Sodium Chloride 0.9% 80 ml @ 0.5 MCG/KG/HR 4. 525 mls/hr IV .[id number] [facility] Rx#:[id number] propofoL 1,000 mg In 200 273.760 191.544 Empty Bag 1 bag @ 15 MCG/ KG/MIN 8.145 mls/hr IV . [id number] [facility] Rx#:[id number] Tube Feeding 449 588 147 Other 90 Output: Urine 797 875 565 Other: Voiding Method Indwelling Catheter Indwelling Catheter Indwelling Catheter # Bowel Movements 1 ABP, PAP, CO, CI - Last Documented Arterial Blood Pressure 223/82 - Labs CBC & Chem 7: 01/24/23 03:45 01/24/23 03:45 Labs: Abnormal Lab Results - Last 24 Hours (Table) 01/23/23 01/23/23 01/24/23 Range/Units 16:46 23:44 03:45 WBC 3.6 L (3.8-10.6) k/uL RBC 4.02 L (4.30-5.90) m/uL Hgb 12.5 L (13.0-17.5) gm/dL Hct 37.6 L (39.0-53.0) % Plt Count 80 L (150-450) k/uL Lymphocytes # 0.1 L (1.0-4.8) k/uL ABG pCO2 (35-45) mmHg ABG pO2 (83-108) mmHg ABG HCO3 (21-25) mmol/L ABG Total CO2 (19-24) mmol/L ABG O2 Saturation (94-97) % Chloride (98-107) mmol/L BUN (9-20) mg/dL Glucose (74-99) mg/dL POC Glucose (mg/dL) 276 H 284 H (70-110) mg/dL Calcium (8.4-10.2) mg/dL 01/24/23 01/24/23 01/24/23 Range/Units 03:45 05:30 05:31 WBC (3.8-10.6) k/uL RBC (4.30-5.90) m/uL Hgb (13.0-17.5) gm/dL Hct (39.0-53.0) % Plt Count (150-450) k/uL Lymphocytes # (1.0-4.8) k/uL ABG pCO2 49 H (35-45) mmHg ABG pO2 114 H (83-108) mmHg ABG HCO3 28 H (21-25) mmol/L ABG Total CO2 29 H (19-24) mmol/L ABG O2 Saturation 97.2 H (94-97) % Chloride 109 H (98-107) mmol/L BUN 30 H (9-20) mg/dL Glucose 245 H (74-99) mg/dL POC Glucose (mg/dL) 282 H (70-110) mg/dL Calcium 6.6 L (8.4-10.2) mg/dL 01/24/23 01/24/23 Range/Units 11:00 12:09 WBC (3.8-10.6) k/uL RBC (4.30-5.90) m/uL Hgb (13.0-17.5) gm/dL Hct (39.0-53.0) % Plt Count (150-450) k/uL Lymphocytes # (1.0-4.8) k/uL ABG pCO2 (35-45) mmHg ABG pO2 (83-108) mmHg ABG HCO3 28 H (21-25) mmol/L ABG Total CO2 29 H (19-24) mmol/L ABG O2 Saturation 97.2 H (94-97) % Chloride (98-107) mmol/L BUN (9-20) mg/dL Glucose (74-99) mg/dL POC Glucose (mg/dL) 289 H (70-110) mg/dL Calcium (8.4-10.2) mg/dL Microbiology - Last 24 Hours (Table) 01/22/23 11:45 Gram Stain - Final Sputum Sputum Culture - Final 01/20/23 11:20 Blood Culture - Preliminary Blood 01/20/23 11:05 Blood Culture - Preliminary Blood
[2023-01-24] MEDS: NOREPINEPHRINE 4 MG in SODIUM CHLORIDE 0.9% 250 ML IV SCH (14:52)
[2023-01-24 16:44] LABS: Glucose,Whole Blood 204 mg/dL (70-110)
[2023-01-24] MEDS: HYDROcodone/APAP 10-325MG 1 EACH TAB PO PRN ×2 (17:37→23:41)
[2023-01-24] MEDS: ATORVASTATIN 40 MG TAB PO SCH (20:25)
[2023-01-24] MEDS ORDERED: METOPROLOL TARTRATE 25 MG TAB PO SCH (22:45)
[2023-01-24] MEDS ORDERED: hydrALAZINE HCL 20 MG/ML 1 ML VIAL IVP PRN (23:07)
[2023-01-24 23:30] LABS: Glucose,Whole Blood 133 mg/dL (70-110)
[2023-01-25] MEDS: PIPERACILLIN-TAZOBACTAM 3.375 GM in SODIUM CHLORIDE 0.9% 100 ML IVPB SCH ×3 (04:20→20:41)
[2023-01-25] MEDS: SODIUM CHLORIDE 0.9% 1,000 ML IV SCH (04:20)
[2023-01-25 04:47] LABS: Appearance,Urine Clear (Clear); Bacteria,Urine Rare /hpf; Bilirubin,Urine Negative (Negative); Blood,Urine Large (Negative); Color,Urine Yellow; Glucose,Urine (UA) 1+ (Negative); Ketones,Urine Negative (Negative); Leukocyte Esterase,Urine Trace (Negative); Nitrite,Urine Negative (Negative); PH, Urine 6.5 (5.0-8.0); Protein,Urine 2+ (Negative); RBC,Urine >182 /hpf (0-5); Specific Gravity,Urine 1.019 (1.001-1.035); Squamous Epithelial Cell,Urine 1 /hpf (0-4); Urobilinogen,Urine <2.0 mg/dL (<2.0); WBC,Urine 5 /hpf (0-5)
[2023-01-25 04:49] LABS: Basophils % (A) 0 %; Eosinophils % (A) 0 %; HCT 40.3 % (39.0-53.0); HGB 13.1 gm/dL (13.0-17.5); Lymphocytes # (A) 0.2 k/uL (1.0-4.8); Lymphocytes % (A) 4 %; MCH 30.1 pg (25.0-35.0); MCHC 32.6 g/dL (31.0-37.0); MCV 92.4 fL (80.0-100.0); Mean Platelet Volume 9.6; Monocytes # (A) 0.2 k/uL (0-1.0); Monocytes % (A) 4 %; Neutrophils # (A) 5.4 k/uL (1.3-7.7); Neutrophils % (A) 92 %; RBC 4.36 m/uL (4.30-5.90); WBC 5.9 k/uL (3.8-10.6)
[2023-01-25 04:51] LABS: Platelet Count 72 k/uL (150-450)
[2023-01-25 05:18] LABS: African American GFR (CKD) >90 (>60 ml/min/1.73 sqM); Anion Gap 10 mmol/L; Blood Urea Nitrogen 27 mg/dL (9-20); Calcium 6.8 mg/dL (8.4-10.2); Carbon Dioxide 25 mmol/L (22-30); Chloride 108 mmol/L (98-107); Glucose 160 mg/dL (74-99); Non-African American GFR(CKD) >90 (>60 ml/min/1.73 sqM); Potassium 3.7 mmol/L (3.5-5.1); Sodium 143 mmol/L (137-145)
[2023-01-25] MEDS ORDERED: POTASSIUM CHLORIDE ER 20 MEQ TAB.ER PO SCH (06:00)
[2023-01-25 06:22] LABS: Glucose,Whole Blood 158 mg/dL (70-110)
[2023-01-25] MEDS: HYDROcodone/APAP 10-325MG 1 EACH TAB PO PRN ×3 (06:50→19:33)
[2023-01-25] MEDS: methylPREDNISolone SOD SUCCI 125 MG/2 ML VIAL IV SCH ×4 (06:50→23:07)
--- NOTE | 2023-01-25 06:53 | XR ---
EXAMINATION TYPE: XR chest 1V portable DATE OF EXAM: 01/25/2023 5:32 AM COMPARISON: Chest radiographs from 01/24/2023 TECHNIQUE: XR chest 1V portable Portable AP radiograph of the chest. CLINICAL INDICATION:Male, 57 years old with history of Tube placement; FINDINGS: Lungs/Pleura: There is no evidence of pleural effusion, focal consolidation, or pneumothorax. Right costophrenic angle is not included in the [id number]. Pulmonary vascularity: Unremarkable. Heart/mediastinum: Cardiomediastinal silhouette is unremarkable. Musculoskeletal: No acute osseous pathology. Cervical fusion hardware is demonstrated. Other findings: None Lines/Tubes: The left subclavian approach central venous catheter. Interval removal of enteric and endotracheal tubes. IMPRESSION: 1. Interval removal of enteric and endotracheal tubes. 2. Stable left subclavian approach central venous catheter. 3. No focal consolidation.
[2023-01-25] MEDS: INSULIN ASPART (NovoLOG) 100 UNIT/ML VIAL SQ SCH ×4 (07:33→20:43)
[2023-01-25] MEDS: INSULIN DETEMIR (LEVEMIR) 100 UNIT/ML SYR SQ SCH (07:35)
[2023-01-25] MEDS: FAMOTIDINE 20 MG TAB PO SCH ×2 (08:20→20:43)
[2023-01-25] MEDS: METOPROLOL TARTRATE 12.5 MG TAB PO SCH ×2 (08:20→20:42)
[2023-01-25] MEDS: busPIRone HCl 5 MG TAB PO SCH ×2 (08:20→20:43)
[2023-01-25] MEDS: ISOSORBIDE MONONITRATE ER 30 MG TAB.ER.24H PO SCH (08:20)
[2023-01-25] MEDS: ASPIRIN 81 MG PO SCH (08:20)
[2023-01-25] MEDS: ESCITALOPRAM 10 MG TAB PO SCH (08:21)
[2023-01-25] MEDS: FORMOTEROL FUMARATE 20 MCG/2 ML NEBU INHALATION SCH ×2 (09:05→21:17)
[2023-01-25] MEDS: BUDESONIDE 1 MG/2 ML NEBU INHALATION SCH ×2 (09:05→21:16)
[2023-01-25] MEDS: IPRATROPIUM-ALBUTEROL 3 ML NEB INHALATION SCH ×4 (09:05→21:17)
[2023-01-25] MEDS: SENNOSIDES-DOCUSATE SODIUM 1 EACH TAB PO SCH (10:38)
[2023-01-25] MEDS: HYDROmorphone 1 MG/ML 1 ML SYRINGE IVP PRN ×3 (11:07→22:25)
[2023-01-25 11:37] LABS: Glucose,Whole Blood 147 mg/dL (70-110)
[2023-01-25] MEDS: NYSTATIN 100,000 UNIT/GM POWD 15 GM TOPICAL SCH ×2 (13:16→20:43)
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
--- NOTE | 2023-01-25 14:15 | P.PN ---
Subjective Progress Note Date: 01/25/23 This is a very pleasant 57-year-old male patient with a known history of severe Gold stage III oxygen dependent chronic obstructive pulmonary disease, CVAs respiratory failure requiring intubation mechanical ventilation 2, chronic kidney disease stage III, obstructive sleep apnea, pulmonary hypertension, chronic low back pain, gastroesophageal reflux disease, bladder cancer, colon cancer, hyperlipidemia, chronic and ongoing tobacco dependence. He presented here to the emergency room earlier this morning with complaints of increasing shortness of breath cough congestion and wheezing. He required BiPAP support on arrival currently at 14/5 and 35% FiO2. Arterial blood gases reveal a P O2 400, pCO2 of 70 and a pH of 7.29 on 100% FiO2. Chest x-ray revealed chronic changes without evidence of acute pulmonary process. White count 10.5. Hemoglobin 16.6. Platelets 132. Sodium 145. Potassium 4.3. Bicarb 37. BUN 28. Creatinine 1.17. Glucose 173. AST 21. ALT 24. Troponin negative times one. ProBNP 3570. Influenza screen negative. RSV screen negative. COVID-19 screen negative. He is seen in the emergency department. He's currently awake. Sitting up on the stretcher. Still requiring BiPAP support. Still quite bronchospastic and wheezing. Patient was reevaluated today on 01/21/2023, patient was admitted yesterday with acute exacerbation of COPD, continues to have intermittent cough and wheezing, slight improvement but not back to baseline. Patient is on 4 L nasal cannula with O2 saturation 98% labs from yesterday were all reviewed including his ABG showing hypercapnia and relatively low pH of 7.29 patient had negative screening for influenza and RSV and COVID-19 infection, chest x-ray showed chronic changes without evidence of acute pulmonary disease. Patient was reevaluated today on 01/22/2023, I was called by the a team on this patient early this morning, patient was experiencing significant respiratory distress. He was extremely short of breath, wheezing, diaphoretic, and complaining of abdominal pain. Upon my initial evaluation the patient, clearly the patient was not doing well, and on physical examination he had diffuse rhonchi and wheezes bilaterally with minimal air movement. Agent was also noted to be extremely diaphoretic, and bit mottled. Recommended immediate intubation and immediate transfer to the ICU. Patient was done and transferred to the ICU, placed on assist control rate of 16 initially tidal volume 500 FiO2 100% and PEEP of 5. Initial ABG post intubation showed a pO2 of 400 pCO2 of 65 pH of 7.24 hence his vent settings were adjusted and his rate was increased to 20 and FiO2 cut down to 40%. Patient was taken down for CT of the abdomen and pelvis mostly because of his severe abdominal pain, he was found to have moderate circumferential rectal wall thickening, questionably distal colitis. Nonspecific. Patient was also noted to have a masslike thickening along the anterior margin of the bladder questioning bladder wall hypertrophy or urothelial malignancy. This will be addressed by urology. Chest x-ray also s howed a trace of left pleural effusion, sigmoid diverticulosis, otherwise no significant findings but he did have also extensive 3 vessel coronary artery calcifications. Patient was stabilized in the ICU, sedated and placed on propofol, may even consider adding fentanyl. He was already seen by general surgery on consultation. WBC count is 20.5 hemoglobin 15.5 basic metabolic profile is normal, renal profile showed a BUN of 44 creatinine 1.42. Patient was reevaluated today on 01/23/2023, remains in the ICU, intubated and mechanically ventilated patient is sedated however he is arousable and follows very simple instructions. He is on assist control rate of 20, volume 500 FiO2 45% and PEEP of 5 ABG showed a pO2 of 133 pCO2 47 pH of 7.34 hence I cut down his FiO2 to 35%. Patient is on propofol at 45 mcg/kg/m fentanyl at 0.5 mcg/kg/h IV fluid at 75 mL/h he is also receiving vital HPI at 3 0 mL per hour. Patient has nonpurulent secretions, he has a wheezing bilaterally more so on forced expiratory maneuver. He is awake, but obviously he is not quite ready for weaning. Chest x-ray was reviewed, showing significant improvement in his left lower lobe atelectasis. Still doubt pneumonia. WBC count today is 7.1 hemoglobin is 12.7 basic metabolic profile is normal BUN is 38 creatinine 1.18 Patient was reevaluated today on 01/24/2023, remains in the ICU, intubated and mechanically ventilated. Patient is on assist control rate of 20 tidal volume 500 FiO2 35% PEEP of 5 ABG showed a pO2 of 114 pCO2 49 pH of 7.36. Patient is requiring a significant amount of sedation including fentanyl 1.5 mcg/kg/h propofol at 50 mcg/kg/m he is on vital AF at 49 mL per hour. Chest x-ray is s howing no evidence of active disease. Patient denies any abdominal pain. Patient is awake in spite of being on relatively high dose of propofol and fentanyl, and I went ahead and recommended tapering down his sedation including the propofol and fentanyl and if needed to use Precedex. My plan is to give the patient today a weaning trial off sedation, and if he tolerates the weaning trial and he has good weaning parameters I will likely proceed to extubating the patient today if possible. Indeed the patient was weaned off sedation, and he had good weaning parameters, I came back when the patient was off sedation and I looked at his ABG which is a BiPAP ABG showed a pO2 of 104 pCO2 44 pH of 7.41, I discontinued his enteral feeding, and recommended extubating the patient to BiPAP this was done successfully. The patient is seen today 01/25/2023 in follow-up in the intensive care unit. Nilam mata was successfully extubated yesterday. He is currently sitting up in bed. Awake and alert in no acute distress. Maintaining good O2 saturations in the 90s on 4 L/m per nasal cannula. He wears 4 L at home as well. He has normal saline at 75 ML's per hour. X-ray shows interval removal of enteric and endotracheal tubes. Stable left subclavian catheter in place. No focal consolidations. Sputum culture revealed no growth. Blood cultures reveal no growth. White count 5.9. Hemoglobin 13.1. Platelets dropped to 72,000. Sodium 143. Potassium 3.7. Bicarb 25. BUN 27. Creatinine 0.91. Glucose 160. He remains on DuoNeb inhalations, Pulmicort and Perforomist inhalations, IV Solu-Medrol. Antibiotics in the form of Zosyn. Heparin is currently on hold. HIT profile pending. Objective - Vital Signs Vital signs: Vital Signs Temp 98.2 F 01/25/23 14:00 Pulse 78 01/25/23 14:00 Resp 20 01/25/23 14:00 BP 145/73 01/25/23 14:00 Pulse Ox 94 L 01/25/23 14:00 FiO2 35 01/25/23 02:00 Intake & Output 01/24/23 01/25/23 01/25/23 18:59 06:59 18:59 Intake Total 1358.682 900 225 Output Total 915 1025 0 Balance 443.682 -125 225 Weight 95.3 kg Intake: IV 900 900 225 Sodium Chloride 0.9% 1, 900 900 225 000 ml @ 75 mls/hr IV . [id number] [facility] Rx#:[id number] Intake, IV Titration 311.682 Amount Dexmedetomidine/0.9% NaCl 19.457 (Pmx) 400 mcg In Empty Bag 1 bag @ 0.2 MCG/KG/HR 4.765 mls/hr IV .Q21H [facility] Rx#:[id number] fentaNYL (PF). 1,000 mcg 100.681 In Sodium Chloride 0.9% 80 ml @ 0.5 MCG/KG/HR 4. 525 mls/hr IV .Q22H6M [facility] Rx#:[id number] propofoL 1,000 mg In 191.544 Empty Bag 1 bag @ 15 MCG/ KG/MIN 8.145 mls/hr IV . [id number] [facility] Rx#:[id number] Tube Feeding 147 Output: Urine 915 1025 0 Other: Voiding Method Indwelling Catheter Indwelling Catheter Urinal # Voids 1 # Bowel Movements 1 1 ABP, PAP, CO, CI - Last Documented Arterial Blood Pressure 223/82 - Exam GENERAL EXAM: Alert, pleasant 57-year-old male patient, on 4 liters nasal cannula, comfortable in no apparent distress. HEAD: Normocephalic. EYES: Normal reaction of pupils, equal size. NOSE: Clear with pink turbinates. THROAT: No erythema or exudates. NECK: No masses, no JVD. CHEST: No chest wall deformity. LUNGS: Equal air entry with bilateral end expiratory wheeze, diminished. CVS: S1 and S2 normal with no audible murmur, regular rhythm. ABDOMEN: No hepatosplenomegaly, normal bowel sounds, no guarding or rigidity. SPINE: No scoliosis or deformity SKIN: No rashes CENTRAL NERVOUS SYSTEM: No focal deficits, tone is normal in all 4 extremities. EXTREMITIES: There is no peripheral edema. No clubbing, no cyanosis. Peripheral pulses are intact. - Labs CBC & Chem 7: 01/25/23 03:50 01/25/23 03:50 Labs: Abnormal Lab Results - Last 24 Hours (Table) 01/24/23 01/24/23 01/25/23 Range/Units 16:42 23:27 03:50 Plt Count 72 L (150-450) k/uL Lymphocytes # 0.2 L (1.0-4.8) k/uL Chloride (98-107) mmol/L BUN (9-20) mg/dL Glucose (74-99) mg/dL POC Glucose (mg/dL) 204 H 133 H (70-110) mg/dL Calcium (8.4-10.2) mg/dL Urine Protein (Negative) Urine Glucose (UA) (Negative) Urine Blood (Negative) Ur Leukocyte Esterase (Negative) Urine RBC (0-5) /hpf Urine Bacteria (None) /hpf 01/25/23 01/25/23 01/25/23 Range/Units 03:50 04:24 06:19 Plt Count (150-450) k/uL Lymphocytes # (1.0-4.8) k/uL Chloride 108 H (98-107) mmol/L BUN 27 H (9-20) mg/dL Glucose 160 H (74-99) mg/dL POC Glucose (mg/dL) 158 H (70-110) mg/dL Calcium 6.8 L (8.4-10.2) mg/dL Urine Protein 2+ H (Negative) Urine Glucose (UA) 1+ H (Negative) Urine Blood Large H (Negative) Ur Leukocyte Esterase Trace H (Negative) Urine RBC >182 H (0-5) /hpf Urine Bacteria Rare H (None) /hpf 01/25/23 Range/Units 11:36 Plt Count (150-450) k/uL Lymphocytes # (1.0-4.8) k/uL Chloride (98-107) mmol/L BUN (9-20) mg/dL Glucose (74-99) mg/dL POC Glucose (mg/dL) 147 H (70-110) mg/dL Calcium (8.4-10.2) mg/dL Urine Protein (Negative) Urine Glucose (UA) (Negative) Urine Blood (Negative) Ur Leukocyte Esterase (Negative) Urine RBC (0-5) /hpf Urine Bacteria (None) /hpf Assessment and Plan Assessment: Acute on chronic hypoxic respiratory failure secondary to an acute exacerbation of chronic obstructive pulmonary disease are the patient required intubation and mechanical ventilatory support from 01/22 through 01/24/2023 and currently stable on 4 L nasal cannula History of severe oxygen dependent Gold stage III chronic obstructive pulmonary disease History of previous respiratory failure requiring intubation mechanical ventilation 2 Chronic and ongoing tobacco dependence of greater than 40 years Hypertension Hyperlipidemia Diabetes mellitus Obstructive sleep apnea Coronary disease with previous stent placements 3 Chronic back pain History of rectal surgery with initial ileostomy subsequently reversed History of bladder cancer status post surgical resection Plan: The patient was seen and evaluated Chest x-ray, medications and labs reviewed Improved and on 4 L nasal cannula Continue bronchodilators, Solu-Medrol Heparin currently on hold, HIT profile pending Stable for transfer out of the ICU We will continue to follow I have personally seen and examined the patient, performed the documentation and the assessment and plan as written. Number of minutes spent on the visit: 10.
--- NOTE | 2023-01-25 15:52 | P.PN ---
Subjective Progress Note Date: 01/25/23 CHIEF COMPLAINT: Abdominal pain HISTORY OF PRESENT ILLNESS: Patient currently ICU. She denies any abdominal pain. Denies any nausea or vomiting. He is having diarrhea. No blood in the stools. He does complain of back pain. Afebrile. WBC 5.9 Hgb 13.1 platelets 72 PHYSICAL EXAM: VITAL SIGNS: Reviewed. GENERAL: Well-developed in no acute distress. ABDOMEN: Soft. Nondistended. Nontender. NEUROLOGIC: Alert and oriented. Cranial nerves II through XII grossly intact. ASSESSMENT: 1. Abdominal pain improved 2. Rectal wall thickening noted on computed tomography scan. Possible proctitis PLAN: -Continue regular diet -Continue to monitor Physician Gear Lapper note has been reviewed by physician. Signing provider agrees with the documented findings, assessment, and plan of care. Objective - Vital Signs Vital signs: Vital Signs Temp 98.2 F 01/25/23 08:00 Pulse 64 01/25/23 12:49 Resp 28 H 01/25/23 11:00 BP 150/79 01/25/23 11:00 Pulse Ox 96 01/25/23 11:00 FiO2 35 01/25/23 02:00 Intake & Output 01/24/23 01/25/23 01/25/23 18:59 06:59 18:59 Intake Total 1358.682 900 225 Output Total 915 1025 0 Balance 443.682 -125 225 Weight 95.3 kg Intake: IV 900 900 225 Sodium Chloride 0.9% 1, 900 900 225 000 ml @ 75 mls/hr IV . [id number] LÁZARO Rx#:[id number] Intake, IV Titration 311.682 Amount Dexmedetomidine/0.9% NaCl 19.457 (Pmx) 400 mcg In Empty Bag 1 bag @ 0.2 MCG/KG/HR 4.765 mls/hr IV .Q21H LÁZARO Rx#:[id number] fentaNYL (PF). 1,000 mcg 100.681 In Sodium Chloride 0.9% 80 ml @ 0.5 MCG/KG/HR 4. 525 mls/hr IV .Q22H6M LÁZARO Rx#:[id number] propofoL 1,000 mg In 191.544 Empty Bag 1 bag @ 15 MCG/ KG/MIN 8.145 mls/hr IV . [id number] LÁZARO Rx#:[id number] Tube Feeding 147 Output: Urine 915 1025 0 Other: Voiding Method Indwelling Catheter Indwelling Catheter Urinal # Voids 1 # Bowel Movements 1 1 ABP, PAP, CO, CI - Last Documented Arterial Blood Pressure 223/82 - Labs CBC & Chem 7: 01/25/23 03:50 01/25/23 03:50 Labs: Abnormal Lab Results - Last 24 Hours (Table) 01/24/23 01/24/23 01/25/23 Range/Units 16:42 23:27 03:50 Plt Count 72 L (150-450) k/uL Lymphocytes # 0.2 L (1.0-4.8) k/uL Chloride (98-107) mmol/L BUN (9-20) mg/dL Glucose (74-99) mg/dL POC Glucose (mg/dL) 204 H 133 H (70-110) mg/dL Calcium (8.4-10.2) mg/dL Urine Protein (Negative) Urine Glucose (UA) (Negative) Urine Blood (Negative) Ur Leukocyte Esterase (Negative) Urine RBC (0-5) /hpf Urine Bacteria (None) /hpf 01/25/23 01/25/23 01/25/23 Range/Units 03:50 04:24 06:19 Plt Count (150-450) k/uL Lymphocytes # (1.0-4.8) k/uL Chloride 108 H (98-107) mmol/L BUN 27 H (9-20) mg/dL Glucose 160 H (74-99) mg/dL POC Glucose (mg/dL) 158 H (70-110) mg/dL Calcium 6.8 L (8.4-10.2) mg/dL Urine Protein 2+ H (Negative) Urine Glucose (UA) 1+ H (Negative) Urine Blood Large H (Negative) Ur Leukocyte Esterase Trace H (Negative) Urine RBC >182 H (0-5) /hpf Urine Bacteria Rare H (None) /hpf 01/25/23 Range/Units 11:36 Plt Count (150-450) k/uL Lymphocytes # (1.0-4.8) k/uL Chloride (98-107) mmol/L BUN (9-20) mg/dL Glucose (74-99) mg/dL POC Glucose (mg/dL) 147 H (70-110) mg/dL Calcium (8.4-10.2) mg/dL Urine Protein (Negative) Urine Glucose (UA) (Negative) Urine Blood (Negative) Ur Leukocyte Esterase (Negative) Urine RBC (0-5) /hpf Urine Bacteria (None) /hpf Microbiology - Last 24 Hours (Table) 01/22/23 11:45 Gram Stain - Final Sputum Sputum Culture - Final
[2023-01-25 17:11] LABS: Glucose,Whole Blood 240 mg/dL (70-110)
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
[2023-01-25 19:41] LABS: Glucose,Whole Blood 245 mg/dL (70-110)
[2023-01-25 20:34] LABS: Glucose,Whole Blood 246 mg/dL (70-110)
[2023-01-25] MEDS: ATORVASTATIN 40 MG TAB PO SCH (20:42)
[2023-01-25] MEDS: CALCIUM CARBONATE 500 MG CHEWABLE PO PRN (22:20)
[2023-01-25] MEDS: PANTOPRAZOLE 40 MG/10 ML VIAL IVP SCH (22:20)
[2023-01-26] MEDS: HYDROcodone/APAP 10-325MG 1 EACH TAB PO PRN ×4 (02:29→22:28)
[2023-01-26 04:33] LABS: HCT 37.2 % (39.0-53.0); HGB 12.7 gm/dL (13.0-17.5); MCH 31.3 pg (25.0-35.0); MCHC 34.2 g/dL (31.0-37.0); MCV 91.5 fL (80.0-100.0); Mean Platelet Volume 9.1; RBC 4.06 m/uL (4.30-5.90); RDW 13.7 % (11.5-15.5); WBC 3.6 k/uL (3.8-10.6)
[2023-01-26 04:35] LABS: Platelet Count 73 k/uL (150-450)
[2023-01-26] MEDS: PIPERACILLIN-TAZOBACTAM 3.375 GM in SODIUM CHLORIDE 0.9% 100 ML IVPB SCH ×3 (04:46→20:07)
[2023-01-26] MEDS: SODIUM CHLORIDE 0.9% 1,000 ML IV SCH (04:47)
[2023-01-26] MEDS: HYDROmorphone 1 MG/ML 1 ML SYRINGE IVP PRN ×5 (04:51→21:56)
[2023-01-26] MEDS: CALCIUM CARBONATE 500 MG CHEWABLE PO PRN ×2 (04:57→17:10)
[2023-01-26 06:45] LABS: Glucose,Whole Blood 196 mg/dL (70-110)
[2023-01-26] MEDS: methylPREDNISolone SOD SUCCI 125 MG/2 ML VIAL IV SCH ×4 (07:10→23:35)
[2023-01-26] MEDS: INSULIN ASPART (NovoLOG) 100 UNIT/ML VIAL SQ SCH ×4 (07:10→21:49)
[2023-01-26] MEDS: INSULIN DETEMIR (LEVEMIR) 100 UNIT/ML SYR SQ SCH (07:10)
[2023-01-26] MEDS: PANTOPRAZOLE 40 MG/10 ML VIAL IVP SCH ×2 (08:38→20:09)
[2023-01-26] MEDS: ISOSORBIDE MONONITRATE ER 30 MG TAB.ER.24H PO SCH (08:39)
[2023-01-26] MEDS: METOPROLOL TARTRATE 12.5 MG TAB PO SCH ×2 (08:39→20:09)
[2023-01-26] MEDS: ESCITALOPRAM 10 MG TAB PO SCH (08:39)
[2023-01-26] MEDS: busPIRone HCl 5 MG TAB PO SCH ×2 (08:40→21:47)
[2023-01-26] MEDS: ASPIRIN 81 MG PO SCH (08:40)
[2023-01-26] MEDS: BUDESONIDE 1 MG/2 ML NEBU INHALATION SCH ×2 (09:17→21:17)
[2023-01-26] MEDS: FORMOTEROL FUMARATE 20 MCG/2 ML NEBU INHALATION SCH ×2 (09:17→21:17)
[2023-01-26] MEDS: IPRATROPIUM-ALBUTEROL 3 ML NEB INHALATION SCH ×4 (09:17→21:17)
[2023-01-26] MEDS: SENNOSIDES-DOCUSATE SODIUM 1 EACH TAB PO SCH (10:52)
[2023-01-26] MEDS: NYSTATIN 100,000 UNIT/GM POWD 15 GM TOPICAL SCH ×2 (10:52→21:48)
--- NOTE | 2023-01-26 11:14 | P.PN ---
Subjective Progress Note Date: 01/26/23 CHIEF COMPLAINT: Abdominal pain HISTORY OF PRESENT ILLNESS: Patient currently ICU. Patient admitted to the hospital with acute COPD exacerbation. Patient does complain of lower suprapubic pain. Bowel movements are more formed. He denies any nausea or vomiting. Denies any blood in stools. Patient urinating without difficulty. History of rectal cancer and bladder cancer. Afebrile. Hgb 12.7 PHYSICAL EXAM: VITAL SIGNS: Reviewed. GENERAL: Well-developed in no acute distress. ABDOMEN: Soft. Nondistended. Suprapubic tenderness NEUROLOGIC: Alert and oriented. Cranial nerves II through XII grossly intact. ASSESSMENT: 1. Abdominal pain 2. Rectal wall thickening noted on computed tomography scan 3. History of rectal cancer with resection and ostomy with reversal about 4 years ago PLAN: -Continue regular diet -Continue to monitor -Further recommendations forthcoming per surgeon Physician Accounting Coordinator note has been reviewed by physician. Signing provider agrees with the documented findings, assessment, and plan of care. I have personally seen and examined the patient, reviewed the CRABBER /PAs history, exam and MDM and agree with the assessment and plan as written. Based on total visit time, I have performed more than 50% of the visit. As above: Patient having some lower abdominal pain. Some intermittent diarrhea and incontinence. Patient with history of radiation therapy for advanced rectal cancer. Last colonoscopy he says was about 5 years ago. Recommend colonoscopy likely has outpatient when pulmonary status improved. We'll follow. Objective - Vital Signs Vital signs: Vital Signs Temp 98.7 F 01/26/23 02:00 Pulse 64 01/26/23 09:38 Resp 20 01/26/23 02:00 BP 154/72 01/26/23 02:00 Pulse Ox 96 01/26/23 09:20 FiO2 35 01/25/23 02:00 Intake & Output 01/25/23 01/26/23 01/26/23 18:59 06:59 18:59 Intake Total 525 110 Output Total 450 900 Balance 75 -790 Weight 95.3 kg 98.1 kg Intake: IV 225 110 Sodium Chloride 0.9% 1, 225 110 000 ml @ 10 mls/hr IV . Q24H LÁZARO Rx#:[id number] Oral 300 Output: Urine 450 900 Other: Voiding Method Urinal Urinal Urinal # Voids 1 # Bowel Movements 2 ABP, PAP, CO, CI - Last Documented Arterial Blood Pressure 223/82 - Labs CBC & Chem 7: 01/26/23 03:33 01/25/23 03:50 Labs: Abnormal Lab Results - Last 24 Hours (Table) 01/25/23 01/25/23 01/25/23 Range/Units 11:36 17:09 19:29 WBC (3.8-10.6) k/uL RBC (4.30-5.90) m/uL Hgb (13.0-17.5) gm/dL Hct (39.0-53.0) % Plt Count (150-450) k/uL POC Glucose (mg/dL) 147 H 240 H 245 H (70-110) mg/dL 01/25/23 01/26/23 01/26/23 Range/Units 20:32 03:33 06:43 WBC 3.6 L (3.8-10.6) k/uL RBC 4.06 L (4.30-5.90) m/uL Hgb 12.7 L (13.0-17.5) gm/dL Hct 37.2 L (39.0-53.0) % Plt Count 73 L (150-450) k/uL POC Glucose (mg/dL) 246 H 196 H (70-110) mg/dL Microbiology - Last 24 Hours (Table) 01/20/23 11:20 Blood Culture - Final Blood 01/20/23 11:05 Blood Culture - Final Blood
[2023-01-26 12:02] LABS: Glucose,Whole Blood 169 mg/dL (70-110)
--- NOTE | 2023-01-26 12:38 | P.PN ---
Subjective Progress Note Date: 01/26/23 This is a very pleasant 57-year-old male patient with a known history of severe Gold stage III oxygen dependent chronic obstructive pulmonary disease, CVAs respiratory failure requiring intubation mechanical ventilation 2, chronic kidney disease stage III, obstructive sleep apnea, pulmonary hypertension, chronic low back pain, gastroesophageal reflux disease, bladder cancer, colon cancer, hyperlipidemia, chronic and ongoing tobacco dependence. He presented here to the emergency room earlier this morning with complaints of increasing shortness of breath cough congestion and wheezing. He required BiPAP support on arrival currently at 14/5 and 35% FiO2. Arterial blood gases reveal a P O2 400, pCO2 of 70 and a pH of 7.29 on 100% FiO2. Chest x-ray revealed chronic changes without evidence of acute pulmonary process. White count 10.5. Hemoglobin 16.6. Platelets 132. Sodium 145. Potassium 4.3. Bicarb 37. BUN 28. Creatinine 1.17. Glucose 173. AST 21. ALT 24. Troponin negative times one. ProBNP 3570. Influenza screen negative. RSV screen negative. COVID-19 screen negative. He is seen in the emergency department. He's currently awake. Sitting up on the stretcher. Still requiring BiPAP support. Still quite bronchospastic and wheezing. Patient was reevaluated today on 01/21/2023, patient was admitted yesterday with acute exacerbation of COPD, continues to have intermittent cough and wheezing, slight improvement but not back to baseline. Patient is on 4 L nasal cannula with O2 saturation 98% labs from yesterday were all reviewed including his ABG showing hypercapnia and relatively low pH of 7.29 patient had negative screening for influenza and RSV and COVID-19 infection, chest x-ray showed chronic changes without evidence of acute pulmonary disease. Patient was reevaluated today on 01/22/2023, I was called by the a team on this patient early this morning, patient was experiencing significant respiratory distress. He was extremely short of breath, wheezing, diaphoretic, and complaining of abdominal pain. Upon my initial evaluation the patient, clearly the patient was not doing well, and on physical examination he had diffuse rhonchi and wheezes bilaterally with minimal air movement. Agent was also noted to be extremely diaphoretic, and bit mottled. Recommended immediate intubation and immediate transfer to the ICU. Patient was done and transferred to the ICU, placed on assist control rate of 16 initially tidal volume 500 FiO2 100% and PEEP of 5. Initial ABG post intubation showed a pO2 of 400 pCO2 of 65 pH of 7.24 hence his vent settings were adjusted and his rate was increased to 20 and FiO2 cut down to 40%. Patient was taken down for CT of the abdomen and pelvis mostly because of his severe abdominal pain, he was found to have moderate circumferential rectal wall thickening, questionably distal colitis. Nonspecific. Patient was also noted to have a masslike thickening along the anterior margin of the bladder questioning bladder wall hypertrophy or urothelial malignancy. This will be addressed by urology. Chest x-ray also s howed a trace of left pleural effusion, sigmoid diverticulosis, otherwise no significant findings but he did have also extensive 3 vessel coronary artery calcifications. Patient was stabilized in the ICU, sedated and placed on propofol, may even consider adding fentanyl. He was already seen by general surgery on consultation. WBC count is 20.5 hemoglobin 15.5 basic metabolic profile is normal, renal profile showed a BUN of 44 creatinine 1.42. Patient was reevaluated today on 01/23/2023, remains in the ICU, intubated and mechanically ventilated patient is sedated however he is arousable and follows very simple instructions. He is on assist control rate of 20, volume 500 FiO2 45% and PEEP of 5 ABG showed a pO2 of 133 pCO2 47 pH of 7.34 hence I cut down his FiO2 to 35%. Patient is on propofol at 45 mcg/kg/m fentanyl at 0.5 mcg/kg/h IV fluid at 75 mL/h he is also receiving vital HPI at 3 0 mL per hour. Patient has nonpurulent secretions, he has a wheezing bilaterally more so on forced expiratory maneuver. He is awake, but obviously he is not quite ready for weaning. Chest x-ray was reviewed, showing significant improvement in his left lower lobe atelectasis. Still doubt pneumonia. WBC count today is 7.1 hemoglobin is 12.7 basic metabolic profile is normal BUN is 38 creatinine 1.18 Patient was reevaluated today on 01/24/2023, remains in the ICU, intubated and mechanically ventilated. Patient is on assist control rate of 20 tidal volume 500 FiO2 35% PEEP of 5 ABG showed a pO2 of 114 pCO2 49 pH of 7.36. Patient is requiring a significant amount of sedation including fentanyl 1.5 mcg/kg/h propofol at 50 mcg/kg/m he is on vital AF at 49 mL per hour. Chest x-ray is s howing no evidence of active disease. Patient denies any abdominal pain. Patient is awake in spite of being on relatively high dose of propofol and fentanyl, and I went ahead and recommended tapering down his sedation including the propofol and fentanyl and if needed to use Precedex. My plan is to give the patient today a weaning trial off sedation, and if he tolerates the weaning trial and he has good weaning parameters I will likely proceed to extubating the patient today if possible. Indeed the patient was weaned off sedation, and he had good weaning parameters, I came back when the patient was off sedation and I looked at his ABG which is a BiPAP ABG showed a pO2 of 104 pCO2 44 pH of 7.41, I discontinued his enteral feeding, and recommended extubating the patient to BiPAP this was done successfully. The patient is seen today 01/25/2023 in follow-up in the intensive care unit. Nilam mata was successfully extubated yesterday. He is currently sitting up in bed. Awake and alert in no acute distress. Maintaining good O2 saturations in the 90s on 4 L/m per nasal cannula. He wears 4 L at home as well. He has normal saline at 75 ML's per hour. X-ray shows interval removal of enteric and endotracheal tubes. Stable left subclavian catheter in place. No focal consolidations. Sputum culture revealed no growth. Blood cultures reveal no growth. White count 5.9. Hemoglobin 13.1. Platelets dropped to 72,000. Sodium 143. Potassium 3.7. Bicarb 25. BUN 27. Creatinine 0.91. Glucose 160. He remains on DuoNeb inhalations, Pulmicort and Perforomist inhalations, IV Solu-Medrol. Antibiotics in the form of Zosyn. Heparin is currently on hold. HIT profile pending. This patient is seen today 01/26/2023 in follow-up in the intensive care unit. He is resting comfortably in bed. Awake and alert in no acute distress. He is maintaining O2 saturations in the 90s on 4 L/m per nasal cannula. Blood cultures revealed no growth. Sputum culture revealed no growth. White count 3.6. Hemoglobin 12.7. Platelets 73,000. Glucose 196. Fibrinogen 193. Hit panel negative. C. difficile screen negative. He has normal saline at [facility]. Continues on antibiotics in the form of Zosyn. Remains on DuoNeb inhalations, Pulmicort and Perforomist inhalations, Solu-Medrol. Objective - Vital Signs Vital signs: Vital Signs Temp 98.7 F 01/26/23 02:00 Pulse 64 01/26/23 12:20 Resp 20 01/26/23 02:00 BP 154/72 01/26/23 02:00 Pulse Ox 96 01/26/23 09:20 FiO2 35 01/25/23 02:00 Intake & Output 01/25/23 01/26/23 01/26/23 18:59 06:59 18:59 Intake Total 525 110 Output Total 450 900 Balance 75 -790 Weight 95.3 kg 98.1 kg Intake: IV 225 110 Sodium Chloride 0.9% 1, 225 110 000 ml @ 10 mls/hr IV . Q24H LÁZARO Rx#:[id number] Oral 300 Output: Urine 450 900 Other: Voiding Method Urinal Urinal Urinal # Voids 1 # Bowel Movements 2 ABP, PAP, CO, CI - Last Documented Arterial Blood Pressure 223/82 - Exam GENERAL EXAM: Alert, oriented 57-year-old male patient, resting in bed, on 4 liters nasal cannula, comfortable in no apparent distress. HEAD: Normocephalic. EYES: Normal reaction of pupils, equal size. NOSE: Clear with pink turbinates. THROAT: No erythema or exudates. NECK: No masses, no JVD. CHEST: No chest wall deformity. LUNGS: Equal air entry with bilateral end expiratory wheeze, diminished. CVS: S1 and S2 normal with no audible murmur, regular rhythm. ABDOMEN: No hepatosplenomegaly, normal bowel sounds, no guarding or rigidity. SPINE: No scoliosis or deformity SKIN: No rashes CENTRAL NERVOUS SYSTEM: No focal deficits, tone is normal in all 4 extremities. EXTREMITIES: There is no peripheral edema. No clubbing, no cyanosis. Peripheral pulses are intact. - Labs CBC & Chem 7: 01/26/23 03:33 01/25/23 03:50 Labs: Abnormal Lab Results - Last 24 Hours (Table) 01/25/23 01/25/23 01/25/23 Range/Units 17:09 19:29 20:32 WBC (3.8-10.6) k/uL RBC (4.30-5.90) m/uL Hgb (13.0-17.5) gm/dL Hct (39.0-53.0) % Plt Count (150-450) k/uL Fibrinogen (200-500) mg/dL POC Glucose (mg/dL) 240 H 245 H 246 H (70-110) mg/dL 01/26/23 01/26/23 01/26/23 Range/Units 03:33 06:43 10:15 WBC 3.6 L (3.8-10.6) k/uL RBC 4.06 L (4.30-5.90) m/uL Hgb 12.7 L (13.0-17.5) gm/dL Hct 37.2 L (39.0-53.0) % Plt Count 73 L (150-450) k/uL Fibrinogen 193 L (200-500) mg/dL POC Glucose (mg/dL) 196 H (70-110) mg/dL 01/26/23 Range/Units 11:59 WBC (3.8-10.6) k/uL RBC (4.30-5.90) m/uL Hgb (13.0-17.5) gm/dL Hct (39.0-53.0) % Plt Count (150-450) k/uL Fibrinogen (200-500) mg/dL POC Glucose (mg/dL) 169 H (70-110) mg/dL Microbiology - Last 24 Hours (Table) 01/20/23 11:20 Blood Culture - Final Blood 01/20/23 11:05 Blood Culture - Final Blood Assessment and Plan Assessment: Acute on chronic hypoxic respiratory failure secondary to an acute exacerbation of chronic obstructive pulmonary disease are the patient required intubation and mechanical ventilatory support from 01/22 through 01/24/2023 and currently stable on 4 L nasal cannula History of severe oxygen dependent Gold stage III chronic obstructive pulmonary disease History of previous respiratory failure requiring intubation mechanical ventilation 2 Chronic and ongoing tobacco dependence of greater than 40 years Hypertension Hyperlipidemia Diabetes mellitus Obstructive sleep apnea Coronary disease with previous stent placements 3 Chronic back pain History of rectal surgery with initial ileostomy subsequently reversed History of bladder cancer status post surgical resection Plan: The patient was seen and evaluated Medications and labs reviewed Improved and on 4 L nasal cannula Titrate down the FiO2 as tolerated Continue bronchodilators, Solu-Medrol Stable for transfer out of the ICU We will continue to follow I have personally seen and examined the patient, performed the documentation and the assessment and plan as written. Number of minutes spent on the visit: 10.
--- NOTE | 2023-01-26 16:43 | P.PN ---
Subjective Progress Note Date: 01/26/23 Principal diagnosis: Thrombocytopenia In follow-up today patient is alert and engaging, he denies any epistaxis, hemoptysis, no other bleeding. Objective - Vital Signs Vital signs: Vital Signs Temp 98 F 01/26/23 14:00 Pulse 64 01/26/23 14:00 Resp 20 01/26/23 14:00 BP 142/82 01/26/23 14:00 Pulse Ox 96 01/26/23 09:20 FiO2 35 01/25/23 02:00 Intake & Output 01/25/23 01/26/23 01/26/23 18:59 06:59 18:59 Intake Total 525 110 Output Total 450 900 Balance 75 -790 Weight 95.3 kg 98.1 kg Intake: IV 225 110 Sodium Chloride 0.9% 1, 225 110 000 ml @ 10 mls/hr IV . Q24H LÁZARO Rx#:[id number] Oral 300 Output: Urine 450 900 Other: Voiding Method Urinal Urinal Urinal # Voids 1 # Bowel Movements 2 ABP, PAP, CO, CI - Last Documented Arterial Blood Pressure 223/82 - Constitutional General appearance: Present: cooperative, no acute distress, obese - EENT Eyes: Present: anicteric sclerae, EOMI ENT: Present: hearing grossly normal - Respiratory Details: Respirations even and unlabored at rest - Cardiovascular Details: Skin warm and dry to the touch - Integumentary Integumentary: Present: normal - Neurologic Neurologic: Present: CNII-XII intact - Musculoskeletal Musculoskeletal: Present: generalized weakness, strength equal bilaterally - Psychiatric Psychiatric: Present: A&O x's 3, appropriate affect, intact judgment & insight - Labs CBC & Chem 7: 01/26/23 03:33 01/25/23 03:50 Labs: Abnormal Lab Results - Last 24 Hours (Table) 01/25/23 01/25/23 01/25/23 Range/Units 17:09 19:29 20:32 WBC (3.8-10.6) k/uL RBC (4.30-5.90) m/uL Hgb (13.0-17.5) gm/dL Hct (39.0-53.0) % Plt Count (150-450) k/uL Fibrinogen (200-500) mg/dL POC Glucose (mg/dL) 240 H 245 H 246 H (70-110) mg/dL 01/26/23 01/26/23 01/26/23 Range/Units 03:33 06:43 10:15 WBC 3.6 L (3.8-10.6) k/uL RBC 4.06 L (4.30-5.90) m/uL Hgb 12.7 L (13.0-17.5) gm/dL Hct 37.2 L (39.0-53.0) % Plt Count 73 L (150-450) k/uL Fibrinogen 193 L (200-500) mg/dL POC Glucose (mg/dL) 196 H (70-110) mg/dL 01/26/23 Range/Units 11:59 WBC (3.8-10.6) k/uL RBC (4.30-5.90) m/uL Hgb (13.0-17.5) gm/dL Hct (39.0-53.0) % Plt Count (150-450) k/uL Fibrinogen (200-500) mg/dL POC Glucose (mg/dL) 169 H (70-110) mg/dL Microbiology - Last 24 Hours (Table) 01/20/23 11:20 Blood Culture - Final Blood 01/20/23 11:05 Blood Culture - Final Blood Assessment and Plan (1) Acute respiratory failure Current Visit: Yes Status: Acute Priority: High Code(s): J96.00 - ACUTE RESPIRATORY FAILURE, UNSP W HYPOXIA OR HYPERCAPNIA SNOMED Code(s): 97185438 (2) Thrombocytopenia Current Visit: Yes Status: Acute Priority: Medium Code(s): D69.6 - THROMBOCYTOPENIA, UNSPECIFIED SNOMED Code(s): 585182319 (3) Rectal cancer Current Visit: No Status: Chronic Priority: Medium Code(s): C20 - MALIGNANT NEOPLASM OF RECTUM SNOMED Code(s): 722079080 Plan: Acute respiratory failure, COPD exacerbation -Patient in ICU, extubated 4 days ago. He is doing well -Management per Critical Care Thrombocytopenia -Noted in the chart since at least 2014, intermittently -Multifactorial including history of chemotherapy causing a slower bone marrow response in acute illness, acute infection and stress. -Platelets have remained greater than 50,000, Stable at 73,000 today. Patient is okay for DVT prophylaxis, prescribed antiplatelet therapy. -Endoscopy planned. As long as platelets remain greater than 50,000 patient is okay for endoscopy. -B vitamins will be assessed History of rectal cancer -Patient was following up until 2017. Due to insurance changes he has not seen Surgeon. Has not seen Medical Oncology since 10/2018 -Endoscopy planned. Pending those results attests: I seen and examined patient, performed H&P, developed impression and plan of care. Discussed with dictator. Agree with documentation, dictated as a scribe.
[2023-01-26 17:04] LABS: Glucose,Whole Blood 271 mg/dL (70-110)
[2023-01-26] MEDS: ATORVASTATIN 40 MG TAB PO SCH (20:09)
[2023-01-26 20:58] LABS: Glucose,Whole Blood 168 mg/dL (70-110)
[2023-01-27] MEDS: CALCIUM CARBONATE 500 MG CHEWABLE PO PRN (02:11)
[2023-01-27] MEDS: HYDROmorphone 1 MG/ML 1 ML SYRINGE IVP PRN ×4 (02:12→12:30)
[2023-01-27] MEDS: HYDROcodone/APAP 10-325MG 1 EACH TAB PO PRN ×3 (04:06→16:53)
[2023-01-27] MEDS: PIPERACILLIN-TAZOBACTAM 3.375 GM in SODIUM CHLORIDE 0.9% 100 ML IVPB SCH ×3 (04:14→20:05)
[2023-01-27] MEDS: methylPREDNISolone SOD SUCCI 125 MG/2 ML VIAL IV SCH ×3 (06:07→18:23)
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
[2023-01-27] MEDS: SODIUM CHLORIDE 0.9% 1,000 ML IV SCH (06:37)
[2023-01-27] MEDS: INSULIN DETEMIR (LEVEMIR) 100 UNIT/ML SYR SQ SCH (06:37)
[2023-01-27 06:55] LABS: Glucose,Whole Blood 249 mg/dL (70-110)
[2023-01-27] MEDS: INSULIN ASPART (NovoLOG) 100 UNIT/ML VIAL SQ SCH ×4 (06:56→21:00)
[2023-01-27] MEDS: PANTOPRAZOLE 40 MG/10 ML VIAL IVP SCH ×2 (08:59→21:14)
[2023-01-27] MEDS: SENNOSIDES-DOCUSATE SODIUM 1 EACH TAB PO SCH (09:00)
[2023-01-27] MEDS: ASPIRIN 81 MG PO SCH (09:00)
[2023-01-27] MEDS: METOPROLOL TARTRATE 12.5 MG TAB PO SCH ×2 (09:00→21:13)
[2023-01-27] MEDS: ISOSORBIDE MONONITRATE ER 30 MG TAB.ER.24H PO SCH (09:00)
[2023-01-27] MEDS: NYSTATIN 100,000 UNIT/GM POWD 15 GM TOPICAL SCH ×2 (09:01→21:15)
[2023-01-27] MEDS: ESCITALOPRAM 10 MG TAB PO SCH (09:01)
[2023-01-27] MEDS: busPIRone HCl 5 MG TAB PO SCH ×2 (09:01→21:13)
[2023-01-27] MEDS: IPRATROPIUM-ALBUTEROL 3 ML NEB INHALATION SCH ×4 (09:12→21:54)
[2023-01-27] MEDS: FORMOTEROL FUMARATE 20 MCG/2 ML NEBU INHALATION SCH ×2 (09:12→21:54)
[2023-01-27] MEDS: BUDESONIDE 1 MG/2 ML NEBU INHALATION SCH ×2 (09:13→21:54)
[2023-01-27] MEDS: DEXMEDETOMIDINE/0.9% NACL(PMX) 400 MCG in EMPTY BAG 1 BAG IV SCH (09:48)
[2023-01-27] MEDS: HEPARIN SODIUM,PORCINE 5,000 UNIT/ML 1 ML VIAL SQ SCH (09:48)
[2023-01-27] MEDS: CHLORHEXIDINE GLUCONATE 15 ML CUP MUCOUS MEM SCH (09:48)
[2023-01-27 09:59] LABS: African American GFR (CKD) >90 (>60 ml/min/1.73 sqM); Anion Gap 7 mmol/L; Blood Urea Nitrogen 24 mg/dL (9-20); Carbon Dioxide 31 mmol/L (22-30); Chloride 100 mmol/L (98-107); Glucose 208 mg/dL (74-99); Magnesium 1.9 mg/dL (1.6-2.3); Non-African American GFR(CKD) >90 (>60 ml/min/1.73 sqM); Potassium 3.9 mmol/L (3.5-5.1); Sodium 138 mmol/L (137-145)
[2023-01-27 10:05] LABS: Basophils % (A) 0 %; Eosinophils % (A) 0 %; HCT 40.6 % (39.0-53.0); Lymphocytes # (A) 0.2 k/uL (1.0-4.8); Lymphocytes % (A) 5 %; MCHC 34.5 g/dL (31.0-37.0); Monocytes # (A) 0.1 k/uL (0-1.0); Monocytes % (A) 3 %; Neutrophils # (A) 3.9 k/uL (1.3-7.7); Neutrophils % (A) 91 %; RBC 4.51 m/uL (4.30-5.90); RDW 13.4 % (11.5-15.5); WBC 4.3 k/uL (3.8-10.6)
[2023-01-27 10:07] LABS: Platelet Count 87 k/uL (150-450)
[2023-01-27 10:53] LABS: Glucose,Whole Blood 206 mg/dL (70-110)
[2023-01-27] MEDS ORDERED: PEG 3350 (236 GM/BTL) + LYTES 4,000 ML BOTTLE PO ONE (11:26)
--- NOTE | 2023-01-27 11:37 | P.PN ---
Subjective Progress Note Date: 01/27/23 CHIEF COMPLAINT: Abdominal pain HISTORY OF PRESENT ILLNESS: Patient is currently step down in the ICU. Patient admitted to the hospital with acute COPD exacerbation. Patient complains of left lower quadrant abdominal pain. He's had recurrent nausea and reports using Tums frequently. He denies any vomiting. Stools have been fluctuating between loose and formed. Denies any blood in the stools. History of rectal cancer and bladder cancer. Afebrile. HGb 4.3 HGB 14. Patient on 4 L of oxygen which she takes at home. Discussed with pulmonary service and okay to proceed with endoscopies. PHYSICAL EXAM: VITAL SIGNS: Reviewed. GENERAL: Well-developed in no acute distress. ABDOMEN: Soft. Nondistended. tenderness LLQ NEUROLOGIC: Alert and oriented. Cranial nerves II through XII grossly intact. ASSESSMENT: 1. Abdominal pain and nausea 2. Rectal wall thickening noted on computed tomography scan 3. History of rectal cancer with resection and ostomy with reversal about 4 years ago PLAN: -Patient scheduled for EGD and colonoscopy tomorrow with Dr. Childs -Start clear liquid diet -Start GoLYTELY bowel prep -Nothing by mouth after midnight Physician Windows Server Administrator note has been reviewed by physician. Signing provider agrees with the documented findings, assessment, and plan of care. Objective - Vital Signs Vital signs: Vital Signs Temp 96.9 F L 01/27/23 02:00 Pulse 65 01/27/23 09:30 Resp 18 01/27/23 02:00 BP 163/86 01/27/23 02:00 Pulse Ox 92 L 01/27/23 09:16 FiO2 35 01/25/23 02:00 Intake & Output 01/26/23 01/27/23 01/27/23 18:59 06:59 18:59 Intake Total 110 560 Output Total 350 500 Balance -240 60 Weight 95.4 kg Intake: IV 110 320 Piperacillin-Tazobactam 3 200 .375 gm In Sodium Chloride 0.9% 100 ml @ 25 mls/hr IVPB Q8H [facility] Rx#: [id number] Sodium Chloride 0.9% 1, 110 120 000 ml @ 10 mls/hr IV . Q24H [facility] Rx#:[id number] Oral 240 Output: Urine 350 500 Other: Voiding Method Urinal Urinal # Voids 1 2 ABP, PAP, CO, CI - Last Documented Arterial Blood Pressure 223/82 - Labs CBC & Chem 7: 01/27/23 09:28 01/27/23 09:28 Labs: Abnormal Lab Results - Last 24 Hours (Table) 01/26/23 01/26/23 01/26/23 Range/Units 10:15 11:59 17:03 Plt Count (150-450) k/uL Lymphocytes # (1.0-4.8) k/uL Fibrinogen 193 L (200-500) mg/dL Carbon Dioxide (22-30) mmol/L BUN (9-20) mg/dL Glucose (74-99) mg/dL POC Glucose (mg/dL) 169 H 271 H (70-110) mg/dL Calcium (8.4-10.2) mg/dL 01/26/23 01/27/23 01/27/23 Range/Units 20:56 06:53 09:28 Plt Count 87 L (150-450) k/uL Lymphocytes # 0.2 L (1.0-4.8) k/uL Fibrinogen (200-500) mg/dL Carbon Dioxide (22-30) mmol/L BUN (9-20) mg/dL Glucose (74-99) mg/dL POC Glucose (mg/dL) 168 H 249 H (70-110) mg/dL Calcium (8.4-10.2) mg/dL 01/27/23 Range/Units 09:28 Plt Count (150-450) k/uL Lymphocytes # (1.0-4.8) k/uL Fibrinogen (200-500) mg/dL Carbon Dioxide 31 H (22-30) mmol/L BUN 24 H (9-20) mg/dL Glucose 208 H (74-99) mg/dL POC Glucose (mg/dL) (70-110) mg/dL Calcium 7.0 L (8.4-10.2) mg/dL
[2023-01-27 12:34] LABS: Glucose,Whole Blood 250 mg/dL (70-110)
--- NOTE | 2023-01-27 12:40 | P.PN ---
Subjective Progress Note Date: 01/27/23 This is a very pleasant 57-year-old male patient with a known history of severe Gold stage III oxygen dependent chronic obstructive pulmonary disease, CVAs respiratory failure requiring intubation mechanical ventilation 2, chronic kidney disease stage III, obstructive sleep apnea, pulmonary hypertension, chronic low back pain, gastroesophageal reflux disease, bladder cancer, colon cancer, hyperlipidemia, chronic and ongoing tobacco dependence. He presented here to the emergency room earlier this morning with complaints of increasing shortness of breath cough congestion and wheezing. He required BiPAP support on arrival currently at 14/5 and 35% FiO2. Arterial blood gases reveal a P O2 400, pCO2 of 70 and a pH of 7.29 on 100% FiO2. Chest x-ray revealed chronic changes without evidence of acute pulmonary process. White count 10.5. Hemoglobin 16.6. Platelets 132. Sodium 145. Potassium 4.3. Bicarb 37. BUN 28. Creatinine 1.17. Glucose 173. AST 21. ALT 24. Troponin negative times one. ProBNP 3570. Influenza screen negative. RSV screen negative. COVID-19 screen negative. He is seen in the emergency department. He's currently awake. Sitting up on the stretcher. Still requiring BiPAP support. Still quite bronchospastic and wheezing. Patient was reevaluated today on 01/21/2023, patient was admitted yesterday with acute exacerbation of COPD, continues to have intermittent cough and wheezing, slight improvement but not back to baseline. Patient is on 4 L nasal cannula with O2 saturation 98% labs from yesterday were all reviewed including his ABG showing hypercapnia and relatively low pH of 7.29 patient had negative screening for influenza and RSV and COVID-19 infection, chest x-ray showed chronic changes without evidence of acute pulmonary disease. Patient was reevaluated today on 01/22/2023, I was called by the a team on this patient early this morning, patient was experiencing significant respiratory distress. He was extremely short of breath, wheezing, diaphoretic, and complaining of abdominal pain. Upon my initial evaluation the patient, clearly the patient was not doing well, and on physical examination he had diffuse rhonchi and wheezes bilaterally with minimal air movement. Agent was also noted to be extremely diaphoretic, and bit mottled. Recommended immediate intubation and immediate transfer to the ICU. Patient was done and transferred to the ICU, placed on assist control rate of 16 initially tidal volume 500 FiO2 100% and PEEP of 5. Initial ABG post intubation showed a pO2 of 400 pCO2 of 65 pH of 7.24 hence his vent settings were adjusted and his rate was increased to 20 and FiO2 cut down to 40%. Patient was taken down for CT of the abdomen and pelvis mostly because of his severe abdominal pain, he was found to have moderate circumferential rectal wall thickening, questionably distal colitis. Nonspecific. Patient was also noted to have a masslike thickening along the anterior margin of the bladder questioning bladder wall hypertrophy or urothelial malignancy. This will be addressed by urology. Chest x-ray also s howed a trace of left pleural effusion, sigmoid diverticulosis, otherwise no significant findings but he did have also extensive 3 vessel coronary artery calcifications. Patient was stabilized in the ICU, sedated and placed on propofol, may even consider adding fentanyl. He was already seen by general surgery on consultation. WBC count is 20.5 hemoglobin 15.5 basic metabolic profile is normal, renal profile showed a BUN of 44 creatinine 1.42. Patient was reevaluated today on 01/23/2023, remains in the ICU, intubated and mechanically ventilated patient is sedated however he is arousable and follows very simple instructions. He is on assist control rate of 20, volume 500 FiO2 45% and PEEP of 5 ABG showed a pO2 of 133 pCO2 47 pH of 7.34 hence I cut down his FiO2 to 35%. Patient is on propofol at 45 mcg/kg/m fentanyl at 0.5 mcg/kg/h IV fluid at 75 mL/h he is also receiving vital HPI at 3 0 mL per hour. Patient has nonpurulent secretions, he has a wheezing bilaterally more so on forced expiratory maneuver. He is awake, but obviously he is not quite ready for weaning. Chest x-ray was reviewed, showing significant improvement in his left lower lobe atelectasis. Still doubt pneumonia. WBC count today is 7.1 hemoglobin is 12.7 basic metabolic profile is normal BUN is 38 creatinine 1.18 Patient was reevaluated today on 01/24/2023, remains in the ICU, intubated and mechanically ventilated. Patient is on assist control rate of 20 tidal volume 500 FiO2 35% PEEP of 5 ABG showed a pO2 of 114 pCO2 49 pH of 7.36. Patient is requiring a significant amount of sedation including fentanyl 1.5 mcg/kg/h propofol at 50 mcg/kg/m he is on vital AF at 49 mL per hour. Chest x-ray is s howing no evidence of active disease. Patient denies any abdominal pain. Patient is awake in spite of being on relatively high dose of propofol and fentanyl, and I went ahead and recommended tapering down his sedation including the propofol and fentanyl and if needed to use Precedex. My plan is to give the patient today a weaning trial off sedation, and if he tolerates the weaning trial and he has good weaning parameters I will likely proceed to extubating the patient today if possible. Indeed the patient was weaned off sedation, and he had good weaning parameters, I came back when the patient was off sedation and I looked at his ABG which is a BiPAP ABG showed a pO2 of 104 pCO2 44 pH of 7.41, I discontinued his enteral feeding, and recommended extubating the patient to BiPAP this was done successfully. The patient is seen today 01/25/2023 in follow-up in the intensive care unit. Nilam mata was successfully extubated yesterday. He is currently sitting up in bed. Awake and alert in no acute distress. Maintaining good O2 saturations in the 90s on 4 L/m per nasal cannula. He wears 4 L at home as well. He has normal saline at 75 ML's per hour. X-ray shows interval removal of enteric and endotracheal tubes. Stable left subclavian catheter in place. No focal consolidations. Sputum culture revealed no growth. Blood cultures reveal no growth. White count 5.9. Hemoglobin 13.1. Platelets dropped to 72,000. Sodium 143. Potassium 3.7. Bicarb 25. BUN 27. Creatinine 0.91. Glucose 160. He remains on DuoNeb inhalations, Pulmicort and Perforomist inhalations, IV Solu-Medrol. Antibiotics in the form of Zosyn. Heparin is currently on hold. HIT profile pending. This patient is seen today 01/26/2023 in follow-up in the intensive care unit. He is resting comfortably in bed. Awake and alert in no acute distress. He is maintaining O2 saturations in the 90s on 4 L/m per nasal cannula. Blood cultures revealed no growth. Sputum culture revealed no growth. White count 3.6. Hemoglobin 12.7. Platelets 73,000. Glucose 196. Fibrinogen 193. Hit panel negative. C. difficile screen negative. He has normal saline at KVO. Continues on antibiotics in the form of Zosyn. Remains on DuoNeb inhalations, Pulmicort and Perforomist inhalations, Solu-Medrol. The patient is seen today 01/27/2023 in follow-up in the intensive care unit. He is a regular medical floor overflow patient. He is resting comfortably in bed. Awake and alert in no acute distress. Maintaining good O2 saturations in the 90s on 4 L/m per nasal cannula. No IV fluids. Sputum culture revealed no growth. Blood cultures revealed no growth. Glucose 250. He is continued on DuoNeb inhalations, Pulmicort and Perforomist inhalations, IV Solu-Medrol. He remains on antibiotics in the form of Zosyn. White count 4.3. Hemoglobin 14.0. Platelets 87,000. Sodium 138. Potassium 3.9. Bicarb 31. BUN 24. Creatinine 0.81. Objective - Vital Signs Vital signs: Vital Signs Temp 98.1 F 01/27/23 08:00 Pulse 66 01/27/23 11:52 Resp 20 01/27/23 08:00 BP 153/79 01/27/23 10:42 Pulse Ox 92 L 01/27/23 09:16 FiO2 35 01/25/23 02:00 Intake & Output 01/26/23 01/27/23 01/27/23 18:59 06:59 18:59 Intake Total 110 560 Output Total 350 500 Balance -240 60 Weight 95.4 kg Intake: IV 110 320 Piperacillin-Tazobactam 3 200 .375 gm In Sodium Chloride 0.9% 100 ml @ 25 mls/hr IVPB Q8H [facility] Rx#: [id number] Sodium Chloride 0.9% 1, 110 120 000 ml @ 10 mls/hr IV . Q24H [facility] Rx#:[id number] Oral 240 Output: Urine 350 500 Other: Voiding Method Urinal Urinal Urinal # Voids 1 2 ABP, PAP, CO, CI - Last Documented Arterial Blood Pressure 223/82 - Exam GENERAL EXAM: Alert, pleasant 57-year-old male patient, on 4 liters nasal cannula, comfortable in no apparent distress. HEAD: Normocephalic. EYES: Normal reaction of pupils, equal size. NOSE: Clear with pink turbinates. THROAT: No erythema or exudates. NECK: No masses, no JVD. CHEST: No chest wall deformity. LUNGS: Equal air entry with bilateral end expiratory wheeze, diminished. CVS: S1 and S2 normal with no audible murmur, regular rhythm. ABDOMEN: No hepatosplenomegaly, normal bowel sounds, no guarding or rigidity. SPINE: No scoliosis or deformity SKIN: No rashes CENTRAL NERVOUS SYSTEM: No focal deficits, tone is normal in all 4 extremities. EXTREMITIES: There is no peripheral edema. No clubbing, no cyanosis. Peripheral pulses are intact. - Labs CBC & Chem 7: 01/27/23 09:28 01/27/23 09:28 Labs: Abnormal Lab Results - Last 24 Hours (Table) 01/26/23 01/26/23 01/27/23 Range/Units 17:03 20:56 06:53 Plt Count (150-450) k/uL Lymphocytes # (1.0-4.8) k/uL Carbon Dioxide (22-30) mmol/L BUN (9-20) mg/dL Glucose (74-99) mg/dL POC Glucose (mg/dL) 271 H 168 H 249 H (70-110) mg/dL Calcium (8.4-10.2) mg/dL 01/27/23 01/27/23 01/27/23 Range/Units 09:28 09:28 10:41 Plt Count 87 L (150-450) k/uL Lymphocytes # 0.2 L (1.0-4.8) k/uL Carbon Dioxide 31 H (22-30) mmol/L BUN 24 H (9-20) mg/dL Glucose 208 H (74-99) mg/dL POC Glucose (mg/dL) 206 H (70-110) mg/dL Calcium 7.0 L (8.4-10.2) mg/dL 01/27/23 Range/Units 12:33 Plt Count (150-450) k/uL Lymphocytes # (1.0-4.8) k/uL Carbon Dioxide (22-30) mmol/L BUN (9-20) mg/dL Glucose (74-99) mg/dL POC Glucose (mg/dL) 250 H (70-110) mg/dL Calcium (8.4-10.2) mg/dL Assessment and Plan Assessment: Acute on chronic hypoxic respiratory failure secondary to an acute exacerbation of chronic obstructive pulmonary disease are the patient required intubation and mechanical ventilatory support from 01/22 through 01/24/2023 and currently stable on 4 L nasal cannula History of severe oxygen dependent Gold stage III chronic obstructive pulmonary disease History of previous respiratory failure requiring intubation mechanical ventilation 2 Chronic and ongoing tobacco dependence of greater than 40 years Hypertension Hyperlipidemia Diabetes mellitus Obstructive sleep apnea Coronary disease with previous stent placements 3 Chronic back pain History of rectal surgery with initial ileostomy subsequently reversed History of bladder cancer status post surgical resection Plan: The patient was seen and evaluated Medications and labs reviewed Titrate down the FiO2 as tolerated Continue bronchodilators, Solu-Medrol Plan is for EGD/colonoscopy tomorrow We will continue to follow I have personally seen and examined the patient, performed the documentation and the assessment and plan as written. Number of minutes spent on the visit: 10.
[2023-01-27] MEDS ORDERED: LACTATED RINGERS 1,000 ML IV SCH (14:00)
--- NOTE | 2023-01-27 15:33 | P.PN ---
Subjective Progress Note Date: 01/27/23 Principal diagnosis: Thrombocytopenia In follow-up today patient is alert, no acute c/o. Objective - Vital Signs Vital signs: Vital Signs Temp 98.1 F 01/27/23 08:00 Pulse 65 01/27/23 09:30 Resp 20 01/27/23 08:00 BP 153/79 01/27/23 10:42 Pulse Ox 92 L 01/27/23 09:16 FiO2 35 01/25/23 02:00 Intake & Output 01/26/23 01/27/23 01/27/23 18:59 06:59 18:59 Intake Total 110 560 Output Total 350 500 Balance -240 60 Weight 95.4 kg Intake: IV 110 320 Piperacillin-Tazobactam 3 200 .375 gm In Sodium Chloride 0.9% 100 ml @ 25 mls/hr IVPB Q8H [facility] Rx#: [id number] Sodium Chloride 0.9% 1, 110 120 000 ml @ 10 mls/hr IV . Q24H [facility] Rx#:[id number] Oral 240 Output: Urine 350 500 Other: Voiding Method Urinal Urinal Urinal # Voids 1 2 ABP, PAP, CO, CI - Last Documented Arterial Blood Pressure 223/82 - Constitutional General appearance: Present: no acute distress - EENT ENT: Present: hearing grossly normal - Integumentary Integumentary: Present: normal - Psychiatric Psychiatric: Present: A&O x's 3, appropriate affect, intact judgment & insight - Labs CBC & Chem 7: 01/27/23 09:28 01/27/23 09:28 Labs: Abnormal Lab Results - Last 24 Hours (Table) 01/26/23 01/26/23 01/26/23 Range/Units 10:15 11:59 17:03 Plt Count (150-450) k/uL Lymphocytes # (1.0-4.8) k/uL Fibrinogen 193 L (200-500) mg/dL Carbon Dioxide (22-30) mmol/L BUN (9-20) mg/dL Glucose (74-99) mg/dL POC Glucose (mg/dL) 169 H 271 H (70-110) mg/dL Calcium (8.4-10.2) mg/dL 01/26/23 01/27/23 01/27/23 Range/Units 20:56 06:53 09:28 Plt Count 87 L (150-450) k/uL Lymphocytes # 0.2 L (1.0-4.8) k/uL Fibrinogen (200-500) mg/dL Carbon Dioxide (22-30) mmol/L BUN (9-20) mg/dL Glucose (74-99) mg/dL POC Glucose (mg/dL) 168 H 249 H (70-110) mg/dL Calcium (8.4-10.2) mg/dL 01/27/23 01/27/23 Range/Units 09:28 10:41 Plt Count (150-450) k/uL Lymphocytes # (1.0-4.8) k/uL Fibrinogen (200-500) mg/dL Carbon Dioxide 31 H (22-30) mmol/L BUN 24 H (9-20) mg/dL Glucose 208 H (74-99) mg/dL POC Glucose (mg/dL) 206 H (70-110) mg/dL Calcium 7.0 L (8.4-10.2) mg/dL Assessment and Plan (1) Acute respiratory failure Current Visit: Yes Status: Acute Priority: High Code(s): J96.00 - ACUTE RESPIRATORY FAILURE, UNSP W HYPOXIA OR HYPERCAPNIA SNOMED Code(s): 25183526 (2) Thrombocytopenia Current Visit: Yes Status: Acute Priority: Medium Code(s): D69.6 - THROMBOCYTOPENIA, UNSPECIFIED SNOMED Code(s): 067076783 (3) Rectal cancer Current Visit: No Status: Chronic Priority: Medium Code(s): C20 - MA LIGNANT NEOPLASM OF RECTUM SNOMED Code(s): 486045538 Plan: Acute respiratory failure, COPD exacerbation -Patient in ICU, extubated 5 days ago. He is doing well -Management per Critical Care Thrombocytopenia -Noted in the chart since at least 2014, intermittently -Multifactorial including history of chemotherapy causing a slower bone marrow response in acute illness, acute infection and stress. -Platelets have remained greater than 50,000. Up to 87,000 today, improving as pt recovers from acute illness. Okay for DVT prophylaxis, prescribed antiplatelet therapy. -Endoscopy planned for tomorrow. As long as platelets remain greater than 50,000 patient is okay for endoscopy. -HIT ab neg History of rectal cancer -Patient was following up until 2016. Due to insurance changes he has not seen Surgeon. Has not seen Medical Oncology since 10/2018 -Endoscopy tomorrow. Pending those results attests: I seen and examined patient, performed H&P, developed impression and plan of care. Discussed with dictator. Agree with documentation, dictated as a scribe.
[2023-01-27 16:34] LABS: Glucose,Whole Blood 265 mg/dL (70-110)
[2023-01-27] MEDS: LACTATED RINGERS 1,000 ML IV SCH (18:23)
[2023-01-27 20:21] LABS: Glucose,Whole Blood 143 mg/dL (70-110)
[2023-01-27] MEDS: ATORVASTATIN 40 MG TAB PO SCH (21:13)
[2023-01-28 06:08] LABS: HCT 37.3 % (39.0-53.0); HGB 12.8 gm/dL (13.0-17.5); MCH 30.4 pg (25.0-35.0); MCHC 34.4 g/dL (31.0-37.0); MCV 88.4 fL (80.0-100.0); Mean Platelet Volume 9.1; RBC 4.22 m/uL (4.30-5.90); RDW 13.4 % (11.5-15.5); WBC 4.1 k/uL (3.8-10.6)
[2023-01-28 06:10] LABS: African American GFR (CKD) >90 (>60 ml/min/1.73 sqM); Anion Gap 9 mmol/L; Blood Urea Nitrogen 24 mg/dL (9-20); Calcium 6.7 mg/dL (8.4-10.2); Carbon Dioxide 31 mmol/L (22-30); Chloride 97 mmol/L (98-107); Glucose 146 mg/dL (74-99); Non-African American GFR(CKD) >90 (>60 ml/min/1.73 sqM); Potassium 3.4 mmol/L (3.5-5.1); Sodium 137 mmol/L (137-145)
[2023-01-28 06:14] LABS: Platelet Count 79 k/uL (150-450)
[2023-01-28] MEDS: methylPREDNISolone SOD SUCCI 125 MG/2 ML VIAL IV SCH ×4 (06:14→17:04)
[2023-01-28] MEDS: HYDROcodone/APAP 10-325MG 1 EACH TAB PO PRN ×3 (06:14→23:04)
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
[2023-01-28 06:52] LABS: Glucose,Whole Blood 162 mg/dL (70-110)
[2023-01-28] MEDS: PIPERACILLIN-TAZOBACTAM 3.375 GM in SODIUM CHLORIDE 0.9% 100 ML IVPB SCH ×2 (07:38→11:57)
[2023-01-28] MEDS: INSULIN DETEMIR (LEVEMIR) 100 UNIT/ML SYR SQ SCH (07:39)
[2023-01-28] MEDS: INSULIN ASPART (NovoLOG) 100 UNIT/ML VIAL SQ SCH ×4 (07:39→23:05)
[2023-01-28] MEDS: BUDESONIDE 1 MG/2 ML NEBU INHALATION SCH ×2 (07:55→20:56)
[2023-01-28] MEDS: FORMOTEROL FUMARATE 20 MCG/2 ML NEBU INHALATION SCH ×2 (07:55→20:57)
[2023-01-28] MEDS: IPRATROPIUM-ALBUTEROL 3 ML NEB INHALATION SCH ×4 (07:55→20:57)
[2023-01-28] MEDS ORDERED: POTASSIUM CHLORIDE ER 20 MEQ TAB.ER PO STA (08:19)
[2023-01-28] MEDS: PANTOPRAZOLE 40 MG/10 ML VIAL IVP SCH ×2 (08:27→21:09)
[2023-01-28] MEDS: ISOSORBIDE MONONITRATE ER 30 MG TAB.ER.24H PO SCH (08:28)
[2023-01-28] MEDS: busPIRone HCl 5 MG TAB PO SCH ×2 (08:28→22:38)
[2023-01-28] MEDS: ASPIRIN 81 MG PO SCH (08:28)
[2023-01-28] MEDS: METOPROLOL TARTRATE 12.5 MG TAB PO SCH ×2 (08:28→21:09)
[2023-01-28] MEDS: SENNOSIDES-DOCUSATE SODIUM 1 EACH TAB PO SCH (08:28)
[2023-01-28] MEDS: MORPHINE SULFATE 2 MG/ML SYRINGE IVP PRN ×4 (08:30→21:10)
[2023-01-28] MEDS: ESCITALOPRAM 10 MG TAB PO SCH (09:07)
[2023-01-28 11:43] LABS: Glucose,Whole Blood 216 mg/dL (70-110)
[2023-01-28] MEDS: NYSTATIN 100,000 UNIT/GM POWD 15 GM TOPICAL SCH ×2 (11:57→23:32)
--- NOTE | 2023-01-28 13:00 | P.PN ---
Subjective Progress Note Date: 01/28/23 Principal diagnosis: Thrombocytopenia In follow-up today patient is seen on the medical unit, he denies any bleeding, oxygen back at baseline 4 L nasal cannula, he denies any pain. He is just awaiting endoscopy. Objective - Vital Signs Vital signs: Vital Signs Temp 97.5 F L 01/28/23 07:32 Pulse 76 01/28/23 11:08 Resp 18 01/28/23 08:30 BP 186/88 01/28/23 07:32 Pulse Ox 99 01/28/23 07:32 FiO2 35 01/25/23 02:00 Intake & Output 01/27/23 01/28/23 01/28/23 18:59 06:59 18:59 Output Total 1000 Balance -1000 Output: Urine 1000 Other: Voiding Method Urinal Urinal Urinal ABP, PAP, CO, CI - Last Documented Arterial Blood Pressure 223/82 - Constitutional General appearance: Present: cooperative, no acute distress, obese - EENT Eyes: Present: anicteric sclerae, EOMI ENT: Present: hearing grossly normal - Respiratory Details: Respirations even and unlabored at rest and 4 L nasal cannula - Neurologic Neurologic: Present: CNII-XII intact - Musculoskeletal Musculoskeletal: Present: generalized weakness, strength equal bilaterally - Psychiatric Psychiatric: Present: A&O x's 3, appropriate affect, intact judgment & insight - Labs CBC & Chem 7: 01/28/23 05:34 01/28/23 06:00 Labs: Abnormal Lab Results - Last 24 Hours (Table) 01/27/23 01/27/23 01/28/23 Range/Units 16:33 20:20 05:34 RBC 4.22 L (4.30-5.90) m/uL Hgb 12.8 L (13.0-17.5) gm/dL Hct 37.3 L (39.0-53.0) % Plt Count 79 L (150-450) k/uL Potassium (3.5-5.1) mmol/L Chloride (98-107) mmol/L Carbon Dioxide (22-30) mmol/L BUN (9-20) mg/dL Glucose (74-99) mg/dL POC Glucose (mg/dL) 265 H 143 H (70-110) mg/dL Calcium (8.4-10.2) mg/dL 01/28/23 01/28/23 01/28/23 Range/Units 06:00 06:50 11:41 RBC (4.30-5.90) m/uL Hgb (13.0-17.5) gm/dL Hct (39.0-53.0) % Plt Count (150-450) k/uL Potassium 3.4 L (3.5-5.1) mmol/L Chloride 97 L (98-107) mmol/L Carbon Dioxide 31 H (22-30) mmol/L BUN 24 H (9-20) mg/dL Glucose 146 H (74-99) mg/dL POC Glucose (mg/dL) 162 H 216 H (70-110) mg/dL Calcium 6.7 L (8.4-10.2) mg/dL Assessment and Plan (1) Acute respiratory failure Current Visit: Yes Status: Acute Priority: High Code(s): J96.00 - ACUTE RESPIRATORY FAILURE, UNSP W HYPOXIA OR HYPERCAPNIA SNOMED Code(s): 10948290 (2) Thrombocytopenia Current Visit: Yes Status: Acute Priority: Medium Code(s): D69.6 - THROMBOCYTOPENIA, UNSPECIFIED SNOMED Code(s): 890544833 (3) Rectal cancer Current Visit: No Status: Chronic Priority: Medium Code(s): C20 - MALIGNANT NEOPLASM OF RECTUM SNOMED Code(s): 522542110 Plan: Acute respiratory failure, COPD exacerbation-resolved Thrombocytopenia -Noted in the chart since at least 2014, intermittently -Multifactorial including history of chemotherapy causing a slower bone marrow response in acute illness, acute infection and stress. -Platelets have remained greater than 50,000. Stable at 79,000 today. Some minor recovery since admission and as patient recovers from acute illness. Okay for DVT prophylaxis, prescribed antiplatelet therapy as long as platelets remain above 50,000. -Endoscopy planned for tomorrow. As long as platelets remain greater than 50,000 patient is okay for endoscopy. -HIT ab neg History of rectal cancer -Patient was following up until 2016. Due to insurance changes he has not seen Surgeon. Has not seen Medical Oncology since 10/2018 -Endoscopy tomorrow. Pending report. Patient encouraged to resume follow-up with Medical Oncology. His platelets will also be able to be monitored.
[2023-01-28] MEDS ORDERED: LIDOCAINE 2% (PF) 20 MG/ML 5 ML VIAL ONE (13:30)
[2023-01-28] MEDS ORDERED: PROPOFOL 10 MG/ML 20 ML VIAL IV ONE (13:30)
[2023-01-28] MEDS ORDERED: IV FLUID CONTINUATION 1,000 ML IV ONE ×2 (13:37)
--- NOTE | 2023-01-28 14:11 | P.PCN ---
Date of Procedure: 01/28/23 Procedure(s) Performed: PREOPERATIVE DIAGNOSIS: GERD, abdominal pain, colitis POSTOPERATIVE DIAGNOSIS: Gastritis, diverticulosis, poor prep PROCEDURE: 1. EGD with biopsy 2. Colonoscopy ANESTHESIA: MAC SURGEON: Jose Childs M.D. SPECIMENS: Antrum ENDOSCOPIC PROCEDURE: The patient was on the endoscopy table in the left decubitus position. The Olympus gastroscope was inserted into the oropharynx and passed under direct visualization to the region of the third portion of the duodenum. From that point the scope was slowly withdrawn inspecting all surfaces carefully. There were no neoplastic inflammatory or polypoid lesions throughout the duodenum. The pylorus was widely patent. The stomach was carefully inspected. There was gastritis present. A biopsy of the antrum took place to rule out H. pylori. Retroflexion revealed a normal hiatus. The esophagus was then carefully examined. There were no neoplastic inflammatory or polypoid lesions throughout the visualized esophagus. The patient was kept on the endoscopy table in the left decubitus position. The Olympus colonoscope was inserted into the anus and passed under direct visualization to the base of the cecum. The appendiceal orifice was visualized. From that point the scope was slowly withdrawn inspecting all surfaces carefully. There were no neoplastic inflammatory or polypoid lesions throughout the cecum, ascending, transverse, descending, and rectum. The previous colorectal anastomosis was widely patent. On the patient's recent CAT scan the rectum appeared somewhat thickened. This was not appreciated endoscopically. The mucosa appeared normal. The patient had mild scattered diverticulosis. The patient's prep was poor throughout with retained liquid stool and semisolid stool noted. This limited our visualization of the mucosa. Digital rectal examination was normal. The patient was taken to the recovery room in stable condition per anesthesia guidelines. RECOMMENDATIONS: Resume diet. Consider follow-up colonoscopy as outpatient given the poor prep today.
[2023-01-28] MEDS: CALCIUM CARBONATE 500 MG CHEWABLE PO PRN ×2 (15:07→23:04)
--- NOTE | 2023-01-28 15:24 | P.PN ---
Subjective Progress Note Date: 01/28/23 This is a very pleasant 57-year-old male patient with a known history of severe Gold stage III oxygen dependent chronic obstructive pulmonary disease, CVAs respiratory failure requiring intubation mechanical ventilation 2, chronic kidney disease stage III, obstructive sleep apnea, pulmonary hypertension, chronic low back pain, gastroesophageal reflux disease, bladder cancer, colon cancer, hyperlipidemia, chronic and ongoing tobacco dependence. He presented here to the emergency room earlier this morning with complaints of increasing shortness of breath cough congestion and wheezing. He required BiPAP support on arrival currently at 14/5 and 35% FiO2. Arterial blood gases reveal a P O2 400, pCO2 of 70 and a pH of 7.29 on 100% FiO2. Chest x-ray revealed chronic changes without evidence of acute pulmonary process. White count 10.5. Hemoglobin 16.6. Platelets 132. Sodium 145. Potassium 4.3. Bicarb 37. BUN 28. Creatinine 1.17. Glucose 173. AST 21. ALT 24. Troponin negative times one. ProBNP 3570. Influenza screen negative. RSV screen negative. COVID-19 screen negative. He is seen in the emergency department. He's currently awake. Sitting up on the stretcher. Still requiring BiPAP support. Still quite bronchospastic and wheezing. Patient was reevaluated today on 01/21/2023, patient was admitted yesterday with acute exacerbation of COPD, continues to have intermittent cough and wheezing, slight improvement but not back to baseline. Patient is on 4 L nasal cannula with O2 saturation 98% labs from yesterday were all reviewed including his ABG showing hypercapnia and relatively low pH of 7.29 patient had negative screening for influenza and RSV and COVID-19 infection, chest x-ray showed chronic changes without evidence of acute pulmonary disease. Patient was reevaluated today on 01/22/2023, I was called by the a team on this patient early this morning, patient was experiencing significant respiratory distress. He was extremely short of breath, wheezing, diaphoretic, and complaining of abdominal pain. Upon my initial evaluation the patient, clearly the patient was not doing well, and on physical examination he had diffuse rhonchi and wheezes bilaterally with minimal air movement. Agent was also noted to be extremely diaphoretic, and bit mottled. Recommended immediate intubation and immediate transfer to the ICU. Patient was done and transferred to the ICU, placed on assist control rate of 16 initially tidal volume 500 FiO2 100% and PEEP of 5. Initial ABG post intubation showed a pO2 of 400 pCO2 of 65 pH of 7.24 hence his vent settings were adjusted and his rate was increased to 20 and FiO2 cut down to 40%. Patient was taken down for CT of the abdomen and pelvis mostly because of his severe abdominal pain, he was found to have moderate circumferential rectal wall thickening, questionably distal colitis. Nonspecific. Patient was also noted to have a masslike thickening along the anterior margin of the bladder questioning bladder wall hypertrophy or urothelial malignancy. This will be addressed by urology. Chest x-ray also s howed a trace of left pleural effusion, sigmoid diverticulosis, otherwise no significant findings but he did have also extensive 3 vessel coronary artery calcifications. Patient was stabilized in the ICU, sedated and placed on propofol, may even consider adding fentanyl. He was already seen by general surgery on consultation. WBC count is 20.5 hemoglobin 15.5 basic metabolic profile is normal, renal profile showed a BUN of 44 creatinine 1.42. Patient was reevaluated today on 01/23/2023, remains in the ICU, intubated and mechanically ventilated patient is sedated however he is arousable and follows very simple instructions. He is on assist control rate of 20, volume 500 FiO2 45% and PEEP of 5 ABG showed a pO2 of 133 pCO2 47 pH of 7.34 hence I cut down his FiO2 to 35%. Patient is on propofol at 45 mcg/kg/m fentanyl at 0.5 mcg/kg/h IV fluid at 75 mL/h he is also receiving vital HPI at 3 0 mL per hour. Patient has nonpurulent secretions, he has a wheezing bilaterally more so on forced expiratory maneuver. He is awake, but obviously he is not quite ready for weaning. Chest x-ray was reviewed, showing significant improvement in his left lower lobe atelectasis. Still doubt pneumonia. WBC count today is 7.1 hemoglobin is 12.7 basic metabolic profile is normal BUN is 38 creatinine 1.18 Patient was reevaluated today on 01/24/2023, remains in the ICU, intubated and mechanically ventilated. Patient is on assist control rate of 20 tidal volume 500 FiO2 35% PEEP of 5 ABG showed a pO2 of 114 pCO2 49 pH of 7.36. Patient is requiring a significant amount of sedation including fentanyl 1.5 mcg/kg/h propofol at 50 mcg/kg/m he is on vital AF at 49 mL per hour. Chest x-ray is s howing no evidence of active disease. Patient denies any abdominal pain. Patient is awake in spite of being on relatively high dose of propofol and fentanyl, and I went ahead and recommended tapering down his sedation including the propofol and fentanyl and if needed to use Precedex. My plan is to give the patient today a weaning trial off sedation, and if he tolerates the weaning trial and he has good weaning parameters I will likely proceed to extubating the patient today if possible. Indeed the patient was weaned off sedation, and he had good weaning parameters, I came back when the patient was off sedation and I looked at his ABG which is a BiPAP ABG showed a pO2 of 104 pCO2 44 pH of 7.41, I discontinued his enteral feeding, and recommended extubating the patient to BiPAP this was done successfully. The patient is seen today 01/25/2023 in follow-up in the intensive care unit. Nilam mata was successfully extubated yesterday. He is currently sitting up in bed. Awake and alert in no acute distress. Maintaining good O2 saturations in the 90s on 4 L/m per nasal cannula. He wears 4 L at home as well. He has normal saline at 75 ML's per hour. X-ray shows interval removal of enteric and endotracheal tubes. Stable left subclavian catheter in place. No focal consolidations. Sputum culture revealed no growth. Blood cultures reveal no growth. White count 5.9. Hemoglobin 13.1. Platelets dropped to 72,000. Sodium 143. Potassium 3.7. Bicarb 25. BUN 27. Creatinine 0.91. Glucose 160. He remains on DuoNeb inhalations, Pulmicort and Perforomist inhalations, IV Solu-Medrol. Antibiotics in the form of Zosyn. Heparin is currently on hold. HIT profile pending. This patient is seen today 01/26/2023 in follow-up in the intensive care unit. He is resting comfortably in bed. Awake and alert in no acute distress. He is maintaining O2 saturations in the 90s on 4 L/m per nasal cannula. Blood cultures revealed no growth. Sputum culture revealed no growth. White count 3.6. Hemoglobin 12.7. Platelets 73,000. Glucose 196. Fibrinogen 193. Hit panel negative. C. difficile screen negative. He has normal saline at [facility]. Continues on antibiotics in the form of Zosyn. Remains on DuoNeb inhalations, Pulmicort and Perforomist inhalations, Solu-Medrol. The patient is seen today 01/27/2023 in follow-up in the intensive care unit. He is a regular medical floor overflow patient. He is resting comfortably in bed. Awake and alert in no acute distress. Maintaining good O2 saturations in the 90s on 4 L/m per nasal cannula. No IV fluids. Sputum culture revealed no growth. Blood cultures revealed no growth. Glucose 250. He is continued on DuoNeb inhalations, Pulmicort and Perforomist inhalations, IV Solu-Medrol. He remains on antibiotics in the form of Zosyn. White count 4.3. Hemoglobin 14.0. Platelets 87,000. Sodium 138. Potassium 3.9. Bicarb 31. BUN 24. Creatinine 0.81. The patient is seen today 01/28/2023 in follow-up on the regular medical floor. He is currently resting comfortably in bed. Awake and alert in no acute distress. He is on oxygen at 4 L/m per nasal cannula with O2 saturations in the 90s. He is continued on DuoNeb inhalations, Pulmicort and Perforomist inhalations, Solu-Medrol. Antibiotics in the form of Zosyn. White count 4.1. Hemoglobin 12.8. Platelets 79,000. Sodium 137. Potassium 3.4. Bicarb 31. BUN 24. Creatinine 0.86. Glucose 146. He did undergo EGD/colonoscopy today. He was found to have gastritis, diverticulosis. Objective - Vital Signs Vital signs: Vital Signs Temp 97.5 F L 01/28/23 07:32 Pulse 76 01/28/23 11:08 Resp 18 01/28/23 08:30 BP 186/88 01/28/23 07:32 Pulse Ox 99 01/28/23 07:32 FiO2 35 01/25/23 02:00 Intake & Output 01/27/23 01/28/23 01/28/23 18:59 06:59 18:59 Intake Total 200 Output Total 1000 Balance -1000 200 Intake: IV 200 Output: Urine 1000 Other: Voiding Method Urinal Urinal Urinal ABP, PAP, CO, CI - Last Documented Arterial Blood Pressure 223/82 - Exam GENERAL EXAM: Alert, 57-year-old male patient, on 4 liters nasal cannula, in no apparent distress. HEAD: Normocephalic. EYES: Normal reaction of pupils, equal size. NOSE: Clear with pink turbinates. THROAT: No erythema or exudates. NECK: No masses, no JVD. CHEST: No chest wall deformity. LUNGS: Equal air entry with bilateral end expiratory wheeze, diminished. CVS: S1 and S2 normal with no audible murmur, regular rhythm. ABDOMEN: No hepatosplenomegaly, normal bowel sounds, no guarding or rigidity. SPINE: No scoliosis or deformity SKIN: No rashes CENTRAL NERVOUS SYSTEM: No focal deficits, tone is normal in all 4 extremities. EXTREMITIES: There is no peripheral edema. No clubbing, no cyanosis. Peripheral pulses are intact. - Labs CBC & Chem 7: 01/28/23 05:34 01/28/23 06:00 Labs: Abnormal Lab Results - Last 24 Hours (Table) 01/27/23 01/27/23 01/28/23 Range/Units 16:33 20:20 05:34 RBC 4.22 L (4.30-5.90) m/uL Hgb 12.8 L (13.0-17.5) gm/dL Hct 37.3 L (39.0-53.0) % Plt Count 79 L (150-450) k/uL Potassium (3.5-5.1) mmol/L Chloride (98-107) mmol/L Carbon Dioxide (22-30) mmol/L BUN (9-20) mg/dL Glucose (74-99) mg/dL POC Glucose (mg/dL) 265 H 143 H (70-110) mg/dL Calcium (8.4-10.2) mg/dL 01/28/23 01/28/23 01/28/23 Range/Units 06:00 06:50 11:41 RBC (4.30-5.90) m/uL Hgb (13.0-17.5) gm/dL Hct (39.0-53.0) % Plt Count (150-450) k/uL Potassium 3.4 L (3.5-5.1) mmol/L Chloride 97 L (98-107) mmol/L Carbon Dioxide 31 H (22-30) mmol/L BUN 24 H (9-20) mg/dL Glucose 146 H (74-99) mg/dL POC Glucose (mg/dL) 162 H 216 H (70-110) mg/dL Calcium 6.7 L (8.4-10.2) mg/dL Assessment and Plan Assessment: Acute on chronic hypoxic respiratory failure secondary to an acute exacerbation of chronic obstructive pulmonary disease are the patient required intubation and mechanical ventilatory support from 01/22 through 01/24/2023 and currently stable on 4 L nasal cannula History of severe oxygen dependent Gold stage III chronic obstructive pulmonary disease History of previous respiratory failure requiring intubation mechanical ventilation 2 Chronic and ongoing tobacco dependence of greater than 40 years Abdominal pain, status post EGD/colonoscopy 01/28/2023 with gastritis, diverticulosis found Hypertension Hyperlipidemia Diabetes mellitus Obstructive sleep apnea Coronary disease with previous stent placements 3 Chronic back pain History of rectal surgery with initial ileostomy subsequently reversed History of bladder cancer status post surgical resection Plan: The patient was seen and evaluated Medications and labs reviewed Titrate down the FiO2 as tolerated Continue bronchodilators, Solu-Medrol Completed Zosyn EGD/colonoscopy today We will continue to follow I have personally seen and examined the patient, performed the documentation and the assessment and plan as written. Number of minutes spent on the visit: 10.
[2023-01-28 16:44] LABS: Glucose,Whole Blood 248 mg/dL (70-110)
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
[2023-01-28] MEDS: LACTATED RINGERS 1,000 ML IV SCH (20:52)
[2023-01-28] MEDS: SODIUM CHLORIDE 0.9% 1,000 ML IV SCH (20:52)
[2023-01-28] MEDS: ATORVASTATIN 40 MG TAB PO SCH (21:10)
[2023-01-28 21:39] LABS: Glucose,Whole Blood 240 mg/dL (70-110)
[2023-01-29] MEDS: methylPREDNISolone SOD SUCCI 125 MG/2 ML VIAL IV SCH ×4 (00:46→16:59)
[2023-01-29] MEDS: MORPHINE SULFATE 2 MG/ML SYRINGE IVP PRN ×3 (03:53→14:36)
[2023-01-29] MEDS: CALCIUM CARBONATE 500 MG CHEWABLE PO PRN ×2 (05:41→12:57)
[2023-01-29] MEDS: HYDROcodone/APAP 10-325MG 1 EACH TAB PO PRN ×3 (05:41→17:49)
[2023-01-29] MEDS: SODIUM CHLORIDE 0.9% 1,000 ML IV SCH (06:33)
[2023-01-29 06:35] LABS: Glucose,Whole Blood 221 mg/dL (70-110)
[2023-01-29] MEDS: INSULIN ASPART (NovoLOG) 100 UNIT/ML VIAL SQ SCH ×3 (06:41→17:00)
[2023-01-29] MEDS: INSULIN DETEMIR (LEVEMIR) 100 UNIT/ML SYR SQ SCH (06:41)
[2023-01-29] MEDS: IPRATROPIUM-ALBUTEROL 3 ML NEB INHALATION SCH ×4 (07:51→19:29)
[2023-01-29] MEDS: BUDESONIDE 1 MG/2 ML NEBU INHALATION SCH ×2 (07:51→19:29)
[2023-01-29] MEDS: FORMOTEROL FUMARATE 20 MCG/2 ML NEBU INHALATION SCH ×2 (07:51→19:29)
[2023-01-29 09:18] LABS: Blood Urea Nitrogen 25.1 mg/dL (9.0-27.0); Calcium 6.9 mg/dL (8.7-10.3); Carbon Dioxide 26.6 mmol/L (21.6-31.8); Chloride 100 mmol/L (96-109); Glucose 198 mg/dL (70-110); Potassium 3.4 mmol/L (3.5-5.5); Sodium 140 mmol/L (135-145)
[2023-01-29] MEDS: ASPIRIN 81 MG PO SCH (10:12)
[2023-01-29] MEDS: ISOSORBIDE MONONITRATE ER 30 MG TAB.ER.24H PO SCH (10:12)
[2023-01-29] MEDS: METOPROLOL TARTRATE 12.5 MG TAB PO SCH (10:12)
[2023-01-29] MEDS: busPIRone HCl 5 MG TAB PO SCH (10:12)
[2023-01-29] MEDS: SENNOSIDES-DOCUSATE SODIUM 1 EACH TAB PO SCH (10:13)
[2023-01-29] MEDS: ESCITALOPRAM 10 MG TAB PO SCH (10:13)
[2023-01-29] MEDS: PANTOPRAZOLE 40 MG/10 ML VIAL IVP SCH (10:14)
[2023-01-29] MEDS: NYSTATIN 100,000 UNIT/GM POWD 15 GM TOPICAL SCH (10:18)
[2023-01-29] MEDS ORDERED: POTASSIUM CHLORIDE ER 20 MEQ TAB.ER PO STA ×2 (10:50→11:01)
[2023-01-29 11:36] LABS: Glucose,Whole Blood 190 mg/dL (70-110)
--- NOTE | 2023-01-29 12:00 | P.PN ---
Subjective Progress Note Date: 01/29/23 CHIEF COMPLAINT: Abdominal pain HISTORY OF PRESENT ILLNESS: Patient currently in regular medical floor. Status post EGD and colonoscopy. Results showing gastritis and diverticulosis. Patient had poor colon prep. Patient reports left lower quadrant abdominal pain present but improving. He is having bowel movements. No blood in stools. He is tolerating regular diet. Afebrile. Hgb 12.8 WBC 4.1 potassium 3.4 PHYSICAL EXAM: VITAL SIGNS: Reviewed. GENERAL: Well-developed in no acute distress. ABDOMEN: Soft. Nondistended. mild tenderness LLQ NEUROLOGIC: Alert and oriented. Cranial nerves II through XII grossly intact. ASSESSMENT: 1. Abdominal pain and nausea 2. Rectal wall thickening noted on computed tomography scan 3. History of rectal cancer with resection and ostomy with reversal about 4 years ago PLAN: -Patient can be discharged from surgical standpoint -Recommend a repeat colonoscopy outpatient due to poor bowel prep -Replace potassium Physician Offset Printer note has been reviewed by physician. Signing provider agrees with the documented findings, assessment, and plan of care. I have personally seen and examined the patient, reviewed the [employer] W[employer] PLANT OPERATOR /PAs history, exam and MDM and agree with the assessment and plan as written. Based on total visit time, I have performed more than 50% of the visit. As above: Patient doing well today. No significant pain at this time. Etiology not identified on recent endoscopy. I discharge from our standpoint. Recommend consideration for repeat colonoscopy given the poor prep at some point in the next several months. We'll sign off. Please call if needed. Objective - Vital Signs Vital signs: Vital Signs Temp 98.6 F 01/29/23 07:52 Pulse 72 01/29/23 08:21 Resp 16 01/29/23 08:00 BP 167/78 01/29/23 07:52 Pulse Ox 97 01/29/23 07:52 FiO2 35 01/25/23 02:00 Intake & Output 01/28/23 01/29/23 01/29/23 18:59 06:59 18:59 Intake Total 200 Output Total 800 800 Balance -600 -800 Weight 95.5 kg Intake: IV 200 Output: Urine 800 800 Other: Voiding Method Urinal Urinal Urinal ABP, PAP, CO, CI - Last Documented Arterial Blood Pressure 223/82 - Labs CBC & Chem 7: 01/28/23 05:34 01/29/23 05:28 Labs: Abnormal Lab Results - Last 24 Hours (Table) 01/28/23 01/28/23 01/28/23 Range/Units 11:41 16:42 21:37 Potassium (3.5-5.5) mmol/L Anion Gap (4.00-12.00) mmol/L BUN/Creatinine Ratio (12.00-20.00) Ratio Glucose (70-110) mg/dL POC Glucose (mg/dL) 216 H 248 H 240 H (70-110) mg/dL Calcium (8.7-10.3) mg/dL 01/29/23 01/29/23 Range/Units 05:28 06:34 Potassium 3.4 L (3.5-5.5) mmol/L Anion Gap 13.40 H (4.00-12.00) mmol/L BUN/Creatinine Ratio 25.10 H (12.00-20.00) Ratio Glucose 198 H (70-110) mg/dL POC Glucose (mg/dL) 221 H (70-110) mg/dL Calcium 6.9 L (8.7-10.3) mg/dL
[2023-01-29 13:46] VITALS: RESP 20; BMI 30.2
[2023-01-29 16:21] LABS: Glucose,Whole Blood 230 mg/dL (70-110)
--- NOTE | 2023-01-29 16:52 | P.PN ---
Subjective Progress Note Date: 01/29/23 This is a very pleasant 57-year-old male patient with a known history of severe Gold stage III oxygen dependent chronic obstructive pulmonary disease, CVAs respiratory failure requiring intubation mechanical ventilation 2, chronic kidney disease stage III, obstructive sleep apnea, pulmonary hypertension, chronic low back pain, gastroesophageal reflux disease, bladder cancer, colon cancer, hyperlipidemia, chronic and ongoing tobacco dependence. He presented here to the emergency room earlier this morning with complaints of increasing shortness of breath cough congestion and wheezing. He required BiPAP support on arrival currently at 14/5 and 35% FiO2. Arterial blood gases reveal a P O2 400, pCO2 of 70 and a pH of 7.29 on 100% FiO2. Chest x-ray revealed chronic changes without evidence of acute pulmonary process. White count 10.5. Hemoglobin 16.6. Platelets 132. Sodium 145. Potassium 4.3. Bicarb 37. BUN 28. Creatinine 1.17. Glucose 173. AST 21. ALT 24. Troponin negative times one. ProBNP 3570. Influenza screen negative. RSV screen negative. COVID-19 screen negative. He is seen in the emergency department. He's currently awake. Sitting up on the stretcher. Still requiring BiPAP support. Still quite bronchospastic and wheezing. Patient was reevaluated today on 01/21/2023, patient was admitted yesterday with acute exacerbation of COPD, continues to have intermittent cough and wheezing, slight improvement but not back to baseline. Patient is on 4 L nasal cannula with O2 saturation 98% labs from yesterday were all reviewed including his ABG showing hypercapnia and relatively low pH of 7.29 patient had negative screening for influenza and RSV and COVID-19 infection, chest x-ray showed chronic changes without evidence of acute pulmonary disease. Patient was reevaluated today on 01/22/2023, I was called by the a team on this patient early this morning, patient was experiencing significant respiratory distress. He was extremely short of breath, wheezing, diaphoretic, and complaining of abdominal pain. Upon my initial evaluation the patient, clearly the patient was not doing well, and on physical examination he had diffuse rhonchi and wheezes bilaterally with minimal air movement. Agent was also noted to be extremely diaphoretic, and bit mottled. Recommended immediate intubation and immediate transfer to the ICU. Patient was done and transferred to the ICU, placed on assist control rate of 16 initially tidal volume 500 FiO2 100% and PEEP of 5. Initial ABG post intubation showed a pO2 of 400 pCO2 of 65 pH of 7.24 hence his vent settings were adjusted and his rate was increased to 20 and FiO2 cut down to 40%. Patient was taken down for CT of the abdomen and pelvis mostly because of his severe abdominal pain, he was found to have moderate circumferential rectal wall thickening, questionably distal colitis. Nonspecific. Patient was also noted to have a masslike thickening along the anterior margin of the bladder questioning bladder wall hypertrophy or urothelial malignancy. This will be addressed by urology. Chest x-ray also s howed a trace of left pleural effusion, sigmoid diverticulosis, otherwise no significant findings but he did have also extensive 3 vessel coronary artery calcifications. Patient was stabilized in the ICU, sedated and placed on propofol, may even consider adding fentanyl. He was already seen by general surgery on consultation. WBC count is 20.5 hemoglobin 15.5 basic metabolic profile is normal, renal profile showed a BUN of 44 creatinine 1.42. Patient was reevaluated today on 01/23/2023, remains in the ICU, intubated and mechanically ventilated patient is sedated however he is arousable and follows very simple instructions. He is on assist control rate of 20, volume 500 FiO2 45% and PEEP of 5 ABG showed a pO2 of 133 pCO2 47 pH of 7.34 hence I cut down his FiO2 to 35%. Patient is on propofol at 45 mcg/kg/m fentanyl at 0.5 mcg/kg/h IV fluid at 75 mL/h he is also receiving vital HPI at 3 0 mL per hour. Patient has nonpurulent secretions, he has a wheezing bilaterally more so on forced expiratory maneuver. He is awake, but obviously he is not quite ready for weaning. Chest x-ray was reviewed, showing significant improvement in his left lower lobe atelectasis. Still doubt pneumonia. WBC count today is 7.1 hemoglobin is 12.7 basic metabolic profile is normal BUN is 38 creatinine 1.18 Patient was reevaluated today on 01/24/2023, remains in the ICU, intubated and mechanically ventilated. Patient is on assist control rate of 20 tidal volume 500 FiO2 35% PEEP of 5 ABG showed a pO2 of 114 pCO2 49 pH of 7.36. Patient is requiring a significant amount of sedation including fentanyl 1.5 mcg/kg/h propofol at 50 mcg/kg/m he is on vital AF at 49 mL per hour. Chest x-ray is s howing no evidence of active disease. Patient denies any abdominal pain. Patient is awake in spite of being on relatively high dose of propofol and fentanyl, and I went ahead and recommended tapering down his sedation including the propofol and fentanyl and if needed to use Precedex. My plan is to give the patient today a weaning trial off sedation, and if he tolerates the weaning trial and he has good weaning parameters I will likely proceed to extubating the patient today if possible. Indeed the patient was weaned off sedation, and he had good weaning parameters, I came back when the patient was off sedation and I looked at his ABG which is a BiPAP ABG showed a pO2 of 104 pCO2 44 pH of 7.41, I discontinued his enteral feeding, and recommended extubating the patient to BiPAP this was done successfully. The patient is seen today 01/25/2023 in follow-up in the intensive care unit. Nilam mata was successfully extubated yesterday. He is currently sitting up in bed. Awake and alert in no acute distress. Maintaining good O2 saturations in the 90s on 4 L/m per nasal cannula. He wears 4 L at home as well. He has normal saline at 75 ML's per hour. X-ray shows interval removal of enteric and endotracheal tubes. Stable left subclavian catheter in place. No focal consolidations. Sputum culture revealed no growth. Blood cultures reveal no growth. White count 5.9. Hemoglobin 13.1. Platelets dropped to 72,000. Sodium 143. Potassium 3.7. Bicarb 25. BUN 27. Creatinine 0.91. Glucose 160. He remains on DuoNeb inhalations, Pulmicort and Perforomist inhalations, IV Solu-Medrol. Antibiotics in the form of Zosyn. Heparin is currently on hold. HIT profile pending. This patient is seen today 01/26/2023 in follow-up in the intensive care unit. He is resting comfortably in bed. Awake and alert in no acute distress. He is maintaining O2 saturations in the 90s on 4 L/m per nasal cannula. Blood cultures revealed no growth. Sputum culture revealed no growth. White count 3.6. Hemoglobin 12.7. Platelets 73,000. Glucose 196. Fibrinogen 193. Hit panel negative. C. difficile screen negative. He has normal saline at [facility]. Continues on antibiotics in the form of Zosyn. Remains on DuoNeb inhalations, Pulmicort and Perforomist inhalations, Solu-Medrol. The patient is seen today 01/27/2023 in follow-up in the intensive care unit. He is a regular medical floor overflow patient. He is resting comfortably in bed. Awake and alert in no acute distress. Maintaining good O2 saturations in the 90s on 4 L/m per nasal cannula. No IV fluids. Sputum culture revealed no growth. Blood cultures revealed no growth. Glucose 250. He is continued on DuoNeb inhalations, Pulmicort and Perforomist inhalations, IV Solu-Medrol. He remains on antibiotics in the form of Zosyn. White count 4.3. Hemoglobin 14.0. Platelets 87,000. Sodium 138. Potassium 3.9. Bicarb 31. BUN 24. Creatinine 0.81. The patient is seen today 01/28/2023 in follow-up on the regular medical floor. He is currently resting comfortably in bed. Awake and alert in no acute distress. He is on oxygen at 4 L/m per nasal cannula with O2 saturations in the 90s. He is continued on DuoNeb inhalations, Pulmicort and Perforomist inhalations, Solu-Medrol. Antibiotics in the form of Zosyn. White count 4.1. Hemoglobin 12.8. Platelets 79,000. Sodium 137. Potassium 3.4. Bicarb 31. BUN 24. Creatinine 0.86. Glucose 146. He did undergo EGD/colonoscopy today. He was found to have gastritis, diverticulosis. The patient is seen today 01/29/2023 in follow-up on the regular medical floor. He is currently sitting up in bed. Awake and alert in no acute distress. He continues to maintain good O2 saturations in the 90s on 4 L/m per nasal cannula. He is continued on DuoNeb inhalations, Pulmicort and Perforomist inhalations, IV Solu-Medrol. Glucose 221. Sodium 140. Potassium 3.4. Bicarb 26. BUN 25. Creatinine 1.0. Objective - Vital Signs Vital signs: Vital Signs Temp 98.4 F 01/29/23 13:31 Pulse 72 01/29/23 15:35 Resp 20 01/29/23 13:31 BP 151/71 01/29/23 13:31 Pulse Ox 94 L 01/29/23 13:31 FiO2 35 01/25/23 02:00 Intake & Output 01/28/23 01/29/23 01/29/23 18:59 06:59 18:59 Intake Total 200 Output Total 800 800 600 Balance -600 -800 -600 Weight 95.5 kg 95.5 kg Intake: IV 200 Output: Urine 800 800 600 Other: Voiding Method Urinal Urinal Urinal # Bowel Movements 1 ABP, PAP, CO, CI - Last Documented Arterial Blood Pressure 223/82 - Exam GENERAL EXAM: Alert, pleasant 57-year-old male patient, sitting up in bed, on 4 liters nasal cannula, in no distress. HEAD: Normocephalic. EYES: Normal reaction of pupils, equal size. NOSE: Clear with pink turbinates. THROAT: No erythema or exudates. NECK: No masses, no JVD. CHEST: No chest wall deformity. LUNGS: Equal air entry with bilateral end expiratory wheeze, diminished. CVS: S1 and S2 normal with no audible murmur, regular rhythm. ABDOMEN: No hepatosplenomegaly, normal bowel sounds, no guarding or rigidity. SPINE: No scoliosis or deformity SKIN: No rashes CENTRAL NERVOUS SYSTEM: No focal deficits, tone is normal in all 4 extremities. EXTREMITIES: There is no peripheral edema. No clubbing, no cyanosis. Peripheral pulses are intact. - Labs CBC & Chem 7: 01/28/23 05:34 01/29/23 05:28 Labs: Abnormal Lab Results - Last 24 Hours (Table) 01/28/23 01/29/23 01/29/23 Range/Units 21:37 05:28 06:34 Potassium 3.4 L (3.5-5.5) mmol/L Anion Gap 13.40 H (4.00-12.00) mmol/L BUN/Creatinine Ratio 25.10 H (12.00-20.00) Ratio Glucose 198 H (70-110) mg/dL POC Glucose (mg/dL) 240 H 221 H (70-110) mg/dL Calcium 6.9 L (8.7-10.3) mg/dL 01/29/23 01/29/23 Range/Units 11:35 16:20 Potassium (3.5-5.5) mmol/L Anion Gap (4.00-12.00) mmol/L BUN/Creatinine Ratio (12.00-20.00) Ratio Glucose (70-110) mg/dL POC Glucose (mg/dL) 190 H 230 H (70-110) mg/dL Calcium (8.7-10.3) mg/dL Assessment and Plan Assessment: Acute on chronic hypoxic respiratory failure secondary to an acute exacerbation of chronic obstructive pulmonary disease are the patient required intubation and mechanical ventilatory support from 01/22 through 01/24/2023 and currently stable on 4 L nasal cannula History of severe oxygen dependent Gold stage III chronic obstructive pulmonary disease History of previous respiratory failure requiring intubation mechanical ventilation 2 Chronic and ongoing tobacco dependence of greater than 40 years Abdominal pain, status post EGD/colonoscopy 01/28/2023 with gastritis, diverticulosis found Hypertension Hyperlipidemia Diabetes mellitus Obstructive sleep apnea Coronary disease with previous stent placements 3 Chronic back pain History of rectal surgery with initial ileostomy subsequently reversed History of bladder cancer status post surgical resection Plan: The patient was seen and evaluated Medications and labs reviewed Could be transitioned to prednisone taper Continue Symbicort, albuterol Follow-up in the office in 1 week post discharge I have personally seen and examined the patient, performed the documentation and the assessment and plan as written. Number of minutes spent on the visit: 10.
[2023-01-29 23:12] VITALS: BP 136/80; PULSE 86; TEMP 98
--- NOTE | 2023-02-01 09:23 | CDI ---
Documentation Clarification Form Date: 02/01/23 From: Margy Chambers Admit Date: 01/20/2023 08:46:00 AM Patient Name: Rakan Flynn Visit Number: [id number] Discharge Date: 01/29/2023 09:20:00 PM ATTENTION: The Clinical Documentation Specialists (CDI) and [facility] Coding Staff appreciate your assistance in clarifying documentation. Please respond to the clarification below the line at the bottom and electronically sign. The CDI & [facility] Coding staff will review the response and follow-up if needed. Please note: Queries are made part of the Legal Health Record. If you have any questions, please contact the author of this message via ITS. Dr. Keenan Alanis, The patient has sepsis is documented on 01.24 PN. Based on this information and the findings below, is there an additional diagnosis that is clinically appropriate for this patient? 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 Total still 80,000, most likely thrombocytopenia is due tosepsis. WBC: 01/20-10.5, 01/22-20.5 Neutrophils: 01/20-8.1, 01/22-19.1 Lactic acid: none Blood cultures: No growth Vitals signs: 01/20: T 96.9, P 86, R 26, BP 118/90, O2 sat 100 (BIPAP 100 FiO2) 01/22: T-97.9, P-68, R-16, BP-124/57, on mechanical ventilation Treatment: IV fluids on admission, BIPAP to mechanical ventilation, IV Azithromycin, Decadron, IV Zosyn, vasopressors Is there an additional diagnosis that is clinically appropriate for this patient? [ x ] Sepsis, present on admission [ ] Sepsis, developed during stay, not present on admission [ ] Sepsis ruled out [ ] Severe Sepsis with organ failure [ ] Septic Shock [ ] SIRS, without underlying infectious process [ ] Other, please specify [ ] Unable to determine SIRS Criteria: 2 or more of the following may indicate SIRS Temperature < 96.8F (36C) or > 101.0F (38.3C) Heart Rate > 90 bpm Respiratory Rate > 20 breaths/min or PaCO2 < 32 mmHg White Blood Cell Count > 12,000 or < 4,000 cells/mm3 or > 10% bands MTDD
--- NOTE | 2023-02-01 20:30 | P.DS ---
Providers Date of admission: 01/20/23 08:46 Expected date of discharge: 01/29/23 Attending physician: Brianna Venegas Consults: 01/20/23 08:45 Consult Physician Routine Consulting Provider: Jason Munoz Consult Reason/Comments: copd Do you want consulting provider notified?: Yes 01/22/23 11:09 Consult Physician Routine Consulting Provider: Rakan Quintanilla Consult Reason/Comments: hx bladder CA, thickening on CT Do you want consulting provider notified?: Yes 01/24/23 20:46 Consult Physician Routine Consulting Provider: Sonu Boland Consult Reason/Comments: thrombocytopenia Do you want consulting provider notified?: Yes, Notify in am 01/26/23 10:48 Consult Physician Routine Consulting Provider: Jose Childs Consult Reason/Comments: abdominal pain Do you want consulting provider notified?: Already Contacted Primary care physician: Adán Amaro [facility] Course: Final diagnosis Acute COPD exacerbation with sepsis, present on admission Acute on chronic hypoxic respiratory failure requiring intubation and mechanical ventilation, currently on his home dose 4 L oxygen Proctatitis and distal colitis hematuria, patient will require follow-up with Dr. Quintanilla for cystoscopy Right lower abdominal skin fold fungal infection Diabetes mellitus Hypertension Hyperlipidemia History of osteoarthritis Hypothyroidism Chronic back pain status post back surgery. Patient currently is wheelchair- bound History of scrotal infection records several procedures History of coronary artery disease status post stents 3 Obesity with a BMI 30.2 GI prophylaxis DVT prophylaxis Full code Discharge disposition Patient has decided to leave AGAINST MEDICAL ADVICE. Risks versus benefits were explained and nursing staff attempted to have patient stay to receive oxygen tanks in the a.m. with case management prior to discharge. Patient reported multiple times he had a concentrator at home and only lived a short distance away and was aware of the risks and proceeded and demanded to be discharged. Patient has opted to leave AGAINST MEDICAL ADVICE and risks versus benefits were explained and paperwork was signed. sack department supervisor was also made aware of the situation. Patient will follow-up with Dr. Amaro in the outpatient setting upon discharge. Patient is to continue with close outpatient follow-up with pulmonary and oncology as scheduled. Total time taken is greater than 35 minutes. Hospital course This is a 57-year-old male who was recently admitted with increasing shortness of breath with features of sepsis, present on admission with acute on chronic hypoxic respiratory failure requiring mechanical ventilation. Patient has had ICU stay and prolonged hospitalization secondary to COPD. Patient also having some abdominal pain being evaluated by general surgery recommending outpatient colonoscopy with further prep. Patient also evaluated by urology recommending cystoscopy outpatient. Patient had been cleared by consultations for discharge and arranging for discharge waiting for a ride and nursing staff was made aware patient has no oxygen tanks. Discussed with nursing staff earlier in the day that all necessary DME supplies for discharge and was told patient had oxygen in the outpatient setting. After-hours nursing staff was notified that patient was not to be discharged until having oxygen for a safe discharge. Nursing marjan lei was also made aware of this in an attempt to provide safe discharge for this patient. Patient reported to nursing staff he only lived 8 miles away and would be able to make it home to his home oxygen concentrator. Patient did have oxygen saturations into the 80s on room air. Patient continued to persist to want to go home and had family pick him up. Patient did leave AGAINST MEDICAL ADVICE. Please refer to other consultation notes for further HPI. Currently no reports of chest pain, shortness of breath, or palpitations. Patient is afebrile. No reports of nausea or vomiting and patient is tolerating diet. Patient left AGAINST MEDICAL ADVICE home. Extremely guarded prognosis and high risk for readmission given patient's significant comorbidities. Physical exam: Gen: This is a 57-year-old male who is awake, alert and oriented 3, well- developed, well-nourished HEENT: Head is atraumatic, normocephalic. Pupils equal, round. Sclerae is anicteric. NECK: Supple. No JVD. No lymphadenopathy. No thyromegaly. LUNGS: Diminished breath sounds bilaterally with coarse scattered rhonchi. No intercostal retractions. HEART: Regular rate and rhythm. No murmur. ABDOMEN: Soft. Obese. Bowel sounds are present. No masses. No tenderness. EXTREMITIES: No pedal edema. No calf tenderness. NEUROLOGICAL: Patient is awake, alert and oriented x3. Diffusely weak, wheelchair-bound Please refer to medication reconciliation sheet for a list of medications. The impression and plan of care has been dictated by Deborah Pelayo, Nurse Practitioner as directed. Dr. Zeke MD I have performed a history and examination and MDM of this patient, discussed the same with the dictator, and agree with the dictator's assessment and plan as written ,documented as a scribe. Based on total visit time, I have performed more than 50% of the visit. Patient Condition at Discharge: Fair Plan - Discharge Summary Discharge Rx Participant: No New Discharge Prescriptions: New Metoprolol Tartrate [Lopressor] 12.5 mg PO BID #60 tab predniSONE 10 mg PO DIRECTED #30 tab Sennosides-Docusate Sodium [Senokot-S] 1 each PO DAILY #30 tab Ipratropium-Albuterol Nebulize [Duoneb 0.5 mg-3 mg/3 ml Soln] 3 ml INHALATION RT-QID each Nystatin 100,000 Unit/gm Powd [Mycostatin Powder] 1 applic TOPICAL BID 10 Days #1 each Continue metFORMIN HCL [Glucophage] 500 mg PO TID-W/MEALS Isosorbide Mononitrate ER [Imdur] 30 mg PO DAILY #30 tab Pregabalin [Lyrica] 200 mg PO BID PRN PRN Reason: Pain fentaNYL 50MCG/HR PATCH [Duragesic 50MCG/HR] 1 patch TRANSDERM Q72H Aspirin 81 mg PO DAILY busPIRone HCL 15 mg PO BID Potassium Chloride ER [K-Dur 20] 20 meq PO DAILY HYDROcodone/APAP 10-325MG [Ackley 10-325] 1 tab PO Q6HR PRN PRN Reason: Pain Escitalopram [Lexapro] 10 mg PO DAILY Albuterol Sulfate [Ventolin HFA] 2 puff INHALATION RT-Q4H PRN PRN Reason: Shortness Of Breath Atorvastatin [Lipitor] 40 mg PO HS Discontinued Metoprolol Tartrate [Lopressor] 25 mg PO BID Azithromycin [Zithromax Z Pack] See Taper PO DIRECTED methylPREDNISolone [Medrol Dose Pack] See Taper PO DIRECTED Discharge Medication List metFORMIN HCL [Glucophage] 500 mg PO TID-W/MEALS 09/08/19 [History] busPIRone HCL 15 mg PO BID 07/28/21 [History] Isosorbide Mononitrate ER [Imdur] 30 mg PO DAILY #30 tab 10/28/21 [Rx] Potassium Chloride ER [K-Dur 20] 20 meq PO DAILY 12/18/21 [History] HYDROcodone/APAP 10-325MG [Ackley 10-325] 1 tab PO Q6HR PRN 09/08/22 [History] Pregabalin [Lyrica] 200 mg PO BID PRN 09/08/22 [History] Albuterol Sulfate [Ventolin HFA] 2 puff INHALATION RT-Q4H PRN 11/07/22 [History] Escitalopram [Lexapro] 10 mg PO DAILY 11/07/22 [History] Aspirin 81 mg PO DAILY 01/20/23 [History] Atorvastatin [Lipitor] 40 mg PO HS 01/20/23 [History] fentaNYL 50MCG/HR PATCH [Duragesic 50MCG/HR] 1 patch TRANSDERM Q72H 01/20/23 [History] Ipratropium-Albuterol Nebulize [Duoneb 0.5 mg-3 mg/3 ml Soln] 3 ml INHALATION RT-QID each 01/29/23 [Rx] Metoprolol Tartrate [Lopressor] 12.5 mg PO BID #60 tab 01/29/23 [Rx] Nystatin 100,000 Unit/gm Powd [Mycostatin Powder] 1 applic TOPICAL BID 10 Days #1 each 01/29/23 [Rx] Sennosides-Docusate Sodium [Senokot-S] 1 each PO DAILY #30 tab 01/29/23 [Rx] predniSONE 10 mg PO DIRECTED #30 tab 01/29/23 [Rx] Follow up Appointment(s)/Referral(s): Jose Childs MD [Medical Doctor] - 1 Week Rony Reynolds [STAFF PHYSICIAN] - 4 Weeks (Please call to re-establish care with Spray [facility]er/Oncologist) Luis Fernando Hayes DO [Doctor of Osteopathic Medicine] - 1 Week Adán Amaro DO [Primary Care Provider] - 1-2 days Rakan Quintanilla MD [STAFF PHYSICIAN] - 1 Week (for cystoscopy) Activity/Diet/Wound Care/Special Instructions: Activity Limited until follow-up Follow-up with pulmonary outpatient Follow-up with general surgery outpatient for colonoscopy Follow-up oncology Continue taking prednisone taper Follow-up with urology outpatient Discharge Disposition: LEFT AGAINST MEDICAL ADVICE
== END 2023-01-29 21:20 | disposition left against medical advice (07) | DRG 871 ==
LOC: EC 06:48 → 3SCARD 08:46 → 2SICU 01-22 10:28 → 4SSUR 01-27 16:30
PROVIDERS: ADMIT Hospitalist; ATTEND Hospitalist
PROC: 5A09357 Assistance with Respiratory Ventilation, Less than 24 Consecutive Hours, Continuous Positive Airway Pressure (ICD-10-PCS; 2023-01-20)
PROC: 5A1945Z Respiratory Ventilation, 24-96 Consecutive Hours (ICD-10-PCS; principal; 2023-01-22)
PROC: 0D9670Z Drainage of Stomach with Drainage Device, Via Natural or Artificial Opening (ICD-10-PCS; principal; 2023-01-22)
PROC: 3E0G76Z Introduction of Nutritional Substance into Upper GI, Via Natural or Artificial Opening (ICD-10-PCS; principal; 2023-01-22)
PROC: 0BH17EZ Insertion of Endotracheal Airway into Trachea, Via Natural or Artificial Opening (ICD-10-PCS; principal; 2023-01-22)
PROC: 4A133B1 Monitoring of Arterial Pressure, Peripheral, Percutaneous Approach (ICD-10-PCS; 2023-01-22)
PROC: 4A133J1 Monitoring of Arterial Pulse, Peripheral, Percutaneous Approach (ICD-10-PCS; 2023-01-22)
PROC: 3E043XZ Introduction of Vasopressor into Central Vein, Percutaneous Approach (ICD-10-PCS; 2023-01-22)
PROC: 02HV33Z Insertion of Infusion Device into Superior Vena Cava, Percutaneous Approach (ICD-10-PCS; 2023-01-22)
PROC: 03HY32Z Insertion of Monitoring Device into Upper Artery, Percutaneous Approach (ICD-10-PCS; 2023-01-22)
PROC: 0DJD8ZZ Inspection of Lower Intestinal Tract, Via Natural or Artificial Opening Endoscopic (ICD-10-PCS; 2023-01-28)
PROC: 0DB78ZX Excision of Stomach, Pylorus, Via Natural or Artificial Opening Endoscopic, Diagnostic (ICD-10-PCS; 2023-01-28)
DX: A41.9 Sepsis, unspecified organism (principal); J96.21 Acute and chronic respiratory failure with hypoxia; J96.22 Acute and chronic respiratory failure with hypercapnia; J44.1 Chronic obstructive pulmonary disease with (acute) exacerbation; K57.32 Diverticulitis of large intestine without perforation or abscess without bleeding; J98.11 Atelectasis; I27.20 Pulmonary hypertension, unspecified; D69.6 Thrombocytopenia, unspecified; E11.22 Type 2 diabetes mellitus with diabetic chronic kidney disease; B36.8 Other specified superficial mycoses; E03.9 Hypothyroidism, unspecified; D64.9 Anemia, unspecified; N18.30 Chronic kidney disease, stage 3 unspecified; Z20.822 Contact with and (suspected) exposure to COVID-19; Z28.310 Unvaccinated for COVID-19; I12.9 Hypertensive chronic kidney disease with stage 1 through stage 4 chronic kidney disease, or unspecified chronic kidney disease; G89.29 Other chronic pain; M54.50 Low back pain, unspecified; E78.5 Hyperlipidemia, unspecified; G47.33 Obstructive sleep apnea (adult) (pediatric); F32.A Depression, unspecified; F41.9 Anxiety disorder, unspecified; M19.90 Unspecified osteoarthritis, unspecified site; K57.30 Diverticulosis of large intestine without perforation or abscess without bleeding; K52.9 Noninfective gastroenteritis and colitis, unspecified; K21.9 Gastro-esophageal reflux disease without esophagitis; K29.70 Gastritis, unspecified, without bleeding; I25.10 Atherosclerotic heart disease of native coronary artery without angina pectoris; R31.9 Hematuria, unspecified; N32.89 Other specified disorders of bladder; E66.9 Obesity, unspecified; Z68.30 Body mass index [BMI] 30.0-30.9, adult; F17.210 Nicotine dependence, cigarettes, uncomplicated; N41.9 Inflammatory disease of prostate, unspecified; K62.89 Other specified diseases of anus and rectum; Z99.81 Dependence on supplemental oxygen; Z53.29 Procedure and treatment not carried out because of patient's decision for other reasons; Z79.82 Long term (current) use of aspirin; Z79.84 Long term (current) use of oral hypoglycemic drugs; Z79.891 Long term (current) use of opiate analgesic; Z79.899 Other long term (current) drug therapy; Z85.048 Personal history of other malignant neoplasm of rectum, rectosigmoid junction, and anus; Z85.51 Personal history of malignant neoplasm of bladder; Z71.6 Tobacco abuse counseling; Z99.3 Dependence on wheelchair; Z95.5 Presence of coronary angioplasty implant and graft; Z86.73 Personal history of transient ischemic attack (TIA), and cerebral infarction without residual deficits; Z71.3 Dietary counseling and surveillance; Z88.8 Allergy status to other drugs, medicaments and biological substances; Z91.041 Radiographic dye allergy status
CPT/HCPCS: 36415; 36600; 43239; 45378; 71045; 74176; 80048; 80053; 80076; 81001; 82330; 82607; 82747; 82805; 83036; 83735; 83880; 84484; 85025; 85027; 85384; 85610; 85730; 86022; 87040; 87070; 87205; 87324; 87636; 88305; 93005; 94002; 94003; 94640; 94660; 96365; 96366; 96375; 96376; 99285

== ENCOUNTER 2023-07-09 03:44 | Inpatient (IN) | payer MEDICARE, OTHER ==
[2023-07-09] MEDS: IPRATROPIUM-ALBUTEROL 3 ML NEB INHALATION STA (03:56)
[2023-07-09] MEDS: methylPREDNISolone SOD SUCCI 125 MG/2 ML VIAL IV STA (04:16)
[2023-07-09] MEDS: MAGNESIUM SULFATE-D5W PMX 1 GM in DEXTROSE/WATER 1 100ML.BAG IVPB STA (04:18)
[2023-07-09 04:52] LABS: Basophils # (A) 0.1 k/uL (0-0.2); Basophils % (A) 2 %; Eosinophils % (A) 1 %; HCT 45.3 % (39.0-53.0); Hypochromasia Slight; Lymphocytes # (A) 0.5 k/uL (1.0-4.8); Lymphocytes % (A) 9 %; MCH 27.9 pg (25.0-35.0); MCHC 30.9 g/dL (31.0-37.0); MCV 90.2 fL (80.0-100.0); Mean Platelet Volume 9.5; Monocytes # (A) 0.4 k/uL (0-1.0); Monocytes % (A) 8 %; Neutrophils # (A) 4.5 k/uL (1.3-7.7); Neutrophils % (A) 79 %; Platelet Count 122 k/uL (150-450); RBC 5.02 m/uL (4.30-5.90); RDW 15.2 % (11.5-15.5); WBC 5.7 k/uL (3.8-10.6)
[2023-07-09 05:05] LABS: ALT 16 U/L (4-49); AST 36 U/L (17-59); African American GFR (CKD) 77 (>60 ml/min/1.73 sqM); Albumin 4.2 g/dL (3.5-5.0); Alkaline Phosphatase 84 U/L (38-126); Anion Gap 13 mmol/L; Blood Urea Nitrogen 22 mg/dL (9-20); Carbon Dioxide 24 mmol/L (22-30); Chloride 102 mmol/L (98-107); Glucose 209 mg/dL (74-99); Non-African American GFR(CKD) 66 (>60 ml/min/1.73 sqM); Sodium 139 mmol/L (137-145); Total Bilirubin 0.8 mg/dL (0.2-1.3); Total Protein 7.2 g/dL (6.3-8.2)
[2023-07-09 05:13] LABS: NT-Pro-B-Type Natriuretic Pept 1010 pg/mL
[2023-07-09 05:23] LABS: INR 1.1 (<1.2); Prothrombin Time 11.6 sec (10.0-12.5)
--- NOTE | 2023-07-09 05:57 | XR ---
EXAM: XR Chest, 1 View CLINICAL HISTORY: TRAUMA TECHNIQUE: Frontal view of the chest. COMPARISON: 06/23/2023. FINDINGS: Right costophrenic angle is excluded. Heart is normal in size. No pleural effusion or pneumothorax. Postoperative changes of the lower cervical upper thoracic spine. IMPRESSION: No acute abnormality. Right costophrenic angle is excluded.
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
[2023-07-09] MEDS ORDERED: NALOXONE 0.4 MG/ML 1 ML VIAL IV PRN (06:34)
[2023-07-09] MEDS ORDERED: ACETAMINOPHEN TAB 325 MG TAB PO PRN (06:34)
[2023-07-09] MEDS: HYDROcodone/APAP 10-325MG 1 EACH TAB PO PRN (07:49)
[2023-07-09] MEDS: methylPREDNISolone SOD SUCCI 40 MG/ML 1 ML VIAL IV SCH (07:49)
[2023-07-09] MEDS: IPRATROPIUM-ALBUTEROL 3 ML NEB INHALATION SCH (08:09)
[2023-07-09] MEDS: OSELTAMIVIR 75 MG CAP PO SCH (09:16)
[2023-07-09] MEDS: PREGABALIN 100 MG CAP PO SCH (10:44)
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
[2023-07-09] MEDS: CALCIUM GLUCONATE IN NACL 1 GM in SALINE 1 100ML.BAG IVPB ONE (10:56)
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
[2023-07-09] MEDS: CALCIUM CARBONATE 500 MG CHEWABLE PO SCH (16:55)
[2023-07-09] MEDS: HYDROcodone/APAP 10-325MG 1 EACH TAB PO SCH (16:55)
[2023-07-09 20:10] LABS: Glucose,Whole Blood 233 mg/dL (70-110)
[2023-07-09] MEDS: SYMBICORT 160-4.5 MCG INHALER INHALATION SCH (20:23)
[2023-07-09] MEDS ORDERED: LATANOPROST 0.005% OPHTH DROPS 2.5 ML BTL BOTH EYES SCH (21:00)
[2023-07-09] MEDS: METOPROLOL TARTRATE 12.5 MG TAB PO SCH (21:10)
[2023-07-09] MEDS: busPIRone HCl 5 MG TAB PO SCH (21:10)
[2023-07-09] MEDS: ATORVASTATIN 40 MG TAB PO SCH (21:10)
[2023-07-09] MEDS: LATANOPROST 0.005% OPHTH DROPS 2.5 ML BTL BOTH EYES SCH (22:42)
[2023-07-10 06:29] LABS: Glucose,Whole Blood 225 mg/dL (70-110)
[2023-07-10] MEDS: IPRATROPIUM-ALBUTEROL 3 ML NEB INHALATION SCH (08:37)
[2023-07-10] MEDS: ISOSORBIDE MONONITRATE ER 30 MG TAB.ER.24H PO SCH (08:37)
[2023-07-10] MEDS: POTASSIUM CHLORIDE ER 20 MEQ TAB.ER PO SCH (08:38)
[2023-07-10] MEDS: ESCITALOPRAM 10 MG TAB PO SCH (08:39)
[2023-07-10 11:34] LABS: Basophils % (A) 0 %; Eosinophils % (A) 0 %; HCT 43.7 % (39.0-53.0); HGB 13.8 gm/dL (13.0-17.5); Hypochromasia Slight; Lymphocytes # (A) 0.3 k/uL (1.0-4.8); Lymphocytes % (A) 7 %; MCH 28.6 pg (25.0-35.0); MCHC 31.6 g/dL (31.0-37.0); MCV 90.6 fL (80.0-100.0); Monocytes # (A) 0.3 k/uL (0-1.0); Monocytes % (A) 8 %; Neutrophils # (A) 3.2 k/uL (1.3-7.7); Neutrophils % (A) 82 %; Platelet Count 113 k/uL (150-450); RBC 4.82 m/uL (4.30-5.90); RDW 15.1 % (11.5-15.5); WBC 3.8 k/uL (3.8-10.6)
[2023-07-10 11:58] LABS: Glucose,Whole Blood 261 mg/dL (70-110)
[2023-07-10 12:36] LABS: African American GFR (CKD) 78 (>60 ml/min/1.73 sqM); Anion Gap 9 mmol/L; Blood Urea Nitrogen 38 mg/dL (9-20); Carbon Dioxide 27 mmol/L (22-30); Chloride 103 mmol/L (98-107); Glucose 207 mg/dL (74-99); Non-African American GFR(CKD) 68 (>60 ml/min/1.73 sqM); Potassium 5.2 mmol/L (3.5-5.1); Sodium 139 mmol/L (137-145)
[2023-07-10 13:08] LABS: Calcium 6.4 mg/dL (8.4-10.2)
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
--- NOTE | 2023-07-10 14:33 | P.PN ---
Subjective Progress Note Date: 07/10/23 patient is a 58-year-old gentleman with past medical history significant for COPD, hyperlipidemia who came to the ER because of shortness of breath. Patient states that he was all right 2 days back when he started noticing shortness of breath. Patient normally uses 4 L of oxygen at rest. Patient stated that he was getting short of breath on minimal exertion. Patient also complaining of generalized weakness. There was no complaint of fever or chills. Patient was complaining of cough. There was no complaint of orthopnea or PND. Because of this worsening shortness of breath patient came to the ER Initial lab work done in the ER showed WBC 5.7, hemoglobin 14, platelet count 122, sodium 139, potassium 5, BUN 22, creatinine 1.20, lactate 2.4, calcium 6 total bilirubin 0.8, AST 36, ALT 16 Influenza A detected Influenza B not detected RSV not detected COVID-19 not detected EKG done in the ER showed heart rate of 106, [place] 226, QRS 81, no ST segment elevation or depression seen, no T-wave inversions seen. Chest x-ray done in the ER showed no acute abnormality Patient admitted to internal medicine service 07/09. Patient seen and examined. States he feels better. Currently on 4 L of oxygen which is baseline. Shortness of breath is not present at rest, gets short of breath on exertion. Lab work done showed WBC 3.8, hemoglobin 13.8, platelet count 113, sodium 139, potassium 5.2 BUN 38, creatinine 1.18, calcium 6.4 REVIEW OF SYSTEMS: CONSTITUTIONAL: No fever, no malaise,. CARDIOVASCULAR: No chest pain, no palpitations, no syncope. PULMONARY: As mentioned above GASTROINTESTINAL: No diarrhea, no nausea, no vomiting, no abdominal pain. NEUROLOGICAL: No headaches, no weakness, PHYSICAL EXAMINATION: GENERAL: The patient is alert and oriented x3, not in any acute distress. Well developed, well nourished. HEENT: Pupils are round and equally reacting to light. EOMI. No scleral icterus. No conjunctival pallor. Normocephalic, atraumatic. No pharyngeal erythema. No thyromegaly. CARDIOVASCULAR: S1 and S2 present. No murmurs, rubs, or gallops. PULMONARY: Coarse breath sound bilaterally, expiratory wheeze audible ABDOMEN: Soft, nontender, nondistended, normoactive bowel sounds. No palpable organomegaly. MUSCULOSKELETAL: No joint swelling or deformity. EXTREMITIES: No cyanosis, clubbing, or pedal edema. NEUROLOGICAL: Gross neurological examination did not reveal any focal deficits. SKIN: No rashes. Assessment and plan Acute on chronic hypoxic respiratory failure Acute influenza A infection Acute COPD exacerbation Hypocalcemia Hyperlipidemia Monitor vital signs Monitor CBC Monitor CMP Continue telemetry monitoring Continue oxygen supplementation Continue BiPAP as needed Continue breathing treatment Continue IV Solu-Medrol 40 g every 8 Continue Tamiflu Continue calcium supplementation Continue Lopressor,Imdur and Lipitor Potassium was elevated, will DC daily potassium supplementation Pulmonology following Labs and medication were reviewed.. Continue same treatment. Continue with symptomatic treatment. Resume home medication. Monitor labs and vitals. DVT and GI prophylaxis. Further recommendations as per clinical course of the patient Dictation was produced using [employer] dictation software. please excuse any grammatical, word or spelling errors. Objective - Vital Signs Vital signs: Vital Signs Temp 98.2 F 07/10/23 08:32 Pulse 77 07/10/23 12:33 Resp 18 07/10/23 12:33 BP 149/81 07/10/23 12:33 Pulse Ox 95 07/10/23 12:33 FiO2 35 07/09/23 08:11 Intake & Output 07/09/23 07/10/23 07/10/23 18:59 06:59 18:59 Intake Total 444 Output Total 400 500 Balance -400 -56 Weight 93.077 kg 92 kg Intake: Oral 444 Output: Urine 400 500 Other: Voiding Method Bedside Commode Bedside Commode Bedside Commode Urinal Urinal Urinal # Voids 1 - Labs CBC & Chem 7: 07/10/23 10:15 07/10/23 10:15 Labs: Abnormal Lab Results - Last 24 Hours (Table) 07/09/23 07/10/23 07/10/23 Range/Units 20:09 06:27 10:15 Plt Count 113 L (150-450) k/uL Lymphocytes # 0.3 L (1.0-4.8) k/uL Potassium (3.5-5.1) mmol/L BUN (9-20) mg/dL Glucose (74-99) mg/dL POC Glucose (mg/dL) 233 H 225 H (70-110) mg/dL Calcium (8.4-10.2) mg/dL 07/10/23 07/10/23 Range/Units 10:15 11:53 Plt Count (150-450) k/uL Lymphocytes # (1.0-4.8) k/uL Potassium 5.2 H (3.5-5.1) mmol/L BUN 38 H (9-20) mg/dL Glucose 207 H (74-99) mg/dL POC Glucose (mg/dL) 261 H (70-110) mg/dL Calcium 6.4 L* (8.4-10.2) mg/dL
[2023-07-10] MEDS ORDERED: DEXTROSE 50% SYRINGE 50 ML IVP PRN ×2 (16:31)
[2023-07-10 16:32] LABS: Glucose,Whole Blood 232 mg/dL (70-110)
[2023-07-10] MEDS: INSULIN ASPART (NovoLOG) 100 UNIT/ML VIAL SQ SCH (18:18)
[2023-07-10 20:02] LABS: Glucose,Whole Blood 273 mg/dL (70-110)
[2023-07-10] MEDS: IPRATROPIUM-ALBUTEROL 3 ML NEB INHALATION PRN (23:53)
[2023-07-11 05:45] LABS: Glucose,Whole Blood 207 mg/dL (70-110)
[2023-07-11] MEDS: HYDROcodone/APAP 10-325MG 1 EACH TAB PO PRN (06:53)
[2023-07-11] MEDS ORDERED: hydrALAZINE HCL 20 MG/ML 1 ML VIAL IVP PRN (09:27)
[2023-07-11 10:07] LABS: Basophils % (A) 0 %; Eosinophils % (A) 0 %; HCT 42.3 % (39.0-53.0); HGB 13.4 gm/dL (13.0-17.5); Lymphocytes # (A) 0.3 k/uL (1.0-4.8); Lymphocytes % (A) 7 %; MCH 28.4 pg (25.0-35.0); MCHC 31.8 g/dL (31.0-37.0); MCV 89.3 fL (80.0-100.0); Monocytes # (A) 0.3 k/uL (0-1.0); Monocytes % (A) 8 %; Neutrophils # (A) 3.4 k/uL (1.3-7.7); Neutrophils % (A) 83 %; Platelet Count 118 k/uL (150-450); RBC 4.74 m/uL (4.30-5.90); RDW 14.9 % (11.5-15.5); WBC 4.1 k/uL (3.8-10.6)
[2023-07-11 10:42] LABS: ALT 14 U/L (4-49); AST 25 U/L (17-59); African American GFR (CKD) 80 (>60 ml/min/1.73 sqM); Albumin 3.8 g/dL (3.5-5.0); Alkaline Phosphatase 69 U/L (38-126); Anion Gap 9 mmol/L; Blood Urea Nitrogen 41 mg/dL (9-20); Carbon Dioxide 28 mmol/L (22-30); Chloride 100 mmol/L (98-107); Glucose 211 mg/dL (74-99); Non-African American GFR(CKD) 70 (>60 ml/min/1.73 sqM); Potassium 4.8 mmol/L (3.5-5.1); Sodium 137 mmol/L (137-145); Total Bilirubin 0.7 mg/dL (0.2-1.3); Total Protein 6.6 g/dL (6.3-8.2)
[2023-07-11 11:23] LABS: Calcium 6.4 mg/dL (8.4-10.2)
[2023-07-11 11:36] LABS: Glucose,Whole Blood 214 mg/dL (70-110)
--- NOTE | 2023-07-11 13:07 | P.PN ---
Subjective Progress Note Date: 07/11/23 patient is a 58-year-old gentleman with past medical history significant for COPD, hyperlipidemia who came to the ER because of shortness of breath. Patient states that he was all right 2 days back when he started noticing shortness of breath. Patient normally uses 4 L of oxygen at rest. Patient stated that he was getting short of breath on minimal exertion. Patient also complaining of generalized weakness. There was no complaint of fever or chills. Patient was complaining of cough. There was no complaint of orthopnea or PND. Because of this worsening shortness of breath patient came to the ER Initial lab work done in the ER showed WBC 5.7, hemoglobin 14, platelet count 122, sodium 139, potassium 5, BUN 22, creatinine 1.20, lactate 2.4, calcium 6 total bilirubin 0.8, AST 36, ALT 16 Influenza A detected Influenza B not detected RSV not detected COVID-19 not detected EKG done in the ER showed heart rate of 106, [place] 226, QRS 81, no ST segment elevation or depression seen, no T-wave inversions seen. Chest x-ray done in the ER showed no acute abnormality Patient admitted to internal medicine service 07/09. Patient seen and examined. States he feels better. Currently on 4 L of oxygen which is baseline. Shortness of breath is not present at rest, gets short of breath on exertion. Lab work done showed WBC 3.8, hemoglobin 13.8, platelet count 113, sodium 139, potassium 5.2 BUN 38, creatinine 1.18, calcium 6.4 07/10. Patient seen and examined.Vital signs on this morning showed temperature 98.1, heart rate of 88, respiration 18, blood pressure 178/88, currently on 4 L of oxygen. Calcium was still low, will order 1 more gram of calcium gluconate, continue on calcium carbonate REVIEW OF SYSTEMS: CONSTITUTIONAL: No fever, no malaise,. CARDIOVASCULAR: No chest pain, no palpitations, no syncope. PULMONARY: As mentioned above GASTROINTESTINAL: No diarrhea, no nausea, no vomiting, no abdominal pain. NEUROLOGICAL: No headaches, no weakness, PHYSICAL EXAMINATION: GENERAL: The patient is alert and oriented x3, not in any acute distress. Well developed, well nourished. HEENT: Pupils are round and equally reacting to light. EOMI. No scleral icterus. No conjunctival pallor. Normocephalic, atraumatic. No pharyngeal erythema. No thyromegaly. CARDIOVASCULAR: S1 and S2 present. No murmurs, rubs, or gallops. PULMONARY: Coarse breath sound bilaterally, expiratory wheeze audible ABDOMEN: Soft, nontender, nondistended, normoactive bowel sounds. No palpable organomegaly. MUSCULOSKELETAL: No joint swelling or deformity. EXTREMITIES: No cyanosis, clubbing, or pedal edema. NEUROLOGICAL: Gross neurological examination did not reveal any focal deficits. SKIN: No rashes. Assessment and plan Acute on chronic hypoxic respiratory failure Acute influenza A infection Acute COPD exacerbation Hypocalcemia Hyperlipidemia Monitor vital signs Monitor CBC Monitor CMP Continue telemetry monitoring Continue oxygen supplementation Continue BiPAP as needed Continue breathing treatment Continue IV Solu-Medrol 40 g every 8 Continue Tamiflu Continue calcium supplementation Continue Lopressor,Imdur and Lipitor Potassium was elevated, will DC daily potassium supplementation Pulmonology following Labs and medication were reviewed.. Continue same treatment. Continue with symptomatic treatment. Resume home medication. Monitor labs and vitals. DVT and GI prophylaxis. Further recommendations as per clinical course of the patient Dictation was produced using [employer] dictation software. please excuse any grammatical, word or spelling errors. Objective - Vital Signs Vital signs: Vital Signs Temp 98.1 F 07/11/23 07:51 Pulse 88 07/11/23 09:13 Resp 18 07/11/23 07:51 BP 178/88 07/11/23 07:51 Pulse Ox 94 L 07/11/23 07:51 FiO2 35 07/09/23 08:11 Intake & Output 07/10/23 07/11/23 07/11/23 18:59 06:59 18:59 Intake Total 444 Output Total 600 500 Balance -156 -500 Intake: Oral 444 Output: Urine 600 500 Other: Voiding Method Bedside Commode Bedside Commode Urinal Urinal # Voids 1 - Labs CBC & Chem 7: 07/11/23 08:36 07/11/23 08:36 Labs: Abnormal Lab Results - Last 24 Hours (Table) 07/10/23 07/10/23 07/10/23 Range/Units 10:15 10:15 11:53 Plt Count 113 L (150-450) k/uL Lymphocytes # 0.3 L (1.0-4.8) k/uL Potassium 5.2 H (3.5-5.1) mmol/L BUN 38 H (9-20) mg/dL Glucose 207 H (74-99) mg/dL POC Glucose (mg/dL) 261 H (70-110) mg/dL Calcium 6.4 L* (8.4-10.2) mg/dL 07/10/23 07/10/23 07/11/23 Range/Units 16:30 19:59 05:44 Plt Count (150-450) k/uL Lymphocytes # (1.0-4.8) k/uL Potassium (3.5-5.1) mmol/L BUN (9-20) mg/dL Glucose (74-99) mg/dL POC Glucose (mg/dL) 232 H 273 H 207 H (70-110) mg/dL Calcium (8.4-10.2) mg/dL
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
[2023-07-11] MEDS: CALCIUM GLUCONATE IN NACL 1 GM in SALINE 1 100ML.BAG IVPB ONE (14:17)
[2023-07-11 16:28] LABS: Glucose,Whole Blood 287 mg/dL (70-110)
[2023-07-11 20:10] LABS: Glucose,Whole Blood 260 mg/dL (70-110)
[2023-07-12 06:27] LABS: Glucose,Whole Blood 211 mg/dL (70-110)
[2023-07-12 09:13] LABS: HCT 44.1 % (39.0-53.0); HGB 14.3 gm/dL (13.0-17.5); Hypochromasia Slight; MCH 28.8 pg (25.0-35.0); MCHC 32.4 g/dL (31.0-37.0); MCV 89.1 fL (80.0-100.0); Mean Platelet Volume 9.6; Platelet Count 108 k/uL (150-450); RBC 4.95 m/uL (4.30-5.90); RDW 14.7 % (11.5-15.5)
--- NOTE | 2023-07-12 09:14 | P.PN ---
Subjective patient is a 58-year-old gentleman with past medical history significant for COPD, hyperlipidemia who came to the ER because of shortness of breath. Patient states that he was all right 2 days back when he started noticing shortness of breath. Patient normally uses 4 L of oxygen at rest. Patient stated that he was getting short of breath on minimal exertion. Patient also complaining of generalized weakness. There was no complaint of fever or chills. Patient was complaining of cough. There was no complaint of orthopnea or PND. Because of this worsening shortness of breath patient came to the ER Initial lab work done in the ER showed WBC 5.7, hemoglobin 14, platelet count 122, sodium 139, potassium 5, BUN 22, creatinine 1.20, lactate 2.4, calcium 6 total bilirubin 0.8, AST 36, ALT 16 Influenza A detected Influenza B not detected RSV not detected COVID-19 not detected EKG done in the ER showed heart rate of 106, TN 226, QRS 81, no ST segment elevation or depression seen, no T-wave inversions seen. Chest x-ray done in the ER showed no acute abnormality Patient admitted to internal medicine service 07/09. Patient seen and examined. States he feels better. Currently on 4 L of oxygen which is baseline. Shortness of breath is not present at rest, gets short of breath on exertion. Lab work done showed WBC 3.8, hemoglobin 13.8, platelet count 113, sodium 139, potassium 5.2 BUN 38, creatinine 1.18, calcium 6.4 07/10. Patient seen and examined.Vital signs on this morning showed temperature 98.1, heart rate of 88, respiration 18, blood pressure 178/88, currently on 4 L of oxygen. Calcium was still low, will order 1 more gram of calcium gluconate, continue on calcium carbonate 07/12/2023 Patient awake and alert Breathing quietly, he still has some dyspnea especially with little exertion. Patient is wheelchair-bound for 20 years No significant chest pain, he has mild dry cough and No other new complaint He remains on 4 L of oxygen per minute which is his home dose. His lmft is Dr. Azevedo He remains on Tamiflu on Zosyn Possible discharge in 24 to 48 hours if he cleared by pulmonary team and keep improvement Objective - Vital Signs Vital signs: Vital Signs Temp 98.2 F 07/12/23 07:48 Pulse 62 07/12/23 07:48 Resp 16 07/12/23 07:48 BP 172/91 07/12/23 07:48 Pulse Ox 94 L 07/12/23 07:48 FiO2 35 07/09/23 08:11 Intake & Output 07/11/23 07/12/23 07/12/23 18:59 06:59 18:59 Intake Total 458 Output Total 400 850 Balance 58 -850 Intake: Intake, IV Titration 100 Amount Calcium Gluconate in NaCl 100 1 gm In Saline 1 100ml. bag @ 100 mls/hr IVPB ONCE ONE Rx#:[id number] Oral 358 Output: Urine 400 850 Other: Voiding Method Bedside Commode Bedside Commode Urinal Urinal - Exam -GENERAL: The patient is alert and oriented x3, not in any acute distress. Obese HEENT: Pupils are round and equally reacting to light. EOMI. No scleral icterus. No conjunctival pallor. Normocephalic, atraumatic. No pharyngeal erythema. No thyromegaly. CARDIOVASCULAR: S1 and S2 present. No murmurs, rubs, or gallops. PULMONARY: Chest is clear to auscultation, no wheezing , no crackles. ABDOMEN: Soft, nontender, nondistended, normoactive bowel sounds. No palpable organomegaly. MUSCULOSKELETAL: No joint swelling or deformity. EXTREMITIES: No cyanosis, clubbing, or pedal edema. -NEUROLOGICAL: Gross neurological examination did not reveal any focal deficits. Chronic lower extremity weakness SKIN: No rashes. no petechiae. - Labs CBC & Chem 7: 07/11/23 08:36 07/11/23 08:36 Labs: Abnormal Lab Results - Last 24 Hours (Table) 07/11/23 07/11/23 07/11/23 Range/Units 08:36 08:36 11:34 Plt Count 118 L (150-450) k/uL Lymphocytes # 0.3 L (1.0-4.8) k/uL BUN 41 H (9-20) mg/dL Glucose 211 H (74-99) mg/dL POC Glucose (mg/dL) 214 H (70-110) mg/dL Calcium 6.4 L* (8.4-10.2) mg/dL 07/11/23 07/11/23 07/12/23 Range/Units 16:24 19:54 05:56 Plt Count (150-450) k/uL Lymphocytes # (1.0-4.8) k/uL BUN (9-20) mg/dL Glucose (74-99) mg/dL POC Glucose (mg/dL) 287 H 260 H 211 H (70-110) mg/dL Calcium (8.4-10.2) mg/dL Assessment and Plan Assessment: Acute on chronic hypoxic respiratory failure Acute influenza A infection, Acute COPD exacerbation Chronic hypoxic respiratory failure Hypocalcemia Hyperlipidemia Wheelchair-bound, chronic, immobility Obesity with BMI of 32.7 Plan: Continue with Tamiflu Continuous IV Solu-Medrol Pulmonary team consult Labs and medication were reviewed.. Continue same treatment. Continue with symptomatic treatment. Resume home medication. Monitor labs and vitals. DVT and GI prophylaxis. Further recommendations as per clinical course of the patient DVT prophylaxis: Subcutaneous heparin GI Prophylaxis: Ppi Prognosis is guarded
[2023-07-12 09:24] LABS: ALT 15 U/L (4-49); AST 21 U/L (17-59); African American GFR (CKD) 86 (>60 ml/min/1.73 sqM); Albumin 3.9 g/dL (3.5-5.0); Alkaline Phosphatase 67 U/L (38-126); Anion Gap 8 mmol/L; Blood Urea Nitrogen 36 mg/dL (9-20); Calcium 6.9 mg/dL (8.4-10.2); Carbon Dioxide 32 mmol/L (22-30); Chloride 102 mmol/L (98-107); Glucose 208 mg/dL (74-99); Non-African American GFR(CKD) 75 (>60 ml/min/1.73 sqM); Sodium 142 mmol/L (137-145); Total Bilirubin 0.8 mg/dL (0.2-1.3); Total Protein 6.8 g/dL (6.3-8.2)
[2023-07-12] MEDS: HEPARIN SODIUM,PORCINE 5,000 UNIT/ML 1 ML VIAL SQ SCH (10:19)
[2023-07-12] MEDS: predniSONE 20 MG TAB PO SCH (11:03)
[2023-07-12 11:29] LABS: Glucose,Whole Blood 165 mg/dL (70-110)
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
[2023-07-12 16:57] LABS: Glucose,Whole Blood 242 mg/dL (70-110)
[2023-07-12 20:32] LABS: Glucose,Whole Blood 257 mg/dL (70-110)
[2023-07-12 21:07] VITALS: TEMP 97.5
[2023-07-13 06:05] LABS: Glucose,Whole Blood 115 mg/dL (70-110)
[2023-07-13 09:24] VITALS: RESP 18
[2023-07-13 11:32] LABS: Glucose,Whole Blood 228 mg/dL (70-110)
[2023-07-13 12:08] VITALS: BP 124/80
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
[2023-07-13 15:47] VITALS: PULSE 80
--- NOTE | 2023-07-13 23:13 | P.DS ---
Providers Date of admission: 07/09/23 06:36 Attending physician: Brianna Venegas Consults: 07/09/23 06:34 Consult Physician Urgent Consulting Provider: Jason Munoz Consult Reason/Comments: acute bipap dependant resp failure, aecopd, influenza a Do you want consulting provider notified?: Yes Primary care physician: [facility] Hospital Course: Diagnoses: Acute on chronic hypoxic respiratory failure Acute influenza A infection, Acute COPD exacerbation Chronic hypoxic respiratory failure Hypocalcemia Hyperlipidemia Wheelchair-bound, chronic, immobility Obesity with BMI of 32.7 Hospital course: patient is a 58-year-old gentleman with past medical history significant for COPD, hyperlipidemia who came to the ER because of shortness of breath. Patient states that he was all right 2 days back when he started noticing shortness of breath. Patient normally uses 4 L of oxygen at rest. Patient stated that he was getting short of breath on minimal exertion. Patient admitted to the hospital with worsening dyspnea and found to have acute influenza A infection with tracheobronchitis affecting his breathing needed to acute COPD exacerbation and worsening hypoxia. Patient was treated with IV Solu-Medrol 40 mg as well as with Tamiflu, patient showed interval improvement and today his dyspnea improved. Denies any chest pain. Patient presents today. He is at his home level of 4 L oxygen. Patient states he has oxygen at home. Patient is wheelchair-bound Patient was cleared for discharge by pulmonary service Problems and management plan were discussed with the patient and he verbalized understanding and acceptance Patient was found stable and can be discharged home in guarded prognosis however he needs follow-up as an outpatient. Patient was instructed to follow up with PCP within one week and patient agrees Patient was instructed to follow-up with Dr. Azevedo in 1 to 2 weeks and he agrees Physical exam Gen: patient is a AAOx3, no distress CVS: S1-S2, RRR, no murmur Lungs: B/L CTA, no wheezing Abdomen: soft, no distention, no tenderness, positive bowel sounds Extremity: no leg edema or induration Time spent more than 35 minutes Patient Condition at Discharge: Serious Plan - Discharge Summary Discharge Rx Participant: No New Discharge Prescriptions: New predniSONE 10 mg PO DIRECTED #40 tab Budesonide-Formot 160-4.5 Mcg [Symbicort 160-4.5 Mcg Inhaler] 2 puff INHALATION RT-BID #1 each Oseltamivir [Tamiflu] 75 mg PO BID 1 Days #1 cap Continue Isosorbide Mononitrate ER [Imdur] 30 mg PO DAILY #30 tab Metoprolol Tartrate [Lopressor] 12.5 mg PO BID Latanoprost [Latanoprost 0.005%] 1 drop BOTH EYES HS fentaNYL 75MCG/HR PATCH [Duragesic 75MCG/HR] 1 patch TRANSDERM Q72H busPIRone HCL 15 mg PO BID Potassium Chloride ER [K-Dur 20] 20 meq PO DAILY HYDROcodone/APAP 10-325MG [Lincoln 10-325] 1 tab PO TID Escitalopram [Lexapro] 10 mg PO DAILY Albuterol Sulfate [Ventolin HFA] 2 puff INHALATION RT-Q4H PRN PRN Reason: Shortness Of Breath Atorvastatin [Lipitor] 40 mg PO HS Pregabalin [Lyrica] 200 mg PO BID predniSONE 5 mg PO DAILY Fluticasone Propion/Salmeterol [Fluticasone-Salmeterol 250-50] 2 puff PO RT- BID Bimatoprost [Lumigan 0.01% Ophth Soln] 1 drop BOTH EYES HS Discharge Medication List busPIRone HCL 15 mg PO BID 07/28/21 [History] Isosorbide Mononitrate ER [Imdur] 30 mg PO DAILY #30 tab 10/28/21 [Rx] Potassium Chloride ER [K-Dur 20] 20 meq PO DAILY 12/18/21 [History] HYDROcodone/APAP 10-325MG [Lincoln 10-325] 1 tab PO TID 09/08/22 [History] Albuterol Sulfate [Ventolin HFA] 2 puff INHALATION RT-Q4H PRN 11/07/22 [History] Escitalopram [Lexapro] 10 mg PO DAILY 11/07/22 [History] Atorvastatin [Lipitor] 40 mg PO HS 01/20/23 [History] Bimatoprost [Lumigan 0.01% Ophth Soln] 1 drop BOTH EYES HS 07/09/23 [History] Fluticasone Propion/Salmeterol [Fluticasone-Salmeterol 250-50] 2 puff PO RT-BID 07/09/23 [History] Latanoprost [Latanoprost 0.005%] 1 drop BOTH EYES HS 07/09/23 [History] Metoprolol Tartrate [Lopressor] 12.5 mg PO BID 07/09/23 [History] Pregabalin [Lyrica] 200 mg PO BID 07/09/23 [History] fentaNYL 75MCG/HR PATCH [Duragesic 75MCG/HR] 1 patch TRANSDERM Q72H 07/09/23 [History] predniSONE 5 mg PO DAILY 07/09/23 [History] Budesonide-Formot 160-4.5 Mcg [Symbicort 160-4.5 Mcg Inhaler] 2 puff INHALATION RT-BID #1 each 07/13/23 [Rx] Oseltamivir [Tamiflu] 75 mg PO BID 1 Days #1 cap 07/13/23 [Rx] predniSONE 10 mg PO DIRECTED #40 tab 07/13/23 [Rx] Follow up Appointment(s)/Referral(s): Jason Munoz MD [STAFF PHYSICIAN] - 07/23/23 8:30 am Adán Amaro DO [Primary Care Provider] - 1-2 days (Message left with office to call you to schedule follow up) Patient Instructions/Handouts: Influenza (IP) Activity/Diet/Wound Care/Special Instructions: Activity as tolerated until you see your doctor Continue with home dose of oxygen 4 L/min. Discharge Disposition: HOME SELF-CARE
== END 2023-07-13 16:03 | disposition home or self-care (01) | DRG 189 ==
LOC: EC 03:44 → 3SCARD 06:36
PROVIDERS: ADMIT Hospitalist; ATTEND Hospitalist
PROC: 5A09357 Assistance with Respiratory Ventilation, Less than 24 Consecutive Hours, Continuous Positive Airway Pressure (ICD-10-PCS; principal; 2023-07-09)
DX: J96.21 Acute and chronic respiratory failure with hypoxia (principal); J44.1 Chronic obstructive pulmonary disease with (acute) exacerbation; E83.51 Hypocalcemia; E11.9 Type 2 diabetes mellitus without complications; F32.A Depression, unspecified; E66.9 Obesity, unspecified; Z68.32 Body mass index [BMI] 32.0-32.9, adult; I10 Essential (primary) hypertension; Z28.310 Unvaccinated for COVID-19; J10.1 Influenza due to other identified influenza virus with other respiratory manifestations; E78.5 Hyperlipidemia, unspecified; F41.9 Anxiety disorder, unspecified; F17.200 Nicotine dependence, unspecified, uncomplicated; G47.33 Obstructive sleep apnea (adult) (pediatric); K21.9 Gastro-esophageal reflux disease without esophagitis; M54.9 Dorsalgia, unspecified; Z79.51 Long term (current) use of inhaled steroids; Z79.891 Long term (current) use of opiate analgesic; Z79.899 Other long term (current) drug therapy; Z85.048 Personal history of other malignant neoplasm of rectum, rectosigmoid junction, and anus; Z85.51 Personal history of malignant neoplasm of bladder; Z95.5 Presence of coronary angioplasty implant and graft; Z99.3 Dependence on wheelchair; Z88.8 Allergy status to other drugs, medicaments and biological substances; Z91.041 Radiographic dye allergy status
CPT/HCPCS: 36410; 36415; 71045; 76937; 80048; 80053; 82330; 83605; 83880; 84484; 85025; 85027; 85610; 85730; 87636; 93005; 94640; 94660; 94760; 96365; 96366; 96367; 96375; 96376; 99291

== ENCOUNTER 2023-08-11 09:50 | Day surgery (SDC) | payer MEDICARE, OTHER ==
[~2023-08-11 09:50] MED LIST changes: +ALPRAZolam 0.25 MG TAB PO PRN; +ALPRAZolam 0.5 MG TAB PO PRN; -AMPICILLIN 1,000 MG in SODIUM CHLORIDE 0.9% 50 ML IVPB PRN; +ASPIRIN 325 MG TAB PO STA; -DEXAMETHASONE SOD PHOSPHATE 4 MG/ML 1 ML VIAL IV ONE; -GENTAMICIN 120 MG in SODIUM CHLORIDE 0.9% 100 ML IVPB PRN; -HYDROmorphone 0.5 MG/0.5 ML SYRINGE IVP PRN; -LACTATED RINGERS 1,000 ML IV SCH; -LIDOCAINE 1% (10MG/ML) FOR IV START INTRADERMA PRN; -ONDANSETRON 4 MG/2 ML VIAL IVP ONE
[2023-08-11] MEDS: SODIUM CHLORIDE 0.9% 1,000 ML in EMPTY BAG 1 BAG IV SCH (10:11)
[2023-08-11] MEDS: ISOSORBIDE MONONITRATE ER 60 MG TAB.ER.24H PO STA (10:25)
[2023-08-11] MEDS: METOPROLOL TARTRATE 50 MG TAB PO STA (10:25)
[2023-08-11] MEDS ORDERED: FAMOTIDINE 20 MG/2 ML VIAL ONE (10:30)
[2023-08-11] MEDS ORDERED: methylPREDNISolone SOD SUCCI 125 MG/2 ML VIAL IM ONE (10:38)
[2023-08-11 10:43] VITALS: RESP 18
[2023-08-11] MEDS: FAMOTIDINE 20 MG TAB PO STA (10:43)
[2023-08-11] MEDS: diphenhydrAMINE 50 MG/ML 1 ML VIAL ONE (10:43)
[2023-08-11] MEDS: methylPREDNISolone SOD SUCCI 125 MG/2 ML VIAL IV STA (10:43)
[2023-08-11] MEDS: NITROGLYCERIN SL TABS 0.4 MG TAB SUBLINGUAL PRN (11:30)
[2023-08-11] MEDS ORDERED: VERAPAMIL 2.5 MG/ML 2 ML AMP ONE (12:30)
[2023-08-11] MEDS ORDERED: fentaNYL (PF) 50 MCG/ML 2 ML AMP ONE (12:30)
[2023-08-11] MEDS ORDERED: LIDOCAINE 1% INJ 10MG/ML (20 ML MDV) ONE (12:31)
[2023-08-11] MEDS ORDERED: HEPARIN SODIUM 1,000 UN/ML (10ML VL) ONE (12:31)
[2023-08-11] MEDS: LIDOCAINE 2% (PF) 20 MG/ML 5 ML VIAL SQ ONE (12:48)
[2023-08-11] MEDS: fentaNYL (PF) 50 MCG/1 ML VIAL IVP ONE ×2 (12:48→12:52)
[2023-08-11] MEDS: MIDAZOLAM 2 MG/2 ML VIAL IVP ONE (12:57)
[2023-08-11] MEDS: IOPAMIDOL-370 100ML BTL INTRATHECA ONE (13:01)
[2023-08-11] MEDS ORDERED: RX INFO: IV CONTRAST WAS GIVEN 1 EACH MISC MISCELLANE PRN (13:13)
[2023-08-11] MEDS ORDERED: SODIUM CHLORIDE 0.9% 1,000 ML IV SCH (13:15)
--- NOTE | 2023-08-11 13:19 | P.PCN ---
Date of Procedure: 08/11/23 Operative Findings: CARDIAC CATHETERIZATION PERFORMING PHYSICIAN: Umair Randhawa MD, RPVI PROCEDURE PERFORMED: 1. Selective right and left coronary angiogram 2. Ultrasound-guided access of the right radial artery INDICATION: Unstableunstable COMPLICATION: None APPROACH: Right radial artery LEVEL OF SEDATION: Moderate with a sedation length of 20 minutes PROCEDURE DESCRIPTION: After obtaining an informed consent, the patient was brought to cardiac clinical laboratory science professor. Local anesthesia was performed using lidocaine subcutaneously. The right radial artery was cannulated using Seldinger technique, the guidewire passed easily, following that we advanced a 5-Syrian sheath dilator assembly, the wire and dilator were removed and sheath was flushed. Following that, 2 mg of verapamil along with 5000 unit heparin were given. Selective right and left coronary angiogram using a 6-Syrian JR4 and JL 3.5 c atheters. Following that we did left heart catheterization using 6-Syrian pigtail catheter. The procedure was completed there was no complication. SELECTIVE CORONARY ANGIOGRAM: The right coronary artery: Large-caliber vessel and chronically occluded which is a known finding from Left main: Has mild disease only The left circumflex: Large-caliber vessel with mild disease in the proximal portion and gives rise into a large OM branch which appears to be normal The left anterior descending artery: Large caliber vessel with mild to moderate disease in the proximal portion. Gives rise into the first diagonal branch which has mild disease only and second diagonal branch which is chronically occluded. CONCLUSION: 1. Chronic total occlusion of the RCA which is a known finding from before 2. Mild to moderate disease involving the left coronary system with chronic total occlusion of the second diagonal branch POSTPROCEDURE MANAGEMENT: Giving the unchanged findings compared to heart catheterization in 2021 I would advise continue the current medical regimen and follow-up with the patient
[2023-08-11] MEDS: SODIUM CHLORIDE 0.9% 500 ML 500 ML IV ONE (15:00)
[2023-08-11 16:06] VITALS: BP 106/56; PULSE 62
== END 2023-08-11 16:40 | disposition home or self-care (01) ==
LOC: CATHCVL 09:50
PROVIDERS: ATTEND Internal Medicine Interventional Cardiology
DX: I25.10 Atherosclerotic heart disease of native coronary artery without angina pectoris (principal); I10 Essential (primary) hypertension; E78.5 Hyperlipidemia, unspecified; C67.9 Malignant neoplasm of bladder, unspecified; E11.9 Type 2 diabetes mellitus without complications; F17.210 Nicotine dependence, cigarettes, uncomplicated; Z82.49 Family history of ischemic heart disease and other diseases of the circulatory system; Z98.61 Coronary angioplasty status; Z79.82 Long term (current) use of aspirin; Z79.84 Long term (current) use of oral hypoglycemic drugs; Z79.899 Other long term (current) drug therapy
CPT/HCPCS: 93458; 76937; C1769; C1894; J2250; J1200; Q9967; J2001; J3010; J2919